=== PATIENT | female | born 1930 | race Caucasian/White ===

== ENCOUNTER 2016-09-29 15:49 | Inpatient (IN) | payer BC ==
[2016-09-29] VITALS (7 sets, daily range): BP systolic 91–140; BP diastolic 51–69
[~2016-09-29] VITALS: Ht 157.5 cm; Wt 60.8 kg
[2016-09-29] MEDS ORDERED: IV NORMAL SALINE 1000ML BAG 1,000 ML IV ONE (16:15)
[2016-09-29] MEDS ORDERED: ONDANSETRON PF 4 MG/2 ML VIAL. IV ONE (16:15)
[2016-09-29] MEDS: fentaNYL PF VIAL 100 MCG/2 ML VIAL IV PRN ×2 (16:31→21:48)
[2016-09-29 16:34] LABS: BASO # 0.1 x10^3/uL (0.0-0.2); BASO % 0 % (0-3); EOS % 0 % (0-3); HEMATOCRIT 31.1 % (36.0-47.0); HEMOGLOBIN 10.6 g/dL (12.0-15.5); LYMPH # 0.6 x10^3/uL (1.0-4.8); LYMPH % 2 % (24-48); MEAN CORPUSCULAR HEMOGLOBIN 31 pg (25-35); MEAN CORPUSCULAR HGB CONC 34 g/dL (31-37); MEAN CORPUSCULAR VOLUME 91 fL (79-100); MONO % 3 % (0-9); NEUT % 95 % (31-73); PLATELET COUNT 204 x10^3/uL (140-400); RED BLOOD COUNT 3.41 x10^6/uL (3.50-5.40); RED CELL DISTRIBUTION WIDTH 13.1 % (11.5-14.5); WHITE BLOOD COUNT 33.4 x10^3/uL (4.0-11.0)
[2016-09-29 16:43] LABS: CREATININE 2.4 mg/dL (0.6-1.0); GFR 19.2; POTASSIUM 4.9 mmol/L (3.5-5.1)
[2016-09-29 16:49] LABS: ALBUMIN 2.8 g/dL (3.4-5.0); ALBUMIN/GLOBULIN RATIO 0.7 (1.0-1.7); TOTAL BILIRUBIN 2.7 mg/dL (0.2-1.0); TOTAL PROTEIN 6.9 g/dL (6.4-8.2)
[2016-09-29 16:51] LABS: BILIRUBIN,URINE SMALL (NEG); GLUCOSE,URINE NEGATIVE (NEG); NITRITE,URINE NEGATIVE (NEG); PROTEIN,URINE NEGATIVE (NEG-TRACE)
--- NOTE | 2016-09-29 16:57 | ED.ADGEN ---
Past Medical History Past Medical History: Cancer, Hypertension, Renal Disease, TIA, Other Additional Past Medical Histor: COLON CA 2012 Past Surgical History: Appendectomy, Cancer Surgery, Hysterectomy Alcohol Use: None Drug Use: None Adult General Chief Complaint Chief Complaint: WEAKNESS/GENERALIZED HPI HPI Patient is a 86 year old woman, history of colon cancer, status post resection in 2013, hypertension, renal disease, TIA, who presents to the emergency department with her daughter via EMS with report of decreasing appetite, development of nausea and vomiting and abdominal pain over the past several days. Patient was unable to get out of bed today due to weakness, prompting patient's daughter calling EMS. Patient is denying complaints in the ED, however groans with palpation of the abdomen. Denies any diarrhea, cannot recall her last bowel movement. Patient's daughter states that the patient has had a gradual decline in her function and mental clarity over the past year or so, which has been exacerbated over the past month after the of the patient's brother. Patient does live alone, and is assisted by her daughter, who lives a few blocks away. Patient states that she is at the doctor's office, is able to give her name. Per daughter, this is baseline for the patient. Patient is moving all extremities, as stated is denying complaints at this time , noted have dry mucous membranes. No reported injuries, and patient has no signs of trauma. As far as the daughter is aware patient still has her gallbladder and appendix. Review of Systems Review of Systems Constitutional: Denies fever or chills. [] Eyes: Denies change in visual acuity. [] HENT: Denies nasal congestion or sore throat. [] Respiratory: Denies cough or shortness of breath. [] Cardiovascular: Denies chest pain or edema. [] GI: Nausea, vomiting, abdominal pain. No reported bloody stools or diarrhea. : Denies dysuria. [] Musculoskeletal: Denies back pain or joint pain. [] Integument: Denies rash. [] Neurologic: Denies headache, focal weakness or sensory changes. [] Endocrine: Denies polyuria or polydipsia. [] Lymphatic: Denies swollen glands. [] Psychiatric: Denies depression or anxiety. [] Current Medications Current Medications Current Medications Medications (Trade) Dose Ordered Sig/Bill Start Time Stop Time Status Last Admin Dose Admin Fentanyl Citrate (Fentanyl 2ml Vial) 25 mcg PRN Q15MIN PRN 09/29/16 16:15 09/30/16 16:14 09/29/16 16:31 25 MCG Ondansetron HCl (Zofran) 4 mg 1X ONCE 09/29/16 16:15 09/29/16 16:16 DC 09/29/16 16:31 4 MG Piperacillin Sod/ Tazobactam Sod (Zosyn Per Pharmacy) 1 each PRN DAILY PRN 09/29/16 18:30 UNV Sodium Chloride 1,000 ml @ 1,770 mls/hr Q34M 09/29/16 17:20 09/29/16 18:21 DC 09/29/16 17:20 1,770 MLS/HR Allergies Allergies Allergies Coded Allergies Type Severity Reaction Last Updated Verified meclizine Allergy Intermediate Swelling 09/29/16 Yes codeine Adverse Reaction Intermediate Nausea and Vomiting 09/29/16 Yes Physical Exam Physical Exam Constitutional: Well developed, well nourished, no acute distress, ill in appearance. [] HENT: Normocephalic, atraumatic, bilateral external ears normal, dry mucous membranes, no oral exudates, nose normal. [] Eyes: PERRLA, EOMI, conjunctiva normal, no discharge. [] Neck: Normal range of motion, no tenderness, supple, no stridor. [] Cardiovascular:Heart rate regular rhythm, no murmur, S1, S2, soft heart sounds, mildly tachycardic. [] Lungs & Thorax: Diminished breath sounds at bases bilaterally, no wheezing, rhonchi, rales. No chest wall crepitus or tenderness. [] Abdomen: Bowel sounds present in all 4 quadrants, soft, patient with diffuse tenderness throughout the abdomen, positive for voluntary guarding, no rebound or rigidity, noted have well-healed surgical incisions on the right abdomen,, no masses, no pulsatile masses. [] Skin: Warm, dry, no erythema, no rash. Poor skin turgor. Back: No tenderness, no CVA tenderness. [] Extremities: No tenderness, no cyanosis, no clubbing, ROM intact, no edema. [] Neurologic: Alert and oriented X 2, normal motor function, normal sensory function, no focal deficits noted. Is at baseline until status per family report. [] Psychologic: Affect normal, judgement normal, mood normal. [] Current Patient Data Vital Signs Vital Signs Date Time Temp Pulse Resp B/P (MAP) Pulse Ox O2 Delivery O2 Flow Rate FiO2 09/29/16 18:24 90 22 111/54 (73) 96 Room Air 09/29/16 16:01 99.1 99.1 Lab Values Laboratory Tests Test 09/29/16 16:20 09/29/16 16:40 White Blood Count 33.4 x10^3/uL (4.0-11.0) H Red Blood Count 3.41 x10^6/uL (3.50-5.40) L Hemoglobin 10.6 g/dL (12.0-15.5) L Hematocrit 31.1 % (36.0-47.0) L Mean Corpuscular Volume 91 fL (79-100) Mean Corpuscular Hemoglobin 31 pg (25-35) Mean Corpuscular Hemoglobin Concent 34 g/dL (31-37) Red Cell Distribution Width 13.1 % (11.5-14.5) Platelet Count 204 x10^3/uL (140-400) Neutrophils (%) (Auto) 95 % (31-73) H Lymphocytes (%) (Auto) 2 % (24-48) L Monocytes (%) (Auto) 3 % (0-9) Eosinophils (%) (Auto) 0 % (0-3) Basophils (%) (Auto) 0 % (0-3) Neutrophils # (Auto) 31.8 x10^3uL (1.8-7.7) H Lymphocytes # (Auto) 0.6 x10^3/uL (1.0-4.8) L Monocytes # (Auto) 0.9 x10^3/uL (0.0-1.1) Eosinophils # (Auto) 0.0 x10^3/uL (0.0-0.7) Basophils # (Auto) 0.1 x10^3/uL (0.0-0.2) Segmented Neutrophils % 62 % (35-66) Band Neutrophils % 28 % (0-9) H Lymphocytes % 3 % (24-48) L Metamyelocytes % 7 % (0-0) H Toxic Granulation Slight Toxic Vacuolation Slight Platelet Estimate Adequate (ADEQUATE) Sodium Level 139 mmol/L (136-145) Potassium Level 4.9 mmol/L (3.5-5.1) Chloride Level 103 mmol/L (98-107) Carbon Dioxide Level 23 mmol/L (21-32) Anion Gap 13 (6-14) Blood Urea Nitrogen 76 mg/dL (7-20) H Creatinine 2.4 mg/dL (0.6-1.0) H Estimated GFR (Cockcroft-Gault) 19.2 BUN/Creatinine Ratio 32 (6-20) H Glucose Level 121 mg/dL (70-99) H Lactic Acid Level 3.9 mmol/L (0.4-2.0) H Calcium Level 11.0 mg/dL (8.5-10.1) H Magnesium Level 1.0 mg/dL (1.8-2.4) L Total Bilirubin 2.7 mg/dL (0.2-1.0) H Aspartate Amino Transferase (AST) 77 U/L (15-37) H Alanine Aminotransferase (ALT) 65 U/L (14-59) H Alkaline Phosphatase 139 U/L (46-116) H Total Protein 6.9 g/dL (6.4-8.2) Albumin 2.8 g/dL (3.4-5.0) L Albumin/Globulin Ratio 0.7 (1.0-1.7) L Lipase 64 U/L (73-393) L Urine Collection Type Unknown Urine Color Natasha Urine Clarity Clear Urine pH 5.0 Urine Specific Carney 1.015 Urine Protein Negative mg/dL (NEG-TRACE) Urine Glucose (UA) Negative mg/dL (NEG) Urine Ketones (Stick) Negative mg/dL (NEG) Urine Blood Negative (NEG) Urine Nitrite Negative (NEG) Urine Bilirubin Small (NEG) Urine Urobilinogen Dipstick 1.0 mg/dL (0.2 mg/dL) Urine Leukocyte Esterase Trace (NEG) Urine RBC Occ /HPF (0-2) Urine WBC 1-4 /HPF (0-4) Urine Squamous Epithelial Cells Mod /LPF Urine Amorphous Sediment Present /HPF Urine Bacteria Few /HPF (0-FEW) Urine Hyaline Casts Few /HPF Urine Mucus Slight /LPF Laboratory Tests 09/29/16 16:20 Laboratory Tests 09/29/16 16:20 EKG EKG EC: Sinus tachycardia, heart rate 107 bpm, low limb lead voltage, upright axis, QTC of 416, MN of 166, QRS of 76, no ST elevations or depressions , contour normality is noted in the inferior leads, and lateral leads, abnormal ECG, does not meet STEMI criteria. As interpreted by me. [] Radiology/Procedures Radiology/Procedures [][facility] [address] [place] [address] IMAGING REPORT Signed PATIENT: BARBIE BELLA ACCOUNT: [id number] : 1930 LOCATION: ER AGE: 86 SEX: F EXAM STATUS: REG ER ORD. PHYSICIAN: ZAKI MCCONNELL DO REASON: abd pain/n/v PROCEDURE: CT ABDOMEN PELVIS WO CONTRAST Examination: CT of the abdomen and pelvis without contrast HISTORY: History of abdominal pain, nausea, vomiting COMPARISON: None available TECHNIQUE: Axial CT images of the abdomen is performed without contrast. Coronal and sagittal reformats were performed Exposure: One or more of the following individualized dose reduction techniques were utilized for this examination: 1. Automated exposure control 2. Adjustment of the mA and/or kV according to patient size 3. Use of iterative reconstruction technique. Findings: Minimal bibasilar lung atelectasis. No evidence of free air identified in the abdomen. The evaluation of solid organs is limited due to lack of IV contrast. The evaluation of bowel is limited lack of oral contrast. The visualized noncontrasted liver, spleen, adrenals grossly appears unremarkable Streak artifact limits examination of the upper abdomen The gallbladder is moderately distended. The common bile duct is dilated measuring up to 2 cm in transverse dimension. There is a small hypodensity identified in the distal common bile duct measuring 9 mm probably choledocholithiasis. The pancreas is mildly atrophic. The stomach is mildly distended. The small bowel is nondilated. Feces and gas noted throughout the colon. Multiple sigmoid colon diverticulosis. Sagittal changes identified in the right lower quadrant of the abdomen. Moderate aortic atherosclerosis. Punctate 2 mm calculus identified in the left kidney. No evidence of hydronephrosis. Urinary bladder is mildly distended. Small amount of air identified in the urinary bladder. Severe degenerative changes lumbar spine. IMPRESSION: 1. Moderately distended gallbladder with dilated appearing common bile duct , with the common bile duct measuring up to 2 cm in diameter. There is a 9 mm density identified in the distal common bile duct probably choledocholithiasis. Correlate with liver function tests. 2. Small amount of air identified in the urinary bladder could be due to recent dislocation or cystitis. 3. Multiple sigmoid colon diverticulosis. 4. Punctate 2 mm calculus in the left kidney. Electronically signed by: Vish Sam MD (09/29/2016 5:47 PM) DICTATED and SIGNED BY: VISH SAM MD DATE: 09/29/16 563 CC: ZAKI MCCONNELL DO; ERIBERTO SANCHEZ DO ~ Course & Med Decision Making Course & Med Decision Making Pertinent Labs and Imaging studies reviewed. (See chart for details) Patient mildly tachycardic, heart rate in the low 100s, blood pressure is 120s over 70s, oxygen saturation is in the upper 90s on room air, respiratory rate is unlabored. Temperature is 99.1 orally. Patient appears to be significantly dehydrated, with poor skin turgor and dry mucous membranes. She has received Zofran en route to the ED, with resolution of nausea at this time. Discussion with patient and daughter at bedside, they are agreeable for proceeding with CT of the abdomen and pelvis to further elucidate her abdominal symptoms, especially with her history of colon cancer, and resection, and laboratory studies. Chest x-ray also obtained. Chest x-ray was unremarkable, laboratory studies reveal a leukocytosis of 33, with 28% bands, creatinine of 2.4, with a blood urea nitrogen of 76, consistent with significant dehydration, and a lactic acidosis of 3.9. LFTs are elevated, patient has a total bilirubin of 2.7. No laboratory studies available for comparison. Patient was receiving normal saline at 75 miles an hour, she had received 600 mL en route to the ED, an additional 5 her cc bolus, additionally then received fluids at 182 and also an hour, to provide her with a 30 mL/kg fluid resuscitation per sepsis protocol. Blood pressures remained 1 teens over 50s and 60s, heart rate is now in the 80s and 90s. She remains afebrile. CT of the abdomen reveals distention of the gallbladder, with dilatation of the common bile duct, and a 9 mm presumed stone at the distal, bile duct. Findings are consistent with choledocholithiasis, and possible ascending cholangitis. Patient was initiated on Zosyn per pharmacy. I did discuss findings as above with patient and daughter at bedside, patient is agreeable for admission to the hospital for treatment with IV antibiotics, fluid resuscitation, symptom management, and evaluation by GI and surgery. She is DNR DNI. Patient's daughter is her healthcare proxy, she is in agreement with these decisions, and has the patient' s advanced directive. I did discuss findings as above with Dr. Sotelo of general surgery, and Dr. Boland of GI. At this time plan is to continue resuscitation of the patient, to monitor closely in the ICU, with plan to potentially perform ERCP in the morning, with general surgery consultation as stated. Findings as above discussed with Dr. Reece of internal medicine, patient accepted to her service as a full admission to the ICU with plan and consultations as above. Bridge orders entered per discussion. Dragon Disclaimer Dragon Disclaimer This electronic medical record was generated, in whole or in part, using a voice recognition dictation system. Departure Impression: Primary Impression: Choledocholithiasis with acute cholecystitis with obstruction Additional Impressions: Cholangitis due to bile duct calculus with obstruction Sepsis Leukocytosis Lactic acidosis Disposition: 09 ADMITTED INPATIENT Admitting Physician: Bharti Reece Condition: IMPROVED Problem Qualifiers ZAKI MCCONNELL DO Sep 29, 2016 16:57
[2016-09-29 17:04] LABS: BACTERIA,URINE FEW /HPF (0-FEW); RBC,URINE OCC /HPF (0-2); SQUAMOUS EPITHELIAL CELL,UR MOD /LPF
[2016-09-29] MEDS ORDERED: IV NORMAL SALINE 1000ML BAG 1,000 ML IV SCH (17:20)
[2016-09-29 17:38] LABS: PLT ESTIMATE ADEQUATE (ADEQUATE)
[2016-09-29 17:39] LABS: TOXIC GRANULATION SLIGHT; TOXIC VACUOLATION SLIGHT
--- NOTE | 2016-09-29 17:50 | RAD ---
Examination: CT of the abdomen and pelvis without contrast HISTORY: History of abdominal pain, nausea, vomiting COMPARISON: None available TECHNIQUE: Axial CT images of the abdomen is performed without contrast. Coronal and sagittal reformats were performed Exposure: One or more of the following individualized dose reduction techniques were utilized for this examination: 1. Automated exposure control 2. Adjustment of the mA and/or kV according to patient size 3. Use of iterative reconstruction technique. Findings: Minimal bibasilar lung atelectasis. No evidence of free air identified in the abdomen. The evaluation of solid organs is limited due to lack of IV contrast. The evaluation of bowel is limited lack of oral contrast. The visualized noncontrasted liver, spleen, adrenals grossly appears unremarkable Streak artifact limits examination of the upper abdomen The gallbladder is moderately distended. The common bile duct is dilated measuring up to 2 cm in transverse dimension. There is a small hypodensity identified in the distal common bile duct measuring 9 mm probably choledocholithiasis. The pancreas is mildly atrophic. The stomach is mildly distended. The small bowel is nondilated. Feces and gas noted throughout the colon. Multiple sigmoid colon diverticulosis. Sagittal changes identified in the right lower quadrant of the abdomen. Moderate aortic atherosclerosis. Punctate 2 mm calculus identified in the left kidney. No evidence of hydronephrosis. Urinary bladder is mildly distended. Small amount of air identified in the urinary bladder. Severe degenerative changes lumbar spine. IMPRESSION: 1. Moderately distended gallbladder with dilated appearing common bile duct , with the common bile duct measuring up to 2 cm in diameter. There is a 9 mm density identified in the distal common bile duct probably choledocholithiasis. Correlate with liver function tests. 2. Small amount of air identified in the urinary bladder could be due to recent dislocation or cystitis. 3. Multiple sigmoid colon diverticulosis. 4. Punctate 2 mm calculus in the left kidney. Electronically signed by: Vish Sam MD (09/29/2016 5:47 PM)
[2016-09-29] MEDS ORDERED: PIP/TAZO PER PHARMACY MC PRN (18:30)
[2016-09-29] MEDS ORDERED: PIPERACILLIN/TAZOBACTAM 2.25 GM in IV NORMAL SALINE 50ML 50 ML IV ONE (18:45)
[2016-09-29] MEDS ORDERED: ONDANSETRON PF 4 MG/2 ML VIAL. IV PRN ×2 (19:15→19:42)
[2016-09-29] MEDS ORDERED: fentaNYL PF VIAL 100 MCG/2 ML VIAL IV PRN (19:15)
[2016-09-29] MEDS ORDERED: ACETAMINOPHEN 325 MG TABLET. PO PRN (19:15)
[2016-09-29] MEDS ORDERED: NICOTINE 21MG PATCH. TD PRN (19:45)
--- NOTE | 2016-09-29 19:55 | PDOC1 ---
History and Physical Date of Admission Date of Admission DATE: 09/29/16 TIME: 19:43 Identification/Chief Complaint Chief Complaint cant get up, wont eat, more confused Problems: Source Source: Caregiver, Chart review, Patient History of Present Illness History of Present Illness 86 y.o female, who lives at home and dtr at bedside who is the dpoa and takes care of her, dtr claims for the past few weeks, dec PO, weak, getting more confused, Today, emesis and dtr could not get her out of bed hence called EMS, EMS recorded a temp, at ER, WBC 22, CREat 2.4, Tachycardic (better with IVF ), lactate 3.9, ca 11.0 - looks very dry. Mag 1.0. Really did ot complain much of abd pain but CT abd shows inflammed GB with dilated CBD to 2 cms and 9mm stone,. SOme diverticulosis but no itis, incidental left non obstructing renal calculi, cystitis, Also chronic hx ventral hernia,. PCP Dr. Chavez Dtr aware/updated of current ER findings, Both GI and gS consulted and aware of her case, planned for ERCP rubi. Pt is DNR/DNI REts of labs: LFts 70s, alk phosp 130s, platelets ok, hgb pk, not on blood thinners Awaiting rest of home meds HEAVY smoker, 2 packs a day No known cardiac dse, But does have COPD per dtr - pt non wheezy and in no respi distress. Pt reports near fall few weeks ago, but no obvious injuries, but since then has been declining, She hit both knees against a furniture, at a 90 degree angle. Past Medical History Pulmonary: Bronchitis, COPD Past Surgical History Past Surgical History: No pertinent history Family History Family History: Hypertension Social History Smoke: 2 packs per day ALCOHOL: none Drugs: None Current Problem List Problem List Problems Medical Problems: (1) Cholangitis due to bile duct calculus with obstruction Status: Acute (2) Choledocholithiasis with acute cholecystitis with obstruction Status: Acute (3) Lactic acidosis Status: Acute (4) Leukocytosis Status: Acute (5) Sepsis Status: Acute Problems: Current Medications Current Medications Current Medications Ondansetron HCl (Zofran) 4 mg 1X ONCE IV Last administered on 09/29/16t 16:31; Start 09/29/16 at 16:15; Stop 09/29/16 at 16:16; Status DC Fentanyl Citrate (Fentanyl 2ml Vial) 25 mcg PRN Q15MIN PRN IV PAIN GREATER THAN 3/10 Last administered on 09/29/16 16:31; Start 09/29/16 at 16:15; Stop 09/30 at 16:14 Sodium Chloride 1,000 ml @ 75 mls/hr 1X ONCE IV Last administered on 16:31; Start 09/29/16 at 16:15; Stop 09/29/16 at 17:37; Status DC Sodium Chloride 1,000 ml @ 1,770 mls/hr Q34M IV Last administered on 09/29/16 17:20; Start 09/29/16 at 17:20; Stop 09/29/16 at 18:21; Status DC Piperacillin Sod/ Tazobactam Sod (Zosyn Per Pharmacy) 1 each PRN DAILY PRN MC SEE COMMENTS; Start 09/29/16 at 18:30; Status UNV Piperacillin Sod/ Tazobactam Sod 2.25 gm/Sodium Chloride 50 ml @ 100 mls/hr 1X ONCE IV Last administered on 09/29/16 18:55; Start 09/29/16 at 18:45; Stop 09/29/16 at 19:14; Status DC Ondansetron HCl (Zofran) 4 mg PRN Q8HRS PRN IV NAUSEA/VOMITING; Start 09/29/16 at 19:15; Stop 09/30/16 at 19:14 Fentanyl Citrate (Fentanyl 2ml Vial) 25 mcg PRN Q1HR PRN IV PAIN; Start at 19:15; Stop 09/30/16 at 19:14 Sodium Chloride 1,000 ml @ 125 mls/hr Q8H IV ; Start 09/29/16 at 19:02; Stop 09/30/16 at 19:01 Acetaminophen (Tylenol) 650 mg PRN Q4HRS PRN PO FEVER; Start 09/29/16 at 19:15; Stop 09/30/16 at 19:14 Allergies Allergies: Coded Allergies: meclizine (Verified Allergy, Intermediate, Swelling, 09/29/16) codeine (Verified Adverse Reaction, Intermediate, Nausea and Vomiting, 09/29) ROS Review of System cant fully assess, in discomfort, slightly confused - needed to say 4x she is in the hospital Physical Exam General: Alert, Cooperative, No acute distress, mild distress, Other (in discomfort but no distress) HEENT: Atraumatic, PERRLA Lungs: Normal air movement Heart: S1S2, RRR, no thrills, no rubs, no gallops, no murmurs, other (sinus tachy low 100s) Breasts: Normal Abdomen: Soft, Other (mild to mod tenderness RUQ and RLQ area) Rectal Exam: not examined PELVIC: Nml ext genitalia Extremities: No clubbing, No cyanosis, No edema, Normal pulses, No tenderness/ swelling Skin: No rashes, No breakdown, No significant lesion Neuro: Normal gait, Normal speech, Strength at 5/5 X4 ext, Normal tone, Sensation intact, Cranial nerves 3-12 NL, Reflexes 2+ Psych/Mental Status: Mental status NL, Mood NL Vitals Vitals Vital Signs Date Time Temp Pulse Resp B/P (MAP) Pulse Ox O2 Delivery O2 Flow Rate FiO2 09/29/16 18:24 90 22 111/54 (73) 96 Room Air 09/29/16 16:01 99.1 99.1 Labs Labs Laboratory Tests Test 09/29/16 16:20 09/29/16 16:40 White Blood Count 33.4 x10^3/uL (4.0-11.0) Red Blood Count 3.41 x10^6/uL (3.50-5.40) Hemoglobin 10.6 g/dL (12.0-15.5) Hematocrit 31.1 % (36.0-47.0) Mean Corpuscular Volume 91 fL (79-100) Mean Corpuscular Hemoglobin 31 pg (25-35) Mean Corpuscular Hemoglobin Concent 34 g/dL (31-37) Red Cell Distribution Width 13.1 % (11.5-14.5) Platelet Count 204 x10^3/uL (140-400) Neutrophils (%) (Auto) 95 % (31-73) Lymphocytes (%) (Auto) 2 % (24-48) Monocytes (%) (Auto) 3 % (0-9) Eosinophils (%) (Auto) 0 % (0-3) Basophils (%) (Auto) 0 % (0-3) Neutrophils # (Auto) 31.8 x10^3uL (1.8-7.7) Lymphocytes # (Auto) 0.6 x10^3/uL (1.0-4.8) Monocytes # (Auto) 0.9 x10^3/uL (0.0-1.1) Eosinophils # (Auto) 0.0 x10^3/uL (0.0-0.7) Basophils # (Auto) 0.1 x10^3/uL (0.0-0.2) Segmented Neutrophils % 62 % (35-66) Band Neutrophils % 28 % (0-9) Lymphocytes % 3 % (24-48) Metamyelocytes % 7 % (0-0) Toxic Granulation Slight Toxic Vacuolation Slight Platelet Estimate Adequate (ADEQUATE) Sodium Level 139 mmol/L (136-145) Potassium Level 4.9 mmol/L (3.5-5.1) Chloride Level 103 mmol/L (98-107) Carbon Dioxide Level 23 mmol/L (21-32) Anion Gap 13 (6-14) Blood Urea Nitrogen 76 mg/dL (7-20) Creatinine 2.4 mg/dL (0.6-1.0) Estimated GFR (Cockcroft-Gault) 19.2 BUN/Creatinine Ratio 32 (6-20) Glucose Level 121 mg/dL (70-99) Lactic Acid Level 3.9 mmol/L (0.4-2.0) Calcium Level 11.0 mg/dL (8.5-10.1) Magnesium Level 1.0 mg/dL (1.8-2.4) Total Bilirubin 2.7 mg/dL (0.2-1.0) Aspartate Amino Transf (AST/SGOT) 77 U/L (15-37) Alanine Aminotransferase (ALT/SGPT) 65 U/L (14-59) Alkaline Phosphatase 139 U/L (46-116) Total Protein 6.9 g/dL (6.4-8.2) Albumin 2.8 g/dL (3.4-5.0) Albumin/Globulin Ratio 0.7 (1.0-1.7) Lipase 64 U/L (73-393) Urine Collection Type Unknown Urine Color Natasha Urine Clarity Clear Urine pH 5.0 Urine Specific [place] 1.015 Urine Protein Negative mg/dL (NEG-TRACE) Urine Glucose (UA) Negative mg/dL (NEG) Urine Ketones (Stick) Negative mg/dL (NEG) Urine Blood Negative (NEG) Urine Nitrite Negative (NEG) Urine Bilirubin Small (NEG) Urine Urobilinogen Dipstick 1.0 mg/dL (0.2 mg/dL) Urine Leukocyte Esterase Trace (NEG) Urine RBC Occ /HPF (0-2) Urine WBC 1-4 /HPF (0-4) Urine Squamous Epithelial Cells Mod /LPF Urine Amorphous Sediment Present /HPF Urine Bacteria Few /HPF (0-FEW) Urine Hyaline Casts Few /HPF Urine Mucus Slight /LPF Laboratory Tests Test 09/29/16 16:20 09/29/16 16:40 White Blood Count 33.4 x10^3/uL (4.0-11.0) Red Blood Count 3.41 x10^6/uL (3.50-5.40) Hemoglobin 10.6 g/dL (12.0-15.5) Hematocrit 31.1 % (36.0-47.0) Mean Corpuscular Volume 91 fL (79-100) Mean Corpuscular Hemoglobin 31 pg (25-35) Mean Corpuscular Hemoglobin Concent 34 g/dL (31-37) Red Cell Distribution Width 13.1 % (11.5-14.5) Platelet Count 204 x10^3/uL (140-400) Neutrophils (%) (Auto) 95 % (31-73) Lymphocytes (%) (Auto) 2 % (24-48) Monocytes (%) (Auto) 3 % (0-9) Eosinophils (%) (Auto) 0 % (0-3) Basophils (%) (Auto) 0 % (0-3) Neutrophils # (Auto) 31.8 x10^3uL (1.8-7.7) Lymphocytes # (Auto) 0.6 x10^3/uL (1.0-4.8) Monocytes # (Auto) 0.9 x10^3/uL (0.0-1.1) Eosinophils # (Auto) 0.0 x10^3/uL (0.0-0.7) Basophils # (Auto) 0.1 x10^3/uL (0.0-0.2) Segmented Neutrophils % 62 % (35-66) Band Neutrophils % 28 % (0-9) Lymphocytes % 3 % (24-48) Metamyelocytes % 7 % (0-0) Toxic Granulation Slight Toxic Vacuolation Slight Platelet Estimate Adequate (ADEQUATE) Sodium Level 139 mmol/L (136-145) Potassium Level 4.9 mmol/L (3.5-5.1) Chloride Level 103 mmol/L (98-107) Carbon Dioxide Level 23 mmol/L (21-32) Anion Gap 13 (6-14) Blood Urea Nitrogen 76 mg/dL (7-20) Creatinine 2.4 mg/dL (0.6-1.0) Estimated GFR (Cockcroft-Gault) 19.2 BUN/Creatinine Ratio 32 (6-20) Glucose Level 121 mg/dL (70-99) Lactic Acid Level 3.9 mmol/L (0.4-2.0) Calcium Level 11.0 mg/dL (8.5-10.1) Magnesium Level 1.0 mg/dL (1.8-2.4) Total Bilirubin 2.7 mg/dL (0.2-1.0) Aspartate Amino Transf (AST/SGOT) 77 U/L (15-37) Alanine Aminotransferase (ALT/SGPT) 65 U/L (14-59) Alkaline Phosphatase 139 U/L (46-116) Total Protein 6.9 g/dL (6.4-8.2) Albumin 2.8 g/dL (3.4-5.0) Albumin/Globulin Ratio 0.7 (1.0-1.7) Lipase 64 U/L (73-393) Urine Collection Type Unknown Urine Color Natasha Urine Clarity Clear Urine pH 5.0 Urine Specific [place] 1.015 Urine Protein Negative mg/dL (NEG-TRACE) Urine Glucose (UA) Negative mg/dL (NEG) Urine Ketones (Stick) Negative mg/dL (NEG) Urine Blood Negative (NEG) Urine Nitrite Negative (NEG) Urine Bilirubin Small (NEG) Urine Urobilinogen Dipstick 1.0 mg/dL (0.2 mg/dL) Urine Leukocyte Esterase Trace (NEG) Urine RBC Occ /HPF (0-2) Urine WBC 1-4 /HPF (0-4) Urine Squamous Epithelial Cells Mod /LPF Urine Amorphous Sediment Present /HPF Urine Bacteria Few /HPF (0-FEW) Urine Hyaline Casts Few /HPF Urine Mucus Slight /LPF VTE Prophylaxis Ordered VTE Prophylaxis Devices: Yes VTE Pharmacological Prophylaxi: Yes Assessment/Plan Assessment/Plan 1. Cholecystitis with choledocholithiasis need to WOF ascending cholangitis 2. ELevated LFTS and alkaline phosphatase 3. MARIO sec to poor PO 4. SEPSIS with elevated lactate, WBC and fevers and tachycardia 5. Sinus tachycardia 6. Chronic ventral hernia 7. Incidental left non obstructing renal calculi, diverticulosis, cystitis 8. Critical hypomagnesemia 9. Hypercalcemia in faisal backgroun of dehydration/poor pO 10. 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 Geriatric, recent fall, frailty 12. Mod to severe PCM 12. DNR/DNI PLAN: Admit ICU Hook tele IV zosyn GI and GS consults Planned for ERCP rubi Aggressive iVF, pain control, NPO Follow BC drawn at ET Insert tello - done I and O Recheck mag and lactate rubi MAg suklfate 4 gms now DVT prophy heparin SQ Recheck creat rubi MOnitor LFTs - should come down once obstrxn relieved TYlenol for fever CAlcium should go down with hydration DNR/DNI CC 34 mins, seen at ER 18 Dw ER MD and SOCKET PULLER and dtr ROBERTO REDMAN MD Sep 29, 2016 19:55
[2016-09-29] MEDS ORDERED: MAGNESIUM SULFATE 4GM 100 ML IV ONE (20:00)
[2016-09-29] MEDS: IV NORMAL SALINE 1000ML BAG 1,000 ML IV SCH (20:30)
[2016-09-29] MEDS: FAMOTIDINE 20 MG/2 ML VIAL IVP SCH (21:49)
[2016-09-29] MEDS: HEPARIN PF for SUB-Q USE 5,000 UNIT/0.5 ML VIAL. SQ SCH (21:50)
[2016-09-30] VITALS (21 sets, daily range): BP systolic 94–151; BP diastolic 39–79
--- NOTE | 2016-09-30 00:45 | ACF ---
Admission Forms Criteria GALLBLADDER OR BILE DUCT INFLAMMATION OR STONE Clinical Indications for Admission to Inpatient Care ( Place 'X' for any and all applicable criteria): Admission is indicated for patients with ANY ONE of the following(1)(2)(3)(4)(5) : [ ]I. Acute cholecystitis as indicated by ALL of the following: [ ]a) Right upper quadrant pain, mass, or tenderness [ ]b) Systemic signs of inflammation indicated by ANY ONE of the following: [ ]i) Fever [ ]ii) C-reactive protein level greater than 10 mg/L (95 nmol/L) [ ]iii) White blood cell count greater than 10,000/mm3 (10 x109/L) or less than 4000/mm3 (4 x109/L) [X]II. Inpatient admission required rather than observation care (Also use Gallbladder or Bile Duct Inflammation or Stone: Observation Care as appropriate) because of ANY ONE of the following: [ ]a) Common bile duct obstruction diagnosed [ ]b) Vomiting that is severe or persistent [ ]c) Severe pain requiring acute inpatient management [ ]d) Signs of intestinal obstruction or peritonitis [A] [ ]e) Severe electrolyte abnormalities requiring inpatient care [ ]f) Absent bowel sounds with complete ileus(8) [ ]g) Hemodynamic instability [ ]h) High fever or infection requiring inpatient admission as indicated by ANY ONE of the following (9): [ ]1) Appropriate outpatient or observation care antimicrobial Treatment. unavailable, not effective, or not feasible [ ]2) Temperature greater than 104.9 degrees F (40.5 degrees C) (oral) [ ]3) Temperature greater than 103.1 degrees F (39.5 degrees C) (oral) or less than 96.8 degrees F (36 degrees C) (rectal) that does not respond to all emergency treatment measures [ ]4) Documented bacteremia [ ]i) IV fluid to replace significant ongoing losses (greater than 3 L/m2 per day) [ ]j) Percutaneous or open drainage (eg, abscess, biliary tract) procedures [ ]k) Immediate inpatient surgery [X]l) Other condition, treatment or monitoring requiring inpatient admission [ ]III. Acute cholangitis as indicated by ALL of the following(9)(10): [ ]a) Systemic signs of inflammation indicated by ANY ONE of the following: [ ]i) Fever [ ]ii) C-reactive protein level greater than 10 mg/L (95 nmol /L) [ ]iii) White blood cell count greater than 10,000/mm3 (10 x109/L) or less than 4000/mm3 (4 x109/L) [ ]b) Evidence of common bile duct disease indicated by ANY ONE of the following: [ ]i) Total serum bilirubin level greater than or equal to 2 mg/dL (34 micromoles/L) [ ]ii) Liver function test (alkaline phosphatase (ALP), r- glutamyltransferase (GGT), aspartate aminotransferase (AST), or alanine aminotransferase (ALT)) greater than 1.5 times the upper limit of normal[B] [ ]iii) Hepatobiliary imaging showing biliary dilatation or evidence of etiology (eg, stricture, stone, previously placed stent) Extended stay beyond goal length of stay may be needed for (1)(2)): [ ]a) Bacteremia or Hemodynamic instability [ ]b) Cholecystectomy [ ]c) Other surgical procedure(24) [ ]d) Percutaneous or endoscopic ultrasound-guided cholecystostomy The original [facility] content created by [email or web address] has been revised. The portions of the content which have been revised are identified through the use of italic text or in bold, and [facility] has neither reviewed nor approved the modified material. All other unmodified content is copyright [facility]. Please see references footnoted in the original [email or web address] edition 2016 Admission Criteria Met?: Yes LALA ESPINOZA Sep 30, 2016 00:45
[2016-09-30] MEDS: IV NORMAL SALINE 1000ML BAG 1,000 ML IV SCH ×2 (03:46→13:27)
[2016-09-30] MEDS: PIPERACILLIN/TAZOBACTAM 2.25 GM in IV NORMAL SALINE 50ML 50 ML IV SCH ×3 (05:33→21:13)
[2016-09-30] MEDS: HEPARIN PF for SUB-Q USE 5,000 UNIT/0.5 ML VIAL. SQ SCH ×3 (05:38→21:19)
--- NOTE | 2016-09-30 06:07 | EKG ---
[facility] [address] [place] [address] Test Date: 2016-09-29 Test Time: 16:01:57 Pat Name: BARBIE BELLA Department: Room: Gender: F Retention Representative: : [id number] Requested By: ZAKI MCCONNELL Order Number: [id number] Reading MD: Measurements Intervals [place] Rate: 107 P: 0 GA: 166 QRS: 10 QRSD: 76 T: 70 QT: 308 QTc: 416 Interpretive Statements SINUS TACHYCARDIA LOW LIMB LEAD VOLTAGE T ABNORMALITY IN HIGH LATERAL LEADS RI6.01 Unconfirmed report No previous ECG available for comparison
[2016-09-30 06:51] LABS: BASO % 0 % (0-3); EOS % 0 % (0-3); HEMATOCRIT 28.1 % (36.0-47.0); HEMOGLOBIN 9.4 g/dL (12.0-15.5); LYMPH # 0.6 x10^3/uL (1.0-4.8); LYMPH % 2 % (24-48); MEAN CORPUSCULAR HEMOGLOBIN 30 pg (25-35); MEAN CORPUSCULAR HGB CONC 33 g/dL (31-37); MEAN CORPUSCULAR VOLUME 91 fL (79-100); MONO % 2 % (0-9); NEUT % 95 % (31-73); PLATELET COUNT 172 x10^3/uL (140-400); RED BLOOD COUNT 3.09 x10^6/uL (3.50-5.40); RED CELL DISTRIBUTION WIDTH 13.1 % (11.5-14.5); WHITE BLOOD COUNT 28.4 x10^3/uL (4.0-11.0)
[2016-09-30 07:01] LABS: ALBUMIN 2.4 g/dL (3.4-5.0); ALBUMIN/GLOBULIN RATIO 0.8 (1.0-1.7); CALCIUM 9.6 mg/dL (8.5-10.1); CREATININE 1.8 mg/dL (0.6-1.0); GFR 26.7; TOTAL BILIRUBIN 2.9 mg/dL (0.2-1.0); TOTAL PROTEIN 5.5 g/dL (6.4-8.2)
[2016-09-30] MEDS ORDERED: IOHEXOL 300 MG/ML 100ML VIAL. ONE (08:21)
--- NOTE | 2016-09-30 08:34 | RAD ---
Indication weakness nausea pain. A single view of the chest was obtained. Comparison is made to a two-view examination 01/27/2012. The heart and pulmonary vessels appear normal. The lungs are clear of acute infiltrates. Significant pleural fluid is not present. There is no pneumothorax. Degenerative changes about the shoulders are noted. IMPRESSION: No acute finding apparent in the chest
[2016-09-30] MEDS ORDERED: DEXAMETHASONE SOD PHOS 20 MG/5 ML VIAL. ONE (08:49)
[2016-09-30] MEDS ORDERED: LIDOCAINE 2% PF Vial for OR 5 ML VIAL. ONE (08:49)
[2016-09-30] MEDS ORDERED: ONDANSETRON PF 4 MG/2 ML VIAL. ONE (08:49)
[2016-09-30] MEDS ORDERED: PROPOFOL 20 ML IV ONE (08:49)
[2016-09-30] MEDS ORDERED: fentaNYL PF VIAL 100 MCG/2 ML VIAL ONE (08:49)
[2016-09-30] MEDS ORDERED: ROCURONIUM 100 MG/10 ML VIAL. ONE (08:49)
[2016-09-30] MEDS ORDERED: SUCCINYLCHOLINE 200 MG/10 ML VIAL. ONE (08:50)
[2016-09-30] MEDS ORDERED: IV RINGERS,LACTATED 1000ML 1,000 ML IV SCH ×2 (08:52)
[2016-09-30] MEDS ORDERED: MORPHINE SULFATE 2 MG/ML DISP.SYRIN. IV PRN (09:00)
[2016-09-30] MEDS ORDERED: PROCHLORPERAZINE 10 MG/2 ML VIAL. IV PRN (09:00)
[2016-09-30] MEDS ORDERED: fentaNYL PF VIAL 100 MCG/2 ML VIAL IV PRN ×4 (09:00)
[2016-09-30] MEDS ORDERED: HYDROmorphone 2 MG/ML VIAL IV PRN (09:00)
[2016-09-30] MEDS ORDERED: MIDAZOLAM HCL/PF 2 MG/2 ML VIAL. IV PRN (09:00)
[2016-09-30] MEDS ORDERED: LIDOCAINE 1% 1 ML SYRINGE. ID PRN ×2 (09:00)
[2016-09-30] MEDS ORDERED: ONDANSETRON PF 4 MG/2 ML VIAL. IV PRN (09:00)
--- NOTE | 2016-09-30 09:14 | PDOC2 ---
BETZY RAGLAND 09/30/16 0914: GI CONSULT Reason For Consult: Choledocholithiasis, cholangitis HPI: HPI: 86 y/o female, daughter brought her to the hospital w/ decreased PO intake, vomiting, and confusion, admitted w/ cholangitis. Significant labs today: WBC 28.4, Hgb 9.4, Cr 1.8, bili 2.9 (from 2.7), AST 97, ALT 73, Alk Phos 138, normal lipase. CT w/ distended gallbladder, dilated CBD (2cm) and 9mm density in distal CBD, likely stone. For anemia, weight loss, and occasional melena, she underwent EGD and colonoscopy w/ Dr. Ch in 12/2011 which revealed a mass in the ascending colon. Also noted were diverticulosis (sigmoid and descending colon), hiatal hernia, and erosive gastritis and duodenitis. She underwent laparascopic right colon resection; pathology showed adenocarcinoma and 15 lymph nodes were negative for metastatic involvement. PMH: PMH: from chart and office records - CVA/TIA, HLD, HTN, COPD, colon cancer s/p lap right colon resection and lymph node dissection (neg for mets), hysterectomy, appendectomy FH: Family History: Cancer (lung), CVA, Other (Alzheimer's, [place], CHF) Social History: Smoke: 2 packs per day ALCOHOL: none Drugs: None ROS: GEN: Denies fevers, chills, sweats HEENT: Denies blurred vision, sore throat CV: Denies chest pain RESP: h/o COPD, tob abuse GI: Per HPI : Denies hematuria, dysuria ENDO: Denies weight changes NEURO: +confusion MSK: +weakness SKIN: Denies pruritus Vitals: Vitals: Vital Signs Date Time Temp Pulse Resp B/P (MAP) Pulse Ox O2 Delivery O2 Flow Rate FiO2 09/30/16 08:49 98.2 88 18 96 98.2 09/30/16 06:00 126/61 (82) Room Air Labs: Labs: Laboratory Tests Test 09/29/16 16:20 09/29/16 16:40 09/29/16 19:35 09/30/16 06:30 White Blood Count 33.4 x10^3/uL (4.0-11.0) 28.4 x10^3/uL (4.0-11.0) Red Blood Count 3.41 x10^6/uL (3.50-5.40) 3.09 x10^6/uL (3.50-5.40) Hemoglobin 10.6 g/dL (12.0-15.5) 9.4 g/dL (12.0-15.5) Hematocrit 31.1 % (36.0-47.0) 28.1 % (36.0-47.0) Mean Corpuscular Volume 91 fL (79-100) 91 fL (79-100) Mean Corpuscular Hemoglobin 31 pg (25-35) 30 pg (25-35) Mean Corpuscular Hemoglobin Concent 34 g/dL (31-37) 33 g/dL (31-37) Red Cell Distribution Width 13.1 % (11.5-14.5) 13.1 % (11.5-14.5) Platelet Count 204 x10^3/uL (140-400) 172 x10^3/uL (140-400) Neutrophils (%) (Auto) 95 % (31-73) 95 % (31-73) Lymphocytes (%) (Auto) 2 % (24-48) 2 % (24-48) Monocytes (%) (Auto) 3 % (0-9) 2 % (0-9) Eosinophils (%) (Auto) 0 % (0-3) 0 % (0-3) Basophils (%) (Auto) 0 % (0-3) 0 % (0-3) Neutrophils # (Auto) 31.8 x10^3uL (1.8-7.7) 27.1 x10^3uL (1.8-7.7) Lymphocytes # (Auto) 0.6 x10^3/uL (1.0-4.8) 0.6 x10^3/uL (1.0-4.8) Monocytes # (Auto) 0.9 x10^3/uL (0.0-1.1) 0.7 x10^3/uL (0.0-1.1) Eosinophils # (Auto) 0.0 x10^3/uL (0.0-0.7) 0.0 x10^3/uL (0.0-0.7) Basophils # (Auto) 0.1 x10^3/uL (0.0-0.2) 0.0 x10^3/uL (0.0-0.2) Segmented Neutrophils % 62 % (35-66) Band Neutrophils % 28 % (0-9) Lymphocytes % 3 % (24-48) Metamyelocytes % 7 % (0-0) Toxic Granulation Slight Toxic Vacuolation Slight Platelet Estimate Adequate (ADEQUATE) Sodium Level 139 mmol/L (136-145) 142 mmol/L (136-145) Potassium Level 4.9 mmol/L (3.5-5.1) 4.0 mmol/L (3.5-5.1) Chloride Level 103 mmol/L (98-107) 108 mmol/L (98-107) Carbon Dioxide Level 23 mmol/L (21-32) 21 mmol/L (21-32) Anion Gap 13 (6-14) 13 (6-14) Blood Urea Nitrogen 76 mg/dL (7-20) 63 mg/dL (7-20) Creatinine 2.4 mg/dL (0.6-1.0) 1.8 mg/dL (0.6-1.0) Estimated GFR (Cockcroft-Gault) 19.2 26.7 BUN/Creatinine Ratio 32 (6-20) 35 (6-20) Glucose Level 121 mg/dL (70-99) 87 mg/dL (70-99) Lactic Acid Level 3.9 mmol/L (0.4-2.0) 1.3 mmol/L (0.4-2.0) 0.7 mmol/L (0.4-2.0) Calcium Level 11.0 mg/dL (8.5-10.1) 9.9 mg/dL (8.5-10.1) Magnesium Level 1.0 mg/dL (1.8-2.4) 2.7 mg/dL (1.8-2.4) Total Bilirubin 2.7 mg/dL (0.2-1.0) 2.9 mg/dL (0.2-1.0) Aspartate Amino Transf (AST/SGOT) 77 U/L (15-37) 97 U/L (15-37) Alanine Aminotransferase (ALT/SGPT) 65 U/L (14-59) 73 U/L (14-59) Alkaline Phosphatase 139 U/L (46-116) 138 U/L (46-116) Total Protein 6.9 g/dL (6.4-8.2) 5.5 g/dL (6.4-8.2) Albumin 2.8 g/dL (3.4-5.0) 2.4 g/dL (3.4-5.0) Albumin/Globulin Ratio 0.7 (1.0-1.7) 0.8 (1.0-1.7) Lipase 64 U/L (73-393) Urine Collection Type Unknown Urine Color Natasha Urine Clarity Clear Urine pH 5.0 Urine Specific [place] 1.015 Urine Protein Negative mg/dL (NEG-TRACE) Urine Glucose (UA) Negative mg/dL (NEG) Urine Ketones (Stick) Negative mg/dL (NEG) Urine Blood Negative (NEG) Urine Nitrite Negative (NEG) Urine Bilirubin Small (NEG) Urine Urobilinogen Dipstick 1.0 mg/dL (0.2 mg/dL) Urine Leukocyte Esterase Trace (NEG) Urine RBC Occ /HPF (0-2) Urine WBC 1-4 /HPF (0-4) Urine Squamous Epithelial Cells Mod /LPF Urine Amorphous Sediment Present /HPF Urine Bacteria Few /HPF (0-FEW) Urine Hyaline Casts Few /HPF Urine Mucus Slight /LPF Allergies: Coded Allergies: meclizine (Verified Allergy, Intermediate, Swelling, 09/30/16) codeine (Verified Adverse Reaction, Intermediate, Nausea and Vomiting, 09/30) Medications: Current Medications Medications (Trade) Dose Ordered Sig/Bill Route PRN Reason Start Time Stop Time Status Last Admin Dose Admin Ondansetron HCl (Zofran) 4 mg 1X ONCE IV 09/29/16 16:15 09/29/16 16:16 DC 09/29/16 16:31 Fentanyl Citrate (Fentanyl 2ml Vial) 25 mcg PRN Q15MIN PRN IV PAIN GREATER THAN 3/10 09/29/16 16:15 09/30/16 16:14 09/29/16 21:48 Sodium Chloride 1,000 ml @ 75 mls/hr 1X ONCE IV 09/29/16 16:15 09/29/16 17:37 DC 09/29/16 16:31 Sodium Chloride 1,000 ml @ 1,770 mls/hr Q34M IV 09/29/16 17:20 09/29/16 18:21 DC 09/29/16 17:20 Piperacillin Sod/ Tazobactam Sod 2.25 gm/Sodium Chloride 50 ml @ 100 mls/hr 1X ONCE IV 09/29/16 18:45 09/29/16 19:14 DC 09/29/16 18:55 Sodium Chloride 1,000 ml @ 125 mls/hr Q8H IV 09/29/16 19:02 09/30/16 19:01 09/30/16 03:46 Magnesium Sulfate/ Dextrose 100 ml @ 25 mls/hr 1X ONCE IV 09/29/16 20:00 09/29/16 23:59 DC 09/29/16 20:31 Piperacillin Sod/ Tazobactam Sod 2.25 gm/Sodium Chloride 50 ml @ 100 mls/hr Q8HRS IV 09/30/16 06:00 09/30/16 05:33 Heparin Sodium (Porcine) (Heparin Sq) 5,000 unit Q8HRS SQ 09/29/16 22:00 09/30/16 05:38 Famotidine (Pepcid) 20 mg QHS IVP 09/29/16 21:00 09/29/16 21:49 Imaging: Imaging: CXR IMPRESSION: No acute finding apparent in the chest. CT A/P w/o contrast IMPRESSION: 1. Moderately distended gallbladder with dilated appearing common bile duct , with the common bile duct measuring up to 2 cm in diameter. There is a 9 mm density identified in the distal common bile duct probably choledocholithiasis. Correlate with liver function tests. 2. Small amount of air identified in the urinary bladder could be due to recent dislocation or cystitis. 3. Multiple sigmoid colon diverticulosis. 4. Punctate 2 mm calculus in the left kidney. PE: GEN: NAD HEENT: Atraumatic, PERRL LUNGS: decreased HEART: RRR ABD: significant RUQ tenderness to light palpation EXTREMITY: No edema SKIN: No rashes NEURO/PSYCH: awake/alert A/P: A/P: Abd pain, decreased PO intake, vomiting, confusion Cholangitis -bili 2.9, WBC 28.4 -CT w/ distended GB, dilated CBD, density in distal CBD -on IV atbx Anemia H/o colon cancer s/p right colon resection -in 2011 -- Proceed w/ ERCP this morning, possible sphincterotomy/stone extraction. Follow labs. SHAWN SIN MD 09/30/16 0946: GI CONSULT Allergies: Coded Allergies: meclizine (Verified Allergy, Intermediate, Swelling, 09/30/16) codeine (Verified Adverse Reaction, Intermediate, Nausea and Vomiting, 09/30) BETZY RAGLAND Sep 30, 2016 09:14 SHAWN SIN MD Sep 30, 2016 09:46
--- NOTE | 2016-09-30 09:48 | PDOC4 ---
Operative Note Operative Note ERCp with sphincterotomy/stone extraction Meds Propofol per anesthesia Pre-op dx CBD stones/cholangitis post-op dx smae s/p stone extraction/sphincterotomy Plan lap marychuy prior to release serial labs SHAWN SIN MD Sep 30, 2016 09:48
--- NOTE | 2016-09-30 10:38 | PDOC ---
PROGRESS NOTES Chief Complaint Chief Complaint 1. Cholecystitis with choledocholithiasis, cholangitis, and duct obstruction s/ p ERCP 2. Elevated LFTS and alkaline phosphatase 3. MARIO 2/2 to poor PO 4. Sepsis with elevated lactate, WBC and fevers and tachycardia 5. Sinus tachycardia 6. Chronic ventral hernia 7. Incidental left non obstructing renal calculi, diverticulosis, cystitis 8. Critical hypomagnesemia 9. Hypercalcemia in faisal backgroun of dehydration/poor pO 10. 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 Geriatric, recent fall, frailty 12. 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 HLD 14. HTN 15. COPD 16. Gram neg emi bacteremia 17. DNR/DNI History of Present Illness History of Present Illness pt is seen in ICU today, she is resting comfortably in bed, she states she has no complaints, she states she wants to "dance and boogie tonight" Vitals Vitals Vital Signs Date Time Temp Pulse Resp B/P (MAP) Pulse Ox O2 Delivery O2 Flow Rate FiO2 09/30/16 10:23 97.6 95 18 131/63 94 Room Air 97.6 09/30/16 09:54 10 Physical Exam General: Alert, Oriented X3, Cooperative, No acute distress Heart: Regular rate, No murmurs Lungs: Clear, Other (no wheezes or crackles) Abdomen: Normal bowel sounds, Soft, Other (R abd incision scar) Extremities: No clubbing, No cyanosis, No edema, Normal pulses, No tenderness/ swelling Skin: No rashes, No breakdown, No significant lesion Labs LABS Laboratory Tests Test 09/29/16 16:20 09/29/16 16:40 09/29/16 19:35 09/30/16 06:30 White Blood Count 33.4 x10^3/uL (4.0-11.0) 28.4 x10^3/uL (4.0-11.0) Red Blood Count 3.41 x10^6/uL (3.50-5.40) 3.09 x10^6/uL (3.50-5.40) Hemoglobin 10.6 g/dL (12.0-15.5) 9.4 g/dL (12.0-15.5) Hematocrit 31.1 % (36.0-47.0) 28.1 % (36.0-47.0) Mean Corpuscular Volume 91 fL (79-100) 91 fL (79-100) Mean Corpuscular Hemoglobin 31 pg (25-35) 30 pg (25-35) Mean Corpuscular Hemoglobin Concent 34 g/dL (31-37) 33 g/dL (31-37) Red Cell Distribution Width 13.1 % (11.5-14.5) 13.1 % (11.5-14.5) Platelet Count 204 x10^3/uL (140-400) 172 x10^3/uL (140-400) Neutrophils (%) (Auto) 95 % (31-73) 95 % (31-73) Lymphocytes (%) (Auto) 2 % (24-48) 2 % (24-48) Monocytes (%) (Auto) 3 % (0-9) 2 % (0-9) Eosinophils (%) (Auto) 0 % (0-3) 0 % (0-3) Basophils (%) (Auto) 0 % (0-3) 0 % (0-3) Neutrophils # (Auto) 31.8 x10^3uL (1.8-7.7) 27.1 x10^3uL (1.8-7.7) Lymphocytes # (Auto) 0.6 x10^3/uL (1.0-4.8) 0.6 x10^3/uL (1.0-4.8) Monocytes # (Auto) 0.9 x10^3/uL (0.0-1.1) 0.7 x10^3/uL (0.0-1.1) Eosinophils # (Auto) 0.0 x10^3/uL (0.0-0.7) 0.0 x10^3/uL (0.0-0.7) Basophils # (Auto) 0.1 x10^3/uL (0.0-0.2) 0.0 x10^3/uL (0.0-0.2) Segmented Neutrophils % 62 % (35-66) Band Neutrophils % 28 % (0-9) Lymphocytes % 3 % (24-48) Metamyelocytes % 7 % (0-0) Toxic Granulation Slight Toxic Vacuolation Slight Platelet Estimate Adequate (ADEQUATE) Sodium Level 139 mmol/L (136-145) 142 mmol/L (136-145) Potassium Level 4.9 mmol/L (3.5-5.1) 4.0 mmol/L (3.5-5.1) Chloride Level 103 mmol/L (98-107) 108 mmol/L (98-107) Carbon Dioxide Level 23 mmol/L (21-32) 21 mmol/L (21-32) Anion Gap 13 (6-14) 13 (6-14) Blood Urea Nitrogen 76 mg/dL (7-20) 63 mg/dL (7-20) Creatinine 2.4 mg/dL (0.6-1.0) 1.8 mg/dL (0.6-1.0) Estimated GFR (Cockcroft-Gault) 19.2 26.7 BUN/Creatinine Ratio 32 (6-20) 35 (6-20) Glucose Level 121 mg/dL (70-99) 87 mg/dL (70-99) Lactic Acid Level 3.9 mmol/L (0.4-2.0) 1.3 mmol/L (0.4-2.0) 0.7 mmol/L (0.4-2.0) Calcium Level 11.0 mg/dL (8.5-10.1) 9.9 mg/dL (8.5-10.1) Magnesium Level 1.0 mg/dL (1.8-2.4) 2.7 mg/dL (1.8-2.4) Total Bilirubin 2.7 mg/dL (0.2-1.0) 2.9 mg/dL (0.2-1.0) Aspartate Amino Transf (AST/SGOT) 77 U/L (15-37) 97 U/L (15-37) Alanine Aminotransferase (ALT/SGPT) 65 U/L (14-59) 73 U/L (14-59) Alkaline Phosphatase 139 U/L (46-116) 138 U/L (46-116) Total Protein 6.9 g/dL (6.4-8.2) 5.5 g/dL (6.4-8.2) Albumin 2.8 g/dL (3.4-5.0) 2.4 g/dL (3.4-5.0) Albumin/Globulin Ratio 0.7 (1.0-1.7) 0.8 (1.0-1.7) Lipase 64 U/L (73-393) Urine Collection Type Unknown Urine Color Natasha Urine Clarity Clear Urine pH 5.0 Urine Specific [place] 1.015 Urine Protein Negative mg/dL (NEG-TRACE) Urine Glucose (UA) Negative mg/dL (NEG) Urine Ketones (Stick) Negative mg/dL (NEG) Urine Blood Negative (NEG) Urine Nitrite Negative (NEG) Urine Bilirubin Small (NEG) Urine Urobilinogen Dipstick 1.0 mg/dL (0.2 mg/dL) Urine Leukocyte Esterase Trace (NEG) Urine RBC Occ /HPF (0-2) Urine WBC 1-4 /HPF (0-4) Urine Squamous Epithelial Cells Mod /LPF Urine Amorphous Sediment Present /HPF Urine Bacteria Few /HPF (0-FEW) Urine Hyaline Casts Few /HPF Urine Mucus Slight /LPF Review of Systems Review of Systems denies nausea, vomiting, headache Assessment and Plan Assessmemt and Plan Assessment 1. Cholecystitis with choledocholithiasis, cholangitis, and duct obstruction s/ p ERCP 2. Elevated LFTS and alkaline phosphatase 3. MARIO 2/2 to poor PO 4. Sepsis with elevated lactate, WBC and fevers and tachycardia 5. Sinus tachycardia 6. Chronic ventral hernia 7. Incidental left non obstructing renal calculi, diverticulosis, cystitis 8. Critical hypomagnesemia 9. Hypercalcemia in faisal backgroun of dehydration/poor pO 10. Anemia likely of chronic dse/inflammation 11. Geriatric, recent fall, frailty 12. 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 HLD 14. HTN 15. COPD 16. Gram neg emi bacteremia 17. DNR/DNI Plan 1. Continue current diet, advance as tolerated 2. Cont home meds 3. Cont zosyn for cholangitis 4. Heparin for DVT ppx 5. Nicotine patch, advised smoking cessation 6. Continue ICU monitoring 7. Recheck CMP and CBC tomorrow, follow LFTs and WBC 8. Discussed plan of care with nursing 9. Advised ICS use, especially with hx of COPD 10. PT/OT 11. Pain management with fentanyl, dialuadid, and lidocaine patch prn 12. Reviewed imaging, abd/pelv CT normal preop showed gallstones, CXR showed no acute changes 13. Blood cultures showed gram negative rods, ID consulted Problems: Comment Review of Relevant I have reviewed the following items navneet (where applicable) has been applied. Labs Laboratory Tests Test 09/29/16 16:20 09/29/16 16:40 09/29/16 19:35 09/30/16 06:30 White Blood Count 33.4 x10^3/uL (4.0-11.0) 28.4 x10^3/uL (4.0-11.0) Red Blood Count 3.41 x10^6/uL (3.50-5.40) 3.09 x10^6/uL (3.50-5.40) Hemoglobin 10.6 g/dL (12.0-15.5) 9.4 g/dL (12.0-15.5) Hematocrit 31.1 % (36.0-47.0) 28.1 % (36.0-47.0) Mean Corpuscular Volume 91 fL (79-100) 91 fL (79-100) Mean Corpuscular Hemoglobin 31 pg (25-35) 30 pg (25-35) Mean Corpuscular Hemoglobin Concent 34 g/dL (31-37) 33 g/dL (31-37) Red Cell Distribution Width 13.1 % (11.5-14.5) 13.1 % (11.5-14.5) Platelet Count 204 x10^3/uL (140-400) 172 x10^3/uL (140-400) Neutrophils (%) (Auto) 95 % (31-73) 95 % (31-73) Lymphocytes (%) (Auto) 2 % (24-48) 2 % (24-48) Monocytes (%) (Auto) 3 % (0-9) 2 % (0-9) Eosinophils (%) (Auto) 0 % (0-3) 0 % (0-3) Basophils (%) (Auto) 0 % (0-3) 0 % (0-3) Neutrophils # (Auto) 31.8 x10^3uL (1.8-7.7) 27.1 x10^3uL (1.8-7.7) Lymphocytes # (Auto) 0.6 x10^3/uL (1.0-4.8) 0.6 x10^3/uL (1.0-4.8) Monocytes # (Auto) 0.9 x10^3/uL (0.0-1.1) 0.7 x10^3/uL (0.0-1.1) Eosinophils # (Auto) 0.0 x10^3/uL (0.0-0.7) 0.0 x10^3/uL (0.0-0.7) Basophils # (Auto) 0.1 x10^3/uL (0.0-0.2) 0.0 x10^3/uL (0.0-0.2) Segmented Neutrophils % 62 % (35-66) Band Neutrophils % 28 % (0-9) Lymphocytes % 3 % (24-48) Metamyelocytes % 7 % (0-0) Toxic Granulation Slight Toxic Vacuolation Slight Platelet Estimate Adequate (ADEQUATE) Sodium Level 139 mmol/L (136-145) 142 mmol/L (136-145) Potassium Level 4.9 mmol/L (3.5-5.1) 4.0 mmol/L (3.5-5.1) Chloride Level 103 mmol/L (98-107) 108 mmol/L (98-107) Carbon Dioxide Level 23 mmol/L (21-32) 21 mmol/L (21-32) Anion Gap 13 (6-14) 13 (6-14) Blood Urea Nitrogen 76 mg/dL (7-20) 63 mg/dL (7-20) Creatinine 2.4 mg/dL (0.6-1.0) 1.8 mg/dL (0.6-1.0) Estimated GFR (Cockcroft-Gault) 19.2 26.7 BUN/Creatinine Ratio 32 (6-20) 35 (6-20) Glucose Level 121 mg/dL (70-99) 87 mg/dL (70-99) Lactic Acid Level 3.9 mmol/L (0.4-2.0) 1.3 mmol/L (0.4-2.0) 0.7 mmol/L (0.4-2.0) Calcium Level 11.0 mg/dL (8.5-10.1) 9.9 mg/dL (8.5-10.1) Magnesium Level 1.0 mg/dL (1.8-2.4) 2.7 mg/dL (1.8-2.4) Total Bilirubin 2.7 mg/dL (0.2-1.0) 2.9 mg/dL (0.2-1.0) Aspartate Amino Transf (AST/SGOT) 77 U/L (15-37) 97 U/L (15-37) Alanine Aminotransferase (ALT/SGPT) 65 U/L (14-59) 73 U/L (14-59) Alkaline Phosphatase 139 U/L (46-116) 138 U/L (46-116) Total Protein 6.9 g/dL (6.4-8.2) 5.5 g/dL (6.4-8.2) Albumin 2.8 g/dL (3.4-5.0) 2.4 g/dL (3.4-5.0) Albumin/Globulin Ratio 0.7 (1.0-1.7) 0.8 (1.0-1.7) Lipase 64 U/L (73-393) Urine Collection Type Unknown Urine Color Natasha Urine Clarity Clear Urine pH 5.0 Urine Specific [place] 1.015 Urine Protein Negative mg/dL (NEG-TRACE) Urine Glucose (UA) Negative mg/dL (NEG) Urine Ketones (Stick) Negative mg/dL (NEG) Urine Blood Negative (NEG) Urine Nitrite Negative (NEG) Urine Bilirubin Small (NEG) Urine Urobilinogen Dipstick 1.0 mg/dL (0.2 mg/dL) Urine Leukocyte Esterase Trace (NEG) Urine RBC Occ /HPF (0-2) Urine WBC 1-4 /HPF (0-4) Urine Squamous Epithelial Cells Mod /LPF Urine Amorphous Sediment Present /HPF Urine Bacteria Few /HPF (0-FEW) Urine Hyaline Casts Few /HPF Urine Mucus Slight /LPF Laboratory Tests Test 09/29/16 16:20 09/29/16 16:40 09/29/16 19:35 09/30/16 06:30 White Blood Count 33.4 x10^3/uL (4.0-11.0) 28.4 x10^3/uL (4.0-11.0) Red Blood Count 3.41 x10^6/uL (3.50-5.40) 3.09 x10^6/uL (3.50-5.40) Hemoglobin 10.6 g/dL (12.0-15.5) 9.4 g/dL (12.0-15.5) Hematocrit 31.1 % (36.0-47.0) 28.1 % (36.0-47.0) Mean Corpuscular Volume 91 fL (79-100) 91 fL (79-100) Mean Corpuscular Hemoglobin 31 pg (25-35) 30 pg (25-35) Mean Corpuscular Hemoglobin Concent 34 g/dL (31-37) 33 g/dL (31-37) Red Cell Distribution Width 13.1 % (11.5-14.5) 13.1 % (11.5-14.5) Platelet Count 204 x10^3/uL (140-400) 172 x10^3/uL (140-400) Neutrophils (%) (Auto) 95 % (31-73) 95 % (31-73) Lymphocytes (%) (Auto) 2 % (24-48) 2 % (24-48) Monocytes (%) (Auto) 3 % (0-9) 2 % (0-9) Eosinophils (%) (Auto) 0 % (0-3) 0 % (0-3) Basophils (%) (Auto) 0 % (0-3) 0 % (0-3) Neutrophils # (Auto) 31.8 x10^3uL (1.8-7.7) 27.1 x10^3uL (1.8-7.7) Lymphocytes # (Auto) 0.6 x10^3/uL (1.0-4.8) 0.6 x10^3/uL (1.0-4.8) Monocytes # (Auto) 0.9 x10^3/uL (0.0-1.1) 0.7 x10^3/uL (0.0-1.1) Eosinophils # (Auto) 0.0 x10^3/uL (0.0-0.7) 0.0 x10^3/uL (0.0-0.7) Basophils # (Auto) 0.1 x10^3/uL (0.0-0.2) 0.0 x10^3/uL (0.0-0.2) Segmented Neutrophils % 62 % (35-66) Band Neutrophils % 28 % (0-9) Lymphocytes % 3 % (24-48) Metamyelocytes % 7 % (0-0) Toxic Granulation Slight Toxic Vacuolation Slight Platelet Estimate Adequate (ADEQUATE) Sodium Level 139 mmol/L (136-145) 142 mmol/L (136-145) Potassium Level 4.9 mmol/L (3.5-5.1) 4.0 mmol/L (3.5-5.1) Chloride Level 103 mmol/L (98-107) 108 mmol/L (98-107) Carbon Dioxide Level 23 mmol/L (21-32) 21 mmol/L (21-32) Anion Gap 13 (6-14) 13 (6-14) Blood Urea Nitrogen 76 mg/dL (7-20) 63 mg/dL (7-20) Creatinine 2.4 mg/dL (0.6-1.0) 1.8 mg/dL (0.6-1.0) Estimated GFR (Cockcroft-Gault) 19.2 26.7 BUN/Creatinine Ratio 32 (6-20) 35 (6-20) Glucose Level 121 mg/dL (70-99) 87 mg/dL (70-99) Lactic Acid Level 3.9 mmol/L (0.4-2.0) 1.3 mmol/L (0.4-2.0) 0.7 mmol/L (0.4-2.0) Calcium Level 11.0 mg/dL (8.5-10.1) 9.9 mg/dL (8.5-10.1) Magnesium Level 1.0 mg/dL (1.8-2.4) 2.7 mg/dL (1.8-2.4) Total Bilirubin 2.7 mg/dL (0.2-1.0) 2.9 mg/dL (0.2-1.0) Aspartate Amino Transf (AST/SGOT) 77 U/L (15-37) 97 U/L (15-37) Alanine Aminotransferase (ALT/SGPT) 65 U/L (14-59) 73 U/L (14-59) Alkaline Phosphatase 139 U/L (46-116) 138 U/L (46-116) Total Protein 6.9 g/dL (6.4-8.2) 5.5 g/dL (6.4-8.2) Albumin 2.8 g/dL (3.4-5.0) 2.4 g/dL (3.4-5.0) Albumin/Globulin Ratio 0.7 (1.0-1.7) 0.8 (1.0-1.7) Lipase 64 U/L (73-393) Urine Collection Type Unknown Urine Color Natasha Urine Clarity Clear Urine pH 5.0 Urine Specific [place] 1.015 Urine Protein Negative mg/dL (NEG-TRACE) Urine Glucose (UA) Negative mg/dL (NEG) Urine Ketones (Stick) Negative mg/dL (NEG) Urine Blood Negative (NEG) Urine Nitrite Negative (NEG) Urine Bilirubin Small (NEG) Urine Urobilinogen Dipstick 1.0 mg/dL (0.2 mg/dL) Urine Leukocyte Esterase Trace (NEG) Urine RBC Occ /HPF (0-2) Urine WBC 1-4 /HPF (0-4) Urine Squamous Epithelial Cells Mod /LPF Urine Amorphous Sediment Present /HPF Urine Bacteria Few /HPF (0-FEW) Urine Hyaline Casts Few /HPF Urine Mucus Slight /LPF Medications Current Medications Ondansetron HCl (Zofran) 4 mg 1X ONCE IV Last administered on 09/29/16 16:31; Start 09/29/16 at 16:15; Stop 09/29/16 at 16:16; Status DC Fentanyl Citrate (Fentanyl 2ml Vial) 25 mcg PRN Q15MIN PRN IV PAIN GREATER THAN 3/10 Last administered on 09/29/16 21:48; Start 09/29/16 at 16:15; Stop 09/30 at 16:14 Sodium Chloride 1,000 ml @ 75 mls/hr 1X ONCE IV Last administered on 16:31; Start 09/29/16 at 16:15; Stop 09/29/16 at 17:37; Status DC Sodium Chloride 1,000 ml @ 1,770 mls/hr Q34M IV Last administered on 09/29/16 17:20; Start 09/29/16 at 17:20; Stop 09/29/16 at 18:21; Status DC Piperacillin Sod/ Tazobactam Sod (Zosyn Per Pharmacy) 1 each PRN DAILY PRN MC SEE COMMENTS; Start 09/29/16 at 18:30 Piperacillin Sod/ Tazobactam Sod 2.25 gm/Sodium Chloride 50 ml @ 100 mls/hr 1X ONCE IV Last administered on 09/29/16 18:55; Start 09/29/16 at 18:45; Stop 09/29/16 at 19:14; Status DC Ondansetron HCl (Zofran) 4 mg PRN Q8HRS PRN IV NAUSEA/VOMITING; Start 09/29/16 at 19:15; Stop 09/29/16 at 19:44; Status DC Fentanyl Citrate (Fentanyl 2ml Vial) 25 mcg PRN Q1HR PRN IV PAIN; Start at 19:15; Stop 09/30/16 at 19:14 Sodium Chloride 1,000 ml @ 125 mls/hr Q8H IV Last administered on 09/30/16 03: 46; Start 09/29/16 at 19:02; Stop 09/30/16 at 19:01 Acetaminophen (Tylenol) 650 mg PRN Q4HRS PRN PO FEVER; Start 09/29/16 at 19:15; Stop 09/30/16 at 19:14 Ondansetron HCl (Zofran) 4 mg PRN Q6HRS PRN IV NAUSEA/VOMITING; Start 09/29/16 at 19:42; Stop 09/30/16 at 19:41 Nicotine (Nicoderm Cq 21mg) 1 patch PRN DAILY PRN TD SMOKING CESSATION; Start 09/29/16 at 19:45 Lorazepam (Ativan) 0.5 mg PRN Q4HRS PRN IV ANXIETY / AGITATION; Start 09/29/16 at 19:45 Magnesium Sulfate/ Dextrose 100 ml @ 25 mls/hr 1X ONCE IV Last administered on 09/29/16 20:31; Start 09/29/16 at 20:00; Stop 09/29/16 at 23:59; Status DC Piperacillin Sod/ Tazobactam Sod 2.25 gm/Sodium Chloride 50 ml @ 100 mls/hr Q8HRS IV Last administered on 09/30/16 05:33; Start 09/30/16 at 06:00 Heparin Sodium (Porcine) (Heparin Sq) 5,000 unit Q8HRS SQ Last administered on 09/30/16 05:38; Start 09/29/16 at 22:00 Famotidine (Pepcid) 20 mg QHS IVP Last administered on 09/29/16 21:49; Start at 21:00 Iohexol (Omnipaque 300 Mg/ml) 100 ml STK-MED ONCE .ROUTE ; Start 09/30/16 at 08: 21; Stop 09/30/16 at 08:22; Status DC Dexamethasone Sodium Phosphate (Decadron) 20 mg STK-MED ONCE .ROUTE ; Start 09/30 at 08:49; Stop 09/30/16 at 08:50; Status DC Ondansetron HCl (Zofran) 4 mg STK-MED ONCE .ROUTE ; Start 09/30/16 at 08:49; Stop 09/30/16 at 08:50; Status DC Propofol 20 ml @ As Directed STK-MED ONCE IV ; Start 09/30/16 at 08:49; Stop 09/30 at 08:50; Status DC Lidocaine HCl (Lidocaine Pf 2% Vial) 5 ml STK-MED ONCE .ROUTE ; Start 09/30/16 at 08:49; Stop 09/30/16 at 08:50; Status DC Fentanyl Citrate (Fentanyl 2ml Vial) 100 mcg STK-MED ONCE .ROUTE ; Start at 08:49; Stop 09/30/16 at 08:50; Status DC Rocuronium [place] (Zemuron) 100 mg STK-MED ONCE .ROUTE ; Start 09/30/16 at 08:49 ; Stop 09/30/16 at 08:50; Status DC Succinylcholine Chloride (Anectine) 200 mg STK-MED ONCE .ROUTE ; Start 09/30/16 at 08:50; Stop 09/30/16 at 08:51; Status DC Midazolam HCl (Versed) 2 mg PRN 1X PRN IV PRIOR TO PROCEDURE; Start 09/30/16 at 09:00; Stop 09/30/16 at 18:00 Fentanyl Citrate (Fentanyl 2ml Vial) 25 mcg PRN Q5MIN PRN IV X 2 DOSES FOR PAIN ; Start 09/30/16 at 09:00; Stop 09/30/16 at 09:00; Status DC Fentanyl Citrate (Fentanyl 2ml Vial) 50 mcg PRN Q5MIN PRN IV X 2 DOSES FOR PAIN ; Start 09/30/16 at 09:00; Stop 09/30/16 at 09:00; Status DC Ringer's Solution 1,000 ml @ 125 mls/hr Q8H IV ; Start 09/30/16 at 08:52; Stop 09/30/16 at 08:55; Status DC Lidocaine HCl 2 ml 1X PRN PRN ID IV START; Start 09/30/16 at 09:00; Stop at 09:00; Status DC Ondansetron HCl (Zofran) 4 mg PRN Q6HRS PRN IV NAUSEA/VOMITING; Start 09/30/16 at 09:00; Stop 09/30/16 at 18:00 Fentanyl Citrate (Fentanyl 2ml Vial) 25 mcg PRN Q5MIN PRN IV MILD PAIN; Start 09/30/16 at 09:00; Stop 09/30/16 at 18:00 Fentanyl Citrate (Fentanyl 2ml Vial) 50 mcg PRN Q5MIN PRN IV MODERATE PAIN; Start 09/30/16 at 09:00; Stop 09/30/16 at 18:00 Morphine Sulfate 1 mg PRN Q10MIN PRN IV SEVERE PAIN; Start 09/30/16 at 09:00; Stop 09/30/16 at 18:00 Ringer's Solution 1,000 ml @ 30 mls/hr Q24H IV ; Start 09/30/16 at 08:52; Stop 09/30/16 at 20:51 Lidocaine HCl 2 ml PRN 1X PRN ID PRIOR TO IV START; Start 09/30/16 at 09:00; Stop 09/30/16 at 18:00 Hydromorphone HCl (Dilaudid) 0.5 mg PRN Q10MIN PRN IV SEV PAIN, Second choice; Start 09/30/16 at 09:00; Stop 09/30/16 at 18:00 Prochlorperazine Edisylate (Compazine) 5 mg PACU PRN PRN IV NAUSEA, MRX1; Start 09/30/16 at 09:00; Stop 09/30/16 at 18:00 Vitals/I & O Vital Sign - Last 24 Hours 09/29/16 09/29/16 09/29/16 09/29/16 16:01 16:23 16:53 17:28 Temp 99.1 99.1 Pulse 108 98 90 88 Resp 20 18 18 22 B/P (MAP) 120/53 (75) 109/53 (71) 99/55 (70) 104/52 (69) Pulse Ox 96 95 95 97 O2 Delivery Room Air Room Air Room Air Room Air 09/29/16 09/29/16 09/29/16 09/29/16 17:58 18:24 20:00 20:15 Temp 98.3 98.3 Pulse 90 90 90 90 Resp 22 22 B/P (MAP) 106/51 (69) 111/54 (73) 110/61 (77) 91/56 (68) Pulse Ox 95 96 95 95 O2 Delivery Room Air Room Air Room Air Room Air 09/29/16 09/29/16 09/29/16 09/29/16 20:30 20:45 21:00 21:48 Pulse 90 94 94 Resp 12 B/P (MAP) 110/57 (74) 114/54 (74) 140/69 (92) Pulse Ox 95 95 95 96 O2 Delivery Room Air Room Air Room Air 09/29/16 09/29/16 09/29/16 09/30/16 22:00 22:18 23:00 00:00 Pulse 86 69 87 Resp 03 09 12 B/P (MAP) 116/51 (72) 116/59 (78) 116/58 (77) Pulse Ox 95 96 95 95 O2 Delivery Room Air Room Air Room Air Room Air 09/30/16 09/30/16 09/30/16 09/30/16 01:00 02:00 03:00 04:00 Temp 98.2 96.9 98.2 96.9 Pulse 87 80 82 87 Resp 03 09 12 12 B/P (MAP) 124/39 (67) 129/62 (84) 125/64 (84) 132/63 (86) Pulse Ox 95 95 95 96 O2 Delivery Room Air Room Air Room Air Room Air 09/30/16 09/30/16 09/30/16 09/30/16 05:00 06:00 08:49 09:54 Temp 98.2 97.6 98.2 97.6 Pulse 83 86 88 93 Resp 03 09 18 18 B/P (MAP) 126/68 (87) 126/61 (82) 115/70 Pulse Ox 96 96 96 100 O2 Delivery Room Air Room Air Simple Mask O2 Flow Rate 09/30/16 09/30/16 10:09 10:23 Temp 97.6 97.6 97.6 97.6 Pulse 96 95 Resp 18 18 B/P (MAP) 134/64 131/63 Pulse Ox 94 94 O2 Delivery Room Air Room Air Intake and Output 7/4/17 7/4/17 7/5/17 15:01 23:01 07:01 Intake Total 1945 ml 1362 ml Output Total 500 ml 560 ml Balance 1445 ml 802 ml MICHELET BABIN III DO Sep 30, 2016 10:38
--- NOTE | 2016-09-30 11:17 | PDOC ---
SURGICAL PROGRESS NOTE Subjective Consult received Pt out of room for procedure will f/u in AM Thanks Vital Signs Vital Signs Date Time Temp Pulse Resp B/P (MAP) Pulse Ox O2 Delivery O2 Flow Rate FiO2 09/30/16 10:23 97.6 95 18 131/63 94 Room Air 97.6 09/30/16 09:54 10 I&O Intake and Output 09/30/16 07:00 Intake Total 3307 ml Output Total 1060 ml Balance 2247 ml Intake Oral 0 ml IV Total 3307 ml Output Urine Total 1060 ml Labs Laboratory Tests Test 09/29/16 16:20 09/29/16 16:40 09/29/16 19:35 09/30/16 06:30 White Blood Count 33.4 x10^3/uL (4.0-11.0) 28.4 x10^3/uL (4.0-11.0) Red Blood Count 3.41 x10^6/uL (3.50-5.40) 3.09 x10^6/uL (3.50-5.40) Hemoglobin 10.6 g/dL (12.0-15.5) 9.4 g/dL (12.0-15.5) Hematocrit 31.1 % (36.0-47.0) 28.1 % (36.0-47.0) Mean Corpuscular Volume 91 fL (79-100) 91 fL (79-100) Mean Corpuscular Hemoglobin 31 pg (25-35) 30 pg (25-35) Mean Corpuscular Hemoglobin Concent 34 g/dL (31-37) 33 g/dL (31-37) Red Cell Distribution Width 13.1 % (11.5-14.5) 13.1 % (11.5-14.5) Platelet Count 204 x10^3/uL (140-400) 172 x10^3/uL (140-400) Neutrophils (%) (Auto) 95 % (31-73) 95 % (31-73) Lymphocytes (%) (Auto) 2 % (24-48) 2 % (24-48) Monocytes (%) (Auto) 3 % (0-9) 2 % (0-9) Eosinophils (%) (Auto) 0 % (0-3) 0 % (0-3) Basophils (%) (Auto) 0 % (0-3) 0 % (0-3) Neutrophils # (Auto) 31.8 x10^3uL (1.8-7.7) 27.1 x10^3uL (1.8-7.7) Lymphocytes # (Auto) 0.6 x10^3/uL (1.0-4.8) 0.6 x10^3/uL (1.0-4.8) Monocytes # (Auto) 0.9 x10^3/uL (0.0-1.1) 0.7 x10^3/uL (0.0-1.1) Eosinophils # (Auto) 0.0 x10^3/uL (0.0-0.7) 0.0 x10^3/uL (0.0-0.7) Basophils # (Auto) 0.1 x10^3/uL (0.0-0.2) 0.0 x10^3/uL (0.0-0.2) Segmented Neutrophils % 62 % (35-66) Band Neutrophils % 28 % (0-9) Lymphocytes % 3 % (24-48) Metamyelocytes % 7 % (0-0) Toxic Granulation Slight Toxic Vacuolation Slight Platelet Estimate Adequate (ADEQUATE) Sodium Level 139 mmol/L (136-145) 142 mmol/L (136-145) Potassium Level 4.9 mmol/L (3.5-5.1) 4.0 mmol/L (3.5-5.1) Chloride Level 103 mmol/L (98-107) 108 mmol/L (98-107) Carbon Dioxide Level 23 mmol/L (21-32) 21 mmol/L (21-32) Anion Gap 13 (6-14) 13 (6-14) Blood Urea Nitrogen 76 mg/dL (7-20) 63 mg/dL (7-20) Creatinine 2.4 mg/dL (0.6-1.0) 1.8 mg/dL (0.6-1.0) Estimated GFR (Cockcroft-Gault) 19.2 26.7 BUN/Creatinine Ratio 32 (6-20) 35 (6-20) Glucose Level 121 mg/dL (70-99) 87 mg/dL (70-99) Lactic Acid Level 3.9 mmol/L (0.4-2.0) 1.3 mmol/L (0.4-2.0) 0.7 mmol/L (0.4-2.0) Calcium Level 11.0 mg/dL (8.5-10.1) 9.9 mg/dL (8.5-10.1) Magnesium Level 1.0 mg/dL (1.8-2.4) 2.7 mg/dL (1.8-2.4) Total Bilirubin 2.7 mg/dL (0.2-1.0) 2.9 mg/dL (0.2-1.0) Aspartate Amino Transf (AST/SGOT) 77 U/L (15-37) 97 U/L (15-37) Alanine Aminotransferase (ALT/SGPT) 65 U/L (14-59) 73 U/L (14-59) Alkaline Phosphatase 139 U/L (46-116) 138 U/L (46-116) Total Protein 6.9 g/dL (6.4-8.2) 5.5 g/dL (6.4-8.2) Albumin 2.8 g/dL (3.4-5.0) 2.4 g/dL (3.4-5.0) Albumin/Globulin Ratio 0.7 (1.0-1.7) 0.8 (1.0-1.7) Lipase 64 U/L (73-393) Urine Collection Type Unknown Urine Color Natasha Urine Clarity Clear Urine pH 5.0 Urine Specific [place] 1.015 Urine Protein Negative mg/dL (NEG-TRACE) Urine Glucose (UA) Negative mg/dL (NEG) Urine Ketones (Stick) Negative mg/dL (NEG) Urine Blood Negative (NEG) Urine Nitrite Negative (NEG) Urine Bilirubin Small (NEG) Urine Urobilinogen Dipstick 1.0 mg/dL (0.2 mg/dL) Urine Leukocyte Esterase Trace (NEG) Urine RBC Occ /HPF (0-2) Urine WBC 1-4 /HPF (0-4) Urine Squamous Epithelial Cells Mod /LPF Urine Amorphous Sediment Present /HPF Urine Bacteria Few /HPF (0-FEW) Urine Hyaline Casts Few /HPF Urine Mucus Slight /LPF Laboratory Tests Test 09/29/16 16:20 09/29/16 16:40 09/29/16 19:35 09/30/16 06:30 White Blood Count 33.4 x10^3/uL (4.0-11.0) 28.4 x10^3/uL (4.0-11.0) Red Blood Count 3.41 x10^6/uL (3.50-5.40) 3.09 x10^6/uL (3.50-5.40) Hemoglobin 10.6 g/dL (12.0-15.5) 9.4 g/dL (12.0-15.5) Hematocrit 31.1 % (36.0-47.0) 28.1 % (36.0-47.0) Mean Corpuscular Volume 91 fL (79-100) 91 fL (79-100) Mean Corpuscular Hemoglobin 31 pg (25-35) 30 pg (25-35) Mean Corpuscular Hemoglobin Concent 34 g/dL (31-37) 33 g/dL (31-37) Red Cell Distribution Width 13.1 % (11.5-14.5) 13.1 % (11.5-14.5) Platelet Count 204 x10^3/uL (140-400) 172 x10^3/uL (140-400) Neutrophils (%) (Auto) 95 % (31-73) 95 % (31-73) Lymphocytes (%) (Auto) 2 % (24-48) 2 % (24-48) Monocytes (%) (Auto) 3 % (0-9) 2 % (0-9) Eosinophils (%) (Auto) 0 % (0-3) 0 % (0-3) Basophils (%) (Auto) 0 % (0-3) 0 % (0-3) Neutrophils # (Auto) 31.8 x10^3uL (1.8-7.7) 27.1 x10^3uL (1.8-7.7) Lymphocytes # (Auto) 0.6 x10^3/uL (1.0-4.8) 0.6 x10^3/uL (1.0-4.8) Monocytes # (Auto) 0.9 x10^3/uL (0.0-1.1) 0.7 x10^3/uL (0.0-1.1) Eosinophils # (Auto) 0.0 x10^3/uL (0.0-0.7) 0.0 x10^3/uL (0.0-0.7) Basophils # (Auto) 0.1 x10^3/uL (0.0-0.2) 0.0 x10^3/uL (0.0-0.2) Segmented Neutrophils % 62 % (35-66) Band Neutrophils % 28 % (0-9) Lymphocytes % 3 % (24-48) Metamyelocytes % 7 % (0-0) Toxic Granulation Slight Toxic Vacuolation Slight Platelet Estimate Adequate (ADEQUATE) Sodium Level 139 mmol/L (136-145) 142 mmol/L (136-145) Potassium Level 4.9 mmol/L (3.5-5.1) 4.0 mmol/L (3.5-5.1) Chloride Level 103 mmol/L (98-107) 108 mmol/L (98-107) Carbon Dioxide Level 23 mmol/L (21-32) 21 mmol/L (21-32) Anion Gap 13 (6-14) 13 (6-14) Blood Urea Nitrogen 76 mg/dL (7-20) 63 mg/dL (7-20) Creatinine 2.4 mg/dL (0.6-1.0) 1.8 mg/dL (0.6-1.0) Estimated GFR (Cockcroft-Gault) 19.2 26.7 BUN/Creatinine Ratio 32 (6-20) 35 (6-20) Glucose Level 121 mg/dL (70-99) 87 mg/dL (70-99) Lactic Acid Level 3.9 mmol/L (0.4-2.0) 1.3 mmol/L (0.4-2.0) 0.7 mmol/L (0.4-2.0) Calcium Level 11.0 mg/dL (8.5-10.1) 9.9 mg/dL (8.5-10.1) Magnesium Level 1.0 mg/dL (1.8-2.4) 2.7 mg/dL (1.8-2.4) Total Bilirubin 2.7 mg/dL (0.2-1.0) 2.9 mg/dL (0.2-1.0) Aspartate Amino Transf (AST/SGOT) 77 U/L (15-37) 97 U/L (15-37) Alanine Aminotransferase (ALT/SGPT) 65 U/L (14-59) 73 U/L (14-59) Alkaline Phosphatase 139 U/L (46-116) 138 U/L (46-116) Total Protein 6.9 g/dL (6.4-8.2) 5.5 g/dL (6.4-8.2) Albumin 2.8 g/dL (3.4-5.0) 2.4 g/dL (3.4-5.0) Albumin/Globulin Ratio 0.7 (1.0-1.7) 0.8 (1.0-1.7) Lipase 64 U/L (73-393) Urine Collection Type Unknown Urine Color Natasha Urine Clarity Clear Urine pH 5.0 Urine Specific [place] 1.015 Urine Protein Negative mg/dL (NEG-TRACE) Urine Glucose (UA) Negative mg/dL (NEG) Urine Ketones (Stick) Negative mg/dL (NEG) Urine Blood Negative (NEG) Urine Nitrite Negative (NEG) Urine Bilirubin Small (NEG) Urine Urobilinogen Dipstick 1.0 mg/dL (0.2 mg/dL) Urine Leukocyte Esterase Trace (NEG) Urine RBC Occ /HPF (0-2) Urine WBC 1-4 /HPF (0-4) Urine Squamous Epithelial Cells Mod /LPF Urine Amorphous Sediment Present /HPF Urine Bacteria Few /HPF (0-FEW) Urine Hyaline Casts Few /HPF Urine Mucus Slight /LPF Problem List Problems Medical Problems: (1) Cholangitis due to bile duct calculus with obstruction Status: Acute (2) Choledocholithiasis with acute cholecystitis with obstruction Status: Acute (3) Lactic acidosis Status: Acute (4) Leukocytosis Status: Acute (5) Sepsis Status: Acute Problems: DARIELA TAYLOR MD Sep 30, 2016 11:17
--- NOTE | 2016-09-30 14:12 | RAD ---
ERCP, 09/30/2016: History: Choledocholithiasis 2 spot films from an ERCP performed by Dr. Boland are presented for review. 130 seconds of fluoroscopy time was utilized. A filling defect is seen in the distal common bile duct on the first image. Reportedly a sphincterotomy was performed with balloon sweeping of the duct and stone removal.
[2016-09-30] MEDS: FAMOTIDINE 20 MG/2 ML VIAL IVP SCH (21:13)
[2016-10-01] MEDS: PIPERACILLIN/TAZOBACTAM 2.25 GM in IV NORMAL SALINE 50ML 50 ML IV SCH ×4 (05:32→23:26)
[2016-10-01] MEDS: HEPARIN PF for SUB-Q USE 5,000 UNIT/0.5 ML VIAL. SQ SCH ×3 (05:34→22:01)
[2016-10-01 06:14] LABS: BASO % 0 % (0-3); EOS % 0 % (0-3); HEMATOCRIT 27.9 % (36.0-47.0); HEMOGLOBIN 9.3 g/dL (12.0-15.5); LYMPH # 0.5 x10^3/uL (1.0-4.8); LYMPH % 2 % (24-48); MEAN CORPUSCULAR HEMOGLOBIN 30 pg (25-35); MEAN CORPUSCULAR HGB CONC 33 g/dL (31-37); MEAN CORPUSCULAR VOLUME 91 fL (79-100); MONO % 3 % (0-9); NEUT % 95 % (31-73); PLATELET COUNT 169 x10^3/uL (140-400); RED BLOOD COUNT 3.06 x10^6/uL (3.50-5.40); RED CELL DISTRIBUTION WIDTH 13.6 % (11.5-14.5); WHITE BLOOD COUNT 22.2 x10^3/uL (4.0-11.0)
[2016-10-01 06:33] LABS: ALBUMIN 2.2 g/dL (3.4-5.0); ALBUMIN/GLOBULIN RATIO 0.7 (1.0-1.7); CALCIUM 8.5 mg/dL (8.5-10.1); CREATININE 1.7 mg/dL (0.6-1.0); GFR 28.6; POTASSIUM 4.4 mmol/L (3.5-5.1); TOTAL BILIRUBIN 1.4 mg/dL (0.2-1.0); TOTAL PROTEIN 5.4 g/dL (6.4-8.2)
[2016-10-01 07:00] VITALS: BP 114/58
--- NOTE | 2016-10-01 08:50 | PDOC2 ---
IM Consult Referring physician Dr Reece for G neg sepsis Date of Admission DATE: 10/01/16 TIME: 08:45 Chief Complaint Chief Complaint This year old male has been admitted with a chief complaint of .weakness, n/v, may be some abd pain, found to have CBD stone, acute cholecystitis, encephalopathy, G neg emi in blood, on zosyn. Says she is not any better yet, did have ERCP and sphincterotomy and stone extraction. Problems: Past Medical History Pulmonary: Bronchitis, COPD Past Surgical History Past Surgical History: No pertinent history Past Family History Family History: Hypertension Past Social History PSH cont to smoke 1-3 packs a day, no etoh, no drugs Review of Symptoms Review of Symptoms General ROS: positive for - confusion Psychological ROS: negative Ophthalmic ROS: negative ENT ROS: negative Allergy and Immunology ROS: negative Hematology and Lymphatic: negative Endocrine ROS: negative Respiratory ROS: no cold, cough, dyspnea. Cardiovascular ROS: no chest pain or dyspnea on exertion Gastrointestinal ROS: no abdominal pain, change in bowel habits, or black or bloody stools Genito-Urinary ROS: no dysuria, trouble voiding, or hematuria Musculoskeletal ROS: no pain Neurological ROS: negative Dermatological ROS: no rash Medications Current Medications Dexamethasone Sodium Phosphate (Decadron) 20 mg STK-MED ONCE .ROUTE ; Start 09/30 at 08:49; Stop 09/30/16 at 08:50; Status DC Fentanyl Citrate (Fentanyl 2ml Vial) 25 mcg PRN Q5MIN PRN IV X 2 DOSES FOR PAIN ; Start 09/30/16 at 09:00; Stop 09/30/16 at 09:00; Status DC Fentanyl Citrate (Fentanyl 2ml Vial) 25 mcg PRN Q5MIN PRN IV MILD PAIN; Start 09/30/16 at 09:00; Stop 09/30/16 at 18:00; Status DC Fentanyl Citrate (Fentanyl 2ml Vial) 50 mcg PRN Q5MIN PRN IV X 2 DOSES FOR PAIN ; Start 09/30/16 at 09:00; Stop 09/30/16 at 09:00; Status DC Fentanyl Citrate (Fentanyl 2ml Vial) 50 mcg PRN Q5MIN PRN IV MODERATE PAIN; Start 09/30/16 at 09:00; Stop 09/30/16 at 18:00; Status DC Fentanyl Citrate (Fentanyl 2ml Vial) 100 mcg STK-MED ONCE .ROUTE ; Start at 08:49; Stop 09/30/16 at 08:50; Status DC Hydromorphone HCl (Dilaudid) 0.5 mg PRN Q10MIN PRN IV SEV PAIN, Second choice; Start 09/30/16 at 09:00; Stop 09/30/16 at 18:00; Status DC Lidocaine HCl 2 ml 1X PRN PRN ID IV START; Start 09/30/16 at 09:00; Stop at 09:00; Status DC Lidocaine HCl 2 ml PRN 1X PRN ID PRIOR TO IV START; Start 09/30/16 at 09:00; Stop 09/30/16 at 18:00; Status DC Lidocaine HCl (Lidocaine Pf 2% Vial) 5 ml STK-MED ONCE .ROUTE ; Start 09/30/16 at 08:49; Stop 09/30/16 at 08:50; Status DC Midazolam HCl (Versed) 2 mg PRN 1X PRN IV PRIOR TO PROCEDURE; Start 09/30/16 at 09:00; Stop 09/30/16 at 18:00; Status DC Morphine Sulfate 1 mg PRN Q10MIN PRN IV SEVERE PAIN; Start 09/30/16 at 09:00; Stop 09/30/16 at 18:00; Status DC Ondansetron HCl (Zofran) 4 mg PRN Q6HRS PRN IV NAUSEA/VOMITING; Start 09/30/16 at 09:00; Stop 09/30/16 at 18:00; Status DC Ondansetron HCl (Zofran) 4 mg STK-MED ONCE .ROUTE ; Start 09/30/16 at 08:49; Stop 09/30/16 at 08:50; Status DC Prochlorperazine Edisylate (Compazine) 5 mg PACU PRN PRN IV NAUSEA, MRX1; Start 09/30/16 at 09:00; Stop 09/30/16 at 18:00; Status DC Propofol 20 ml @ As Directed STK-MED ONCE IV ; Start 09/30/16 at 08:49; Stop 09/30 at 08:50; Status DC Ringer's Solution 1,000 ml @ 30 mls/hr Q24H IV ; Start 09/30/16 at 08:52; Stop 09/30/16 at 20:39; Status DC Ringer's Solution 1,000 ml @ 125 mls/hr Q8H IV ; Start 09/30/16 at 08:52; Stop 09/30/16 at 08:55; Status DC Rocuronium [place] (Zemuron) 100 mg STK-MED ONCE .ROUTE ; Start 09/30/16 at 08:49 ; Stop 09/30/16 at 08:50; Status DC Succinylcholine Chloride (Anectine) 200 mg STK-MED ONCE .ROUTE ; Start 09/30/16 at 08:50; Stop 09/30/16 at 08:51; Status DC Allergy Allergies Coded Allergies Type Severity Reaction Last Updated Verified meclizine Allergy Intermediate Swelling 09/30/16 Yes codeine Adverse Reaction Intermediate Nausea and Vomiting 09/30/16 Yes Physical Exam Physical Exam General appearance - alert,well appearing, not in distress Mental Status - alert, oriented to person, place, and time, affect appropriate to mood Head - normal Chest - clear to auscultation, no wheezes, rales or rhonchi, symmetric air entry Heart - S1 and S2 normal Abdomen - soft, tender, nondistended, no masses or organomegaly Neurological - alert and not oriented Musculoskeletal - no muscular tenderness noted Extremities - no pedal edema Skin - warm and dry Labs Laboratory Tests Test 09/29/16 16:20 09/29/16 16:40 09/29/16 19:35 09/29/16 20:00 White Blood Count 33.4 x10^3/uL (4.0-11.0) Red Blood Count 3.41 x10^6/uL (3.50-5.40) Hemoglobin 10.6 g/dL (12.0-15.5) Hematocrit 31.1 % (36.0-47.0) Mean Corpuscular Volume 91 fL (79-100) Mean Corpuscular Hemoglobin 31 pg (25-35) Mean Corpuscular Hemoglobin Concent 34 g/dL (31-37) Red Cell Distribution Width 13.1 % (11.5-14.5) Platelet Count 204 x10^3/uL (140-400) Neutrophils (%) (Auto) 95 % (31-73) Lymphocytes (%) (Auto) 2 % (24-48) Monocytes (%) (Auto) 3 % (0-9) Eosinophils (%) (Auto) 0 % (0-3) Basophils (%) (Auto) 0 % (0-3) Neutrophils # (Auto) 31.8 x10^3uL (1.8-7.7) Lymphocytes # (Auto) 0.6 x10^3/uL (1.0-4.8) Monocytes # (Auto) 0.9 x10^3/uL (0.0-1.1) Eosinophils # (Auto) 0.0 x10^3/uL (0.0-0.7) Basophils # (Auto) 0.1 x10^3/uL (0.0-0.2) Segmented Neutrophils % 62 % (35-66) Band Neutrophils % 28 % (0-9) Lymphocytes % 3 % (24-48) Metamyelocytes % 7 % (0-0) Toxic Granulation Slight Toxic Vacuolation Slight Platelet Estimate Adequate (ADEQUATE) Sodium Level 139 mmol/L (136-145) Potassium Level 4.9 mmol/L (3.5-5.1) Chloride Level 103 mmol/L (98-107) Carbon Dioxide Level 23 mmol/L (21-32) Anion Gap 13 (6-14) Blood Urea Nitrogen 76 mg/dL (7-20) Creatinine 2.4 mg/dL (0.6-1.0) Estimated GFR (Cockcroft-Gault) 19.2 BUN/Creatinine Ratio 32 (6-20) Glucose Level 121 mg/dL (70-99) Lactic Acid Level 3.9 mmol/L (0.4-2.0) 1.3 mmol/L (0.4-2.0) Calcium Level 11.0 mg/dL (8.5-10.1) Magnesium Level 1.0 mg/dL (1.8-2.4) Total Bilirubin 2.7 mg/dL (0.2-1.0) Aspartate Amino Transf (AST/SGOT) 77 U/L (15-37) Alanine Aminotransferase (ALT/SGPT) 65 U/L (14-59) Alkaline Phosphatase 139 U/L (46-116) Total Protein 6.9 g/dL (6.4-8.2) Albumin 2.8 g/dL (3.4-5.0) Albumin/Globulin Ratio 0.7 (1.0-1.7) Lipase 64 U/L (73-393) Urine Collection Type Unknown Urine Color Natasha Urine Clarity Clear Urine pH 5.0 Urine Specific [place] 1.015 Urine Protein Negative mg/dL (NEG-TRACE) Urine Glucose (UA) Negative mg/dL (NEG) Urine Ketones (Stick) Negative mg/dL (NEG) Urine Blood Negative (NEG) Urine Nitrite Negative (NEG) Urine Bilirubin Small (NEG) Urine Urobilinogen Dipstick 1.0 mg/dL (0.2 mg/dL) Urine Leukocyte Esterase Trace (NEG) Urine RBC Occ /HPF (0-2) Urine WBC 1-4 /HPF (0-4) Urine Squamous Epithelial Cells Mod /LPF Urine Amorphous Sediment Present /HPF Urine Bacteria Few /HPF (0-FEW) Urine Hyaline Casts Few /HPF Urine Mucus Slight /LPF Nasal Screen MRSA (PCR) Negative (Negative) Test 09/30/16 06:30 10/01/16 05:20 White Blood Count 28.4 x10^3/uL (4.0-11.0) 22.2 x10^3/uL (4.0-11.0) Red Blood Count 3.09 x10^6/uL (3.50-5.40) 3.06 x10^6/uL (3.50-5.40) Hemoglobin 9.4 g/dL (12.0-15.5) 9.3 g/dL (12.0-15.5) Hematocrit 28.1 % (36.0-47.0) 27.9 % (36.0-47.0) Mean Corpuscular Volume 91 fL (79-100) 91 fL (79-100) Mean Corpuscular Hemoglobin 30 pg (25-35) 30 pg (25-35) Mean Corpuscular Hemoglobin Concent 33 g/dL (31-37) 33 g/dL (31-37) Red Cell Distribution Width 13.1 % (11.5-14.5) 13.6 % (11.5-14.5) Platelet Count 172 x10^3/uL (140-400) 169 x10^3/uL (140-400) Neutrophils (%) (Auto) 95 % (31-73) 95 % (31-73) Lymphocytes (%) (Auto) 2 % (24-48) 2 % (24-48) Monocytes (%) (Auto) 2 % (0-9) 3 % (0-9) Eosinophils (%) (Auto) 0 % (0-3) 0 % (0-3) Basophils (%) (Auto) 0 % (0-3) 0 % (0-3) Neutrophils # (Auto) 27.1 x10^3uL (1.8-7.7) 21.1 x10^3uL (1.8-7.7) Lymphocytes # (Auto) 0.6 x10^3/uL (1.0-4.8) 0.5 x10^3/uL (1.0-4.8) Monocytes # (Auto) 0.7 x10^3/uL (0.0-1.1) 0.6 x10^3/uL (0.0-1.1) Eosinophils # (Auto) 0.0 x10^3/uL (0.0-0.7) 0.1 x10^3/uL (0.0-0.7) Basophils # (Auto) 0.0 x10^3/uL (0.0-0.2) 0.0 x10^3/uL (0.0-0.2) Sodium Level 142 mmol/L (136-145) 148 mmol/L (136-145) Potassium Level 4.0 mmol/L (3.5-5.1) 4.4 mmol/L (3.5-5.1) Chloride Level 108 mmol/L (98-107) 115 mmol/L (98-107) Carbon Dioxide Level 21 mmol/L (21-32) 23 mmol/L (21-32) Anion Gap 13 (6-14) 10 (6-14) Blood Urea Nitrogen 63 mg/dL (7-20) 61 mg/dL (7-20) Creatinine 1.8 mg/dL (0.6-1.0) 1.7 mg/dL (0.6-1.0) Estimated GFR (Cockcroft-Gault) 26.7 28.6 BUN/Creatinine Ratio 35 (6-20) 36 (6-20) Glucose Level 87 mg/dL (70-99) 91 mg/dL (70-99) Lactic Acid Level 0.7 mmol/L (0.4-2.0) Calcium Level 9.9 mg/dL (8.5-10.1) 8.5 mg/dL (8.5-10.1) Magnesium Level 2.7 mg/dL (1.8-2.4) Total Bilirubin 2.9 mg/dL (0.2-1.0) 1.4 mg/dL (0.2-1.0) Aspartate Amino Transf (AST/SGOT) 97 U/L (15-37) 80 U/L (15-37) Alanine Aminotransferase (ALT/SGPT) 73 U/L (14-59) 79 U/L (14-59) Alkaline Phosphatase 138 U/L (46-116) 173 U/L (46-116) Total Protein 5.5 g/dL (6.4-8.2) 5.4 g/dL (6.4-8.2) Albumin 2.4 g/dL (3.4-5.0) 2.2 g/dL (3.4-5.0) Albumin/Globulin Ratio 0.8 (1.0-1.7) 0.7 (1.0-1.7) Amylase Level 53 U/L (25-115) Lipase 176 U/L (73-393) Laboratory Tests Test 10/01/16 05:20 White Blood Count 22.2 x10^3/uL (4.0-11.0) Red Blood Count 3.06 x10^6/uL (3.50-5.40) Hemoglobin 9.3 g/dL (12.0-15.5) Hematocrit 27.9 % (36.0-47.0) Mean Corpuscular Volume 91 fL (79-100) Mean Corpuscular Hemoglobin 30 pg (25-35) Mean Corpuscular Hemoglobin Concent 33 g/dL (31-37) Red Cell Distribution Width 13.6 % (11.5-14.5) Platelet Count 169 x10^3/uL (140-400) Neutrophils (%) (Auto) 95 % (31-73) Lymphocytes (%) (Auto) 2 % (24-48) Monocytes (%) (Auto) 3 % (0-9) Eosinophils (%) (Auto) 0 % (0-3) Basophils (%) (Auto) 0 % (0-3) Neutrophils # (Auto) 21.1 x10^3uL (1.8-7.7) Lymphocytes # (Auto) 0.5 x10^3/uL (1.0-4.8) Monocytes # (Auto) 0.6 x10^3/uL (0.0-1.1) Eosinophils # (Auto) 0.1 x10^3/uL (0.0-0.7) Basophils # (Auto) 0.0 x10^3/uL (0.0-0.2) Sodium Level 148 mmol/L (136-145) Potassium Level 4.4 mmol/L (3.5-5.1) Chloride Level 115 mmol/L (98-107) Carbon Dioxide Level 23 mmol/L (21-32) Anion Gap 10 (6-14) Blood Urea Nitrogen 61 mg/dL (7-20) Creatinine 1.7 mg/dL (0.6-1.0) Estimated GFR (Cockcroft-Gault) 28.6 BUN/Creatinine Ratio 36 (6-20) Glucose Level 91 mg/dL (70-99) Calcium Level 8.5 mg/dL (8.5-10.1) Total Bilirubin 1.4 mg/dL (0.2-1.0) Aspartate Amino Transf (AST/SGOT) 80 U/L (15-37) Alanine Aminotransferase (ALT/SGPT) 79 U/L (14-59) Alkaline Phosphatase 173 U/L (46-116) Total Protein 5.4 g/dL (6.4-8.2) Albumin 2.2 g/dL (3.4-5.0) Albumin/Globulin Ratio 0.7 (1.0-1.7) Amylase Level 53 U/L (25-115) Lipase 176 U/L (73-393) Vitals Vital Signs Date Time Temp Pulse Resp B/P (MAP) Pulse Ox O2 Delivery O2 Flow Rate FiO2 10/01/16 07:00 97.7 86 18 114/58 (76) 94 Room Air 97.7 09/30/16 17:40 2.0 Assessment Assessment Acute cholecystitis G neg emi bacteremia Acute cholengitis CBD stone COPD Leukocytosis Plan Plan cont zosyn for now supportive care plan to have cholecystectomy check cultures and adjust NILTON ALVAREZ MD Oct 01, 2016 08:50
[2016-10-01] MEDS ORDERED: ePHEDrine PF IN SALINE 50 MG/5 ML DISP.SYRIN IV ONE (09:00)
[2016-10-01] MEDS ORDERED: PHENYLEPHRINE 10 MG/ML VIAL. ONE (09:00)
--- NOTE | 2016-10-01 09:38 | PDOC2 ---
FELIPA GHOTRA FIREBRICK LAYER 10/01/16 0938: CONSULT Date of Consult Date of Consult DATE: 10/01/16 TIME: 09:32 Reason for Consult Reason for Consult: cholangitis Referring Physician Referring Physician: ER Identification/Chief Complaint Chief Complaint abdominal pain Problems: Source Source: Chart review, Patient History of Present Illness Reason for Visit: Poor historian due to altered mental status, she thought she already underwent surgery--I did speak to her daughter who said she is more confused about some things Admitted with decreased PO intake, vomiting, abdominal pain, cholangitis Yesterday underwent ERCP This AM says only complaint is back pain, denies abdominal pain Past Medical History Cardiovascular: HTN, Hyperlipidemia Pulmonary: Bronchitis, COPD Heme/Onc: Cancer (colon) Past Surgical History Past Surgical History: Appendectomy, Hysterectomy Family History Family History: Hypertension Social History 2 packs per day ALCOHOL: none Drugs: None Lives: with Family Current Problem List Problem List Problems Medical Problems: (1) Cholangitis due to bile duct calculus with obstruction Status: Acute (2) Choledocholithiasis with acute cholecystitis with obstruction Status: Acute (3) Lactic acidosis Status: Acute (4) Leukocytosis Status: Acute (5) Sepsis Status: Acute Current Medications Current Medications Current Medications Ondansetron HCl (Zofran) 4 mg 1X ONCE IV Last administered on 09/29/16 16:31; Start 09/29/16 at 16:15; Stop 09/29/16 at 16:16; Status DC Fentanyl Citrate (Fentanyl 2ml Vial) 25 mcg PRN Q15MIN PRN IV PAIN GREATER THAN 3/10 Last administered on 09/29/16 21:48; Start 09/29/16 at 16:15; Stop 09/30 at 16:14; Status DC Sodium Chloride 1,000 ml @ 75 mls/hr 1X ONCE IV Last administered on 16:31; Start 09/29/16 at 16:15; Stop 09/29/16 at 17:37; Status DC Sodium Chloride 1,000 ml @ 1,770 mls/hr Q34M IV Last administered on 09/29/16 17:20; Start 09/29/16 at 17:20; Stop 09/29/16 at 18:21; Status DC Piperacillin Sod/ Tazobactam Sod (Zosyn Per Pharmacy) 1 each PRN DAILY PRN MC SEE COMMENTS; Start 09/29/16 at 18:30 Piperacillin Sod/ Tazobactam Sod 2.25 gm/Sodium Chloride 50 ml @ 100 mls/hr 1X ONCE IV Last administered on 09/29/16 18:55; Start 09/29/16 at 18:45; Stop 09/29/16 at 19:14; Status DC Ondansetron HCl (Zofran) 4 mg PRN Q8HRS PRN IV NAUSEA/VOMITING; Start 09/29/16 at 19:15; Stop 09/29/16 at 19:44; Status DC Fentanyl Citrate (Fentanyl 2ml Vial) 25 mcg PRN Q1HR PRN IV PAIN; Start at 19:15; Stop 09/30/16 at 19:14; Status DC Sodium Chloride 1,000 ml @ 125 mls/hr Q8H IV Last administered on 09/30/16 13: 27; Start 09/29/16 at 19:02; Stop 09/30/16 at 19:01; Status DC Acetaminophen (Tylenol) 650 mg PRN Q4HRS PRN PO FEVER; Start 09/29/16 at 19:15; Stop 09/30/16 at 19:14; Status DC Ondansetron HCl (Zofran) 4 mg PRN Q6HRS PRN IV NAUSEA/VOMITING; Start 09/29/16 at 19:42; Stop 09/30/16 at 19:41; Status DC Nicotine (Nicoderm Cq 21mg) 1 patch PRN DAILY PRN TD SMOKING CESSATION; Start 09/29/16 at 19:45 Lorazepam (Ativan) 0.5 mg PRN Q4HRS PRN IV ANXIETY / AGITATION Last administered on 10/01/16 01:22; Start 09/29/16 at 19:45 Magnesium Sulfate/ Dextrose 100 ml @ 25 mls/hr 1X ONCE IV Last administered on 09/29/16 20:31; Start 09/29/16 at 20:00; Stop 09/29/16 at 23:59; Status DC Piperacillin Sod/ Tazobactam Sod 2.25 gm/Sodium Chloride 50 ml @ 100 mls/hr Q8HRS IV Last administered on 10/01/16 05:32; Start 09/30/16 at 06:00 Heparin Sodium (Porcine) (Heparin Sq) 5,000 unit Q8HRS SQ Last administered on 10/01/16t 05:34; Start 09/29/16 at 22:00 Famotidine (Pepcid) 20 mg QHS IVP Last administered on 09/30/16t 21:13; Start at 21:00 Iohexol (Omnipaque 300 Mg/ml) 100 ml STK-MED ONCE .ROUTE ; Start 09/30/16 at 08: 21; Stop 09/30/16 at 08:22; Status DC Dexamethasone Sodium Phosphate (Decadron) 20 mg STK-MED ONCE .ROUTE ; Start 09/30 at 08:49; Stop 09/30/16 at 08:50; Status DC Ondansetron HCl (Zofran) 4 mg STK-MED ONCE .ROUTE ; Start 09/30/16 at 08:49; Stop 09/30/16 at 08:50; Status DC Propofol 20 ml @ As Directed STK-MED ONCE IV ; Start 09/30/16 at 08:49; Stop 09/30 at 08:50; Status DC Lidocaine HCl (Lidocaine Pf 2% Vial) 5 ml STK-MED ONCE .ROUTE ; Start 09/30/16 at 08:49; Stop 09/30/16 at 08:50; Status DC Fentanyl Citrate (Fentanyl 2ml Vial) 100 mcg STK-MED ONCE .ROUTE ; Start at 08:49; Stop 09/30/16 at 08:50; Status DC Rocuronium [place] (Zemuron) 100 mg STK-MED ONCE .ROUTE ; Start 09/30/16 at 08:49 ; Stop 09/30/16 at 08:50; Status DC Succinylcholine Chloride (Anectine) 200 mg STK-MED ONCE .ROUTE ; Start 09/30/16 at 08:50; Stop 09/30/16 at 08:51; Status DC Midazolam HCl (Versed) 2 mg PRN 1X PRN IV PRIOR TO PROCEDURE; Start 09/30/16 at 09:00; Stop 09/30/16 at 18:00; Status DC Fentanyl Citrate (Fentanyl 2ml Vial) 25 mcg PRN Q5MIN PRN IV X 2 DOSES FOR PAIN ; Start 09/30/16 at 09:00; Stop 09/30/16 at 09:00; Status DC Fentanyl Citrate (Fentanyl 2ml Vial) 50 mcg PRN Q5MIN PRN IV X 2 DOSES FOR PAIN ; Start 09/30/16 at 09:00; Stop 09/30/16 at 09:00; Status DC Ringer's Solution 1,000 ml @ 125 mls/hr Q8H IV ; Start 09/30/16 at 08:52; Stop 09/30/16 at 08:55; Status DC Lidocaine HCl 2 ml 1X PRN PRN ID IV START; Start 09/30/16 at 09:00; Stop at 09:00; Status DC Ondansetron HCl (Zofran) 4 mg PRN Q6HRS PRN IV NAUSEA/VOMITING; Start 09/30/16 at 09:00; Stop 09/30/16 at 18:00; Status DC Fentanyl Citrate (Fentanyl 2ml Vial) 25 mcg PRN Q5MIN PRN IV MILD PAIN; Start 09/30/16 at 09:00; Stop 09/30/16 at 18:00; Status DC Fentanyl Citrate (Fentanyl 2ml Vial) 50 mcg PRN Q5MIN PRN IV MODERATE PAIN; Start 09/30/16 at 09:00; Stop 09/30/16 at 18:00; Status DC Morphine Sulfate 1 mg PRN Q10MIN PRN IV SEVERE PAIN; Start 09/30/16 at 09:00; Stop 09/30/16 at 18:00; Status DC Ringer's Solution 1,000 ml @ 30 mls/hr Q24H IV ; Start 09/30/16 at 08:52; Stop 09/30/16 at 20:39; Status DC Lidocaine HCl 2 ml PRN 1X PRN ID PRIOR TO IV START; Start 09/30/16 at 09:00; Stop 09/30/16 at 18:00; Status DC Hydromorphone HCl (Dilaudid) 0.5 mg PRN Q10MIN PRN IV SEV PAIN, Second choice; Start 09/30/16 at 09:00; Stop 09/30/16 at 18:00; Status DC Prochlorperazine Edisylate (Compazine) 5 mg PACU PRN PRN IV NAUSEA, MRX1; Start 09/30/16 at 09:00; Stop 09/30/16 at 18:00; Status DC Allergies Allergies: Coded Allergies: meclizine (Verified Allergy, Intermediate, Swelling, 09/30/16) codeine (Verified Adverse Reaction, Intermediate, Nausea and Vomiting, 09/30) ROS General: YES: Appetite (+ loss), No: Chills, Other (fevers) PSYCHOLOGICAL ROS: No: Anxiety, Depression Eyes: No Blurry vision, No Double vision HEENT: No: Heacaches, Sore Throat Hematological and Lymphatic: No: Bleeding Problems, Blood Clots Respiratory: YES: SOB with excertion, No: Cough Cardiovascular: No Chest Pain, No Palpitations Gastrointestinal: Yes Other (see hpi) Genitourinary: No Dysuria, No Hematuria Musculoskeletal: Yes Joint Pain, Yes Muscle Pain Neurological: Yes Confusion, No Impaired Coord/balance Skin: No Pruritus, No Rash Physical Exam General: Alert, Oriented X3, Cooperative, No acute distress, Other (some confusion) HEENT: Atraumatic, PERRLA Lungs: Clear to auscultation, Normal air movement Heart: Regular rate, Normal S1, Normal S2, No murmurs Abdomen: Soft, No tenderness Extremities: No clubbing, No cyanosis Skin: No rashes, No breakdown Neuro: Normal speech, Sensation intact MUSCULOSKELETAL: No deformity, No swelling Vitals VITALS Vital Signs Date Time Temp Pulse Resp B/P (MAP) Pulse Ox O2 Delivery O2 Flow Rate FiO2 10/01/16 08:00 Room Air 10/01/16 07:00 97.7 86 18 114/58 (76) 94 97.7 09/30/16 17:40 2.0 Labs Labs Laboratory Tests Test 09/29/16 16:20 09/29/16 16:40 09/29/16 19:35 09/29/16 20:00 White Blood Count 33.4 x10^3/uL (4.0-11.0) Red Blood Count 3.41 x10^6/uL (3.50-5.40) Hemoglobin 10.6 g/dL (12.0-15.5) Hematocrit 31.1 % (36.0-47.0) Mean Corpuscular Volume 91 fL (79-100) Mean Corpuscular Hemoglobin 31 pg (25-35) Mean Corpuscular Hemoglobin Concent 34 g/dL (31-37) Red Cell Distribution Width 13.1 % (11.5-14.5) Platelet Count 204 x10^3/uL (140-400) Neutrophils (%) (Auto) 95 % (31-73) Lymphocytes (%) (Auto) 2 % (24-48) Monocytes (%) (Auto) 3 % (0-9) Eosinophils (%) (Auto) 0 % (0-3) Basophils (%) (Auto) 0 % (0-3) Neutrophils # (Auto) 31.8 x10^3uL (1.8-7.7) Lymphocytes # (Auto) 0.6 x10^3/uL (1.0-4.8) Monocytes # (Auto) 0.9 x10^3/uL (0.0-1.1) Eosinophils # (Auto) 0.0 x10^3/uL (0.0-0.7) Basophils # (Auto) 0.1 x10^3/uL (0.0-0.2) Segmented Neutrophils % 62 % (35-66) Band Neutrophils % 28 % (0-9) Lymphocytes % 3 % (24-48) Metamyelocytes % 7 % (0-0) Toxic Granulation Slight Toxic Vacuolation Slight Platelet Estimate Adequate (ADEQUATE) Sodium Level 139 mmol/L (136-145) Potassium Level 4.9 mmol/L (3.5-5.1) Chloride Level 103 mmol/L (98-107) Carbon Dioxide Level 23 mmol/L (21-32) Anion Gap 13 (6-14) Blood Urea Nitrogen 76 mg/dL (7-20) Creatinine 2.4 mg/dL (0.6-1.0) Estimated GFR (Cockcroft-Gault) 19.2 BUN/Creatinine Ratio 32 (6-20) Glucose Level 121 mg/dL (70-99) Lactic Acid Level 3.9 mmol/L (0.4-2.0) 1.3 mmol/L (0.4-2.0) Calcium Level 11.0 mg/dL (8.5-10.1) Magnesium Level 1.0 mg/dL (1.8-2.4) Total Bilirubin 2.7 mg/dL (0.2-1.0) Aspartate Amino Transf (AST/SGOT) 77 U/L (15-37) Alanine Aminotransferase (ALT/SGPT) 65 U/L (14-59) Alkaline Phosphatase 139 U/L (46-116) Total Protein 6.9 g/dL (6.4-8.2) Albumin 2.8 g/dL (3.4-5.0) Albumin/Globulin Ratio 0.7 (1.0-1.7) Lipase 64 U/L (73-393) Urine Collection Type Unknown Urine Color Natasha Urine Clarity Clear Urine pH 5.0 Urine Specific [place] 1.015 Urine Protein Negative mg/dL (NEG-TRACE) Urine Glucose (UA) Negative mg/dL (NEG) Urine Ketones (Stick) Negative mg/dL (NEG) Urine Blood Negative (NEG) Urine Nitrite Negative (NEG) Urine Bilirubin Small (NEG) Urine Urobilinogen Dipstick 1.0 mg/dL (0.2 mg/dL) Urine Leukocyte Esterase Trace (NEG) Urine RBC Occ /HPF (0-2) Urine WBC 1-4 /HPF (0-4) Urine Squamous Epithelial Cells Mod /LPF Urine Amorphous Sediment Present /HPF Urine Bacteria Few /HPF (0-FEW) Urine Hyaline Casts Few /HPF Urine Mucus Slight /LPF Nasal Screen MRSA (PCR) Negative (Negative) Test 09/30/16 06:30 10/01/16 05:20 White Blood Count 28.4 x10^3/uL (4.0-11.0) 22.2 x10^3/uL (4.0-11.0) Red Blood Count 3.09 x10^6/uL (3.50-5.40) 3.06 x10^6/uL (3.50-5.40) Hemoglobin 9.4 g/dL (12.0-15.5) 9.3 g/dL (12.0-15.5) Hematocrit 28.1 % (36.0-47.0) 27.9 % (36.0-47.0) Mean Corpuscular Volume 91 fL (79-100) 91 fL (79-100) Mean Corpuscular Hemoglobin 30 pg (25-35) 30 pg (25-35) Mean Corpuscular Hemoglobin Concent 33 g/dL (31-37) 33 g/dL (31-37) Red Cell Distribution Width 13.1 % (11.5-14.5) 13.6 % (11.5-14.5) Platelet Count 172 x10^3/uL (140-400) 169 x10^3/uL (140-400) Neutrophils (%) (Auto) 95 % (31-73) 95 % (31-73) Lymphocytes (%) (Auto) 2 % (24-48) 2 % (24-48) Monocytes (%) (Auto) 2 % (0-9) 3 % (0-9) Eosinophils (%) (Auto) 0 % (0-3) 0 % (0-3) Basophils (%) (Auto) 0 % (0-3) 0 % (0-3) Neutrophils # (Auto) 27.1 x10^3uL (1.8-7.7) 21.1 x10^3uL (1.8-7.7) Lymphocytes # (Auto) 0.6 x10^3/uL (1.0-4.8) 0.5 x10^3/uL (1.0-4.8) Monocytes # (Auto) 0.7 x10^3/uL (0.0-1.1) 0.6 x10^3/uL (0.0-1.1) Eosinophils # (Auto) 0.0 x10^3/uL (0.0-0.7) 0.1 x10^3/uL (0.0-0.7) Basophils # (Auto) 0.0 x10^3/uL (0.0-0.2) 0.0 x10^3/uL (0.0-0.2) Sodium Level 142 mmol/L (136-145) 148 mmol/L (136-145) Potassium Level 4.0 mmol/L (3.5-5.1) 4.4 mmol/L (3.5-5.1) Chloride Level 108 mmol/L (98-107) 115 mmol/L (98-107) Carbon Dioxide Level 21 mmol/L (21-32) 23 mmol/L (21-32) Anion Gap 13 (6-14) 10 (6-14) Blood Urea Nitrogen 63 mg/dL (7-20) 61 mg/dL (7-20) Creatinine 1.8 mg/dL (0.6-1.0) 1.7 mg/dL (0.6-1.0) Estimated GFR (Cockcroft-Gault) 26.7 28.6 BUN/Creatinine Ratio 35 (6-20) 36 (6-20) Glucose Level 87 mg/dL (70-99) 91 mg/dL (70-99) Lactic Acid Level 0.7 mmol/L (0.4-2.0) Calcium Level 9.9 mg/dL (8.5-10.1) 8.5 mg/dL (8.5-10.1) Magnesium Level 2.7 mg/dL (1.8-2.4) Total Bilirubin 2.9 mg/dL (0.2-1.0) 1.4 mg/dL (0.2-1.0) Aspartate Amino Transf (AST/SGOT) 97 U/L (15-37) 80 U/L (15-37) Alanine Aminotransferase (ALT/SGPT) 73 U/L (14-59) 79 U/L (14-59) Alkaline Phosphatase 138 U/L (46-116) 173 U/L (46-116) Total Protein 5.5 g/dL (6.4-8.2) 5.4 g/dL (6.4-8.2) Albumin 2.4 g/dL (3.4-5.0) 2.2 g/dL (3.4-5.0) Albumin/Globulin Ratio 0.8 (1.0-1.7) 0.7 (1.0-1.7) Amylase Level 53 U/L (25-115) Lipase 176 U/L (73-393) Laboratory Tests Test 10/01/16 05:20 White Blood Count 22.2 x10^3/uL (4.0-11.0) Red Blood Count 3.06 x10^6/uL (3.50-5.40) Hemoglobin 9.3 g/dL (12.0-15.5) Hematocrit 27.9 % (36.0-47.0) Mean Corpuscular Volume 91 fL (79-100) Mean Corpuscular Hemoglobin 30 pg (25-35) Mean Corpuscular Hemoglobin Concent 33 g/dL (31-37) Red Cell Distribution Width 13.6 % (11.5-14.5) Platelet Count 169 x10^3/uL (140-400) Neutrophils (%) (Auto) 95 % (31-73) Lymphocytes (%) (Auto) 2 % (24-48) Monocytes (%) (Auto) 3 % (0-9) Eosinophils (%) (Auto) 0 % (0-3) Basophils (%) (Auto) 0 % (0-3) Neutrophils # (Auto) 21.1 x10^3uL (1.8-7.7) Lymphocytes # (Auto) 0.5 x10^3/uL (1.0-4.8) Monocytes # (Auto) 0.6 x10^3/uL (0.0-1.1) Eosinophils # (Auto) 0.1 x10^3/uL (0.0-0.7) Basophils # (Auto) 0.0 x10^3/uL (0.0-0.2) Sodium Level 148 mmol/L (136-145) Potassium Level 4.4 mmol/L (3.5-5.1) Chloride Level 115 mmol/L (98-107) Carbon Dioxide Level 23 mmol/L (21-32) Anion Gap 10 (6-14) Blood Urea Nitrogen 61 mg/dL (7-20) Creatinine 1.7 mg/dL (0.6-1.0) Estimated GFR (Cockcroft-Gault) 28.6 BUN/Creatinine Ratio 36 (6-20) Glucose Level 91 mg/dL (70-99) Calcium Level 8.5 mg/dL (8.5-10.1) Total Bilirubin 1.4 mg/dL (0.2-1.0) Aspartate Amino Transf (AST/SGOT) 80 U/L (15-37) Alanine Aminotransferase (ALT/SGPT) 79 U/L (14-59) Alkaline Phosphatase 173 U/L (46-116) Total Protein 5.4 g/dL (6.4-8.2) Albumin 2.2 g/dL (3.4-5.0) Albumin/Globulin Ratio 0.7 (1.0-1.7) Amylase Level 53 U/L (25-115) Lipase 176 U/L (73-393) Assessment/Plan Assessment/Plan cholangitis COPD LFTS improved, continue abx will review with Dr Sotelo for timing of surgery, likely once acute symptoms resolved DARIELA SOTELO MD 10/01/16 1052: CONSULT Allergies Allergies: Coded Allergies: meclizine (Verified Allergy, Intermediate, Swelling, 09/30/16) codeine (Verified Adverse Reaction, Intermediate, Nausea and Vomiting, 09/30) Assessment/Plan Assessment/Plan Pt seen and examined. Agree with Ms. Ghotra's note Pt sitting up in chair, appears comfortable and denies abd pain abd soft, ND, NTTP cont supportive care pt is poor surgical candidate pt reports "she doesn't want to get cut open" will follow Thanks for consult! FELIPA GHOTRA APRN Oct 01, 2016 09:38 DARIELA SOTELO MD Oct 01, 2016 10:52
--- NOTE | 2016-10-01 10:47 | PDOC ---
Subjective: Subjective: Abd feels better. Says she's having surgery today. Objective: Vital Signs: Vital Signs Date Time Temp Pulse Resp B/P (MAP) Pulse Ox O2 Delivery O2 Flow Rate FiO2 10/01/16 08:00 Room Air 10/01/16 07:00 97.7 86 18 114/58 (76) 94 97.7 09/30/16 17:40 2.0 Labs: Laboratory Tests Test 10/01/16 05:20 White Blood Count 22.2 x10^3/uL Red Blood Count 3.06 x10^6/uL Hemoglobin 9.3 g/dL Hematocrit 27.9 % Mean Corpuscular Volume 91 fL Mean Corpuscular Hemoglobin 30 pg Mean Corpuscular Hemoglobin Concent 33 g/dL Red Cell Distribution Width 13.6 % Platelet Count 169 x10^3/uL Neutrophils (%) (Auto) 95 % Lymphocytes (%) (Auto) 2 % Monocytes (%) (Auto) 3 % Eosinophils (%) (Auto) 0 % Basophils (%) (Auto) 0 % Neutrophils # (Auto) 21.1 x10^3uL Lymphocytes # (Auto) 0.5 x10^3/uL Monocytes # (Auto) 0.6 x10^3/uL Eosinophils # (Auto) 0.1 x10^3/uL Basophils # (Auto) 0.0 x10^3/uL Sodium Level 148 mmol/L Potassium Level 4.4 mmol/L Chloride Level 115 mmol/L Carbon Dioxide Level 23 mmol/L Anion Gap 10 Blood Urea Nitrogen 61 mg/dL Creatinine 1.7 mg/dL Estimated GFR (Cockcroft-Gault) 28.6 BUN/Creatinine Ratio 36 Glucose Level 91 mg/dL Calcium Level 8.5 mg/dL Total Bilirubin 1.4 mg/dL Aspartate Amino Transf (AST/SGOT) 80 U/L Alanine Aminotransferase (ALT/SGPT) 79 U/L Alkaline Phosphatase 173 U/L Total Protein 5.4 g/dL Albumin 2.2 g/dL Albumin/Globulin Ratio 0.7 Amylase Level 53 U/L Lipase 176 U/L Imaging: ERCP w/ sphincterotomy and stone extraction 09/30/16 PE: GEN: NAD, up to chair LUNGS: diminished HEART: RRR ABD: some tenderness RUQ - better NEURO/PSYCH: confused A/P: Cholangitis -s/p ERCP w/ sphincterotomy and stone extraction 09/30/16 -abd pain improved, no further vomiting -bili improved, normal amylase/lipase today Gram neg emi bacteremia, leukocytosis -atbx per ID H/o colon cancer s/p right colon resection -in 2011 Confusion -- Okay for clears. Surgery following for cholecystectomy eventually. BETZY RAGLAND Oct 01, 2016 10:47
--- NOTE | 2016-10-01 11:42 | PDOC ---
PROGRESS NOTES Chief Complaint Chief Complaint 1. Ascending cholangitis, and choledocholithiasis s/p ERCP (09/30) 2. Elevated LFTS and alkaline phosphatase 3. MARIO 2/2 to poor PO 4. Sepsis with elevated lactate, WBC and fevers and tachycardia 5. Sinus tachycardia 6. Chronic ventral hernia 7. Incidental left non obstructing renal calculi, diverticulosis, cystitis 8. Critical hypomagnesemia 9. Hypercalcemia in faisal backgroun of dehydration/poor pO 10. 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 Geriatric, recent fall, frailty 12. 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 HLD 14. HTN 15. COPD 16. Gram neg emi bacteremia 17. DNR/DNI History of Present Illness History of Present Illness RLQ pain oNLY to deep palp, otherwise looks comfortable BUt LFTS still elevated, though better than on admission. NO fevers, on iV zosyn On clear liquid, so far tolerating Cara need rehab - does not want, has a dtr at home , agreeable to HH> Other notes, plan for lap marychuy? PLAn: No surgical plans - poor OR candidate MOnitor CMP LIkely ADAT - but will go slow, possible gI soft rubi Dw pt and RN SW for dc planning - SNU vs Vitals Vitals Vital Signs Date Time Temp Pulse Resp B/P (MAP) Pulse Ox O2 Delivery O2 Flow Rate FiO2 10/01/16 08:00 Room Air 10/01/16 07:00 97.7 86 18 114/58 (76) 94 97.7 09/30/16 17:40 2.0 Physical Exam General: Alert, Oriented X3, Cooperative, No acute distress, Other (some confusion) Heart: Regular rate, Normal S1, Normal S2, No murmurs Lungs: Clear, Other (no wheezes or crackles) Abdomen: Soft, No tenderness Extremities: No clubbing, No cyanosis Skin: No rashes, No breakdown Labs LABS Laboratory Tests Test 10/01/16 05:20 White Blood Count 22.2 x10^3/uL (4.0-11.0) Red Blood Count 3.06 x10^6/uL (3.50-5.40) Hemoglobin 9.3 g/dL (12.0-15.5) Hematocrit 27.9 % (36.0-47.0) Mean Corpuscular Volume 91 fL (79-100) Mean Corpuscular Hemoglobin 30 pg (25-35) Mean Corpuscular Hemoglobin Concent 33 g/dL (31-37) Red Cell Distribution Width 13.6 % (11.5-14.5) Platelet Count 169 x10^3/uL (140-400) Neutrophils (%) (Auto) 95 % (31-73) Lymphocytes (%) (Auto) 2 % (24-48) Monocytes (%) (Auto) 3 % (0-9) Eosinophils (%) (Auto) 0 % (0-3) Basophils (%) (Auto) 0 % (0-3) Neutrophils # (Auto) 21.1 x10^3uL (1.8-7.7) Lymphocytes # (Auto) 0.5 x10^3/uL (1.0-4.8) Monocytes # (Auto) 0.6 x10^3/uL (0.0-1.1) Eosinophils # (Auto) 0.1 x10^3/uL (0.0-0.7) Basophils # (Auto) 0.0 x10^3/uL (0.0-0.2) Sodium Level 148 mmol/L (136-145) Potassium Level 4.4 mmol/L (3.5-5.1) Chloride Level 115 mmol/L (98-107) Carbon Dioxide Level 23 mmol/L (21-32) Anion Gap 10 (6-14) Blood Urea Nitrogen 61 mg/dL (7-20) Creatinine 1.7 mg/dL (0.6-1.0) Estimated GFR (Cockcroft-Gault) 28.6 BUN/Creatinine Ratio 36 (6-20) Glucose Level 91 mg/dL (70-99) Calcium Level 8.5 mg/dL (8.5-10.1) Total Bilirubin 1.4 mg/dL (0.2-1.0) Aspartate Amino Transf (AST/SGOT) 80 U/L (15-37) Alanine Aminotransferase (ALT/SGPT) 79 U/L (14-59) Alkaline Phosphatase 173 U/L (46-116) Total Protein 5.4 g/dL (6.4-8.2) Albumin 2.2 g/dL (3.4-5.0) Albumin/Globulin Ratio 0.7 (1.0-1.7) Amylase Level 53 U/L (25-115) Lipase 176 U/L (73-393) Review of Systems Review of Systems abd pain, all else is neg Assessment and Plan Assessmemt and Plan Problems Medical Problems: (1) Cholangitis due to bile duct calculus with obstruction Status: Acute (2) Choledocholithiasis with acute cholecystitis with obstruction Status: Acute (3) Lactic acidosis Status: Acute (4) Leukocytosis Status: Acute (5) Sepsis Status: Acute Problems: Comment Review of Relevant I have reviewed the following items navneet (where applicable) has been applied. Labs Laboratory Tests Test 09/29/16 16:20 09/29/16 16:40 09/29/16 19:35 09/29/16 20:00 White Blood Count 33.4 x10^3/uL (4.0-11.0) Red Blood Count 3.41 x10^6/uL (3.50-5.40) Hemoglobin 10.6 g/dL (12.0-15.5) Hematocrit 31.1 % (36.0-47.0) Mean Corpuscular Volume 91 fL (79-100) Mean Corpuscular Hemoglobin 31 pg (25-35) Mean Corpuscular Hemoglobin Concent 34 g/dL (31-37) Red Cell Distribution Width 13.1 % (11.5-14.5) Platelet Count 204 x10^3/uL (140-400) Neutrophils (%) (Auto) 95 % (31-73) Lymphocytes (%) (Auto) 2 % (24-48) Monocytes (%) (Auto) 3 % (0-9) Eosinophils (%) (Auto) 0 % (0-3) Basophils (%) (Auto) 0 % (0-3) Neutrophils # (Auto) 31.8 x10^3uL (1.8-7.7) Lymphocytes # (Auto) 0.6 x10^3/uL (1.0-4.8) Monocytes # (Auto) 0.9 x10^3/uL (0.0-1.1) Eosinophils # (Auto) 0.0 x10^3/uL (0.0-0.7) Basophils # (Auto) 0.1 x10^3/uL (0.0-0.2) Segmented Neutrophils % 62 % (35-66) Band Neutrophils % 28 % (0-9) Lymphocytes % 3 % (24-48) Metamyelocytes % 7 % (0-0) Toxic Granulation Slight Toxic Vacuolation Slight Platelet Estimate Adequate (ADEQUATE) Sodium Level 139 mmol/L (136-145) Potassium Level 4.9 mmol/L (3.5-5.1) Chloride Level 103 mmol/L (98-107) Carbon Dioxide Level 23 mmol/L (21-32) Anion Gap 13 (6-14) Blood Urea Nitrogen 76 mg/dL (7-20) Creatinine 2.4 mg/dL (0.6-1.0) Estimated GFR (Cockcroft-Gault) 19.2 BUN/Creatinine Ratio 32 (6-20) Glucose Level 121 mg/dL (70-99) Lactic Acid Level 3.9 mmol/L (0.4-2.0) 1.3 mmol/L (0.4-2.0) Calcium Level 11.0 mg/dL (8.5-10.1) Magnesium Level 1.0 mg/dL (1.8-2.4) Total Bilirubin 2.7 mg/dL (0.2-1.0) Aspartate Amino Transf (AST/SGOT) 77 U/L (15-37) Alanine Aminotransferase (ALT/SGPT) 65 U/L (14-59) Alkaline Phosphatase 139 U/L (46-116) Total Protein 6.9 g/dL (6.4-8.2) Albumin 2.8 g/dL (3.4-5.0) Albumin/Globulin Ratio 0.7 (1.0-1.7) Lipase 64 U/L (73-393) Urine Collection Type Unknown Urine Color Natasha Urine Clarity Clear Urine pH 5.0 Urine Specific Berne 1.015 Urine Protein Negative mg/dL (NEG-TRACE) Urine Glucose (UA) Negative mg/dL (NEG) Urine Ketones (Stick) Negative mg/dL (NEG) Urine Blood Negative (NEG) Urine Nitrite Negative (NEG) Urine Bilirubin Small (NEG) Urine Urobilinogen Dipstick 1.0 mg/dL (0.2 mg/dL) Urine Leukocyte Esterase Trace (NEG) Urine RBC Occ /HPF (0-2) Urine WBC 1-4 /HPF (0-4) Urine Squamous Epithelial Cells Mod /LPF Urine Amorphous Sediment Present /HPF Urine Bacteria Few /HPF (0-FEW) Urine Hyaline Casts Few /HPF Urine Mucus Slight /LPF Nasal Screen MRSA (PCR) Negative (Negative) Test 09/30/16 06:30 10/01/16 05:20 White Blood Count 28.4 x10^3/uL (4.0-11.0) 22.2 x10^3/uL (4.0-11.0) Red Blood Count 3.09 x10^6/uL (3.50-5.40) 3.06 x10^6/uL (3.50-5.40) Hemoglobin 9.4 g/dL (12.0-15.5) 9.3 g/dL (12.0-15.5) Hematocrit 28.1 % (36.0-47.0) 27.9 % (36.0-47.0) Mean Corpuscular Volume 91 fL (79-100) 91 fL (79-100) Mean Corpuscular Hemoglobin 30 pg (25-35) 30 pg (25-35) Mean Corpuscular Hemoglobin Concent 33 g/dL (31-37) 33 g/dL (31-37) Red Cell Distribution Width 13.1 % (11.5-14.5) 13.6 % (11.5-14.5) Platelet Count 172 x10^3/uL (140-400) 169 x10^3/uL (140-400) Neutrophils (%) (Auto) 95 % (31-73) 95 % (31-73) Lymphocytes (%) (Auto) 2 % (24-48) 2 % (24-48) Monocytes (%) (Auto) 2 % (0-9) 3 % (0-9) Eosinophils (%) (Auto) 0 % (0-3) 0 % (0-3) Basophils (%) (Auto) 0 % (0-3) 0 % (0-3) Neutrophils # (Auto) 27.1 x10^3uL (1.8-7.7) 21.1 x10^3uL (1.8-7.7) Lymphocytes # (Auto) 0.6 x10^3/uL (1.0-4.8) 0.5 x10^3/uL (1.0-4.8) Monocytes # (Auto) 0.7 x10^3/uL (0.0-1.1) 0.6 x10^3/uL (0.0-1.1) Eosinophils # (Auto) 0.0 x10^3/uL (0.0-0.7) 0.1 x10^3/uL (0.0-0.7) Basophils # (Auto) 0.0 x10^3/uL (0.0-0.2) 0.0 x10^3/uL (0.0-0.2) Sodium Level 142 mmol/L (136-145) 148 mmol/L (136-145) Potassium Level 4.0 mmol/L (3.5-5.1) 4.4 mmol/L (3.5-5.1) Chloride Level 108 mmol/L (98-107) 115 mmol/L (98-107) Carbon Dioxide Level 21 mmol/L (21-32) 23 mmol/L (21-32) Anion Gap 13 (6-14) 10 (6-14) Blood Urea Nitrogen 63 mg/dL (7-20) 61 mg/dL (7-20) Creatinine 1.8 mg/dL (0.6-1.0) 1.7 mg/dL (0.6-1.0) Estimated GFR (Cockcroft-Gault) 26.7 28.6 BUN/Creatinine Ratio 35 (6-20) 36 (6-20) Glucose Level 87 mg/dL (70-99) 91 mg/dL (70-99) Lactic Acid Level 0.7 mmol/L (0.4-2.0) Calcium Level 9.9 mg/dL (8.5-10.1) 8.5 mg/dL (8.5-10.1) Magnesium Level 2.7 mg/dL (1.8-2.4) Total Bilirubin 2.9 mg/dL (0.2-1.0) 1.4 mg/dL (0.2-1.0) Aspartate Amino Transf (AST/SGOT) 97 U/L (15-37) 80 U/L (15-37) Alanine Aminotransferase (ALT/SGPT) 73 U/L (14-59) 79 U/L (14-59) Alkaline Phosphatase 138 U/L (46-116) 173 U/L (46-116) Total Protein 5.5 g/dL (6.4-8.2) 5.4 g/dL (6.4-8.2) Albumin 2.4 g/dL (3.4-5.0) 2.2 g/dL (3.4-5.0) Albumin/Globulin Ratio 0.8 (1.0-1.7) 0.7 (1.0-1.7) Amylase Level 53 U/L (25-115) Lipase 176 U/L (73-393) Laboratory Tests Test 10/01/16 05:20 White Blood Count 22.2 x10^3/uL (4.0-11.0) Red Blood Count 3.06 x10^6/uL (3.50-5.40) Hemoglobin 9.3 g/dL (12.0-15.5) Hematocrit 27.9 % (36.0-47.0) Mean Corpuscular Volume 91 fL (79-100) Mean Corpuscular Hemoglobin 30 pg (25-35) Mean Corpuscular Hemoglobin Concent 33 g/dL (31-37) Red Cell Distribution Width 13.6 % (11.5-14.5) Platelet Count 169 x10^3/uL (140-400) Neutrophils (%) (Auto) 95 % (31-73) Lymphocytes (%) (Auto) 2 % (24-48) Monocytes (%) (Auto) 3 % (0-9) Eosinophils (%) (Auto) 0 % (0-3) Basophils (%) (Auto) 0 % (0-3) Neutrophils # (Auto) 21.1 x10^3uL (1.8-7.7) Lymphocytes # (Auto) 0.5 x10^3/uL (1.0-4.8) Monocytes # (Auto) 0.6 x10^3/uL (0.0-1.1) Eosinophils # (Auto) 0.1 x10^3/uL (0.0-0.7) Basophils # (Auto) 0.0 x10^3/uL (0.0-0.2) Sodium Level 148 mmol/L (136-145) Potassium Level 4.4 mmol/L (3.5-5.1) Chloride Level 115 mmol/L (98-107) Carbon Dioxide Level 23 mmol/L (21-32) Anion Gap 10 (6-14) Blood Urea Nitrogen 61 mg/dL (7-20) Creatinine 1.7 mg/dL (0.6-1.0) Estimated GFR (Cockcroft-Gault) 28.6 BUN/Creatinine Ratio 36 (6-20) Glucose Level 91 mg/dL (70-99) Calcium Level 8.5 mg/dL (8.5-10.1) Total Bilirubin 1.4 mg/dL (0.2-1.0) Aspartate Amino Transf (AST/SGOT) 80 U/L (15-37) Alanine Aminotransferase (ALT/SGPT) 79 U/L (14-59) Alkaline Phosphatase 173 U/L (46-116) Total Protein 5.4 g/dL (6.4-8.2) Albumin 2.2 g/dL (3.4-5.0) Albumin/Globulin Ratio 0.7 (1.0-1.7) Amylase Level 53 U/L (25-115) Lipase 176 U/L (73-393) Microbiology 09/29/16 Blood Culture - Preliminary, Resulted 09/29/16 Blood Culture Result 1 (MYKEL) - Preliminary, Resulted 09/29/16 Urine Culture - Final, Complete 09/29/16 Urine Culture Result 1 (MYKEL) - Final, Complete Medications Current Medications Ondansetron HCl (Zofran) 4 mg 1X ONCE IV Last administered on 09/29/16 16:31; Start 09/29/16 at 16:15; Stop 09/29/16 at 16:16; Status DC Fentanyl Citrate (Fentanyl 2ml Vial) 25 mcg PRN Q15MIN PRN IV PAIN GREATER THAN 3/10 Last administered on 09/29/16 21:48; Start 09/29/16 at 16:15; Stop 09/30 at 16:14; Status DC Sodium Chloride 1,000 ml @ 75 mls/hr 1X ONCE IV Last administered on 16:31; Start 09/29/16 at 16:15; Stop 09/29/16 at 17:37; Status DC Sodium Chloride 1,000 ml @ 1,770 mls/hr Q34M IV Last administered on 09/29/16 17:20; Start 09/29/16 at 17:20; Stop 09/29/16 at 18:21; Status DC Piperacillin Sod/ Tazobactam Sod (Zosyn Per Pharmacy) 1 each PRN DAILY PRN MC SEE COMMENTS; Start 09/29/16 at 18:30 Piperacillin Sod/ Tazobactam Sod 2.25 gm/Sodium Chloride 50 ml @ 100 mls/hr 1X ONCE IV Last administered on 09/29/16 18:55; Start 09/29/16 at 18:45; Stop 09/29/16 at 19:14; Status DC Ondansetron HCl (Zofran) 4 mg PRN Q8HRS PRN IV NAUSEA/VOMITING; Start 09/29/16 at 19:15; Stop 09/29/16 at 19:44; Status DC Fentanyl Citrate (Fentanyl 2ml Vial) 25 mcg PRN Q1HR PRN IV PAIN; Start at 19:15; Stop 09/30/16 at 19:14; Status DC Sodium Chloride 1,000 ml @ 125 mls/hr Q8H IV Last administered on 09/30/16 13: 27; Start 09/29/16 at 19:02; Stop 09/30/16 at 19:01; Status DC Acetaminophen (Tylenol) 650 mg PRN Q4HRS PRN PO FEVER; Start 09/29/16 at 19:15; Stop 09/30/16 at 19:14; Status DC Ondansetron HCl (Zofran) 4 mg PRN Q6HRS PRN IV NAUSEA/VOMITING; Start 09/29/16 at 19:42; Stop 09/30/16 at 19:41; Status DC Nicotine (Nicoderm Cq 21mg) 1 patch PRN DAILY PRN TD SMOKING CESSATION; Start 09/29/16 at 19:45 Lorazepam (Ativan) 0.5 mg PRN Q4HRS PRN IV ANXIETY / AGITATION Last administered on 10/01/16 01:22; Start 09/29/16 at 19:45 Magnesium Sulfate/ Dextrose 100 ml @ 25 mls/hr 1X ONCE IV Last administered on 09/29/16 20:31; Start 09/29/16 at 20:00; Stop 09/29/16 at 23:59; Status DC Piperacillin Sod/ Tazobactam Sod 2.25 gm/Sodium Chloride 50 ml @ 100 mls/hr Q8HRS IV Last administered on 10/01/16 05:32; Start 09/30/16 at 06:00 Heparin Sodium (Porcine) (Heparin Sq) 5,000 unit Q8HRS SQ Last administered on 10/01/16t 05:34; Start 09/29/16 at 22:00 Famotidine (Pepcid) 20 mg QHS IVP Last administered on 09/30/16t 21:13; Start at 21:00 Iohexol (Omnipaque 300 Mg/ml) 100 ml STK-MED ONCE .ROUTE ; Start 09/30/16 at 08: 21; Stop 09/30/16 at 08:22; Status DC Dexamethasone Sodium Phosphate (Decadron) 20 mg STK-MED ONCE .ROUTE ; Start 09/30 at 08:49; Stop 09/30/16 at 08:50; Status DC Ondansetron HCl (Zofran) 4 mg STK-MED ONCE .ROUTE ; Start 09/30/16 at 08:49; Stop 09/30/16 at 08:50; Status DC Propofol 20 ml @ As Directed STK-MED ONCE IV ; Start 09/30/16 at 08:49; Stop 09/30 at 08:50; Status DC Lidocaine HCl (Lidocaine Pf 2% Vial) 5 ml STK-MED ONCE .ROUTE ; Start 09/30/16 at 08:49; Stop 09/30/16 at 08:50; Status DC Fentanyl Citrate (Fentanyl 2ml Vial) 100 mcg STK-MED ONCE .ROUTE ; Start at 08:49; Stop 09/30/16 at 08:50; Status DC Rocuronium Deloit (Zemuron) 100 mg STK-MED ONCE .ROUTE ; Start 09/30/16 at 08:49 ; Stop 09/30/16 at 08:50; Status DC Succinylcholine Chloride (Anectine) 200 mg STK-MED ONCE .ROUTE ; Start 09/30/16 at 08:50; Stop 09/30/16 at 08:51; Status DC Midazolam HCl (Versed) 2 mg PRN 1X PRN IV PRIOR TO PROCEDURE; Start 09/30/16 at 09:00; Stop 09/30/16 at 18:00; Status DC Fentanyl Citrate (Fentanyl 2ml Vial) 25 mcg PRN Q5MIN PRN IV X 2 DOSES FOR PAIN ; Start 09/30/16 at 09:00; Stop 09/30/16 at 09:00; Status DC Fentanyl Citrate (Fentanyl 2ml Vial) 50 mcg PRN Q5MIN PRN IV X 2 DOSES FOR PAIN ; Start 09/30/16 at 09:00; Stop 09/30/16 at 09:00; Status DC Ringer's Solution 1,000 ml @ 125 mls/hr Q8H IV ; Start 09/30/16 at 08:52; Stop 09/30/16 at 08:55; Status DC Lidocaine HCl 2 ml 1X PRN PRN ID IV START; Start 09/30/16 at 09:00; Stop at 09:00; Status DC Ondansetron HCl (Zofran) 4 mg PRN Q6HRS PRN IV NAUSEA/VOMITING; Start 09/30/16 at 09:00; Stop 09/30/16 at 18:00; Status DC Fentanyl Citrate (Fentanyl 2ml Vial) 25 mcg PRN Q5MIN PRN IV MILD PAIN; Start 09/30/16 at 09:00; Stop 09/30/16 at 18:00; Status DC Fentanyl Citrate (Fentanyl 2ml Vial) 50 mcg PRN Q5MIN PRN IV MODERATE PAIN; Start 09/30/16 at 09:00; Stop 09/30/16 at 18:00; Status DC Morphine Sulfate 1 mg PRN Q10MIN PRN IV SEVERE PAIN; Start 09/30/16 at 09:00; Stop 09/30/16 at 18:00; Status DC Ringer's Solution 1,000 ml @ 30 mls/hr Q24H IV ; Start 09/30/16 at 08:52; Stop 09/30/16 at 20:39; Status DC Lidocaine HCl 2 ml PRN 1X PRN ID PRIOR TO IV START; Start 09/30/16 at 09:00; Stop 09/30/16 at 18:00; Status DC Hydromorphone HCl (Dilaudid) 0.5 mg PRN Q10MIN PRN IV SEV PAIN, Second choice; Start 09/30/16 at 09:00; Stop 09/30/16 at 18:00; Status DC Prochlorperazine Edisylate (Compazine) 5 mg PACU PRN PRN IV NAUSEA, MRX1; Start 09/30/16 at 09:00; Stop 09/30/16 at 18:00; Status DC Vitals/I & O Vital Sign - Last 24 Hours 09/30/16 09/30/16 09/30/16 09/30/16 12:00 13:00 14:00 15:00 Pulse 82 84 90 Resp 15 20 24 22 B/P (MAP) 112/50 (70) 122/66 (84) 102/60 (74) 99/50 (66) Pulse Ox 95 96 96 95 O2 Delivery Nasal Cannula Nasal Cannula Room Air Room Air O2 Flow Rate 2.0 2.0 09/30/16 09/30/16 09/30/16 09/30/16 16:00 17:00 17:30 17:40 Temp 97.0 97.5 97.0 97.5 Pulse 84 83 95 Resp 16 27 18 B/P (MAP) 94/48 (63) 122/54 (76) 139/67 (91) Pulse Ox 90 96 95 O2 Delivery Room Air Room Air Room Air Room Air O2 Flow Rate 2.0 09/30/16 09/30/16 09/30/16 10/01/16 19:00 19:58 23:00 07:00 Temp 97.5 98.1 97.7 97.5 98.1 97.7 Pulse 89 94 86 Resp 20 20 18 B/P (MAP) 148/53 (84) 151/64 (93) 114/58 (76) Pulse Ox 94 93 94 O2 Delivery Room Air Room Air Room Air Room Air 10/01/16 08:00 O2 Delivery Room Air Intake and Output 09/30/16 09/30/16 10/01/16 15:00 23:00 07:00 Intake Total 800 ml 1000 ml 600 ml Output Total 775 ml 300 ml 550 ml Balance 25 ml 700 ml 50 ml Nutrition Consultation Dietary Evaluation: Recommendations by RD: Increase Calorie Intake, Protein supplementation Comments: adv diet as tolerated boost plus prn Expected Outcomes/Goals: to meet > 50% est nutr needs with in next 24-48 hr Malnutrition Findings: Body Fat Depletion (Non Severe: Mild Depletion Weight Status: Appropriate ROBERTO REDMAN MD Oct 01, 2016 11:42
[2016-10-01 12:28] VITALS: BP 134/54
[2016-10-01 15:00] VITALS: BP 118/62
[2016-10-01 19:00] VITALS: BP 154/70
[2016-10-01] MEDS: FAMOTIDINE 20 MG/2 ML VIAL IVP SCH (21:55)
[2016-10-01 23:00] VITALS: BP 141/69
[2016-10-02] MEDS: PIPERACILLIN/TAZOBACTAM 2.25 GM in IV NORMAL SALINE 50ML 50 ML IV SCH ×4 (06:16→23:52)
[2016-10-02] MEDS: HEPARIN PF for SUB-Q USE 5,000 UNIT/0.5 ML VIAL. SQ SCH ×3 (06:23→21:02)
[2016-10-02 07:27] VITALS: BP 137/68
[2016-10-02 08:52] LABS: BASO % 0 % (0-3); EOS % 0 % (0-3); HEMATOCRIT 30.2 % (36.0-47.0); HEMOGLOBIN 9.6 g/dL (12.0-15.5); LYMPH # 1.1 x10^3/uL (1.0-4.8); LYMPH % 6 % (24-48); MEAN CORPUSCULAR HEMOGLOBIN 30 pg (25-35); MEAN CORPUSCULAR HGB CONC 32 g/dL (31-37); MEAN CORPUSCULAR VOLUME 94 fL (79-100); MONO % 4 % (0-9); NEUT % 90 % (31-73); PLATELET COUNT 164 x10^3/uL (140-400); RED BLOOD COUNT 3.23 x10^6/uL (3.50-5.40); RED CELL DISTRIBUTION WIDTH 13.4 % (11.5-14.5); WHITE BLOOD COUNT 19.3 x10^3/uL (4.0-11.0)
[2016-10-02 09:00] LABS: ALBUMIN 2.3 g/dL (3.4-5.0); ALBUMIN/GLOBULIN RATIO 0.6 (1.0-1.7); CALCIUM 9.1 mg/dL (8.5-10.1); CREATININE 1.5 mg/dL (0.6-1.0); POTASSIUM 4.1 mmol/L (3.5-5.1); TOTAL BILIRUBIN 0.9 mg/dL (0.2-1.0); TOTAL PROTEIN 6.1 g/dL (6.4-8.2)
[2016-10-02] MEDS ORDERED: HYDR12.58 PO (09:42)
[2016-10-02] MEDS ORDERED: SUCR1TAB PO (09:42)
[2016-10-02] MEDS ORDERED: MULT-208 PO (09:42)
[2016-10-02] MEDS ORDERED: SIMV40TA3 PO (09:42)
[2016-10-02] MEDS ORDERED: OMEP40CA5 PO (09:42)
[2016-10-02] MEDS ORDERED: DONE10TA7 PO (09:42)
--- NOTE | 2016-10-02 09:58 | PDOC ---
Infectious Disease Note Subjective Subjective pt feeling ok, still a lot of abd pain +, not getting up ROS ROS GEN: Denies fevers, chills, sweats HEENT: Denies blurred vision, sore throat CV: Denies chest pain RESP: Denies shortness of air, cough GI: Denies n/v/d NEURO: Denies confusion, dizziness MSK: Denies weakness, joint pain/swelling Vital Sign Vital Signs Vital Signs Date Time Temp Pulse Resp B/P (MAP) Pulse Ox O2 Delivery O2 Flow Rate FiO2 10/02/16 08:07 Room Air 10/02/16 07:27 97.7 74 18 137/68 (91) 96 97.7 Physical Exam PHYSICAL EXAM GENERAL: NAD, Alert HEENT: PERRL, OC/OP NECK: Supple, no JVD, no LN LUNGS: Clear HEART: S1S2, no gallop, no murmur ABD: Soft, tender, no organomegaly, no rebound EXT: No edema, no cyanosis COLLECTION ADMINISTRATOR: Alert, oriented x 3, no focal neurologic deficit SKIN: No rash IV: ok Labs Lab Laboratory Tests Test 10/02/16 08:00 10/02/16 08:20 Sodium Level 146 mmol/L (136-145) Potassium Level 4.1 mmol/L (3.5-5.1) Chloride Level 112 mmol/L (98-107) Carbon Dioxide Level 25 mmol/L (21-32) Anion Gap 9 (6-14) Blood Urea Nitrogen 52 mg/dL (7-20) Creatinine 1.5 mg/dL (0.6-1.0) Estimated GFR (Cockcroft-Gault) 33.0 BUN/Creatinine Ratio 35 (6-20) Glucose Level 75 mg/dL (70-99) Calcium Level 9.1 mg/dL (8.5-10.1) Total Bilirubin 0.9 mg/dL (0.2-1.0) Aspartate Amino Transf (AST/SGOT) 52 U/L (15-37) Alanine Aminotransferase (ALT/SGPT) 76 U/L (14-59) Alkaline Phosphatase 212 U/L (46-116) Total Protein 6.1 g/dL (6.4-8.2) Albumin 2.3 g/dL (3.4-5.0) Albumin/Globulin Ratio 0.6 (1.0-1.7) White Blood Count 19.3 x10^3/uL (4.0-11.0) Red Blood Count 3.23 x10^6/uL (3.50-5.40) Hemoglobin 9.6 g/dL (12.0-15.5) Hematocrit 30.2 % (36.0-47.0) Mean Corpuscular Volume 94 fL (79-100) Mean Corpuscular Hemoglobin 30 pg (25-35) Mean Corpuscular Hemoglobin Concent 32 g/dL (31-37) Red Cell Distribution Width 13.4 % (11.5-14.5) Platelet Count 164 x10^3/uL (140-400) Neutrophils (%) (Auto) 90 % (31-73) Lymphocytes (%) (Auto) 6 % (24-48) Monocytes (%) (Auto) 4 % (0-9) Eosinophils (%) (Auto) 0 % (0-3) Basophils (%) (Auto) 0 % (0-3) Neutrophils # (Auto) 17.4 x10^3uL (1.8-7.7) Lymphocytes # (Auto) 1.1 x10^3/uL (1.0-4.8) Monocytes # (Auto) 0.7 x10^3/uL (0.0-1.1) Eosinophils # (Auto) 0.0 x10^3/uL (0.0-0.7) Basophils # (Auto) 0.0 x10^3/uL (0.0-0.2) Micro BC e coli Objective Assessment Acute cholecystitis G neg emi bacteremia Acute cholengitis CBD stone COPD Leukocytosis Plan Plan of Care cont antibiotics pt/ot supportive care NILTON ALVAREZ MD Oct 02, 2016 09:58
--- NOTE | 2016-10-02 10:28 | PDOC ---
Subjective: Subjective: Not sure about pain, says she's "tied down." Objective: Objective: Per RN - confused. Reviewed other notes. Vital Signs: Vital Signs Date Time Temp Pulse Resp B/P (MAP) Pulse Ox O2 Delivery O2 Flow Rate FiO2 10/02/16 08:07 Room Air 10/02/16 07:27 97.7 74 18 137/68 (91) 96 97.7 Labs: Laboratory Tests Test 10/02/16 08:00 10/02/16 08:20 Sodium Level 146 mmol/L Potassium Level 4.1 mmol/L Chloride Level 112 mmol/L Carbon Dioxide Level 25 mmol/L Anion Gap 9 Blood Urea Nitrogen 52 mg/dL Creatinine 1.5 mg/dL Estimated GFR (Cockcroft-Gault) 33.0 BUN/Creatinine Ratio 35 Glucose Level 75 mg/dL Calcium Level 9.1 mg/dL Total Bilirubin 0.9 mg/dL Aspartate Amino Transf (AST/SGOT) 52 U/L Alanine Aminotransferase (ALT/SGPT) 76 U/L Alkaline Phosphatase 212 U/L Total Protein 6.1 g/dL Albumin 2.3 g/dL Albumin/Globulin Ratio 0.6 White Blood Count 19.3 x10^3/uL Red Blood Count 3.23 x10^6/uL Hemoglobin 9.6 g/dL Hematocrit 30.2 % Mean Corpuscular Volume 94 fL Mean Corpuscular Hemoglobin 30 pg Mean Corpuscular Hemoglobin Concent 32 g/dL Red Cell Distribution Width 13.4 % Platelet Count 164 x10^3/uL Neutrophils (%) (Auto) 90 % Lymphocytes (%) (Auto) 6 % Monocytes (%) (Auto) 4 % Eosinophils (%) (Auto) 0 % Basophils (%) (Auto) 0 % Neutrophils # (Auto) 17.4 x10^3uL Lymphocytes # (Auto) 1.1 x10^3/uL Monocytes # (Auto) 0.7 x10^3/uL Eosinophils # (Auto) 0.0 x10^3/uL Basophils # (Auto) 0.0 x10^3/uL PE: GEN: NAD, laying in bed LUNGS: diminished HEART: RRR ABD: some RUQ tenderness NEURO/PSYCH: confused A/P: Cholangitis -s/p ERCP w/ sphincterotomy and stone extraction 09/30/16 -still some abd pain -bili now WNL -surgery following ---> poor surgical candidate -gram neg emi bacteremia (E coli), leukocytosis ---> atbx per ID H/o colon cancer s/p right colon resection -in 2011 Confusion -- ADAT. BETZY RAGLAND Oct 02, 2016 10:28
[2016-10-02 10:35] VITALS: BP 145/69
--- NOTE | 2016-10-02 12:37 | PDOC ---
PROGRESS NOTES Chief Complaint Chief Complaint 1. Ascending cholangitis, and choledocholithiasis s/p ERCP (09/30) 2. Elevated LFTS and alkaline phosphatase 3. MARIO 2/2 to poor PO 4. Sepsis with elevated lactate, WBC and fevers and tachycardia 5. Sinus tachycardia 6. Chronic ventral hernia 7. Incidental left non obstructing renal calculi, diverticulosis, cystitis 8. Critical hypomagnesemia 9. Hypercalcemia in faisal backgroun of dehydration/poor pO 10. 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 Geriatric, recent fall, frailty 12. 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 HLD 14. HTN 15. COPD 16. Gram neg emi bacteremia 17. DNR/DNI History of Present Illness History of Present Illness NO abd pain, looks comfortable BUt LFTS still elevated, though better than on admission. NO fevers, on iV zosyn On PO diet, so far tolerating NO SURGICAL PL:ANS - high risk sx DISCUSSED WITH DTR YELENA OVER PHONE TODAY, AGREES WITH NO SX. WANTS SNU - I RECOMMENDED SNU PT AGREEABLE TO SNU IF DTR IS PT BARELY WALKING THERAPY RECS SNU PLAn: No surgical plans - poor OR candidate [facility] CMP SW CONSULT FOR SNU - LIKELY HERE OVER WEEKEND UNTIL SNU ARRANGED FOR WEDNESDAY Dw pt and RN AND DTR YELENA Vitals Vitals Vital Signs Date Time Temp Pulse Resp B/P (MAP) Pulse Ox O2 Delivery O2 Flow Rate FiO2 10/02/16 10:35 97.9 82 18 145/69 (94) 94 Room Air 97.9 Physical Exam General: Alert, Oriented X3, Cooperative, No acute distress, Other (some confusion) Heart: Regular rate, Normal S1, Normal S2, No murmurs Lungs: Clear, Other (no wheezes or crackles) Abdomen: Soft, No tenderness Extremities: No clubbing, No cyanosis Skin: No rashes, No breakdown Labs LABS Laboratory Tests Test 10/02/16 08:00 10/02/16 08:20 Sodium Level 146 mmol/L (136-145) Potassium Level 4.1 mmol/L (3.5-5.1) Chloride Level 112 mmol/L (98-107) Carbon Dioxide Level 25 mmol/L (21-32) Anion Gap 9 (6-14) Blood Urea Nitrogen 52 mg/dL (7-20) Creatinine 1.5 mg/dL (0.6-1.0) Estimated GFR (Cockcroft-Gault) 33.0 BUN/Creatinine Ratio 35 (6-20) Glucose Level 75 mg/dL (70-99) Calcium Level 9.1 mg/dL (8.5-10.1) Total Bilirubin 0.9 mg/dL (0.2-1.0) Aspartate Amino Transf (AST/SGOT) 52 U/L (15-37) Alanine Aminotransferase (ALT/SGPT) 76 U/L (14-59) Alkaline Phosphatase 212 U/L (46-116) Total Protein 6.1 g/dL (6.4-8.2) Albumin 2.3 g/dL (3.4-5.0) Albumin/Globulin Ratio 0.6 (1.0-1.7) White Blood Count 19.3 x10^3/uL (4.0-11.0) Red Blood Count 3.23 x10^6/uL (3.50-5.40) Hemoglobin 9.6 g/dL (12.0-15.5) Hematocrit 30.2 % (36.0-47.0) Mean Corpuscular Volume 94 fL (79-100) Mean Corpuscular Hemoglobin 30 pg (25-35) Mean Corpuscular Hemoglobin Concent 32 g/dL (31-37) Red Cell Distribution Width 13.4 % (11.5-14.5) Platelet Count 164 x10^3/uL (140-400) Neutrophils (%) (Auto) 90 % (31-73) Lymphocytes (%) (Auto) 6 % (24-48) Monocytes (%) (Auto) 4 % (0-9) Eosinophils (%) (Auto) 0 % (0-3) Basophils (%) (Auto) 0 % (0-3) Neutrophils # (Auto) 17.4 x10^3uL (1.8-7.7) Lymphocytes # (Auto) 1.1 x10^3/uL (1.0-4.8) Monocytes # (Auto) 0.7 x10^3/uL (0.0-1.1) Eosinophils # (Auto) 0.0 x10^3/uL (0.0-0.7) Basophils # (Auto) 0.0 x10^3/uL (0.0-0.2) Review of Systems Review of Systems DENIES 14 PT REVIEWED Assessment and Plan Assessmemt and Plan Problems Medical Problems: (1) Cholangitis due to bile duct calculus with obstruction Status: Acute (2) Choledocholithiasis with acute cholecystitis with obstruction Status: Acute (3) Lactic acidosis Status: Acute (4) Leukocytosis Status: Acute (5) Sepsis Status: Acute Problems: Comment Review of Relevant I have reviewed the following items navneet (where applicable) has been applied. Labs Laboratory Tests Test 10/01/16 05:20 10/02/16 08:00 10/02/16 08:20 White Blood Count 22.2 x10^3/uL (4.0-11.0) 19.3 x10^3/uL (4.0-11.0) Red Blood Count 3.06 x10^6/uL (3.50-5.40) 3.23 x10^6/uL (3.50-5.40) Hemoglobin 9.3 g/dL (12.0-15.5) 9.6 g/dL (12.0-15.5) Hematocrit 27.9 % (36.0-47.0) 30.2 % (36.0-47.0) Mean Corpuscular Volume 91 fL (79-100) 94 fL (79-100) Mean Corpuscular Hemoglobin 30 pg (25-35) 30 pg (25-35) Mean Corpuscular Hemoglobin Concent 33 g/dL (31-37) 32 g/dL (31-37) Red Cell Distribution Width 13.6 % (11.5-14.5) 13.4 % (11.5-14.5) Platelet Count 169 x10^3/uL (140-400) 164 x10^3/uL (140-400) Neutrophils (%) (Auto) 95 % (31-73) 90 % (31-73) Lymphocytes (%) (Auto) 2 % (24-48) 6 % (24-48) Monocytes (%) (Auto) 3 % (0-9) 4 % (0-9) Eosinophils (%) (Auto) 0 % (0-3) 0 % (0-3) Basophils (%) (Auto) 0 % (0-3) 0 % (0-3) Neutrophils # (Auto) 21.1 x10^3uL (1.8-7.7) 17.4 x10^3uL (1.8-7.7) Lymphocytes # (Auto) 0.5 x10^3/uL (1.0-4.8) 1.1 x10^3/uL (1.0-4.8) Monocytes # (Auto) 0.6 x10^3/uL (0.0-1.1) 0.7 x10^3/uL (0.0-1.1) Eosinophils # (Auto) 0.1 x10^3/uL (0.0-0.7) 0.0 x10^3/uL (0.0-0.7) Basophils # (Auto) 0.0 x10^3/uL (0.0-0.2) 0.0 x10^3/uL (0.0-0.2) Sodium Level 148 mmol/L (136-145) 146 mmol/L (136-145) Potassium Level 4.4 mmol/L (3.5-5.1) 4.1 mmol/L (3.5-5.1) Chloride Level 115 mmol/L (98-107) 112 mmol/L (98-107) Carbon Dioxide Level 23 mmol/L (21-32) 25 mmol/L (21-32) Anion Gap 10 (6-14) 9 (6-14) Blood Urea Nitrogen 61 mg/dL (7-20) 52 mg/dL (7-20) Creatinine 1.7 mg/dL (0.6-1.0) 1.5 mg/dL (0.6-1.0) Estimated GFR (Cockcroft-Gault) 28.6 33.0 BUN/Creatinine Ratio 36 (6-20) 35 (6-20) Glucose Level 91 mg/dL (70-99) 75 mg/dL (70-99) Calcium Level 8.5 mg/dL (8.5-10.1) 9.1 mg/dL (8.5-10.1) Total Bilirubin 1.4 mg/dL (0.2-1.0) 0.9 mg/dL (0.2-1.0) Aspartate Amino Transf (AST/SGOT) 80 U/L (15-37) 52 U/L (15-37) Alanine Aminotransferase (ALT/SGPT) 79 U/L (14-59) 76 U/L (14-59) Alkaline Phosphatase 173 U/L (46-116) 212 U/L (46-116) Total Protein 5.4 g/dL (6.4-8.2) 6.1 g/dL (6.4-8.2) Albumin 2.2 g/dL (3.4-5.0) 2.3 g/dL (3.4-5.0) Albumin/Globulin Ratio 0.7 (1.0-1.7) 0.6 (1.0-1.7) Amylase Level 53 U/L (25-115) Lipase 176 U/L (73-393) Laboratory Tests Test 10/02/16 08:00 10/02/16 08:20 Sodium Level 146 mmol/L (136-145) Potassium Level 4.1 mmol/L (3.5-5.1) Chloride Level 112 mmol/L (98-107) Carbon Dioxide Level 25 mmol/L (21-32) Anion Gap 9 (6-14) Blood Urea Nitrogen 52 mg/dL (7-20) Creatinine 1.5 mg/dL (0.6-1.0) Estimated GFR (Cockcroft-Gault) 33.0 BUN/Creatinine Ratio 35 (6-20) Glucose Level 75 mg/dL (70-99) Calcium Level 9.1 mg/dL (8.5-10.1) Total Bilirubin 0.9 mg/dL (0.2-1.0) Aspartate Amino Transf (AST/SGOT) 52 U/L (15-37) Alanine Aminotransferase (ALT/SGPT) 76 U/L (14-59) Alkaline Phosphatase 212 U/L (46-116) Total Protein 6.1 g/dL (6.4-8.2) Albumin 2.3 g/dL (3.4-5.0) Albumin/Globulin Ratio 0.6 (1.0-1.7) White Blood Count 19.3 x10^3/uL (4.0-11.0) Red Blood Count 3.23 x10^6/uL (3.50-5.40) Hemoglobin 9.6 g/dL (12.0-15.5) Hematocrit 30.2 % (36.0-47.0) Mean Corpuscular Volume 94 fL (79-100) Mean Corpuscular Hemoglobin 30 pg (25-35) Mean Corpuscular Hemoglobin Concent 32 g/dL (31-37) Red Cell Distribution Width 13.4 % (11.5-14.5) Platelet Count 164 x10^3/uL (140-400) Neutrophils (%) (Auto) 90 % (31-73) Lymphocytes (%) (Auto) 6 % (24-48) Monocytes (%) (Auto) 4 % (0-9) Eosinophils (%) (Auto) 0 % (0-3) Basophils (%) (Auto) 0 % (0-3) Neutrophils # (Auto) 17.4 x10^3uL (1.8-7.7) Lymphocytes # (Auto) 1.1 x10^3/uL (1.0-4.8) Monocytes # (Auto) 0.7 x10^3/uL (0.0-1.1) Eosinophils # (Auto) 0.0 x10^3/uL (0.0-0.7) Basophils # (Auto) 0.0 x10^3/uL (0.0-0.2) Microbiology 09/29/16 Blood Culture - Preliminary, Resulted 09/29/16 Blood Culture Result 1 (MYKEL) - Preliminary, Resulted 09/29/16 Antimicrobic Susceptibility - Preliminary, Resulted 09/29/16 Urine Culture - Final, Complete 09/29/16 Urine Culture Result 1 (MYKEL) - Final, Complete Medications Current Medications Ondansetron HCl (Zofran) 4 mg 1X ONCE IV Last administered on 09/29/16 16:31; Start 09/29/16 at 16:15; Stop 09/29/16 at 16:16; Status DC Fentanyl Citrate (Fentanyl 2ml Vial) 25 mcg PRN Q15MIN PRN IV PAIN GREATER THAN 3/10 Last administered on 09/29/16 21:48; Start 09/29/16 at 16:15; Stop 09/30 at 16:14; Status DC Sodium Chloride 1,000 ml @ 75 mls/hr 1X ONCE IV Last administered on 16:31; Start 09/29/16 at 16:15; Stop 09/29/16 at 17:37; Status DC Sodium Chloride 1,000 ml @ 1,770 mls/hr Q34M IV Last administered on 09/29/16 17:20; Start 09/29/16 at 17:20; Stop 09/29/16 at 18:21; Status DC Piperacillin Sod/ Tazobactam Sod (Zosyn Per Pharmacy) 1 each PRN DAILY PRN MC SEE COMMENTS; Start 09/29/16 at 18:30; Stop 10/01/16 at 12:29; Status DC Piperacillin Sod/ Tazobactam Sod 2.25 gm/Sodium Chloride 50 ml @ 100 mls/hr 1X ONCE IV Last administered on 09/29/16 18:55; Start 09/29/16 at 18:45; Stop 09/29/16 at 19:14; Status DC Ondansetron HCl (Zofran) 4 mg PRN Q8HRS PRN IV NAUSEA/VOMITING; Start 09/29/16 at 19:15; Stop 09/29/16 at 19:44; Status DC Fentanyl Citrate (Fentanyl 2ml Vial) 25 mcg PRN Q1HR PRN IV PAIN; Start at 19:15; Stop 09/30/16 at 19:14; Status DC Sodium Chloride 1,000 ml @ 125 mls/hr Q8H IV Last administered on 09/30/16 13: 27; Start 09/29/16 at 19:02; Stop 09/30/16 at 19:01; Status DC Acetaminophen (Tylenol) 650 mg PRN Q4HRS PRN PO FEVER; Start 09/29/16 at 19:15; Stop 09/30/16 at 19:14; Status DC Ondansetron HCl (Zofran) 4 mg PRN Q6HRS PRN IV NAUSEA/VOMITING; Start 09/29/16 at 19:42; Stop 09/30/16 at 19:41; Status DC Nicotine (Nicoderm Cq 21mg) 1 patch PRN DAILY PRN TD SMOKING CESSATION; Start 09/29/16 at 19:45 Lorazepam (Ativan) 0.5 mg PRN Q4HRS PRN IV ANXIETY / AGITATION Last administered on 10/01/16 23:26; Start 09/29/16 at 19:45 Magnesium Sulfate/ Dextrose 100 ml @ 25 mls/hr 1X ONCE IV Last administered on 09/29/16 20:31; Start 09/29/16 at 20:00; Stop 09/29/16 at 23:59; Status DC Piperacillin Sod/ Tazobactam Sod 2.25 gm/Sodium Chloride 50 ml @ 100 mls/hr Q8HRS IV Last administered on 10/01/16 05:32; Start 09/30/16 at 06:00; Stop 10/01 at 12:32; Status DC Heparin Sodium (Porcine) (Heparin Sq) 5,000 unit Q8HRS SQ Last administered on 10/02/16 06:23; Start 09/29/16 at 22:00 Famotidine (Pepcid) 20 mg QHS IVP Last administered on 10/01/16 21:55; Start at 21:00 Iohexol (Omnipaque 300 Mg/ml) 100 ml STK-MED ONCE .ROUTE ; Start 09/30/16 at 08: 21; Stop 09/30/16 at 08:22; Status DC Dexamethasone Sodium Phosphate (Decadron) 20 mg STK-MED ONCE .ROUTE ; Start 09/30 at 08:49; Stop 09/30/16 at 08:50; Status DC Ondansetron HCl (Zofran) 4 mg STK-MED ONCE .ROUTE ; Start 09/30/16 at 08:49; Stop 09/30/16 at 08:50; Status DC Propofol 20 ml @ As Directed STK-MED ONCE IV ; Start 09/30/16 at 08:49; Stop 09/30 at 08:50; Status DC Lidocaine HCl (Lidocaine Pf 2% Vial) 5 ml STK-MED ONCE .ROUTE ; Start 09/30/16 at 08:49; Stop 09/30/16 at 08:50; Status DC Fentanyl Citrate (Fentanyl 2ml Vial) 100 mcg STK-MED ONCE .ROUTE ; Start at 08:49; Stop 09/30/16 at 08:50; Status DC Rocuronium [place] (Zemuron) 100 mg STK-MED ONCE .ROUTE ; Start 09/30/16 at 08:49 ; Stop 09/30/16 at 08:50; Status DC Succinylcholine Chloride (Anectine) 200 mg STK-MED ONCE .ROUTE ; Start 09/30/16 at 08:50; Stop 09/30/16 at 08:51; Status DC Midazolam HCl (Versed) 2 mg PRN 1X PRN IV PRIOR TO PROCEDURE; Start 09/30/16 at 09:00; Stop 09/30/16 at 18:00; Status DC Fentanyl Citrate (Fentanyl 2ml Vial) 25 mcg PRN Q5MIN PRN IV X 2 DOSES FOR PAIN ; Start 09/30/16 at 09:00; Stop 09/30/16 at 09:00; Status DC Fentanyl Citrate (Fentanyl 2ml Vial) 50 mcg PRN Q5MIN PRN IV X 2 DOSES FOR PAIN ; Start 09/30/16 at 09:00; Stop 09/30/16 at 09:00; Status DC Ringer's Solution 1,000 ml @ 125 mls/hr Q8H IV ; Start 09/30/16 at 08:52; Stop 09/30/16 at 08:55; Status DC Lidocaine HCl 2 ml 1X PRN PRN ID IV START; Start 09/30/16 at 09:00; Stop at 09:00; Status DC Ondansetron HCl (Zofran) 4 mg PRN Q6HRS PRN IV NAUSEA/VOMITING; Start 09/30/16 at 09:00; Stop 09/30/16 at 18:00; Status DC Fentanyl Citrate (Fentanyl 2ml Vial) 25 mcg PRN Q5MIN PRN IV MILD PAIN; Start 09/30/16 at 09:00; Stop 09/30/16 at 18:00; Status DC Fentanyl Citrate (Fentanyl 2ml Vial) 50 mcg PRN Q5MIN PRN IV MODERATE PAIN; Start 09/30/16 at 09:00; Stop 09/30/16 at 18:00; Status DC Morphine Sulfate 1 mg PRN Q10MIN PRN IV SEVERE PAIN; Start 09/30/16 at 09:00; Stop 09/30/16 at 18:00; Status DC Ringer's Solution 1,000 ml @ 30 mls/hr Q24H IV ; Start 09/30/16 at 08:52; Stop 09/30/16 at 20:39; Status DC Lidocaine HCl 2 ml PRN 1X PRN ID PRIOR TO IV START; Start 09/30/16 at 09:00; Stop 09/30/16 at 18:00; Status DC Hydromorphone HCl (Dilaudid) 0.5 mg PRN Q10MIN PRN IV SEV PAIN, Second choice; Start 09/30/16 at 09:00; Stop 09/30/16 at 18:00; Status DC Prochlorperazine Edisylate (Compazine) 5 mg PACU PRN PRN IV NAUSEA, MRX1; Start 09/30/16 at 09:00; Stop 09/30/16 at 18:00; Status DC Piperacillin Sod/ Tazobactam Sod 2.25 gm/Sodium Chloride 50 ml @ 100 mls/hr Q6HRS IV Last administered on 10/02/16t 12:06; Start 10/01/16 at 13:00 Ephedrine Sulfate 50 mg STK-MED ONCE IV ; Start 10/01/16 at 09:00; Stop 10/01/16 at 14:16; Status DC Phenylephrine HCl (Garcia-Synephrine Inj) 10 mg STK-MED ONCE .ROUTE ; Start at 09:00; Stop 10/01/16 at 14:16; Status DC Active Scripts Active Reported Multi-Day Vitamins (Multivitamin) 1 Each Tablet 1 Tab PO DAILY Donepezil Hcl 10 Mg Tablet 2 Tab PO DAILY Simvastatin 40 Mg Tablet 1 Tab PO QHS Omeprazole 40 Mg Capsule.dr 1 Cap PO DAILY Hydrochlorothiazide Tablet (Hydrochlorothiazide) 12.5 Mg Tablet 2 Tab PO DAILY Sucralfate 1 Gm Tablet 1 Tab PO TID Vitals/I & O Vital Sign - Last 24 Hours 10/01/16 10/01/16 10/01/16 10/01/16 15:00 19:00 20:29 23:00 Temp 97.9 99.3 99.3 97.9 99.3 99.3 Pulse 51 88 80 Resp 18 18 18 B/P (MAP) 118/62 (80) 154/70 (98) 141/69 (93) Pulse Ox 94 93 95 O2 Delivery Room Air Room Air Room Air Room Air 10/02/16 10/02/16 10/02/16 07:27 08:07 10:35 Temp 97.7 97.9 97.7 97.9 Pulse 74 82 Resp 18 18 B/P (MAP) 137/68 (91) 145/69 (94) Pulse Ox 96 94 O2 Delivery Room Air Room Air Room Air Intake and Output 10/01/16 10/01/16 10/02/16 14:59 22:59 06:59 Intake Total 400 ml 800 ml 0 ml Output Total 600 ml 300 ml Balance 400 ml 200 ml -300 ml Nutrition Consultation Dietary Evaluation: Recommendations by RD: Increase Calorie Intake, Protein supplementation Comments: adv diet as tolerated boost plus prn Expected Outcomes/Goals: to meet > 75% est nutr needs - new goal Malnutrition Findings: Body Fat Depletion (Non Severe: Mild Depletion Weight Status: Appropriate ROBERTO REDMAN MD Oct 02, 2016 12:37
[2016-10-02 14:35] VITALS: BP 127/68
[2016-10-02] MEDS: hydroCHLOROthiazide 25 MG TABLET PO SCH (15:40)
[2016-10-02] MEDS: PANTOPRAZOLE 40 MG TABLET.DR. PO SCH (15:40)
[2016-10-02] MEDS: SUCRALFATE 1 GM TABLET. PO SCH (16:50)
[2016-10-02 19:00] VITALS: BP 125/64
[2016-10-02] MEDS: FAMOTIDINE 20 MG/2 ML VIAL IVP SCH (20:56)
[2016-10-02] MEDS: SIMVASTATIN 40 MG TABLET. PO SCH (20:56)
--- NOTE | 2016-10-02 21:31 | PDOC ---
SURGICAL PROGRESS NOTE Subjective Pt without new c/o Vital Signs Vital Signs Date Time Temp Pulse Resp B/P (MAP) Pulse Ox O2 Delivery O2 Flow Rate FiO2 10/02/16 19:00 97.9 89 18 125/64 (84) 98 Room Air 97.9 I&O Intake and Output 10/02/16 07:00 Intake Total 1200 ml Output Total 900 ml Balance 300 ml Intake Oral 1100 ml IV Total 100 ml Output Urine Total 900 ml General: Alert, Oriented X3, Cooperative, No acute distress Abdomen: Soft, No tenderness Labs Laboratory Tests Test 10/01/16 05:20 10/02/16 08:00 10/02/16 08:20 White Blood Count 22.2 x10^3/uL (4.0-11.0) 19.3 x10^3/uL (4.0-11.0) Red Blood Count 3.06 x10^6/uL (3.50-5.40) 3.23 x10^6/uL (3.50-5.40) Hemoglobin 9.3 g/dL (12.0-15.5) 9.6 g/dL (12.0-15.5) Hematocrit 27.9 % (36.0-47.0) 30.2 % (36.0-47.0) Mean Corpuscular Volume 91 fL (79-100) 94 fL (79-100) Mean Corpuscular Hemoglobin 30 pg (25-35) 30 pg (25-35) Mean Corpuscular Hemoglobin Concent 33 g/dL (31-37) 32 g/dL (31-37) Red Cell Distribution Width 13.6 % (11.5-14.5) 13.4 % (11.5-14.5) Platelet Count 169 x10^3/uL (140-400) 164 x10^3/uL (140-400) Neutrophils (%) (Auto) 95 % (31-73) 90 % (31-73) Lymphocytes (%) (Auto) 2 % (24-48) 6 % (24-48) Monocytes (%) (Auto) 3 % (0-9) 4 % (0-9) Eosinophils (%) (Auto) 0 % (0-3) 0 % (0-3) Basophils (%) (Auto) 0 % (0-3) 0 % (0-3) Neutrophils # (Auto) 21.1 x10^3uL (1.8-7.7) 17.4 x10^3uL (1.8-7.7) Lymphocytes # (Auto) 0.5 x10^3/uL (1.0-4.8) 1.1 x10^3/uL (1.0-4.8) Monocytes # (Auto) 0.6 x10^3/uL (0.0-1.1) 0.7 x10^3/uL (0.0-1.1) Eosinophils # (Auto) 0.1 x10^3/uL (0.0-0.7) 0.0 x10^3/uL (0.0-0.7) Basophils # (Auto) 0.0 x10^3/uL (0.0-0.2) 0.0 x10^3/uL (0.0-0.2) Sodium Level 148 mmol/L (136-145) 146 mmol/L (136-145) Potassium Level 4.4 mmol/L (3.5-5.1) 4.1 mmol/L (3.5-5.1) Chloride Level 115 mmol/L (98-107) 112 mmol/L (98-107) Carbon Dioxide Level 23 mmol/L (21-32) 25 mmol/L (21-32) Anion Gap 10 (6-14) 9 (6-14) Blood Urea Nitrogen 61 mg/dL (7-20) 52 mg/dL (7-20) Creatinine 1.7 mg/dL (0.6-1.0) 1.5 mg/dL (0.6-1.0) Estimated GFR (Cockcroft-Gault) 28.6 33.0 BUN/Creatinine Ratio 36 (6-20) 35 (6-20) Glucose Level 91 mg/dL (70-99) 75 mg/dL (70-99) Calcium Level 8.5 mg/dL (8.5-10.1) 9.1 mg/dL (8.5-10.1) Total Bilirubin 1.4 mg/dL (0.2-1.0) 0.9 mg/dL (0.2-1.0) Aspartate Amino Transf (AST/SGOT) 80 U/L (15-37) 52 U/L (15-37) Alanine Aminotransferase (ALT/SGPT) 79 U/L (14-59) 76 U/L (14-59) Alkaline Phosphatase 173 U/L (46-116) 212 U/L (46-116) Total Protein 5.4 g/dL (6.4-8.2) 6.1 g/dL (6.4-8.2) Albumin 2.2 g/dL (3.4-5.0) 2.3 g/dL (3.4-5.0) Albumin/Globulin Ratio 0.7 (1.0-1.7) 0.6 (1.0-1.7) Amylase Level 53 U/L (25-115) Lipase 176 U/L (73-393) Laboratory Tests Test 10/02/16 08:00 10/02/16 08:20 Sodium Level 146 mmol/L (136-145) Potassium Level 4.1 mmol/L (3.5-5.1) Chloride Level 112 mmol/L (98-107) Carbon Dioxide Level 25 mmol/L (21-32) Anion Gap 9 (6-14) Blood Urea Nitrogen 52 mg/dL (7-20) Creatinine 1.5 mg/dL (0.6-1.0) Estimated GFR (Cockcroft-Gault) 33.0 BUN/Creatinine Ratio 35 (6-20) Glucose Level 75 mg/dL (70-99) Calcium Level 9.1 mg/dL (8.5-10.1) Total Bilirubin 0.9 mg/dL (0.2-1.0) Aspartate Amino Transf (AST/SGOT) 52 U/L (15-37) Alanine Aminotransferase (ALT/SGPT) 76 U/L (14-59) Alkaline Phosphatase 212 U/L (46-116) Total Protein 6.1 g/dL (6.4-8.2) Albumin 2.3 g/dL (3.4-5.0) Albumin/Globulin Ratio 0.6 (1.0-1.7) White Blood Count 19.3 x10^3/uL (4.0-11.0) Red Blood Count 3.23 x10^6/uL (3.50-5.40) Hemoglobin 9.6 g/dL (12.0-15.5) Hematocrit 30.2 % (36.0-47.0) Mean Corpuscular Volume 94 fL (79-100) Mean Corpuscular Hemoglobin 30 pg (25-35) Mean Corpuscular Hemoglobin Concent 32 g/dL (31-37) Red Cell Distribution Width 13.4 % (11.5-14.5) Platelet Count 164 x10^3/uL (140-400) Neutrophils (%) (Auto) 90 % (31-73) Lymphocytes (%) (Auto) 6 % (24-48) Monocytes (%) (Auto) 4 % (0-9) Eosinophils (%) (Auto) 0 % (0-3) Basophils (%) (Auto) 0 % (0-3) Neutrophils # (Auto) 17.4 x10^3uL (1.8-7.7) Lymphocytes # (Auto) 1.1 x10^3/uL (1.0-4.8) Monocytes # (Auto) 0.7 x10^3/uL (0.0-1.1) Eosinophils # (Auto) 0.0 x10^3/uL (0.0-0.7) Basophils # (Auto) 0.0 x10^3/uL (0.0-0.2) Problem List Problems Medical Problems: (1) Cholangitis due to bile duct calculus with obstruction Status: Acute (2) Choledocholithiasis with acute cholecystitis with obstruction Status: Acute (3) Lactic acidosis Status: Acute (4) Leukocytosis Status: Acute (5) Sepsis Status: Acute Assessment/Plan appears to be improving cont supportive care would consider lap marychuy with grams, however, pt poor surgical candidate currently Problems: DARIELA TAYLOR MD Oct 02, 2016 21:31
[2016-10-02 23:00] VITALS: BP 131/70
[2016-10-03 03:00] VITALS: BP 139/63
[2016-10-03] MEDS: PIPERACILLIN/TAZOBACTAM 2.25 GM in IV NORMAL SALINE 50ML 50 ML IV SCH ×4 (05:49→23:47)
[2016-10-03] MEDS: HEPARIN PF for SUB-Q USE 5,000 UNIT/0.5 ML VIAL. SQ SCH ×3 (05:53→21:38)
[2016-10-03 07:00] VITALS: BP 122/60
[2016-10-03 07:07] LABS: BASO % 0 % (0-3); EOS % 1 % (0-3); HEMATOCRIT 29.6 % (36.0-47.0); HEMOGLOBIN 9.8 g/dL (12.0-15.5); LYMPH # 1.3 x10^3/uL (1.0-4.8); LYMPH % 11 % (24-48); MEAN CORPUSCULAR HEMOGLOBIN 30 pg (25-35); MEAN CORPUSCULAR HGB CONC 33 g/dL (31-37); MEAN CORPUSCULAR VOLUME 92 fL (79-100); MONO % 8 % (0-9); NEUT % 80 % (31-73); PLATELET COUNT 170 x10^3/uL (140-400); RED BLOOD COUNT 3.22 x10^6/uL (3.50-5.40); RED CELL DISTRIBUTION WIDTH 13.3 % (11.5-14.5); WHITE BLOOD COUNT 12.3 x10^3/uL (4.0-11.0)
--- NOTE | 2016-10-03 08:27 | PDOC ---
Infectious Disease Note Subjective Subjective pt feeling better ROS ROS GEN: Denies fevers, chills, sweats HEENT: Denies blurred vision, sore throat CV: Denies chest pain RESP: Denies shortness of air, cough GI: Denies n/v/d NEURO: Denies confusion, dizziness MSK: Denies weakness, joint pain/swelling Vital Sign Vital Signs Vital Signs Date Time Temp Pulse Resp B/P (MAP) Pulse Ox O2 Delivery O2 Flow Rate FiO2 10/03/16 07:00 97.8 62 20 122/60 (80) 98 Room Air 97.8 Physical Exam PHYSICAL EXAM GENERAL: NAD, Alert HEENT: PERRL, OC/OP NECK: Supple, no JVD, no LN LUNGS: Clear HEART: S1S2, no gallop, no murmur ABD: Soft, NT, no organomegaly, no rebound EXT: No edema, no cyanosis [employer]: Alert, oriented x 3, no focal neurologic deficit SKIN: No rash IV: ok Labs Lab Laboratory Tests Test 10/03/16 06:25 White Blood Count 12.3 x10^3/uL (4.0-11.0) Red Blood Count 3.22 x10^6/uL (3.50-5.40) Hemoglobin 9.8 g/dL (12.0-15.5) Hematocrit 29.6 % (36.0-47.0) Mean Corpuscular Volume 92 fL (79-100) Mean Corpuscular Hemoglobin 30 pg (25-35) Mean Corpuscular Hemoglobin Concent 33 g/dL (31-37) Red Cell Distribution Width 13.3 % (11.5-14.5) Platelet Count 170 x10^3/uL (140-400) Neutrophils (%) (Auto) 80 % (31-73) Lymphocytes (%) (Auto) 11 % (24-48) Monocytes (%) (Auto) 8 % (0-9) Eosinophils (%) (Auto) 1 % (0-3) Basophils (%) (Auto) 0 % (0-3) Neutrophils # (Auto) 9.8 x10^3uL (1.8-7.7) Lymphocytes # (Auto) 1.3 x10^3/uL (1.0-4.8) Monocytes # (Auto) 1.0 x10^3/uL (0.0-1.1) Eosinophils # (Auto) 0.1 x10^3/uL (0.0-0.7) Basophils # (Auto) 0.0 x10^3/uL (0.0-0.2) Micro BC e coli Objective Assessment Acute cholecystitis G neg emi bacteremia,, E coli Acute cholengitis CBD stone COPD Leukocytosis Plan Plan of Care cont antibiotics pt/ot supportive care if surgery not planned, then d/c on po cipro for 7 more days NILTON ALVAREZ MD Oct 03, 2016 08:27
[2016-10-03] MEDS: PANTOPRAZOLE 40 MG TABLET.DR. PO SCH (08:49)
[2016-10-03] MEDS: hydroCHLOROthiazide 25 MG TABLET PO SCH (08:49)
[2016-10-03] MEDS: MULTIVITAMIN with MINERAL TABLET. PO SCH (08:49)
[2016-10-03] MEDS: DONEPEZIL HCL 10 MG TABLET. PO SCH (08:49)
[2016-10-03] MEDS: SUCRALFATE 1 GM TABLET. PO SCH ×3 (08:49→16:30)
--- NOTE | 2016-10-03 10:24 | PDOC ---
PROGRESS NOTES Chief Complaint Chief Complaint 1. Ascending cholangitis, and choledocholithiasis s/p ERCP (09/30) 2. Elevated LFTS and alkaline phosphatase 3. MARIO 2/2 to poor PO 4. Sepsis with elevated lactate, WBC and fevers and tachycardia 5. Sinus tachycardia 6. Chronic ventral hernia 7. Incidental left non obstructing renal calculi, diverticulosis, cystitis 8. Critical hypomagnesemia 9. Hypercalcemia in faisal backgroun of dehydration/poor pO 10. 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 Geriatric, recent fall, frailty 12. 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 HLD 14. HTN 15. COPD 16. Gram neg emi bacteremia 17. DNR/DNI Assessment and plan #1 case discussed with the family members, family and patient did not want any surgical plans at this time, continue current antibiotics, monitor WBC and LFTs closely, labs reviewed , prognosis guarded. #2 continue supportive care, CBC and CMP in a.m. 3 DNR/DNI, health care social worker to find [facility]. Vitals Vitals Vital Signs Date Time Temp Pulse Resp B/P (MAP) Pulse Ox O2 Delivery O2 Flow Rate FiO2 10/03/16 07:00 97.8 62 20 122/60 (80) 98 Room Air 97.8 Physical Exam General: Alert, Oriented X3, Cooperative, No acute distress Heart: Regular rate, Normal S1, Normal S2, No murmurs Lungs: Clear, Other (no wheezes or crackles) Abdomen: Soft, No tenderness Extremities: No clubbing, No cyanosis Skin: No rashes, No breakdown Labs LABS Laboratory Tests Test 10/03/16 06:25 White Blood Count 12.3 x10^3/uL (4.0-11.0) Red Blood Count 3.22 x10^6/uL (3.50-5.40) Hemoglobin 9.8 g/dL (12.0-15.5) Hematocrit 29.6 % (36.0-47.0) Mean Corpuscular Volume 92 fL (79-100) Mean Corpuscular Hemoglobin 30 pg (25-35) Mean Corpuscular Hemoglobin Concent 33 g/dL (31-37) Red Cell Distribution Width 13.3 % (11.5-14.5) Platelet Count 170 x10^3/uL (140-400) Neutrophils (%) (Auto) 80 % (31-73) Lymphocytes (%) (Auto) 11 % (24-48) Monocytes (%) (Auto) 8 % (0-9) Eosinophils (%) (Auto) 1 % (0-3) Basophils (%) (Auto) 0 % (0-3) Neutrophils # (Auto) 9.8 x10^3uL (1.8-7.7) Lymphocytes # (Auto) 1.3 x10^3/uL (1.0-4.8) Monocytes # (Auto) 1.0 x10^3/uL (0.0-1.1) Eosinophils # (Auto) 0.1 x10^3/uL (0.0-0.7) Basophils # (Auto) 0.0 x10^3/uL (0.0-0.2) Assessment and Plan Assessmemt and Plan Problems Medical Problems: (1) Cholangitis due to bile duct calculus with obstruction Status: Acute (2) Choledocholithiasis with acute cholecystitis with obstruction Status: Acute (3) Lactic acidosis Status: Acute (4) Leukocytosis Status: Acute (5) Sepsis Status: Acute Problems: Comment Review of Relevant I have reviewed the following items navneet (where applicable) has been applied. Labs Laboratory Tests Test 10/02/16 08:00 10/02/16 08:20 10/03/16 06:25 Sodium Level 146 mmol/L (136-145) Potassium Level 4.1 mmol/L (3.5-5.1) Chloride Level 112 mmol/L (98-107) Carbon Dioxide Level 25 mmol/L (21-32) Anion Gap 9 (6-14) Blood Urea Nitrogen 52 mg/dL (7-20) Creatinine 1.5 mg/dL (0.6-1.0) Estimated GFR (Cockcroft-Gault) 33.0 BUN/Creatinine Ratio 35 (6-20) Glucose Level 75 mg/dL (70-99) Calcium Level 9.1 mg/dL (8.5-10.1) Total Bilirubin 0.9 mg/dL (0.2-1.0) Aspartate Amino Transf (AST/SGOT) 52 U/L (15-37) Alanine Aminotransferase (ALT/SGPT) 76 U/L (14-59) Alkaline Phosphatase 212 U/L (46-116) Total Protein 6.1 g/dL (6.4-8.2) Albumin 2.3 g/dL (3.4-5.0) Albumin/Globulin Ratio 0.6 (1.0-1.7) White Blood Count 19.3 x10^3/uL (4.0-11.0) 12.3 x10^3/uL (4.0-11.0) Red Blood Count 3.23 x10^6/uL (3.50-5.40) 3.22 x10^6/uL (3.50-5.40) Hemoglobin 9.6 g/dL (12.0-15.5) 9.8 g/dL (12.0-15.5) Hematocrit 30.2 % (36.0-47.0) 29.6 % (36.0-47.0) Mean Corpuscular Volume 94 fL (79-100) 92 fL (79-100) Mean Corpuscular Hemoglobin 30 pg (25-35) 30 pg (25-35) Mean Corpuscular Hemoglobin Concent 32 g/dL (31-37) 33 g/dL (31-37) Red Cell Distribution Width 13.4 % (11.5-14.5) 13.3 % (11.5-14.5) Platelet Count 164 x10^3/uL (140-400) 170 x10^3/uL (140-400) Neutrophils (%) (Auto) 90 % (31-73) 80 % (31-73) Lymphocytes (%) (Auto) 6 % (24-48) 11 % (24-48) Monocytes (%) (Auto) 4 % (0-9) 8 % (0-9) Eosinophils (%) (Auto) 0 % (0-3) 1 % (0-3) Basophils (%) (Auto) 0 % (0-3) 0 % (0-3) Neutrophils # (Auto) 17.4 x10^3uL (1.8-7.7) 9.8 x10^3uL (1.8-7.7) Lymphocytes # (Auto) 1.1 x10^3/uL (1.0-4.8) 1.3 x10^3/uL (1.0-4.8) Monocytes # (Auto) 0.7 x10^3/uL (0.0-1.1) 1.0 x10^3/uL (0.0-1.1) Eosinophils # (Auto) 0.0 x10^3/uL (0.0-0.7) 0.1 x10^3/uL (0.0-0.7) Basophils # (Auto) 0.0 x10^3/uL (0.0-0.2) 0.0 x10^3/uL (0.0-0.2) Laboratory Tests Test 10/03/16 06:25 White Blood Count 12.3 x10^3/uL (4.0-11.0) Red Blood Count 3.22 x10^6/uL (3.50-5.40) Hemoglobin 9.8 g/dL (12.0-15.5) Hematocrit 29.6 % (36.0-47.0) Mean Corpuscular Volume 92 fL (79-100) Mean Corpuscular Hemoglobin 30 pg (25-35) Mean Corpuscular Hemoglobin Concent 33 g/dL (31-37) Red Cell Distribution Width 13.3 % (11.5-14.5) Platelet Count 170 x10^3/uL (140-400) Neutrophils (%) (Auto) 80 % (31-73) Lymphocytes (%) (Auto) 11 % (24-48) Monocytes (%) (Auto) 8 % (0-9) Eosinophils (%) (Auto) 1 % (0-3) Basophils (%) (Auto) 0 % (0-3) Neutrophils # (Auto) 9.8 x10^3uL (1.8-7.7) Lymphocytes # (Auto) 1.3 x10^3/uL (1.0-4.8) Monocytes # (Auto) 1.0 x10^3/uL (0.0-1.1) Eosinophils # (Auto) 0.1 x10^3/uL (0.0-0.7) Basophils # (Auto) 0.0 x10^3/uL (0.0-0.2) Microbiology 09/29/16 Blood Culture - Preliminary, Resulted 09/29/16 Blood Culture Result 1 (MYKEL) - Preliminary, Resulted 09/29/16 Antimicrobic Susceptibility - Preliminary, Resulted 09/29/16 Urine Culture - Final, Complete 09/29/16 Urine Culture Result 1 (MYKEL) - Final, Complete Medications Current Medications Ondansetron HCl (Zofran) 4 mg 1X ONCE IV Last administered on 09/29/16 16:31; Start 09/29/16 at 16:15; Stop 09/29/16 at 16:16; Status DC Fentanyl Citrate (Fentanyl 2ml Vial) 25 mcg PRN Q15MIN PRN IV PAIN GREATER THAN 3/10 Last administered on 09/29/16 21:48; Start 09/29/16 at 16:15; Stop 09/30 at 16:14; Status DC Sodium Chloride 1,000 ml @ 75 mls/hr 1X ONCE IV Last administered on 16:31; Start 09/29/16 at 16:15; Stop 09/29/16 at 17:37; Status DC Sodium Chloride 1,000 ml @ 1,770 mls/hr Q34M IV Last administered on 09/29/16 17:20; Start 09/29/16 at 17:20; Stop 09/29/16 at 18:21; Status DC Piperacillin Sod/ Tazobactam Sod (Zosyn Per Pharmacy) 1 each PRN DAILY PRN MC SEE COMMENTS; Start 09/29/16 at 18:30; Stop 10/01/16 at 12:29; Status DC Piperacillin Sod/ Tazobactam Sod 2.25 gm/Sodium Chloride 50 ml @ 100 mls/hr 1X ONCE IV Last administered on 09/29/16 18:55; Start 09/29/16 at 18:45; Stop 09/29/16 at 19:14; Status DC Ondansetron HCl (Zofran) 4 mg PRN Q8HRS PRN IV NAUSEA/VOMITING; Start 09/29/16 at 19:15; Stop 09/29/16 at 19:44; Status DC Fentanyl Citrate (Fentanyl 2ml Vial) 25 mcg PRN Q1HR PRN IV PAIN; Start at 19:15; Stop 09/30/16 at 19:14; Status DC Sodium Chloride 1,000 ml @ 125 mls/hr Q8H IV Last administered on 09/30/16 13: 27; Start 09/29/16 at 19:02; Stop 09/30/16 at 19:01; Status DC Acetaminophen (Tylenol) 650 mg PRN Q4HRS PRN PO FEVER; Start 09/29/16 at 19:15; Stop 09/30/16 at 19:14; Status DC Ondansetron HCl (Zofran) 4 mg PRN Q6HRS PRN IV NAUSEA/VOMITING; Start 09/29/16 at 19:42; Stop 09/30/16 at 19:41; Status DC Nicotine (Nicoderm Cq 21mg) 1 patch PRN DAILY PRN TD SMOKING CESSATION; Start 09/29/16 at 19:45 Lorazepam (Ativan) 0.5 mg PRN Q4HRS PRN IV ANXIETY / AGITATION Last administered on 10/01/16 23:26; Start 09/29/16 at 19:45 Magnesium Sulfate/ Dextrose 100 ml @ 25 mls/hr 1X ONCE IV Last administered on 09/29/16 20:31; Start 09/29/16 at 20:00; Stop 09/29/16 at 23:59; Status DC Piperacillin Sod/ Tazobactam Sod 2.25 gm/Sodium Chloride 50 ml @ 100 mls/hr Q8HRS IV Last administered on 10/01/16 05:32; Start 09/30/16 at 06:00; Stop 10/01 at 12:32; Status DC Heparin Sodium (Porcine) (Heparin Sq) 5,000 unit Q8HRS SQ Last administered on 10/03/16 05:53; Start 09/29/16 at 22:00 Famotidine (Pepcid) 20 mg QHS IVP Last administered on 10/02/16 20:56; Start at 21:00 Iohexol (Omnipaque 300 Mg/ml) 100 ml STK-MED ONCE .ROUTE ; Start 09/30/16 at 08: 21; Stop 09/30/16 at 08:22; Status DC Dexamethasone Sodium Phosphate (Decadron) 20 mg STK-MED ONCE .ROUTE ; Start 09/30 at 08:49; Stop 09/30/16 at 08:50; Status DC Ondansetron HCl (Zofran) 4 mg STK-MED ONCE .ROUTE ; Start 09/30/16 at 08:49; Stop 09/30/16 at 08:50; Status DC Propofol 20 ml @ As Directed STK-MED ONCE IV ; Start 09/30/16 at 08:49; Stop 09/30 at 08:50; Status DC Lidocaine HCl (Lidocaine Pf 2% Vial) 5 ml STK-MED ONCE .ROUTE ; Start 09/30/16 at 08:49; Stop 09/30/16 at 08:50; Status DC Fentanyl Citrate (Fentanyl 2ml Vial) 100 mcg STK-MED ONCE .ROUTE ; Start at 08:49; Stop 09/30/16 at 08:50; Status DC Rocuronium [place] (Zemuron) 100 mg STK-MED ONCE .ROUTE ; Start 09/30/16 at 08:49 ; Stop 09/30/16 at 08:50; Status DC Succinylcholine Chloride (Anectine) 200 mg STK-MED ONCE .ROUTE ; Start 09/30/16 at 08:50; Stop 09/30/16 at 08:51; Status DC Midazolam HCl (Versed) 2 mg PRN 1X PRN IV PRIOR TO PROCEDURE; Start 09/30/16 at 09:00; Stop 09/30/16 at 18:00; Status DC Fentanyl Citrate (Fentanyl 2ml Vial) 25 mcg PRN Q5MIN PRN IV X 2 DOSES FOR PAIN ; Start 09/30/16 at 09:00; Stop 09/30/16 at 09:00; Status DC Fentanyl Citrate (Fentanyl 2ml Vial) 50 mcg PRN Q5MIN PRN IV X 2 DOSES FOR PAIN ; Start 09/30/16 at 09:00; Stop 09/30/16 at 09:00; Status DC Ringer's Solution 1,000 ml @ 125 mls/hr Q8H IV ; Start 09/30/16 at 08:52; Stop 09/30/16 at 08:55; Status DC Lidocaine HCl 2 ml 1X PRN PRN ID IV START; Start 09/30/16 at 09:00; Stop at 09:00; Status DC Ondansetron HCl (Zofran) 4 mg PRN Q6HRS PRN IV NAUSEA/VOMITING; Start 09/30/16 at 09:00; Stop 09/30/16 at 18:00; Status DC Fentanyl Citrate (Fentanyl 2ml Vial) 25 mcg PRN Q5MIN PRN IV MILD PAIN; Start 09/30/16 at 09:00; Stop 09/30/16 at 18:00; Status DC Fentanyl Citrate (Fentanyl 2ml Vial) 50 mcg PRN Q5MIN PRN IV MODERATE PAIN; Start 09/30/16 at 09:00; Stop 09/30/16 at 18:00; Status DC Morphine Sulfate 1 mg PRN Q10MIN PRN IV SEVERE PAIN; Start 09/30/16 at 09:00; Stop 09/30/16 at 18:00; Status DC Ringer's Solution 1,000 ml @ 30 mls/hr Q24H IV ; Start 09/30/16 at 08:52; Stop 09/30/16 at 20:39; Status DC Lidocaine HCl 2 ml PRN 1X PRN ID PRIOR TO IV START; Start 09/30/16 at 09:00; Stop 09/30/16 at 18:00; Status DC Hydromorphone HCl (Dilaudid) 0.5 mg PRN Q10MIN PRN IV SEV PAIN, Second choice; Start 09/30/16 at 09:00; Stop 09/30/16 at 18:00; Status DC Prochlorperazine Edisylate (Compazine) 5 mg PACU PRN PRN IV NAUSEA, MRX1; Start 09/30/16 at 09:00; Stop 09/30/16 at 18:00; Status DC Piperacillin Sod/ Tazobactam Sod 2.25 gm/Sodium Chloride 50 ml @ 100 mls/hr Q6HRS IV Last administered on 10/03/16 05:49; Start 10/01/16 at 13:00 Ephedrine Sulfate 50 mg STK-MED ONCE IV ; Start 10/01/16 at 09:00; Stop 10/01/16 at 14:16; Status DC Phenylephrine HCl (Garcia-Synephrine Inj) 10 mg STK-MED ONCE .ROUTE ; Start at 09:00; Stop 10/01/16 at 14:16; Status DC Donepezil HCl (Aricept) 20 mg DAILY PO Last administered on 10/03/16 08:49; Start 10/03/16 at 09:00 Simvastatin (Zocor) 40 mg QHS PO Last administered on 10/02/16 20:56; Start 10/02/16 at 21:00 Sucralfate (Carafate) 1 gm TIDAC PO Last administered on 10/03/16 08:49; Start 10/02/16 at 16:30 Hydrochlorothiazide (Hydrodiuril) 25 mg DAILY PO Last administered on 10/03/16 08:49; Start 10/02/16 at 14:30 Multivitamins (Thera M Plus) 1 tab DAILY PO Last administered on 10/03/16 08:49 ; Start 10/03/16 at 09:00 Pantoprazole Sodium (Protonix) 40 mg DAILYAC PO Last administered on 10/03/16 08:49; Start 10/02/16 at 14:30 Active Scripts Active Reported Multi-Day Vitamins (Multivitamin) 1 Each Tablet 1 Tab PO DAILY Donepezil Hcl 10 Mg Tablet 2 Tab PO DAILY Simvastatin 40 Mg Tablet 1 Tab PO QHS Omeprazole 40 Mg Capsule.dr 1 Cap PO DAILY Hydrochlorothiazide Tablet (Hydrochlorothiazide) 12.5 Mg Tablet 2 Tab PO DAILY Sucralfate 1 Gm Tablet 1 Tab PO TID Vitals/I & O Vital Sign - Last 24 Hours 10/02/16 10/02/16 10/02/16 10/02/16 10:35 14:35 19:00 20:50 Temp 97.9 97.5 97.9 97.9 97.5 97.9 Pulse 82 76 89 Resp 18 18 18 B/P (MAP) 145/69 (94) 127/68 (87) 125/64 (84) Pulse Ox 94 97 98 O2 Delivery Room Air Room Air Room Air Room Air 10/02/16 10/03/16 10/03/16 23:00 03:00 07:00 Temp 97.9 97.7 97.8 97.9 97.7 97.8 Pulse 85 67 62 Resp 16 16 20 B/P (MAP) 131/70 (90) 139/63 (88) 122/60 (80) Pulse Ox 95 94 98 O2 Delivery Room Air Room Air Room Air Intake and Output 10/02/16 10/02/16 10/03/16 15:00 23:00 07:00 Intake Total 360 ml 360 ml 100 ml Output Total 950 ml Balance 360 ml -590 ml 100 ml Nutrition Consultation Dietary Evaluation: Recommendations by RD: Increase Calorie Intake, Protein supplementation Comments: adv diet as tolerated boost plus prn Expected Outcomes/Goals: to meet > 75% est nutr needs - new goal Malnutrition Findings: Body Fat Depletion (Non Severe: Mild Depletion Weight Status: Appropriate CJ RANDOLPH MD Oct 03, 2016 10:24
[2016-10-03 11:00] VITALS: BP 141/68
--- NOTE | 2016-10-03 11:39 | PDOC ---
G I PROGRESS NOTE Reason for Follow-up Fever/jaundice/cholangitis Subjective Nauseated this am Physical Exam Lungs decreased BS CV S1 S2 ABD +BS, soft, +RUQ tenderness Review of Relevant I have reviewed the following items navneet (where applicable) has been applied. Labs Laboratory Tests Test 10/02/16 08:00 10/02/16 08:20 10/03/16 06:25 Sodium Level 146 mmol/L (136-145) Potassium Level 4.1 mmol/L (3.5-5.1) Chloride Level 112 mmol/L (98-107) Carbon Dioxide Level 25 mmol/L (21-32) Anion Gap 9 (6-14) Blood Urea Nitrogen 52 mg/dL (7-20) Creatinine 1.5 mg/dL (0.6-1.0) Estimated GFR (Cockcroft-Gault) 33.0 BUN/Creatinine Ratio 35 (6-20) Glucose Level 75 mg/dL (70-99) Calcium Level 9.1 mg/dL (8.5-10.1) Total Bilirubin 0.9 mg/dL (0.2-1.0) Aspartate Amino Transf (AST/SGOT) 52 U/L (15-37) Alanine Aminotransferase (ALT/SGPT) 76 U/L (14-59) Alkaline Phosphatase 212 U/L (46-116) Total Protein 6.1 g/dL (6.4-8.2) Albumin 2.3 g/dL (3.4-5.0) Albumin/Globulin Ratio 0.6 (1.0-1.7) White Blood Count 19.3 x10^3/uL (4.0-11.0) 12.3 x10^3/uL (4.0-11.0) Red Blood Count 3.23 x10^6/uL (3.50-5.40) 3.22 x10^6/uL (3.50-5.40) Hemoglobin 9.6 g/dL (12.0-15.5) 9.8 g/dL (12.0-15.5) Hematocrit 30.2 % (36.0-47.0) 29.6 % (36.0-47.0) Mean Corpuscular Volume 94 fL (79-100) 92 fL (79-100) Mean Corpuscular Hemoglobin 30 pg (25-35) 30 pg (25-35) Mean Corpuscular Hemoglobin Concent 32 g/dL (31-37) 33 g/dL (31-37) Red Cell Distribution Width 13.4 % (11.5-14.5) 13.3 % (11.5-14.5) Platelet Count 164 x10^3/uL (140-400) 170 x10^3/uL (140-400) Neutrophils (%) (Auto) 90 % (31-73) 80 % (31-73) Lymphocytes (%) (Auto) 6 % (24-48) 11 % (24-48) Monocytes (%) (Auto) 4 % (0-9) 8 % (0-9) Eosinophils (%) (Auto) 0 % (0-3) 1 % (0-3) Basophils (%) (Auto) 0 % (0-3) 0 % (0-3) Neutrophils # (Auto) 17.4 x10^3uL (1.8-7.7) 9.8 x10^3uL (1.8-7.7) Lymphocytes # (Auto) 1.1 x10^3/uL (1.0-4.8) 1.3 x10^3/uL (1.0-4.8) Monocytes # (Auto) 0.7 x10^3/uL (0.0-1.1) 1.0 x10^3/uL (0.0-1.1) Eosinophils # (Auto) 0.0 x10^3/uL (0.0-0.7) 0.1 x10^3/uL (0.0-0.7) Basophils # (Auto) 0.0 x10^3/uL (0.0-0.2) 0.0 x10^3/uL (0.0-0.2) Laboratory Tests Test 10/03/16 06:25 White Blood Count 12.3 x10^3/uL (4.0-11.0) Red Blood Count 3.22 x10^6/uL (3.50-5.40) Hemoglobin 9.8 g/dL (12.0-15.5) Hematocrit 29.6 % (36.0-47.0) Mean Corpuscular Volume 92 fL (79-100) Mean Corpuscular Hemoglobin 30 pg (25-35) Mean Corpuscular Hemoglobin Concent 33 g/dL (31-37) Red Cell Distribution Width 13.3 % (11.5-14.5) Platelet Count 170 x10^3/uL (140-400) Neutrophils (%) (Auto) 80 % (31-73) Lymphocytes (%) (Auto) 11 % (24-48) Monocytes (%) (Auto) 8 % (0-9) Eosinophils (%) (Auto) 1 % (0-3) Basophils (%) (Auto) 0 % (0-3) Neutrophils # (Auto) 9.8 x10^3uL (1.8-7.7) Lymphocytes # (Auto) 1.3 x10^3/uL (1.0-4.8) Monocytes # (Auto) 1.0 x10^3/uL (0.0-1.1) Eosinophils # (Auto) 0.1 x10^3/uL (0.0-0.7) Basophils # (Auto) 0.0 x10^3/uL (0.0-0.2) Microbiology 09/29/16 Blood Culture - Preliminary, Resulted 09/29/16 Blood Culture Result 1 (MYKEL) - Preliminary, Resulted 09/29/16 Antimicrobic Susceptibility - Preliminary, Resulted 09/29/16 Urine Culture - Final, Complete 09/29/16 Urine Culture Result 1 (MYKEL) - Final, Complete Medications Current Medications Ondansetron HCl (Zofran) 4 mg 1X ONCE IV Last administered on 09/29/16 16:31; Start 09/29/16 at 16:15; Stop 09/29/16 at 16:16; Status DC Fentanyl Citrate (Fentanyl 2ml Vial) 25 mcg PRN Q15MIN PRN IV PAIN GREATER THAN 3/10 Last administered on 09/29/16 21:48; Start 09/29/16 at 16:15; Stop 09/30 at 16:14; Status DC Sodium Chloride 1,000 ml @ 75 mls/hr 1X ONCE IV Last administered on 16:31; Start 09/29/16 at 16:15; Stop 09/29/16 at 17:37; Status DC Sodium Chloride 1,000 ml @ 1,770 mls/hr Q34M IV Last administered on 09/29/16 17:20; Start 09/29/16 at 17:20; Stop 09/29/16 at 18:21; Status DC Piperacillin Sod/ Tazobactam Sod (Zosyn Per Pharmacy) 1 each PRN DAILY PRN MC SEE COMMENTS; Start 09/29/16 at 18:30; Stop 10/01/16 at 12:29; Status DC Piperacillin Sod/ Tazobactam Sod 2.25 gm/Sodium Chloride 50 ml @ 100 mls/hr 1X ONCE IV Last administered on 09/29/16 18:55; Start 09/29/16 at 18:45; Stop 09/29/16 at 19:14; Status DC Ondansetron HCl (Zofran) 4 mg PRN Q8HRS PRN IV NAUSEA/VOMITING; Start 09/29/16 at 19:15; Stop 09/29/16 at 19:44; Status DC Fentanyl Citrate (Fentanyl 2ml Vial) 25 mcg PRN Q1HR PRN IV PAIN; Start at 19:15; Stop 09/30/16 at 19:14; Status DC Sodium Chloride 1,000 ml @ 125 mls/hr Q8H IV Last administered on 09/30/16 13: 27; Start 09/29/16 at 19:02; Stop 09/30/16 at 19:01; Status DC Acetaminophen (Tylenol) 650 mg PRN Q4HRS PRN PO FEVER; Start 09/29/16 at 19:15; Stop 09/30/16 at 19:14; Status DC Ondansetron HCl (Zofran) 4 mg PRN Q6HRS PRN IV NAUSEA/VOMITING; Start 09/29/16 at 19:42; Stop 09/30/16 at 19:41; Status DC Nicotine (Nicoderm Cq 21mg) 1 patch PRN DAILY PRN TD SMOKING CESSATION; Start 09/29/16 at 19:45 Lorazepam (Ativan) 0.5 mg PRN Q4HRS PRN IV ANXIETY / AGITATION Last administered on 10/01/16 23:26; Start 09/29/16 at 19:45 Magnesium Sulfate/ Dextrose 100 ml @ 25 mls/hr 1X ONCE IV Last administered on 09/29/16 20:31; Start 09/29/16 at 20:00; Stop 09/29/16 at 23:59; Status DC Piperacillin Sod/ Tazobactam Sod 2.25 gm/Sodium Chloride 50 ml @ 100 mls/hr Q8HRS IV Last administered on 10/01/16 05:32; Start 09/30/16 at 06:00; Stop 10/01 at 12:32; Status DC Heparin Sodium (Porcine) (Heparin Sq) 5,000 unit Q8HRS SQ Last administered on 10/03/16 05:53; Start 09/29/16 at 22:00 Famotidine (Pepcid) 20 mg QHS IVP Last administered on 10/02/16 20:56; Start at 21:00; Stop 10/03/16 at 10:26; Status DC Iohexol (Omnipaque 300 Mg/ml) 100 ml STK-MED ONCE .ROUTE ; Start 09/30/16 at 08: 21; Stop 09/30/16 at 08:22; Status DC Dexamethasone Sodium Phosphate (Decadron) 20 mg STK-MED ONCE .ROUTE ; Start 09/30 at 08:49; Stop 09/30/16 at 08:50; Status DC Ondansetron HCl (Zofran) 4 mg STK-MED ONCE .ROUTE ; Start 09/30/16 at 08:49; Stop 09/30/16 at 08:50; Status DC Propofol 20 ml @ As Directed STK-MED ONCE IV ; Start 09/30/16 at 08:49; Stop 09/30 at 08:50; Status DC Lidocaine HCl (Lidocaine Pf 2% Vial) 5 ml STK-MED ONCE .ROUTE ; Start 09/30/16 at 08:49; Stop 09/30/16 at 08:50; Status DC Fentanyl Citrate (Fentanyl 2ml Vial) 100 mcg STK-MED ONCE .ROUTE ; Start at 08:49; Stop 09/30/16 at 08:50; Status DC Rocuronium [place] (Zemuron) 100 mg STK-MED ONCE .ROUTE ; Start 09/30/16 at 08:49 ; Stop 09/30/16 at 08:50; Status DC Succinylcholine Chloride (Anectine) 200 mg STK-MED ONCE .ROUTE ; Start 09/30/16 at 08:50; Stop 09/30/16 at 08:51; Status DC Midazolam HCl (Versed) 2 mg PRN 1X PRN IV PRIOR TO PROCEDURE; Start 09/30/16 at 09:00; Stop 09/30/16 at 18:00; Status DC Fentanyl Citrate (Fentanyl 2ml Vial) 25 mcg PRN Q5MIN PRN IV X 2 DOSES FOR PAIN ; Start 09/30/16 at 09:00; Stop 09/30/16 at 09:00; Status DC Fentanyl Citrate (Fentanyl 2ml Vial) 50 mcg PRN Q5MIN PRN IV X 2 DOSES FOR PAIN ; Start 09/30/16 at 09:00; Stop 09/30/16 at 09:00; Status DC Ringer's Solution 1,000 ml @ 125 mls/hr Q8H IV ; Start 09/30/16 at 08:52; Stop 09/30/16 at 08:55; Status DC Lidocaine HCl 2 ml 1X PRN PRN ID IV START; Start 09/30/16 at 09:00; Stop at 09:00; Status DC Ondansetron HCl (Zofran) 4 mg PRN Q6HRS PRN IV NAUSEA/VOMITING; Start 09/30/16 at 09:00; Stop 09/30/16 at 18:00; Status DC Fentanyl Citrate (Fentanyl 2ml Vial) 25 mcg PRN Q5MIN PRN IV MILD PAIN; Start 09/30/16 at 09:00; Stop 09/30/16 at 18:00; Status DC Fentanyl Citrate (Fentanyl 2ml Vial) 50 mcg PRN Q5MIN PRN IV MODERATE PAIN; Start 09/30/16 at 09:00; Stop 09/30/16 at 18:00; Status DC Morphine Sulfate 1 mg PRN Q10MIN PRN IV SEVERE PAIN; Start 09/30/16 at 09:00; Stop 09/30/16 at 18:00; Status DC Ringer's Solution 1,000 ml @ 30 mls/hr Q24H IV ; Start 09/30/16 at 08:52; Stop 09/30/16 at 20:39; Status DC Lidocaine HCl 2 ml PRN 1X PRN ID PRIOR TO IV START; Start 09/30/16 at 09:00; Stop 09/30/16 at 18:00; Status DC Hydromorphone HCl (Dilaudid) 0.5 mg PRN Q10MIN PRN IV SEV PAIN, Second choice; Start 09/30/16 at 09:00; Stop 09/30/16 at 18:00; Status DC Prochlorperazine Edisylate (Compazine) 5 mg PACU PRN PRN IV NAUSEA, MRX1; Start 09/30/16 at 09:00; Stop 09/30/16 at 18:00; Status DC Piperacillin Sod/ Tazobactam Sod 2.25 gm/Sodium Chloride 50 ml @ 100 mls/hr Q6HRS IV Last administered on 10/03/16 05:49; Start 10/01/16 at 13:00 Ephedrine Sulfate 50 mg STK-MED ONCE IV ; Start 10/01/16 at 09:00; Stop 10/01/16 at 14:16; Status DC Phenylephrine HCl (Garcia-Synephrine Inj) 10 mg STK-MED ONCE .ROUTE ; Start at 09:00; Stop 10/01/16 at 14:16; Status DC Donepezil HCl (Aricept) 20 mg DAILY PO Last administered on 10/03/16 08:49; Start 10/03/16 at 09:00 Simvastatin (Zocor) 40 mg QHS PO Last administered on 10/02/16 20:56; Start 10/02/16 at 21:00 Sucralfate (Carafate) 1 gm TIDAC PO Last administered on 10/03/16 08:49; Start 10/02/16 at 16:30 Hydrochlorothiazide (Hydrodiuril) 25 mg DAILY PO Last administered on 10/03/16 08:49; Start 10/02/16 at 14:30 Multivitamins (Thera M Plus) 1 tab DAILY PO Last administered on 10/03/16 08:49 ; Start 10/03/16 at 09:00 Pantoprazole Sodium (Protonix) 40 mg DAILYAC PO Last administered on 10/03/16 08:49; Start 10/02/16 at 14:30 Famotidine (Pepcid) 20 mg QHS PO ; Start 10/03/16 at 21:00 Active Scripts Active Reported Multi-Day Vitamins (Multivitamin) 1 Each Tablet 1 Tab PO DAILY Donepezil Hcl 10 Mg Tablet 2 Tab PO DAILY Simvastatin 40 Mg Tablet 1 Tab PO QHS Omeprazole 40 Mg Capsule.dr 1 Cap PO DAILY Hydrochlorothiazide Tablet (Hydrochlorothiazide) 12.5 Mg Tablet 2 Tab PO DAILY Sucralfate 1 Gm Tablet 1 Tab PO TID Vitals/I & O Vital Sign - Last 24 Hours 10/02/16 10/02/16 10/02/16 10/02/16 14:35 19:00 20:50 23:00 Temp 97.5 97.9 97.9 97.5 97.9 97.9 Pulse 76 89 85 Resp 18 18 16 B/P (MAP) 127/68 (87) 125/64 (84) 131/70 (90) Pulse Ox 97 98 95 O2 Delivery Room Air Room Air Room Air Room Air 10/03/16 10/03/16 10/03/16 03:00 07:00 08:10 Temp 97.7 97.8 97.7 97.8 Pulse 67 62 Resp 16 20 B/P (MAP) 139/63 (88) 122/60 (80) Pulse Ox 94 98 O2 Delivery Room Air Room Air Room Air Intake and Output 10/02/16 10/02/16 10/03/16 15:00 23:00 07:00 Intake Total 360 ml 360 ml 100 ml Output Total 950 ml Balance 360 ml -590 ml 100 ml Problem List Problems Medical Problems: (1) Cholangitis due to bile duct calculus with obstruction Status: Acute (2) Choledocholithiasis with acute cholecystitis with obstruction Status: Acute (3) Lactic acidosis Status: Acute (4) Leukocytosis Status: Acute (5) Sepsis Status: Acute Assessment Jaundice- secondary to ascending cholangitis, S/p ercp wtih stone extraction, leukocytosis slowly improving, 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
--- NOTE | 2016-10-03 12:10 | PDOC ---
SURGICAL PROGRESS NOTE Subjective Pt had been luana reg diet, but dry heaving today, subjective fever, denies abd pain Vital Signs Vital Signs Date Time Temp Pulse Resp B/P (MAP) Pulse Ox O2 Delivery O2 Flow Rate FiO2 10/03/16 08:10 Room Air 10/03/16 07:00 97.8 62 20 122/60 (80) 98 97.8 I&O Intake and Output 10/03/16 06:59 Intake Total 820 ml Output Total 950 ml Balance -130 ml Intake Oral 720 ml IV Total 100 ml Output Urine Total 950 ml # Voids 1 General: Alert, Oriented X3, Cooperative, moderate distress (secondary to dry heaves) Abdomen: Soft, No tenderness Labs Laboratory Tests Test 10/02/16 08:00 10/02/16 08:20 10/03/16 06:25 Sodium Level 146 mmol/L (136-145) Potassium Level 4.1 mmol/L (3.5-5.1) Chloride Level 112 mmol/L (98-107) Carbon Dioxide Level 25 mmol/L (21-32) Anion Gap 9 (6-14) Blood Urea Nitrogen 52 mg/dL (7-20) Creatinine 1.5 mg/dL (0.6-1.0) Estimated GFR (Cockcroft-Gault) 33.0 BUN/Creatinine Ratio 35 (6-20) Glucose Level 75 mg/dL (70-99) Calcium Level 9.1 mg/dL (8.5-10.1) Total Bilirubin 0.9 mg/dL (0.2-1.0) Aspartate Amino Transf (AST/SGOT) 52 U/L (15-37) Alanine Aminotransferase (ALT/SGPT) 76 U/L (14-59) Alkaline Phosphatase 212 U/L (46-116) Total Protein 6.1 g/dL (6.4-8.2) Albumin 2.3 g/dL (3.4-5.0) Albumin/Globulin Ratio 0.6 (1.0-1.7) White Blood Count 19.3 x10^3/uL (4.0-11.0) 12.3 x10^3/uL (4.0-11.0) Red Blood Count 3.23 x10^6/uL (3.50-5.40) 3.22 x10^6/uL (3.50-5.40) Hemoglobin 9.6 g/dL (12.0-15.5) 9.8 g/dL (12.0-15.5) Hematocrit 30.2 % (36.0-47.0) 29.6 % (36.0-47.0) Mean Corpuscular Volume 94 fL (79-100) 92 fL (79-100) Mean Corpuscular Hemoglobin 30 pg (25-35) 30 pg (25-35) Mean Corpuscular Hemoglobin Concent 32 g/dL (31-37) 33 g/dL (31-37) Red Cell Distribution Width 13.4 % (11.5-14.5) 13.3 % (11.5-14.5) Platelet Count 164 x10^3/uL (140-400) 170 x10^3/uL (140-400) Neutrophils (%) (Auto) 90 % (31-73) 80 % (31-73) Lymphocytes (%) (Auto) 6 % (24-48) 11 % (24-48) Monocytes (%) (Auto) 4 % (0-9) 8 % (0-9) Eosinophils (%) (Auto) 0 % (0-3) 1 % (0-3) Basophils (%) (Auto) 0 % (0-3) 0 % (0-3) Neutrophils # (Auto) 17.4 x10^3uL (1.8-7.7) 9.8 x10^3uL (1.8-7.7) Lymphocytes # (Auto) 1.1 x10^3/uL (1.0-4.8) 1.3 x10^3/uL (1.0-4.8) Monocytes # (Auto) 0.7 x10^3/uL (0.0-1.1) 1.0 x10^3/uL (0.0-1.1) Eosinophils # (Auto) 0.0 x10^3/uL (0.0-0.7) 0.1 x10^3/uL (0.0-0.7) Basophils # (Auto) 0.0 x10^3/uL (0.0-0.2) 0.0 x10^3/uL (0.0-0.2) Laboratory Tests Test 10/03/16 06:25 White Blood Count 12.3 x10^3/uL (4.0-11.0) Red Blood Count 3.22 x10^6/uL (3.50-5.40) Hemoglobin 9.8 g/dL (12.0-15.5) Hematocrit 29.6 % (36.0-47.0) Mean Corpuscular Volume 92 fL (79-100) Mean Corpuscular Hemoglobin 30 pg (25-35) Mean Corpuscular Hemoglobin Concent 33 g/dL (31-37) Red Cell Distribution Width 13.3 % (11.5-14.5) Platelet Count 170 x10^3/uL (140-400) Neutrophils (%) (Auto) 80 % (31-73) Lymphocytes (%) (Auto) 11 % (24-48) Monocytes (%) (Auto) 8 % (0-9) Eosinophils (%) (Auto) 1 % (0-3) Basophils (%) (Auto) 0 % (0-3) Neutrophils # (Auto) 9.8 x10^3uL (1.8-7.7) Lymphocytes # (Auto) 1.3 x10^3/uL (1.0-4.8) Monocytes # (Auto) 1.0 x10^3/uL (0.0-1.1) Eosinophils # (Auto) 0.1 x10^3/uL (0.0-0.7) Basophils # (Auto) 0.0 x10^3/uL (0.0-0.2) Problem List Problems Medical Problems: (1) Cholangitis due to bile duct calculus with obstruction Status: Acute (2) Choledocholithiasis with acute cholecystitis with obstruction Status: Acute (3) Lactic acidosis Status: Acute (4) Leukocytosis Status: Acute (5) Sepsis Status: Acute Assessment/Plan improving cholangitis with improved WBC encourage to slow down on diet advancement d/w pt and pt's daughter, consider lap marychuy, but poor candidate, they will consider Problems: DARIELA TAYLOR MD Oct 03, 2016 12:09
[2016-10-03] MEDS: ONDANSETRON PF 4 MG/2 ML VIAL. IV PRN (12:14)
[2016-10-03] MEDS: LIDOCAINE (700MG/PATCH) PATCH. TD SCH (12:15)
[2016-10-03 15:00] VITALS: BP 139/88
[2016-10-03 19:00] VITALS: BP 129/60
[2016-10-03] MEDS: FAMOTIDINE 20 MG TABLET. PO SCH (21:33)
[2016-10-03] MEDS: SIMVASTATIN 40 MG TABLET. PO SCH (21:33)
[2016-10-03 23:00] VITALS: BP 120/47
[2016-10-04 03:00] VITALS: BP 117/60
[2016-10-04 04:05] LABS: BASO % 0 % (0-3); EOS % 1 % (0-3); HEMATOCRIT 29.1 % (36.0-47.0); HEMOGLOBIN 9.5 g/dL (12.0-15.5); LYMPH # 1.3 x10^3/uL (1.0-4.8); LYMPH % 10 % (24-48); MEAN CORPUSCULAR HEMOGLOBIN 30 pg (25-35); MEAN CORPUSCULAR HGB CONC 33 g/dL (31-37); MEAN CORPUSCULAR VOLUME 92 fL (79-100); MONO % 9 % (0-9); NEUT % 80 % (31-73); PLATELET COUNT 182 x10^3/uL (140-400); RED BLOOD COUNT 3.16 x10^6/uL (3.50-5.40); RED CELL DISTRIBUTION WIDTH 13.2 % (11.5-14.5); WHITE BLOOD COUNT 13.5 x10^3/uL (4.0-11.0)
[2016-10-04] MEDS: PIPERACILLIN/TAZOBACTAM 2.25 GM in IV NORMAL SALINE 50ML 50 ML IV SCH ×3 (05:38→17:26)
[2016-10-04] MEDS: HEPARIN PF for SUB-Q USE 5,000 UNIT/0.5 ML VIAL. SQ SCH ×3 (05:43→21:42)
[2016-10-04 07:00] VITALS: BP 109/55
--- NOTE | 2016-10-04 07:44 | PDOC ---
Infectious Disease Note Subjective Subjective pt feeling better No N/dry heaves/pain/diarrhea ROS ROS GEN: Denies fevers, chills, sweats HEENT: Denies blurred vision, sore throat CV: Denies chest pain RESP: Denies shortness of air, cough GI: Denies n/v/d NEURO: Denies confusion, dizziness MSK: Denies weakness, joint pain/swelling Vital Sign Vital Signs Vital Signs Date Time Temp Pulse Resp B/P (MAP) Pulse Ox O2 Delivery O2 Flow Rate FiO2 10/04/16 07:00 98.3 82 18 109/55 (73) 94 Room Air 98.3 Physical Exam PHYSICAL EXAM GENERAL: NAD, Alert HEENT: PERRL, OC/OP- dentures NECK: Supple, no JVD, no LN LUNGS: Clear HEART: S1S2, no gallop, no murmur ABD: Soft, NT, no organomegaly, no rebound EXT: No edema, no cyanosis GREASE MONKEY: Alert, oriented x 3, no focal neurologic deficit SKIN: No rash IV: ok Labs Lab Laboratory Tests Test 10/04/16 03:40 White Blood Count 13.5 x10^3/uL (4.0-11.0) Red Blood Count 3.16 x10^6/uL (3.50-5.40) Hemoglobin 9.5 g/dL (12.0-15.5) Hematocrit 29.1 % (36.0-47.0) Mean Corpuscular Volume 92 fL (79-100) Mean Corpuscular Hemoglobin 30 pg (25-35) Mean Corpuscular Hemoglobin Concent 33 g/dL (31-37) Red Cell Distribution Width 13.2 % (11.5-14.5) Platelet Count 182 x10^3/uL (140-400) Neutrophils (%) (Auto) 80 % (31-73) Lymphocytes (%) (Auto) 10 % (24-48) Monocytes (%) (Auto) 9 % (0-9) Eosinophils (%) (Auto) 1 % (0-3) Basophils (%) (Auto) 0 % (0-3) Neutrophils # (Auto) 10.8 x10^3uL (1.8-7.7) Lymphocytes # (Auto) 1.3 x10^3/uL (1.0-4.8) Monocytes # (Auto) 1.2 x10^3/uL (0.0-1.1) Eosinophils # (Auto) 0.1 x10^3/uL (0.0-0.7) Basophils # (Auto) 0.0 x10^3/uL (0.0-0.2) Micro / Escherichia coli Recovered from aerobic bottle only. GROWTH IN 3 OF 3 SETS ANTIMICROBIAL SUSCEPTIBILITY Preliminary Comment S = Susceptible; I = Intermediate; R = Resistant P = Positive; N = Negative MICS are expressed in micrograms per mL Antibiotic RSLT#1 RSLT#2 RSLT#3 RSLT#4 Amoxicillin/Clavulanic Acid S Ampicillin R Cefepime S Ceftriaxone S Cefuroxime S Cephalothin I Ciprofloxacin S Ertapenem S Gentamicin S Imipenem S Levofloxacin S Nitrofurantoin S Piperacillin S Tetracycline S Tobramycin S Trimethoprim/Sulfa S Objective Assessment Acute cholecystitis G neg emi bacteremia,, E coli Acute cholengitis CBD stone COPD Leukocytosis Plan Plan of Care cont antibiotics Monitor WBC pt/ot supportive care if surgery not planned, then d/c on po cipro for 7 more days if WBC improves ROEL SALAZAR MD Oct 04, 2016 07:44
[2016-10-04] MEDS: hydroCHLOROthiazide 25 MG TABLET PO SCH (08:46)
[2016-10-04] MEDS: MULTIVITAMIN with MINERAL TABLET. PO SCH (08:46)
[2016-10-04] MEDS: DONEPEZIL HCL 10 MG TABLET. PO SCH (08:46)
[2016-10-04] MEDS: PANTOPRAZOLE 40 MG TABLET.DR. PO SCH (08:46)
[2016-10-04] MEDS: SUCRALFATE 1 GM TABLET. PO SCH ×3 (08:46→16:30)
[2016-10-04] MEDS: LIDOCAINE (700MG/PATCH) PATCH. TD SCH (08:47)
[2016-10-04 11:00] VITALS: BP 110/49
[2016-10-04] MEDS: ONDANSETRON PF 4 MG/2 ML VIAL. IV PRN ×2 (11:25→20:01)
--- NOTE | 2016-10-04 12:17 | PDOC ---
PROGRESS NOTES Chief Complaint Chief Complaint 1. Ascending cholangitis, and choledocholithiasis s/p ERCP (09/30) 2. Elevated LFTS and alkaline phosphatase 3. MARIO 2/2 to poor PO 4. Sepsis with elevated lactate, WBC and fevers and tachycardia 5. Sinus tachycardia 6. Chronic ventral hernia 7. Incidental left non obstructing renal calculi, diverticulosis, cystitis 8. Critical hypomagnesemia 9. Hypercalcemia in faisal backgroun of dehydration/poor pO 10. 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 Geriatric, recent fall, frailty 12. 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 HLD 14. HTN 15. COPD 16. Gram neg emi bacteremia 17. DNR/DNI History of Present Illness History of Present Illness Pt seen and examined VSS Co sleepiness Has had an ERCP but family and pt apparently do not wanta [facility] eval is in progress WBC trending up and down. 13 today. Vitals Vitals Vital Signs Date Time Temp Pulse Resp B/P (MAP) Pulse Ox O2 Delivery O2 Flow Rate FiO2 10/04/16 11:00 98.7 82 18 110/49 (69) 97 Room Air 98.7 10/04/16 08:00 2.0 Physical Exam General: Alert, Oriented X3, Cooperative, moderate distress (secondary to dry heaves) Heart: Regular rate, Normal S1, Normal S2, No murmurs Lungs: Clear, Other (no wheezes or crackles) Abdomen: Soft, No tenderness Extremities: No clubbing, No cyanosis Skin: No rashes, No breakdown Labs LABS Laboratory Tests Test 10/04/16 03:40 White Blood Count 13.5 x10^3/uL (4.0-11.0) Red Blood Count 3.16 x10^6/uL (3.50-5.40) Hemoglobin 9.5 g/dL (12.0-15.5) Hematocrit 29.1 % (36.0-47.0) Mean Corpuscular Volume 92 fL (79-100) Mean Corpuscular Hemoglobin 30 pg (25-35) Mean Corpuscular Hemoglobin Concent 33 g/dL (31-37) Red Cell Distribution Width 13.2 % (11.5-14.5) Platelet Count 182 x10^3/uL (140-400) Neutrophils (%) (Auto) 80 % (31-73) Lymphocytes (%) (Auto) 10 % (24-48) Monocytes (%) (Auto) 9 % (0-9) Eosinophils (%) (Auto) 1 % (0-3) Basophils (%) (Auto) 0 % (0-3) Neutrophils # (Auto) 10.8 x10^3uL (1.8-7.7) Lymphocytes # (Auto) 1.3 x10^3/uL (1.0-4.8) Monocytes # (Auto) 1.2 x10^3/uL (0.0-1.1) Eosinophils # (Auto) 0.1 x10^3/uL (0.0-0.7) Basophils # (Auto) 0.0 x10^3/uL (0.0-0.2) Review of Systems Review of Systems co pain co weakness Assessment and Plan Assessmemt and Plan Problems Medical Problems: (1) Cholangitis due to bile duct calculus with obstruction Status: Acute (2) Choledocholithiasis with acute cholecystitis with obstruction Status: Acute (3) Lactic acidosis Status: Acute (4) Leukocytosis Status: Acute (5) Sepsis Status: Acute 1. Ascending cholangitis, and choledocholithiasis s/p ERCP (09/30) 2. Elevated LFTS and alkaline phosphatase 3. MARIO 2/2 to poor PO 4. Sepsis with elevated lactate, WBC and fevers and tachycardia 5. Sinus tachycardia 6. Chronic ventral hernia 7. Incidental left non obstructing renal calculi, diverticulosis, cystitis 8. Critical hypomagnesemia 9. Hypercalcemia in faisal backgroun of dehydration/poor pO 10. 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 Geriatric, recent fall, frailty 12. 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 HLD 14. HTN 15. COPD 16. Gram neg emi bacteremia 17. DNR/DNI Assessment and plan 1 Family and patient do not want any surgical plans at this time, continue current antibiotics, monitor WBC and LFTs closely, labs reviewed , prognosis guarded. 2 continue supportive care, CBC and CMP in a.m. 3 DNR/DNI, sr. social media & mobile manager to find her [facility] facility. Dc in am to SNU? Problems: Comment Review of Relevant I have reviewed the following items navneet (where applicable) has been applied. Labs Laboratory Tests Test 10/03/16 06:25 10/04/16 03:40 White Blood Count 12.3 x10^3/uL (4.0-11.0) 13.5 x10^3/uL (4.0-11.0) Red Blood Count 3.22 x10^6/uL (3.50-5.40) 3.16 x10^6/uL (3.50-5.40) Hemoglobin 9.8 g/dL (12.0-15.5) 9.5 g/dL (12.0-15.5) Hematocrit 29.6 % (36.0-47.0) 29.1 % (36.0-47.0) Mean Corpuscular Volume 92 fL (79-100) 92 fL (79-100) Mean Corpuscular Hemoglobin 30 pg (25-35) 30 pg (25-35) Mean Corpuscular Hemoglobin Concent 33 g/dL (31-37) 33 g/dL (31-37) Red Cell Distribution Width 13.3 % (11.5-14.5) 13.2 % (11.5-14.5) Platelet Count 170 x10^3/uL (140-400) 182 x10^3/uL (140-400) Neutrophils (%) (Auto) 80 % (31-73) 80 % (31-73) Lymphocytes (%) (Auto) 11 % (24-48) 10 % (24-48) Monocytes (%) (Auto) 8 % (0-9) 9 % (0-9) Eosinophils (%) (Auto) 1 % (0-3) 1 % (0-3) Basophils (%) (Auto) 0 % (0-3) 0 % (0-3) Neutrophils # (Auto) 9.8 x10^3uL (1.8-7.7) 10.8 x10^3uL (1.8-7.7) Lymphocytes # (Auto) 1.3 x10^3/uL (1.0-4.8) 1.3 x10^3/uL (1.0-4.8) Monocytes # (Auto) 1.0 x10^3/uL (0.0-1.1) 1.2 x10^3/uL (0.0-1.1) Eosinophils # (Auto) 0.1 x10^3/uL (0.0-0.7) 0.1 x10^3/uL (0.0-0.7) Basophils # (Auto) 0.0 x10^3/uL (0.0-0.2) 0.0 x10^3/uL (0.0-0.2) Laboratory Tests Test 10/04/16 03:40 White Blood Count 13.5 x10^3/uL (4.0-11.0) Red Blood Count 3.16 x10^6/uL (3.50-5.40) Hemoglobin 9.5 g/dL (12.0-15.5) Hematocrit 29.1 % (36.0-47.0) Mean Corpuscular Volume 92 fL (79-100) Mean Corpuscular Hemoglobin 30 pg (25-35) Mean Corpuscular Hemoglobin Concent 33 g/dL (31-37) Red Cell Distribution Width 13.2 % (11.5-14.5) Platelet Count 182 x10^3/uL (140-400) Neutrophils (%) (Auto) 80 % (31-73) Lymphocytes (%) (Auto) 10 % (24-48) Monocytes (%) (Auto) 9 % (0-9) Eosinophils (%) (Auto) 1 % (0-3) Basophils (%) (Auto) 0 % (0-3) Neutrophils # (Auto) 10.8 x10^3uL (1.8-7.7) Lymphocytes # (Auto) 1.3 x10^3/uL (1.0-4.8) Monocytes # (Auto) 1.2 x10^3/uL (0.0-1.1) Eosinophils # (Auto) 0.1 x10^3/uL (0.0-0.7) Basophils # (Auto) 0.0 x10^3/uL (0.0-0.2) Microbiology 09/29/16 Blood Culture - Final, Complete 09/29/16 Blood Culture Result 1 (MYKEL) - Final, Complete 09/29/16 Antimicrobic Susceptibility - Final, Complete 09/29/16 Urine Culture - Final, Complete 09/29/16 Urine Culture Result 1 (MYKEL) - Final, Complete Medications Current Medications Ondansetron HCl (Zofran) 4 mg 1X ONCE IV Last administered on 09/29/16 16:31; Start 09/29/16 at 16:15; Stop 09/29/16 at 16:16; Status DC Fentanyl Citrate (Fentanyl 2ml Vial) 25 mcg PRN Q15MIN PRN IV PAIN GREATER THAN 3/10 Last administered on 09/29/16 21:48; Start 09/29/16 at 16:15; Stop 09/30 at 16:14; Status DC Sodium Chloride 1,000 ml @ 75 mls/hr 1X ONCE IV Last administered on 16:31; Start 09/29/16 at 16:15; Stop 09/29/16 at 17:37; Status DC Sodium Chloride 1,000 ml @ 1,770 mls/hr Q34M IV Last administered on 09/29/16 17:20; Start 09/29/16 at 17:20; Stop 09/29/16 at 18:21; Status DC Piperacillin Sod/ Tazobactam Sod (Zosyn Per Pharmacy) 1 each PRN DAILY PRN MC SEE COMMENTS; Start 09/29/16 at 18:30; Stop 10/01/16 at 12:29; Status DC Piperacillin Sod/ Tazobactam Sod 2.25 gm/Sodium Chloride 50 ml @ 100 mls/hr 1X ONCE IV Last administered on 09/29/16 18:55; Start 09/29/16 at 18:45; Stop 09/29/16 at 19:14; Status DC Ondansetron HCl (Zofran) 4 mg PRN Q8HRS PRN IV NAUSEA/VOMITING; Start 09/29/16 at 19:15; Stop 09/29/16 at 19:44; Status DC Fentanyl Citrate (Fentanyl 2ml Vial) 25 mcg PRN Q1HR PRN IV PAIN; Start at 19:15; Stop 09/30/16 at 19:14; Status DC Sodium Chloride 1,000 ml @ 125 mls/hr Q8H IV Last administered on 09/30/16 13: 27; Start 09/29/16 at 19:02; Stop 09/30/16 at 19:01; Status DC Acetaminophen (Tylenol) 650 mg PRN Q4HRS PRN PO FEVER; Start 09/29/16 at 19:15; Stop 09/30/16 at 19:14; Status DC Ondansetron HCl (Zofran) 4 mg PRN Q6HRS PRN IV NAUSEA/VOMITING; Start 09/29/16 at 19:42; Stop 09/30/16 at 19:41; Status DC Nicotine (Nicoderm Cq 21mg) 1 patch PRN DAILY PRN TD SMOKING CESSATION Last administered on 10/04/16 11:25; Start 09/29/16 at 19:45 Lorazepam (Ativan) 0.5 mg PRN Q4HRS PRN IV ANXIETY / AGITATION Last administered on 10/01/16 23:26; Start 09/29/16 at 19:45 Magnesium Sulfate/ Dextrose 100 ml @ 25 mls/hr 1X ONCE IV Last administered on 09/29/16 20:31; Start 09/29/16 at 20:00; Stop 09/29/16 at 23:59; Status DC Piperacillin Sod/ Tazobactam Sod 2.25 gm/Sodium Chloride 50 ml @ 100 mls/hr Q8HRS IV Last administered on 10/01/16 05:32; Start 09/30/16 at 06:00; Stop 10/01 at 12:32; Status DC Heparin Sodium (Porcine) (Heparin Sq) 5,000 unit Q8HRS SQ Last administered on 10/04/16 05:43; Start 09/29/16 at 22:00 Famotidine (Pepcid) 20 mg QHS IVP Last administered on 10/02/16 20:56; Start at 21:00; Stop 10/03/16 at 10:26; Status DC Iohexol (Omnipaque 300 Mg/ml) 100 ml STK-MED ONCE .ROUTE ; Start 09/30/16 at 08: 21; Stop 09/30/16 at 08:22; Status DC Dexamethasone Sodium Phosphate (Decadron) 20 mg STK-MED ONCE .ROUTE ; Start 09/30 at 08:49; Stop 09/30/16 at 08:50; Status DC Ondansetron HCl (Zofran) 4 mg STK-MED ONCE .ROUTE ; Start 09/30/16 at 08:49; Stop 09/30/16 at 08:50; Status DC Propofol 20 ml @ As Directed STK-MED ONCE IV ; Start 09/30/16 at 08:49; Stop 09/30 at 08:50; Status DC Lidocaine HCl (Lidocaine Pf 2% Vial) 5 ml STK-MED ONCE .ROUTE ; Start 09/30/16 at 08:49; Stop 09/30/16 at 08:50; Status DC Fentanyl Citrate (Fentanyl 2ml Vial) 100 mcg STK-MED ONCE .ROUTE ; Start at 08:49; Stop 09/30/16 at 08:50; Status DC Rocuronium [place] (Zemuron) 100 mg STK-MED ONCE .ROUTE ; Start 09/30/16 at 08:49 ; Stop 09/30/16 at 08:50; Status DC Succinylcholine Chloride (Anectine) 200 mg STK-MED ONCE .ROUTE ; Start 09/30/16 at 08:50; Stop 09/30/16 at 08:51; Status DC Midazolam HCl (Versed) 2 mg PRN 1X PRN IV PRIOR TO PROCEDURE; Start 09/30/16 at 09:00; Stop 09/30/16 at 18:00; Status DC Fentanyl Citrate (Fentanyl 2ml Vial) 25 mcg PRN Q5MIN PRN IV X 2 DOSES FOR PAIN ; Start 09/30/16 at 09:00; Stop 09/30/16 at 09:00; Status DC Fentanyl Citrate (Fentanyl 2ml Vial) 50 mcg PRN Q5MIN PRN IV X 2 DOSES FOR PAIN ; Start 09/30/16 at 09:00; Stop 09/30/16 at 09:00; Status DC Ringer's Solution 1,000 ml @ 125 mls/hr Q8H IV ; Start 09/30/16 at 08:52; Stop 09/30/16 at 08:55; Status DC Lidocaine HCl 2 ml 1X PRN PRN ID IV START; Start 09/30/16 at 09:00; Stop at 09:00; Status DC Ondansetron HCl (Zofran) 4 mg PRN Q6HRS PRN IV NAUSEA/VOMITING; Start 09/30/16 at 09:00; Stop 09/30/16 at 18:00; Status DC Fentanyl Citrate (Fentanyl 2ml Vial) 25 mcg PRN Q5MIN PRN IV MILD PAIN; Start 09/30/16 at 09:00; Stop 09/30/16 at 18:00; Status DC Fentanyl Citrate (Fentanyl 2ml Vial) 50 mcg PRN Q5MIN PRN IV MODERATE PAIN; Start 09/30/16 at 09:00; Stop 09/30/16 at 18:00; Status DC Morphine Sulfate 1 mg PRN Q10MIN PRN IV SEVERE PAIN; Start 09/30/16 at 09:00; Stop 09/30/16 at 18:00; Status DC Ringer's Solution 1,000 ml @ 30 mls/hr Q24H IV ; Start 09/30/16 at 08:52; Stop 09/30/16 at 20:39; Status DC Lidocaine HCl 2 ml PRN 1X PRN ID PRIOR TO IV START; Start 09/30/16 at 09:00; Stop 09/30/16 at 18:00; Status DC Hydromorphone HCl (Dilaudid) 0.5 mg PRN Q10MIN PRN IV SEV PAIN, Second choice; Start 09/30/16 at 09:00; Stop 09/30/16 at 18:00; Status DC Prochlorperazine Edisylate (Compazine) 5 mg PACU PRN PRN IV NAUSEA, MRX1; Start 09/30/16 at 09:00; Stop 09/30/16 at 18:00; Status DC Piperacillin Sod/ Tazobactam Sod 2.25 gm/Sodium Chloride 50 ml @ 100 mls/hr Q6HRS IV Last administered on 10/04/16 11:37; Start 10/01/16 at 13:00 Ephedrine Sulfate 50 mg STK-MED ONCE IV ; Start 10/01/16 at 09:00; Stop 10/01/16 at 14:16; Status DC Phenylephrine HCl (Garcia-Synephrine Inj) 10 mg STK-MED ONCE .ROUTE ; Start at 09:00; Stop 10/01/16 at 14:16; Status DC Donepezil HCl (Aricept) 20 mg DAILY PO Last administered on 10/04/16 08:46; Start 10/03/16 at 09:00 Simvastatin (Zocor) 40 mg QHS PO Last administered on 10/03/16 21:33; Start 10/02/16 at 21:00 Sucralfate (Carafate) 1 gm TIDAC PO Last administered on 10/04/16 08:46; Start 10/02/16 at 16:30 Hydrochlorothiazide (Hydrodiuril) 25 mg DAILY PO Last administered on 10/04/16 08:46; Start 10/02/16 at 14:30 Multivitamins (Thera M Plus) 1 tab DAILY PO Last administered on 10/04/16 08:46 ; Start 10/03/16 at 09:00 Pantoprazole Sodium (Protonix) 40 mg DAILYAC PO Last administered on 10/04/16 08:46; Start 10/02/16 at 14:30 Famotidine (Pepcid) 20 mg QHS PO Last administered on 10/03/16 21:33; Start 10/03/16 at 21:00 Lidocaine (Lidoderm) 1 patch DAILY TD Last administered on 10/04/16 08:47; Start 10/03/16 at 12:00 Ondansetron HCl (Zofran) 4 mg PRN Q6HRS PRN IV NAUSEA/VOMITING Last administered on 10/04/16 11:25; Start 10/03/16 at 12:00 Active Scripts Active Reported Multi-Day Vitamins (Multivitamin) 1 Each Tablet 1 Tab PO DAILY Donepezil Hcl 10 Mg Tablet 2 Tab PO DAILY Simvastatin 40 Mg Tablet 1 Tab PO QHS Omeprazole 40 Mg Capsule.dr 1 Cap PO DAILY Hydrochlorothiazide Tablet (Hydrochlorothiazide) 12.5 Mg Tablet 2 Tab PO DAILY Sucralfate 1 Gm Tablet 1 Tab PO TID Vitals/I & O Vital Sign - Last 24 Hours 10/03/16 10/03/16 10/03/16 10/04/16 15:00 19:00 23:00 03:00 Temp 97.0 97.9 98.6 98.2 97.0 97.9 98.6 98.2 Pulse 69 79 78 76 Resp 20 18 18 18 B/P (MAP) 139/88 (105) 129/60 (83) 120/47 (71) 117/60 (79) Pulse Ox 98 96 95 94 O2 Delivery Room Air Room Air Room Air Room Air 10/04/16 10/04/16 10/04/16 07:00 08:00 11:00 Temp 98.3 98.7 98.3 98.7 Pulse 82 82 Resp 18 18 B/P (MAP) 109/55 (73) 110/49 (69) Pulse Ox 94 97 O2 Delivery Room Air Room Air Room Air O2 Flow Rate 2.0 Intake and Output 10/03/16 10/03/16 10/04/16 15:00 23:00 07:00 Intake Total 480 ml 870 ml Output Total 800 ml Balance 480 ml 70 ml Nutrition Consultation Dietary Evaluation: Recommendations by RD: Increase Calorie Intake, Protein supplementation Comments: adv diet as tolerated boost plus prn Expected Outcomes/Goals: to meet > 75% est nutr needs - new goal Malnutrition Findings: Body Fat Depletion (Non Severe: Mild Depletion Weight Status: Appropriate MICHELET BABIN III DO Oct 04, 2016 12:17
--- NOTE | 2016-10-04 13:32 | PDOC ---
G I PROGRESS NOTE Reason for Follow-up Jaundice/cholangitis Subjective Feels poorly still Physical Exam Lungs decreased BS CV S1 S2 ABD +BS, soft, mild RUQ tenderness Review of Relevant I have reviewed the following items navneet (where applicable) has been applied. Labs Laboratory Tests Test 10/03/16 06:25 10/04/16 03:40 White Blood Count 12.3 x10^3/uL (4.0-11.0) 13.5 x10^3/uL (4.0-11.0) Red Blood Count 3.22 x10^6/uL (3.50-5.40) 3.16 x10^6/uL (3.50-5.40) Hemoglobin 9.8 g/dL (12.0-15.5) 9.5 g/dL (12.0-15.5) Hematocrit 29.6 % (36.0-47.0) 29.1 % (36.0-47.0) Mean Corpuscular Volume 92 fL (79-100) 92 fL (79-100) Mean Corpuscular Hemoglobin 30 pg (25-35) 30 pg (25-35) Mean Corpuscular Hemoglobin Concent 33 g/dL (31-37) 33 g/dL (31-37) Red Cell Distribution Width 13.3 % (11.5-14.5) 13.2 % (11.5-14.5) Platelet Count 170 x10^3/uL (140-400) 182 x10^3/uL (140-400) Neutrophils (%) (Auto) 80 % (31-73) 80 % (31-73) Lymphocytes (%) (Auto) 11 % (24-48) 10 % (24-48) Monocytes (%) (Auto) 8 % (0-9) 9 % (0-9) Eosinophils (%) (Auto) 1 % (0-3) 1 % (0-3) Basophils (%) (Auto) 0 % (0-3) 0 % (0-3) Neutrophils # (Auto) 9.8 x10^3uL (1.8-7.7) 10.8 x10^3uL (1.8-7.7) Lymphocytes # (Auto) 1.3 x10^3/uL (1.0-4.8) 1.3 x10^3/uL (1.0-4.8) Monocytes # (Auto) 1.0 x10^3/uL (0.0-1.1) 1.2 x10^3/uL (0.0-1.1) Eosinophils # (Auto) 0.1 x10^3/uL (0.0-0.7) 0.1 x10^3/uL (0.0-0.7) Basophils # (Auto) 0.0 x10^3/uL (0.0-0.2) 0.0 x10^3/uL (0.0-0.2) Laboratory Tests Test 10/04/16 03:40 White Blood Count 13.5 x10^3/uL (4.0-11.0) Red Blood Count 3.16 x10^6/uL (3.50-5.40) Hemoglobin 9.5 g/dL (12.0-15.5) Hematocrit 29.1 % (36.0-47.0) Mean Corpuscular Volume 92 fL (79-100) Mean Corpuscular Hemoglobin 30 pg (25-35) Mean Corpuscular Hemoglobin Concent 33 g/dL (31-37) Red Cell Distribution Width 13.2 % (11.5-14.5) Platelet Count 182 x10^3/uL (140-400) Neutrophils (%) (Auto) 80 % (31-73) Lymphocytes (%) (Auto) 10 % (24-48) Monocytes (%) (Auto) 9 % (0-9) Eosinophils (%) (Auto) 1 % (0-3) Basophils (%) (Auto) 0 % (0-3) Neutrophils # (Auto) 10.8 x10^3uL (1.8-7.7) Lymphocytes # (Auto) 1.3 x10^3/uL (1.0-4.8) Monocytes # (Auto) 1.2 x10^3/uL (0.0-1.1) Eosinophils # (Auto) 0.1 x10^3/uL (0.0-0.7) Basophils # (Auto) 0.0 x10^3/uL (0.0-0.2) Microbiology 09/29/16 Blood Culture - Final, Complete 09/29/16 Blood Culture Result 1 (MYKEL) - Final, Complete 09/29/16 Antimicrobic Susceptibility - Final, Complete 09/29/16 Urine Culture - Final, Complete 09/29/16 Urine Culture Result 1 (MYKEL) - Final, Complete Medications Current Medications Ondansetron HCl (Zofran) 4 mg 1X ONCE IV Last administered on 09/29/16 16:31; Start 09/29/16 at 16:15; Stop 09/29/16 at 16:16; Status DC Fentanyl Citrate (Fentanyl 2ml Vial) 25 mcg PRN Q15MIN PRN IV PAIN GREATER THAN 3/10 Last administered on 09/29/16 21:48; Start 09/29/16 at 16:15; Stop 09/30 at 16:14; Status DC Sodium Chloride 1,000 ml @ 75 mls/hr 1X ONCE IV Last administered on 16:31; Start 09/29/16 at 16:15; Stop 09/29/16 at 17:37; Status DC Sodium Chloride 1,000 ml @ 1,770 mls/hr Q34M IV Last administered on 09/29/16 17:20; Start 09/29/16 at 17:20; Stop 09/29/16 at 18:21; Status DC Piperacillin Sod/ Tazobactam Sod (Zosyn Per Pharmacy) 1 each PRN DAILY PRN MC SEE COMMENTS; Start 09/29/16 at 18:30; Stop 10/01/16 at 12:29; Status DC Piperacillin Sod/ Tazobactam Sod 2.25 gm/Sodium Chloride 50 ml @ 100 mls/hr 1X ONCE IV Last administered on 09/29/16 18:55; Start 09/29/16 at 18:45; Stop 09/29/16 at 19:14; Status DC Ondansetron HCl (Zofran) 4 mg PRN Q8HRS PRN IV NAUSEA/VOMITING; Start 09/29/16 at 19:15; Stop 09/29/16 at 19:44; Status DC Fentanyl Citrate (Fentanyl 2ml Vial) 25 mcg PRN Q1HR PRN IV PAIN; Start at 19:15; Stop 09/30/16 at 19:14; Status DC Sodium Chloride 1,000 ml @ 125 mls/hr Q8H IV Last administered on 09/30/16 13: 27; Start 09/29/16 at 19:02; Stop 09/30/16 at 19:01; Status DC Acetaminophen (Tylenol) 650 mg PRN Q4HRS PRN PO FEVER; Start 09/29/16 at 19:15; Stop 09/30/16 at 19:14; Status DC Ondansetron HCl (Zofran) 4 mg PRN Q6HRS PRN IV NAUSEA/VOMITING; Start 09/29/16 at 19:42; Stop 09/30/16 at 19:41; Status DC Nicotine (Nicoderm Cq 21mg) 1 patch PRN DAILY PRN TD SMOKING CESSATION Last administered on 10/04/16 11:25; Start 09/29/16 at 19:45 Lorazepam (Ativan) 0.5 mg PRN Q4HRS PRN IV ANXIETY / AGITATION Last administered on 10/01/16 23:26; Start 09/29/16 at 19:45 Magnesium Sulfate/ Dextrose 100 ml @ 25 mls/hr 1X ONCE IV Last administered on 09/29/16 20:31; Start 09/29/16 at 20:00; Stop 09/29/16 at 23:59; Status DC Piperacillin Sod/ Tazobactam Sod 2.25 gm/Sodium Chloride 50 ml @ 100 mls/hr Q8HRS IV Last administered on 10/01/16 05:32; Start 09/30/16 at 06:00; Stop 10/01 at 12:32; Status DC Heparin Sodium (Porcine) (Heparin Sq) 5,000 unit Q8HRS SQ Last administered on 10/04/16 05:43; Start 09/29/16 at 22:00 Famotidine (Pepcid) 20 mg QHS IVP Last administered on 10/02/16 20:56; Start at 21:00; Stop 10/03/16 at 10:26; Status DC Iohexol (Omnipaque 300 Mg/ml) 100 ml STK-MED ONCE .ROUTE ; Start 09/30/16 at 08: 21; Stop 09/30/16 at 08:22; Status DC Dexamethasone Sodium Phosphate (Decadron) 20 mg STK-MED ONCE .ROUTE ; Start 09/30 at 08:49; Stop 09/30/16 at 08:50; Status DC Ondansetron HCl (Zofran) 4 mg STK-MED ONCE .ROUTE ; Start 09/30/16 at 08:49; Stop 09/30/16 at 08:50; Status DC Propofol 20 ml @ As Directed STK-MED ONCE IV ; Start 09/30/16 at 08:49; Stop 09/30 at 08:50; Status DC Lidocaine HCl (Lidocaine Pf 2% Vial) 5 ml STK-MED ONCE .ROUTE ; Start 09/30/16 at 08:49; Stop 09/30/16 at 08:50; Status DC Fentanyl Citrate (Fentanyl 2ml Vial) 100 mcg STK-MED ONCE .ROUTE ; Start at 08:49; Stop 09/30/16 at 08:50; Status DC Rocuronium [place] (Zemuron) 100 mg STK-MED ONCE .ROUTE ; Start 09/30/16 at 08:49 ; Stop 09/30/16 at 08:50; Status DC Succinylcholine Chloride (Anectine) 200 mg STK-MED ONCE .ROUTE ; Start 09/30/16 at 08:50; Stop 09/30/16 at 08:51; Status DC Midazolam HCl (Versed) 2 mg PRN 1X PRN IV PRIOR TO PROCEDURE; Start 09/30/16 at 09:00; Stop 09/30/16 at 18:00; Status DC Fentanyl Citrate (Fentanyl 2ml Vial) 25 mcg PRN Q5MIN PRN IV X 2 DOSES FOR PAIN ; Start 09/30/16 at 09:00; Stop 09/30/16 at 09:00; Status DC Fentanyl Citrate (Fentanyl 2ml Vial) 50 mcg PRN Q5MIN PRN IV X 2 DOSES FOR PAIN ; Start 09/30/16 at 09:00; Stop 09/30/16 at 09:00; Status DC Ringer's Solution 1,000 ml @ 125 mls/hr Q8H IV ; Start 09/30/16 at 08:52; Stop 09/30/16 at 08:55; Status DC Lidocaine HCl 2 ml 1X PRN PRN ID IV START; Start 09/30/16 at 09:00; Stop at 09:00; Status DC Ondansetron HCl (Zofran) 4 mg PRN Q6HRS PRN IV NAUSEA/VOMITING; Start 09/30/16 at 09:00; Stop 09/30/16 at 18:00; Status DC Fentanyl Citrate (Fentanyl 2ml Vial) 25 mcg PRN Q5MIN PRN IV MILD PAIN; Start 09/30/16 at 09:00; Stop 09/30/16 at 18:00; Status DC Fentanyl Citrate (Fentanyl 2ml Vial) 50 mcg PRN Q5MIN PRN IV MODERATE PAIN; Start 09/30/16 at 09:00; Stop 09/30/16 at 18:00; Status DC Morphine Sulfate 1 mg PRN Q10MIN PRN IV SEVERE PAIN; Start 09/30/16 at 09:00; Stop 09/30/16 at 18:00; Status DC Ringer's Solution 1,000 ml @ 30 mls/hr Q24H IV ; Start 09/30/16 at 08:52; Stop 09/30/16 at 20:39; Status DC Lidocaine HCl 2 ml PRN 1X PRN ID PRIOR TO IV START; Start 09/30/16 at 09:00; Stop 09/30/16 at 18:00; Status DC Hydromorphone HCl (Dilaudid) 0.5 mg PRN Q10MIN PRN IV SEV PAIN, Second choice; Start 09/30/16 at 09:00; Stop 09/30/16 at 18:00; Status DC Prochlorperazine Edisylate (Compazine) 5 mg PACU PRN PRN IV NAUSEA, MRX1; Start 09/30/16 at 09:00; Stop 09/30/16 at 18:00; Status DC Piperacillin Sod/ Tazobactam Sod 2.25 gm/Sodium Chloride 50 ml @ 100 mls/hr Q6HRS IV Last administered on 10/04/16 11:37; Start 10/01/16 at 13:00 Ephedrine Sulfate 50 mg STK-MED ONCE IV ; Start 10/01/16 at 09:00; Stop 10/01/16 at 14:16; Status DC Phenylephrine HCl (Garcia-Synephrine Inj) 10 mg STK-MED ONCE .ROUTE ; Start at 09:00; Stop 10/01/16 at 14:16; Status DC Donepezil HCl (Aricept) 20 mg DAILY PO Last administered on 10/04/16 08:46; Start 10/03/16 at 09:00 Simvastatin (Zocor) 40 mg QHS PO Last administered on 10/03/16 21:33; Start 10/02/16 at 21:00 Sucralfate (Carafate) 1 gm TIDAC PO Last administered on 10/04/16 08:46; Start 10/02/16 at 16:30 Hydrochlorothiazide (Hydrodiuril) 25 mg DAILY PO Last administered on 10/04/16 08:46; Start 10/02/16 at 14:30 Multivitamins (Thera M Plus) 1 tab DAILY PO Last administered on 10/04/16 08:46 ; Start 10/03/16 at 09:00 Pantoprazole Sodium (Protonix) 40 mg DAILYAC PO Last administered on 10/04/16 08:46; Start 10/02/16 at 14:30 Famotidine (Pepcid) 20 mg QHS PO Last administered on 10/03/16 21:33; Start 10/03/16 at 21:00 Lidocaine (Lidoderm) 1 patch DAILY TD Last administered on 10/04/16 08:47; Start 10/03/16 at 12:00 Ondansetron HCl (Zofran) 4 mg PRN Q6HRS PRN IV NAUSEA/VOMITING Last administered on 10/04/16 11:25; Start 10/03/16 at 12:00 Active Scripts Active Reported Multi-Day Vitamins (Multivitamin) 1 Each Tablet 1 Tab PO DAILY Donepezil Hcl 10 Mg Tablet 2 Tab PO DAILY Simvastatin 40 Mg Tablet 1 Tab PO QHS Omeprazole 40 Mg Capsule.dr 1 Cap PO DAILY Hydrochlorothiazide Tablet (Hydrochlorothiazide) 12.5 Mg Tablet 2 Tab PO DAILY Sucralfate 1 Gm Tablet 1 Tab PO TID Vitals/I & O Vital Sign - Last 24 Hours 10/03/16 10/03/16 10/03/16 10/04/16 15:00 19:00 23:00 03:00 Temp 97.0 97.9 98.6 98.2 97.0 97.9 98.6 98.2 Pulse 69 79 78 76 Resp 20 18 18 18 B/P (MAP) 139/88 (105) 129/60 (83) 120/47 (71) 117/60 (79) Pulse Ox 98 96 95 94 O2 Delivery Room Air Room Air Room Air Room Air 10/04/16 10/04/16 10/04/16 07:00 08:00 11:00 Temp 98.3 98.7 98.3 98.7 Pulse 82 82 Resp 18 18 B/P (MAP) 109/55 (73) 110/49 (69) Pulse Ox 94 97 O2 Delivery Room Air Room Air Room Air O2 Flow Rate 2.0 Intake and Output 10/03/16 10/03/16 10/04/16 15:00 23:00 07:00 Intake Total 480 ml 870 ml Output Total 800 ml Balance 480 ml 70 ml Problem List Problems Medical Problems: (1) Cholangitis due to bile duct calculus with obstruction Status: Acute (2) Choledocholithiasis with acute cholecystitis with obstruction Status: Acute (3) Lactic acidosis Status: Acute (4) Leukocytosis Status: Acute (5) Sepsis Status: Acute Assessment Jaundice- with chlangitis, s/p ercp with stone extraction/sphincterotomy, persistent leukocytosis, patient considering lap marychuy SHAWN SIN MD Oct 04, 2016 13:31
--- NOTE | 2016-10-04 13:58 | PDOC ---
SURGICAL PROGRESS NOTE Subjective Pt with c/o severe fatigue, episodes of N/V Vital Signs Vital Signs Date Time Temp Pulse Resp B/P (MAP) Pulse Ox O2 Delivery O2 Flow Rate FiO2 10/04/16 11:00 98.7 82 18 110/49 (69) 97 Room Air 98.7 10/04/16 08:00 2.0 I&O Intake and Output 10/04/16 07:00 Intake Total 1350 ml Output Total 800 ml Balance 550 ml Intake Oral 1350 ml Output Urine Total 800 ml # Voids 6 General: Alert, Cooperative, mild distress, Other (appears fatigued) Abdomen: Soft, No tenderness Labs Laboratory Tests Test 10/03/16 06:25 10/04/16 03:40 White Blood Count 12.3 x10^3/uL (4.0-11.0) 13.5 x10^3/uL (4.0-11.0) Red Blood Count 3.22 x10^6/uL (3.50-5.40) 3.16 x10^6/uL (3.50-5.40) Hemoglobin 9.8 g/dL (12.0-15.5) 9.5 g/dL (12.0-15.5) Hematocrit 29.6 % (36.0-47.0) 29.1 % (36.0-47.0) Mean Corpuscular Volume 92 fL (79-100) 92 fL (79-100) Mean Corpuscular Hemoglobin 30 pg (25-35) 30 pg (25-35) Mean Corpuscular Hemoglobin Concent 33 g/dL (31-37) 33 g/dL (31-37) Red Cell Distribution Width 13.3 % (11.5-14.5) 13.2 % (11.5-14.5) Platelet Count 170 x10^3/uL (140-400) 182 x10^3/uL (140-400) Neutrophils (%) (Auto) 80 % (31-73) 80 % (31-73) Lymphocytes (%) (Auto) 11 % (24-48) 10 % (24-48) Monocytes (%) (Auto) 8 % (0-9) 9 % (0-9) Eosinophils (%) (Auto) 1 % (0-3) 1 % (0-3) Basophils (%) (Auto) 0 % (0-3) 0 % (0-3) Neutrophils # (Auto) 9.8 x10^3uL (1.8-7.7) 10.8 x10^3uL (1.8-7.7) Lymphocytes # (Auto) 1.3 x10^3/uL (1.0-4.8) 1.3 x10^3/uL (1.0-4.8) Monocytes # (Auto) 1.0 x10^3/uL (0.0-1.1) 1.2 x10^3/uL (0.0-1.1) Eosinophils # (Auto) 0.1 x10^3/uL (0.0-0.7) 0.1 x10^3/uL (0.0-0.7) Basophils # (Auto) 0.0 x10^3/uL (0.0-0.2) 0.0 x10^3/uL (0.0-0.2) Laboratory Tests Test 10/04/16 03:40 White Blood Count 13.5 x10^3/uL (4.0-11.0) Red Blood Count 3.16 x10^6/uL (3.50-5.40) Hemoglobin 9.5 g/dL (12.0-15.5) Hematocrit 29.1 % (36.0-47.0) Mean Corpuscular Volume 92 fL (79-100) Mean Corpuscular Hemoglobin 30 pg (25-35) Mean Corpuscular Hemoglobin Concent 33 g/dL (31-37) Red Cell Distribution Width 13.2 % (11.5-14.5) Platelet Count 182 x10^3/uL (140-400) Neutrophils (%) (Auto) 80 % (31-73) Lymphocytes (%) (Auto) 10 % (24-48) Monocytes (%) (Auto) 9 % (0-9) Eosinophils (%) (Auto) 1 % (0-3) Basophils (%) (Auto) 0 % (0-3) Neutrophils # (Auto) 10.8 x10^3uL (1.8-7.7) Lymphocytes # (Auto) 1.3 x10^3/uL (1.0-4.8) Monocytes # (Auto) 1.2 x10^3/uL (0.0-1.1) Eosinophils # (Auto) 0.1 x10^3/uL (0.0-0.7) Basophils # (Auto) 0.0 x10^3/uL (0.0-0.2) Problem List Problems Medical Problems: (1) Cholangitis due to bile duct calculus with obstruction Status: Acute (2) Choledocholithiasis with acute cholecystitis with obstruction Status: Acute (3) Lactic acidosis Status: Acute (4) Leukocytosis Status: Acute (5) Sepsis Status: Acute Assessment/Plan cholangitis d/w pt and pt's daughters pt continues to have n/V, will try low fat soft diet d/w them option of cholecystectomy, although significant risk will ask palliative care to discuss goals of care they will consider cholecystectomy Problems: DARIELA TAYLOR MD Oct 04, 2016 13:58
--- NOTE | 2016-10-04 14:01 | PDOC ---
SURGICAL PROGRESS NOTE Vital Signs Vital Signs Date Time Temp Pulse Resp B/P (MAP) Pulse Ox O2 Delivery O2 Flow Rate FiO2 10/04/16 11:00 98.7 82 18 110/49 (69) 97 Room Air 98.7 10/04/16 08:00 2.0 I&O Intake and Output 10/04/16 07:00 Intake Total 1350 ml Output Total 800 ml Balance 550 ml Intake Oral 1350 ml Output Urine Total 800 ml # Voids 6 Labs Laboratory Tests Test 10/03/16 06:25 10/04/16 03:40 White Blood Count 12.3 x10^3/uL (4.0-11.0) 13.5 x10^3/uL (4.0-11.0) Red Blood Count 3.22 x10^6/uL (3.50-5.40) 3.16 x10^6/uL (3.50-5.40) Hemoglobin 9.8 g/dL (12.0-15.5) 9.5 g/dL (12.0-15.5) Hematocrit 29.6 % (36.0-47.0) 29.1 % (36.0-47.0) Mean Corpuscular Volume 92 fL (79-100) 92 fL (79-100) Mean Corpuscular Hemoglobin 30 pg (25-35) 30 pg (25-35) Mean Corpuscular Hemoglobin Concent 33 g/dL (31-37) 33 g/dL (31-37) Red Cell Distribution Width 13.3 % (11.5-14.5) 13.2 % (11.5-14.5) Platelet Count 170 x10^3/uL (140-400) 182 x10^3/uL (140-400) Neutrophils (%) (Auto) 80 % (31-73) 80 % (31-73) Lymphocytes (%) (Auto) 11 % (24-48) 10 % (24-48) Monocytes (%) (Auto) 8 % (0-9) 9 % (0-9) Eosinophils (%) (Auto) 1 % (0-3) 1 % (0-3) Basophils (%) (Auto) 0 % (0-3) 0 % (0-3) Neutrophils # (Auto) 9.8 x10^3uL (1.8-7.7) 10.8 x10^3uL (1.8-7.7) Lymphocytes # (Auto) 1.3 x10^3/uL (1.0-4.8) 1.3 x10^3/uL (1.0-4.8) Monocytes # (Auto) 1.0 x10^3/uL (0.0-1.1) 1.2 x10^3/uL (0.0-1.1) Eosinophils # (Auto) 0.1 x10^3/uL (0.0-0.7) 0.1 x10^3/uL (0.0-0.7) Basophils # (Auto) 0.0 x10^3/uL (0.0-0.2) 0.0 x10^3/uL (0.0-0.2) Laboratory Tests Test 10/04/16 03:40 White Blood Count 13.5 x10^3/uL (4.0-11.0) Red Blood Count 3.16 x10^6/uL (3.50-5.40) Hemoglobin 9.5 g/dL (12.0-15.5) Hematocrit 29.1 % (36.0-47.0) Mean Corpuscular Volume 92 fL (79-100) Mean Corpuscular Hemoglobin 30 pg (25-35) Mean Corpuscular Hemoglobin Concent 33 g/dL (31-37) Red Cell Distribution Width 13.2 % (11.5-14.5) Platelet Count 182 x10^3/uL (140-400) Neutrophils (%) (Auto) 80 % (31-73) Lymphocytes (%) (Auto) 10 % (24-48) Monocytes (%) (Auto) 9 % (0-9) Eosinophils (%) (Auto) 1 % (0-3) Basophils (%) (Auto) 0 % (0-3) Neutrophils # (Auto) 10.8 x10^3uL (1.8-7.7) Lymphocytes # (Auto) 1.3 x10^3/uL (1.0-4.8) Monocytes # (Auto) 1.2 x10^3/uL (0.0-1.1) Eosinophils # (Auto) 0.1 x10^3/uL (0.0-0.7) Basophils # (Auto) 0.0 x10^3/uL (0.0-0.2) Problem List Problems Medical Problems: (1) Cholangitis due to bile duct calculus with obstruction Status: Acute (2) Choledocholithiasis with acute cholecystitis with obstruction Status: Acute (3) Lactic acidosis Status: Acute (4) Leukocytosis Status: Acute (5) Sepsis Status: Acute Assessment/Plan error wrong pt Problems: DARIELA TAYLOR MD Oct 04, 2016 14:01
[2016-10-04 15:00] VITALS: BP 146/68
[2016-10-04] MEDS: AMINO AC 3%/ELECTROLYTE/GLYCER 1,000 ML IV SCH (15:34)
[2016-10-04 19:00] VITALS: BP 136/67
[2016-10-04] MEDS: FAMOTIDINE 20 MG TABLET. PO SCH (21:00)
[2016-10-04] MEDS: SIMVASTATIN 40 MG TABLET. PO SCH (21:00)
[2016-10-04 23:00] VITALS: BP 111/73
[2016-10-05] MEDS: PIPERACILLIN/TAZOBACTAM 2.25 GM in IV NORMAL SALINE 50ML 50 ML IV SCH ×4 (00:09→18:01)
[2016-10-05 03:00] VITALS: BP 152/60
[2016-10-05] MEDS: AMINO AC 3%/ELECTROLYTE/GLYCER 1,000 ML IV SCH ×2 (04:20→09:32)
[2016-10-05 05:22] LABS: BASO % 0 % (0-3); EOS % 1 % (0-3); HEMATOCRIT 27.5 % (36.0-47.0); HEMOGLOBIN 9.1 g/dL (12.0-15.5); LYMPH # 1.4 x10^3/uL (1.0-4.8); LYMPH % 13 % (24-48); MEAN CORPUSCULAR HEMOGLOBIN 30 pg (25-35); MEAN CORPUSCULAR HGB CONC 33 g/dL (31-37); MEAN CORPUSCULAR VOLUME 91 fL (79-100); MONO % 9 % (0-9); NEUT % 78 % (31-73); PLATELET COUNT 188 x10^3/uL (140-400); RED BLOOD COUNT 3.01 x10^6/uL (3.50-5.40); RED CELL DISTRIBUTION WIDTH 13.5 % (11.5-14.5); WHITE BLOOD COUNT 11.4 x10^3/uL (4.0-11.0)
[2016-10-05] MEDS: HEPARIN PF for SUB-Q USE 5,000 UNIT/0.5 ML VIAL. SQ SCH ×3 (06:29→21:06)
[2016-10-05 07:00] VITALS: BP 130/61
--- NOTE | 2016-10-05 07:30 | RAD ---
Right upper quadrant abdominal ultrasound, 10/05/2016: History: Cholangitis The gallbladder is not distended. Its escamilla are mildly thickened. No gallstones are seen. The common hepatic duct measures 5-6 mm. No intrahepatic bile ductal dilatation is seen. There is no evidence of a hepatic mass. The pancreas was not clearly defined. The right kidney is unremarkable. IMPRESSION: Mild gallbladder wall thickening without evidence of cholelithiasis.
[2016-10-05] MEDS: SUCRALFATE 1 GM TABLET. PO SCH ×3 (09:20→16:36)
[2016-10-05] MEDS: DONEPEZIL HCL 10 MG TABLET. PO SCH (09:20)
[2016-10-05] MEDS: MULTIVITAMIN with MINERAL TABLET. PO SCH (09:21)
[2016-10-05] MEDS: hydroCHLOROthiazide 25 MG TABLET PO SCH (09:21)
[2016-10-05] MEDS: LIDOCAINE (700MG/PATCH) PATCH. TD SCH (09:22)
[2016-10-05] MEDS: PANTOPRAZOLE 40 MG TABLET.DR. PO SCH (09:22)
--- NOTE | 2016-10-05 09:57 | PDOC ---
FELIPA GHOTRA NEGATIVE DEVELOPER 10/05/16 0957: SURGICAL PROGRESS NOTE Subjective significant emesis last night this AM breakfast has stayed down Palliative care to see today Vital Signs Vital Signs Date Time Temp Pulse Resp B/P (MAP) Pulse Ox O2 Delivery O2 Flow Rate FiO2 10/05/16 08:00 Room Air 10/05/16 07:00 98.2 80 20 130/61 (84) 94 98.2 10/04/16 08:00 2.0 I&O Intake and Output 10/05/16 06:59 Intake Total 200 ml Balance 200 ml Intake Oral 200 ml # Voids 2 General: Cooperative, No acute distress Abdomen: Soft, No tenderness Labs Laboratory Tests Test 10/04/16 03:40 10/05/16 03:55 White Blood Count 13.5 x10^3/uL (4.0-11.0) 11.4 x10^3/uL (4.0-11.0) Red Blood Count 3.16 x10^6/uL (3.50-5.40) 3.01 x10^6/uL (3.50-5.40) Hemoglobin 9.5 g/dL (12.0-15.5) 9.1 g/dL (12.0-15.5) Hematocrit 29.1 % (36.0-47.0) 27.5 % (36.0-47.0) Mean Corpuscular Volume 92 fL (79-100) 91 fL (79-100) Mean Corpuscular Hemoglobin 30 pg (25-35) 30 pg (25-35) Mean Corpuscular Hemoglobin Concent 33 g/dL (31-37) 33 g/dL (31-37) Red Cell Distribution Width 13.2 % (11.5-14.5) 13.5 % (11.5-14.5) Platelet Count 182 x10^3/uL (140-400) 188 x10^3/uL (140-400) Neutrophils (%) (Auto) 80 % (31-73) 78 % (31-73) Lymphocytes (%) (Auto) 10 % (24-48) 13 % (24-48) Monocytes (%) (Auto) 9 % (0-9) 9 % (0-9) Eosinophils (%) (Auto) 1 % (0-3) 1 % (0-3) Basophils (%) (Auto) 0 % (0-3) 0 % (0-3) Neutrophils # (Auto) 10.8 x10^3uL (1.8-7.7) 8.8 x10^3uL (1.8-7.7) Lymphocytes # (Auto) 1.3 x10^3/uL (1.0-4.8) 1.4 x10^3/uL (1.0-4.8) Monocytes # (Auto) 1.2 x10^3/uL (0.0-1.1) 1.0 x10^3/uL (0.0-1.1) Eosinophils # (Auto) 0.1 x10^3/uL (0.0-0.7) 0.1 x10^3/uL (0.0-0.7) Basophils # (Auto) 0.0 x10^3/uL (0.0-0.2) 0.0 x10^3/uL (0.0-0.2) Laboratory Tests Test 10/05/16 03:55 White Blood Count 11.4 x10^3/uL (4.0-11.0) Red Blood Count 3.01 x10^6/uL (3.50-5.40) Hemoglobin 9.1 g/dL (12.0-15.5) Hematocrit 27.5 % (36.0-47.0) Mean Corpuscular Volume 91 fL (79-100) Mean Corpuscular Hemoglobin 30 pg (25-35) Mean Corpuscular Hemoglobin Concent 33 g/dL (31-37) Red Cell Distribution Width 13.5 % (11.5-14.5) Platelet Count 188 x10^3/uL (140-400) Neutrophils (%) (Auto) 78 % (31-73) Lymphocytes (%) (Auto) 13 % (24-48) Monocytes (%) (Auto) 9 % (0-9) Eosinophils (%) (Auto) 1 % (0-3) Basophils (%) (Auto) 0 % (0-3) Neutrophils # (Auto) 8.8 x10^3uL (1.8-7.7) Lymphocytes # (Auto) 1.4 x10^3/uL (1.0-4.8) Monocytes # (Auto) 1.0 x10^3/uL (0.0-1.1) Eosinophils # (Auto) 0.1 x10^3/uL (0.0-0.7) Basophils # (Auto) 0.0 x10^3/uL (0.0-0.2) Problem List Problems Medical Problems: (1) Cholangitis due to bile duct calculus with obstruction Status: Acute (2) Choledocholithiasis with acute cholecystitis with obstruction Status: Acute (3) Lactic acidosis Status: Acute (4) Leukocytosis Status: Acute (5) Sepsis Status: Acute Assessment/Plan supportive care palliative care meeting to address goals today consider cholecystectomy Problems: DARIELA TAYLOR MD 10/05/16 1731: SURGICAL PROGRESS NOTE Assessment/Plan Pt seen and examined. Agree with Ms. Ghotra's note Pt feels somewhat better abd soft no surgery requested by pt and pt's family d/w pt's family previously regarding cholecystostomy, and they feel pt would not tolerate cont supportive care Problems: FELIPA GHOTRA APRN Oct 05, 2016 09:57 DARIELA TAYLOR MD Oct 05, 2016 17:31
[2016-10-05 10:17] VITALS: BP 123/47
--- NOTE | 2016-10-05 11:40 | PDOC ---
Infectious Disease Note Subjective Subjective pt feeling better Had N/dry heaves last pm ROS ROS GEN: Denies fevers, chills, sweats HEENT: Denies blurred vision, sore throat CV: Denies chest pain RESP: Denies shortness of air, cough GI: Denies n/v/d NEURO: Denies confusion, dizziness MSK: Denies weakness, joint pain/swelling Vital Sign Vital Signs Vital Signs Date Time Temp Pulse Resp B/P (MAP) Pulse Ox O2 Delivery O2 Flow Rate FiO2 10/05/16 10:17 97.7 85 18 123/47 (72) 96 Room Air 97.7 10/04/16 08:00 2.0 Physical Exam PHYSICAL EXAM GENERAL: NAD, Alert HEENT: PERRL, OC/OP- dentures NECK: Supple, no JVD, no LN LUNGS: Clear HEART: S1S2, no gallop, no murmur ABD: Soft, NT, no organomegaly, no rebound EXT: No edema, no cyanosis COMMISSARY AGENT: Alert, oriented x 3, no focal neurologic deficit SKIN: No rash IV: ok Labs Lab Laboratory Tests Test 10/05/16 03:55 White Blood Count 11.4 x10^3/uL (4.0-11.0) Red Blood Count 3.01 x10^6/uL (3.50-5.40) Hemoglobin 9.1 g/dL (12.0-15.5) Hematocrit 27.5 % (36.0-47.0) Mean Corpuscular Volume 91 fL (79-100) Mean Corpuscular Hemoglobin 30 pg (25-35) Mean Corpuscular Hemoglobin Concent 33 g/dL (31-37) Red Cell Distribution Width 13.5 % (11.5-14.5) Platelet Count 188 x10^3/uL (140-400) Neutrophils (%) (Auto) 78 % (31-73) Lymphocytes (%) (Auto) 13 % (24-48) Monocytes (%) (Auto) 9 % (0-9) Eosinophils (%) (Auto) 1 % (0-3) Basophils (%) (Auto) 0 % (0-3) Neutrophils # (Auto) 8.8 x10^3uL (1.8-7.7) Lymphocytes # (Auto) 1.4 x10^3/uL (1.0-4.8) Monocytes # (Auto) 1.0 x10^3/uL (0.0-1.1) Eosinophils # (Auto) 0.1 x10^3/uL (0.0-0.7) Basophils # (Auto) 0.0 x10^3/uL (0.0-0.2) Micro 09/29 Escherichia coli Recovered from aerobic bottle only. GROWTH IN 3 OF 3 SETS ANTIMICROBIAL SUSCEPTIBILITY Preliminary Comment S = Susceptible; I = Intermediate; R = Resistant P = Positive; N = Negative MICS are expressed in micrograms per mL Antibiotic RSLT#1 RSLT#2 RSLT#3 RSLT#4 Amoxicillin/Clavulanic Acid S Ampicillin R Cefepime S Ceftriaxone S Cefuroxime S Cephalothin I Ciprofloxacin S Ertapenem S Gentamicin S Imipenem S Levofloxacin S Nitrofurantoin S Piperacillin S Tetracycline S Tobramycin S Trimethoprim/Sulfa S Objective Assessment Acute cholecystitis G neg emi bacteremia,, E coli 09/29 Acute cholangitis CBD stone s/p post-op dx smae s/p stone extraction/sphincterotomy 09/30 COPD Leukocytosis - better Plan Plan of Care cont antibiotics Await surgical decision. Await Palliative eval. ? If cholecystomy tube would be helpful Monitor WBC pt/ot supportive care if surgery not planned, then d/c on po cipro for 7 more days D/w daughter ROEL SALAZAR MD Oct 05, 2016 11:40
[2016-10-05] MEDS ORDERED: PROMETHAZINE 12.5 MG in IV NORMAL SALINE 50ML 50 ML IV PRN (12:00)
--- NOTE | 2016-10-05 12:01 | PDOC ---
Subjective: Subjective: No vomiting today. Feels "not bad." Objective: Objective: Reviewed other notes. RN asked for nausea med other than Zofran. Palliative care meeting this afternoon. Vital Signs: Vital Signs Date Time Temp Pulse Resp B/P (MAP) Pulse Ox O2 Delivery O2 Flow Rate FiO2 10/05/16 10:17 97.7 85 18 123/47 (72) 96 Room Air 97.7 10/04/16 08:00 2.0 Labs: Laboratory Tests Test 10/05/16 03:55 White Blood Count 11.4 x10^3/uL Red Blood Count 3.01 x10^6/uL Hemoglobin 9.1 g/dL Hematocrit 27.5 % Mean Corpuscular Volume 91 fL Mean Corpuscular Hemoglobin 30 pg Mean Corpuscular Hemoglobin Concent 33 g/dL Red Cell Distribution Width 13.5 % Platelet Count 188 x10^3/uL Neutrophils (%) (Auto) 78 % Lymphocytes (%) (Auto) 13 % Monocytes (%) (Auto) 9 % Eosinophils (%) (Auto) 1 % Basophils (%) (Auto) 0 % Neutrophils # (Auto) 8.8 x10^3uL Lymphocytes # (Auto) 1.4 x10^3/uL Monocytes # (Auto) 1.0 x10^3/uL Eosinophils # (Auto) 0.1 x10^3/uL Basophils # (Auto) 0.0 x10^3/uL PE: GEN: NAD ABD: soft, non-tender NEURO/PSYCH: A & O 3 A/P: Cholangitis -s/p ERCP w/ sphincterotomy/stone extraction 09/30/16 -considering cholecystectomy -bacteremia/leukocytosis ---> atbx per ID Vomiting - improved today H/o colon cancer s/p right colon resection -in 2011 -- Await palliative care meeting. BETZY RAGLAND Oct 05, 2016 12:01
[2016-10-05] MEDS: ONDANSETRON PF 4 MG/2 ML VIAL. IV PRN (13:48)
--- NOTE | 2016-10-05 14:57 | PDOC2 ---
PALLIATIVE CARE Palliative Care Note Palliative Care Consult requested by Dr. Sotelo to address goals of care Diagnosis: Cholangitis, choledocholithiasis s/p ERCP 09/30; MARIO secondary to poor po intake; sepsis; non-obstructing renal calculi; COPD; HTN Code Status: DNR/DNI Patient alert this am. Reviewed her medical condition. Received permission to speak with her family. Met with Daughter Missy and her Ivan; son Hitesh and daughter Joanne; daughter Karmen unable to attend. Patient lives alone in apt. Close to family members and friends. Reviewed medical condition. Stated they have spoke with Dr. Sotelo about her medical condition as well. Patient told her daughter "I won't make it through if they do surgery on me" has been telling her son "I'm tired" Had told her daughter she never wanted surgery again after colon resection. Family has noticed decline in last month. Recent fall. poor po intake. Had asked the daughter "what are you going to do with me when I can't take care of myself?" Family requests no surgery--continue to treat medically. PT/OT has not seen patient. Continues with intermittent N/V. Medications available PLan: Continue to treat medically. No surgery Nursing Facility when discharged. Consider SNU. Patient lives close to [place] and would like to remain close to home Hospice support briefly discussed. If patient does not respond and comfort is the goal it would be appropriate to have hospice evaluation. Family acknowledged understanding. Spoke with Do SINGH who will assist with discharge plans. Outside the Hospital DNR/DNI Form completed. UMANG SANCHEZ Oct 05, 2016 14:57
[2016-10-05 15:00] VITALS: BP 142/66
--- NOTE | 2016-10-05 16:07 | PDOC ---
PROGRESS NOTES Chief Complaint Chief Complaint 1. Ascending cholangitis, and choledocholithiasis s/p ERCP (09/30) 2. Elevated LFTS and alkaline phosphatase 3. MARIO 2/2 to poor PO 4. Sepsis with elevated lactate, WBC and fevers and tachycardia 5. Sinus tachycardia 6. Chronic ventral hernia 7. Incidental left non obstructing renal calculi, diverticulosis, cystitis 8. Critical hypomagnesemia 9. Hypercalcemia in faisal backgroun of dehydration/poor pO 10. 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 Geriatric, recent fall, frailty 12. 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 HLD 14. HTN 15. COPD 16. Gram neg emi bacteremia 17. DNR/DNI History of Present Illness History of Present Illness Co sleepiness family meeting today to consider [facility] SN[facility] eval is in progress Vitals Vitals Vital Signs Date Time Temp Pulse Resp B/P (MAP) Pulse Ox O2 Delivery O2 Flow Rate FiO2 10/05/16 15:00 98.6 89 18 142/66 (91) 97 Room Air 98.6 10/04/16 08:00 2.0 Physical Exam General: Cooperative, No acute distress Heart: Regular rate, Normal S1, Normal S2, No murmurs Lungs: Clear, Other (no wheezes or crackles) Abdomen: Soft, No tenderness Extremities: No clubbing, No cyanosis Skin: No rashes, No breakdown Labs LABS Laboratory Tests Test 10/05/16 03:55 White Blood Count 11.4 x10^3/uL (4.0-11.0) Red Blood Count 3.01 x10^6/uL (3.50-5.40) Hemoglobin 9.1 g/dL (12.0-15.5) Hematocrit 27.5 % (36.0-47.0) Mean Corpuscular Volume 91 fL (79-100) Mean Corpuscular Hemoglobin 30 pg (25-35) Mean Corpuscular Hemoglobin Concent 33 g/dL (31-37) Red Cell Distribution Width 13.5 % (11.5-14.5) Platelet Count 188 x10^3/uL (140-400) Neutrophils (%) (Auto) 78 % (31-73) Lymphocytes (%) (Auto) 13 % (24-48) Monocytes (%) (Auto) 9 % (0-9) Eosinophils (%) (Auto) 1 % (0-3) Basophils (%) (Auto) 0 % (0-3) Neutrophils # (Auto) 8.8 x10^3uL (1.8-7.7) Lymphocytes # (Auto) 1.4 x10^3/uL (1.0-4.8) Monocytes # (Auto) 1.0 x10^3/uL (0.0-1.1) Eosinophils # (Auto) 0.1 x10^3/uL (0.0-0.7) Basophils # (Auto) 0.0 x10^3/uL (0.0-0.2) Review of Systems Review of Systems poor pain control Assessment and Plan Assessmemt and Plan consider surg Problems Medical Problems: (1) Cholangitis due to bile duct calculus with obstruction Status: Acute (2) Choledocholithiasis with acute cholecystitis with obstruction Status: Acute (3) Lactic acidosis Status: Acute (4) Leukocytosis Status: Acute (5) Sepsis Status: Acute Problems: Comment Review of Relevant I have reviewed the following items navneet (where applicable) has been applied. Labs Laboratory Tests Test 10/04/16 03:40 10/05/16 03:55 White Blood Count 13.5 x10^3/uL (4.0-11.0) 11.4 x10^3/uL (4.0-11.0) Red Blood Count 3.16 x10^6/uL (3.50-5.40) 3.01 x10^6/uL (3.50-5.40) Hemoglobin 9.5 g/dL (12.0-15.5) 9.1 g/dL (12.0-15.5) Hematocrit 29.1 % (36.0-47.0) 27.5 % (36.0-47.0) Mean Corpuscular Volume 92 fL (79-100) 91 fL (79-100) Mean Corpuscular Hemoglobin 30 pg (25-35) 30 pg (25-35) Mean Corpuscular Hemoglobin Concent 33 g/dL (31-37) 33 g/dL (31-37) Red Cell Distribution Width 13.2 % (11.5-14.5) 13.5 % (11.5-14.5) Platelet Count 182 x10^3/uL (140-400) 188 x10^3/uL (140-400) Neutrophils (%) (Auto) 80 % (31-73) 78 % (31-73) Lymphocytes (%) (Auto) 10 % (24-48) 13 % (24-48) Monocytes (%) (Auto) 9 % (0-9) 9 % (0-9) Eosinophils (%) (Auto) 1 % (0-3) 1 % (0-3) Basophils (%) (Auto) 0 % (0-3) 0 % (0-3) Neutrophils # (Auto) 10.8 x10^3uL (1.8-7.7) 8.8 x10^3uL (1.8-7.7) Lymphocytes # (Auto) 1.3 x10^3/uL (1.0-4.8) 1.4 x10^3/uL (1.0-4.8) Monocytes # (Auto) 1.2 x10^3/uL (0.0-1.1) 1.0 x10^3/uL (0.0-1.1) Eosinophils # (Auto) 0.1 x10^3/uL (0.0-0.7) 0.1 x10^3/uL (0.0-0.7) Basophils # (Auto) 0.0 x10^3/uL (0.0-0.2) 0.0 x10^3/uL (0.0-0.2) Laboratory Tests Test 10/05/16 03:55 White Blood Count 11.4 x10^3/uL (4.0-11.0) Red Blood Count 3.01 x10^6/uL (3.50-5.40) Hemoglobin 9.1 g/dL (12.0-15.5) Hematocrit 27.5 % (36.0-47.0) Mean Corpuscular Volume 91 fL (79-100) Mean Corpuscular Hemoglobin 30 pg (25-35) Mean Corpuscular Hemoglobin Concent 33 g/dL (31-37) Red Cell Distribution Width 13.5 % (11.5-14.5) Platelet Count 188 x10^3/uL (140-400) Neutrophils (%) (Auto) 78 % (31-73) Lymphocytes (%) (Auto) 13 % (24-48) Monocytes (%) (Auto) 9 % (0-9) Eosinophils (%) (Auto) 1 % (0-3) Basophils (%) (Auto) 0 % (0-3) Neutrophils # (Auto) 8.8 x10^3uL (1.8-7.7) Lymphocytes # (Auto) 1.4 x10^3/uL (1.0-4.8) Monocytes # (Auto) 1.0 x10^3/uL (0.0-1.1) Eosinophils # (Auto) 0.1 x10^3/uL (0.0-0.7) Basophils # (Auto) 0.0 x10^3/uL (0.0-0.2) Microbiology 09/29/16 Blood Culture - Final, Complete 09/29/16 Blood Culture Result 1 (MYKEL) - Final, Complete 09/29/16 Antimicrobic Susceptibility - Final, Complete 09/29/16 Urine Culture - Final, Complete 09/29/16 Urine Culture Result 1 (MYKEL) - Final, Complete Medications Current Medications Ondansetron HCl (Zofran) 4 mg 1X ONCE IV Last administered on 09/29/16 16:31; Start 09/29/16 at 16:15; Stop 09/29/16 at 16:16; Status DC Fentanyl Citrate (Fentanyl 2ml Vial) 25 mcg PRN Q15MIN PRN IV PAIN GREATER THAN 3/10 Last administered on 09/29/16 21:48; Start 09/29/16 at 16:15; Stop 09/30 at 16:14; Status DC Sodium Chloride 1,000 ml @ 75 mls/hr 1X ONCE IV Last administered on 16:31; Start 09/29/16 at 16:15; Stop 09/29/16 at 17:37; Status DC Sodium Chloride 1,000 ml @ 1,770 mls/hr Q34M IV Last administered on 09/29/16 17:20; Start 09/29/16 at 17:20; Stop 09/29/16 at 18:21; Status DC Piperacillin Sod/ Tazobactam Sod (Zosyn Per Pharmacy) 1 each PRN DAILY PRN MC SEE COMMENTS; Start 09/29/16 at 18:30; Stop 10/01/16 at 12:29; Status DC Piperacillin Sod/ Tazobactam Sod 2.25 gm/Sodium Chloride 50 ml @ 100 mls/hr 1X ONCE IV Last administered on 09/29/16 18:55; Start 09/29/16 at 18:45; Stop 09/29/16 at 19:14; Status DC Ondansetron HCl (Zofran) 4 mg PRN Q8HRS PRN IV NAUSEA/VOMITING; Start 09/29/16 at 19:15; Stop 09/29/16 at 19:44; Status DC Fentanyl Citrate (Fentanyl 2ml Vial) 25 mcg PRN Q1HR PRN IV PAIN; Start at 19:15; Stop 09/30/16 at 19:14; Status DC Sodium Chloride 1,000 ml @ 125 mls/hr Q8H IV Last administered on 09/30/16 13: 27; Start 09/29/16 at 19:02; Stop 09/30/16 at 19:01; Status DC Acetaminophen (Tylenol) 650 mg PRN Q4HRS PRN PO FEVER; Start 09/29/16 at 19:15; Stop 09/30/16 at 19:14; Status DC Ondansetron HCl (Zofran) 4 mg PRN Q6HRS PRN IV NAUSEA/VOMITING; Start 09/29/16 at 19:42; Stop 09/30/16 at 19:41; Status DC Nicotine (Nicoderm Cq 21mg) 1 patch PRN DAILY PRN TD SMOKING CESSATION Last administered on 10/04/16 11:25; Start 09/29/16 at 19:45 Lorazepam (Ativan) 0.5 mg PRN Q4HRS PRN IV ANXIETY / AGITATION Last administered on 10/04/16 21:37; Start 09/29/16 at 19:45 Magnesium Sulfate/ Dextrose 100 ml @ 25 mls/hr 1X ONCE IV Last administered on 09/29/16 20:31; Start 09/29/16 at 20:00; Stop 09/29/16 at 23:59; Status DC Piperacillin Sod/ Tazobactam Sod 2.25 gm/Sodium Chloride 50 ml @ 100 mls/hr Q8HRS IV Last administered on 10/01/16 05:32; Start 09/30/16 at 06:00; Stop 10/01 at 12:32; Status DC Heparin Sodium (Porcine) (Heparin Sq) 5,000 unit Q8HRS SQ Last administered on 10/05/16 13:55; Start 09/29/16 at 22:00 Famotidine (Pepcid) 20 mg QHS IVP Last administered on 10/02/16 20:56; Start at 21:00; Stop 10/03/16 at 10:26; Status DC Iohexol (Omnipaque 300 Mg/ml) 100 ml STK-MED ONCE .ROUTE ; Start 09/30/16 at 08: 21; Stop 09/30/16 at 08:22; Status DC Dexamethasone Sodium Phosphate (Decadron) 20 mg STK-MED ONCE .ROUTE ; Start 09/30 at 08:49; Stop 09/30/16 at 08:50; Status DC Ondansetron HCl (Zofran) 4 mg STK-MED ONCE .ROUTE ; Start 09/30/16 at 08:49; Stop 09/30/16 at 08:50; Status DC Propofol 20 ml @ As Directed STK-MED ONCE IV ; Start 09/30/16 at 08:49; Stop 09/30 at 08:50; Status DC Lidocaine HCl (Lidocaine Pf 2% Vial) 5 ml STK-MED ONCE .ROUTE ; Start 09/30/16 at 08:49; Stop 09/30/16 at 08:50; Status DC Fentanyl Citrate (Fentanyl 2ml Vial) 100 mcg STK-MED ONCE .ROUTE ; Start at 08:49; Stop 09/30/16 at 08:50; Status DC Rocuronium [place] (Zemuron) 100 mg STK-MED ONCE .ROUTE ; Start 09/30/16 at 08:49 ; Stop 09/30/16 at 08:50; Status DC Succinylcholine Chloride (Anectine) 200 mg STK-MED ONCE .ROUTE ; Start 09/30/16 at 08:50; Stop 09/30/16 at 08:51; Status DC Midazolam HCl (Versed) 2 mg PRN 1X PRN IV PRIOR TO PROCEDURE; Start 09/30/16 at 09:00; Stop 09/30/16 at 18:00; Status DC Fentanyl Citrate (Fentanyl 2ml Vial) 25 mcg PRN Q5MIN PRN IV X 2 DOSES FOR PAIN ; Start 09/30/16 at 09:00; Stop 09/30/16 at 09:00; Status DC Fentanyl Citrate (Fentanyl 2ml Vial) 50 mcg PRN Q5MIN PRN IV X 2 DOSES FOR PAIN ; Start 09/30/16 at 09:00; Stop 09/30/16 at 09:00; Status DC Ringer's Solution 1,000 ml @ 125 mls/hr Q8H IV ; Start 09/30/16 at 08:52; Stop 09/30/16 at 08:55; Status DC Lidocaine HCl 2 ml 1X PRN PRN ID IV START; Start 09/30/16 at 09:00; Stop at 09:00; Status DC Ondansetron HCl (Zofran) 4 mg PRN Q6HRS PRN IV NAUSEA/VOMITING; Start 09/30/16 at 09:00; Stop 09/30/16 at 18:00; Status DC Fentanyl Citrate (Fentanyl 2ml Vial) 25 mcg PRN Q5MIN PRN IV MILD PAIN; Start 09/30/16 at 09:00; Stop 09/30/16 at 18:00; Status DC Fentanyl Citrate (Fentanyl 2ml Vial) 50 mcg PRN Q5MIN PRN IV MODERATE PAIN; Start 09/30/16 at 09:00; Stop 09/30/16 at 18:00; Status DC Morphine Sulfate 1 mg PRN Q10MIN PRN IV SEVERE PAIN; Start 09/30/16 at 09:00; Stop 09/30/16 at 18:00; Status DC Ringer's Solution 1,000 ml @ 30 mls/hr Q24H IV ; Start 09/30/16 at 08:52; Stop 09/30/16 at 20:39; Status DC Lidocaine HCl 2 ml PRN 1X PRN ID PRIOR TO IV START; Start 09/30/16 at 09:00; Stop 09/30/16 at 18:00; Status DC Hydromorphone HCl (Dilaudid) 0.5 mg PRN Q10MIN PRN IV SEV PAIN, Second choice; Start 09/30/16 at 09:00; Stop 09/30/16 at 18:00; Status DC Prochlorperazine Edisylate (Compazine) 5 mg PACU PRN PRN IV NAUSEA, MRX1; Start 09/30/16 at 09:00; Stop 09/30/16 at 18:00; Status DC Piperacillin Sod/ Tazobactam Sod 2.25 gm/Sodium Chloride 50 ml @ 100 mls/hr Q6HRS IV Last administered on 10/05/16 11:34; Start 10/01/16 at 13:00 Ephedrine Sulfate 50 mg STK-MED ONCE IV ; Start 10/01/16 at 09:00; Stop 10/01/16 at 14:16; Status DC Phenylephrine HCl (Garcia-Synephrine Inj) 10 mg STK-MED ONCE .ROUTE ; Start at 09:00; Stop 10/01/16 at 14:16; Status DC Donepezil HCl (Aricept) 20 mg DAILY PO Last administered on 10/05/16 09:20; Start 10/03/16 at 09:00 Simvastatin (Zocor) 40 mg QHS PO Last administered on 10/03/16 21:33; Start 10/02/16 at 21:00 Sucralfate (Carafate) 1 gm TIDAC PO Last administered on 10/05/16 11:34; Start 10/02/16 at 16:30 Hydrochlorothiazide (Hydrodiuril) 25 mg DAILY PO Last administered on 09:21; Start 10/02/16 at 14:30 Multivitamins (Thera M Plus) 1 tab DAILY PO Last administered on 10/05/16 09: 21; Start 10/03/16 at 09:00 Pantoprazole Sodium (Protonix) 40 mg DAILYAC PO Last administered on 10/05/16 09:22; Start 10/02/16 at 14:30 Famotidine (Pepcid) 20 mg QHS PO Last administered on 10/03/16 21:33; Start 10/03/16 at 21:00 Lidocaine (Lidoderm) 1 patch DAILY TD Last administered on 10/05/16 09:22; Start 10/03/16 at 12:00 Ondansetron HCl (Zofran) 4 mg PRN Q6HRS PRN IV NAUSEA/VOMITING Last administered on 10/05/16 13:48; Start 10/03/16 at 12:00 Amino Acids/ Glycerin/ Electrolytes 1,000 ml @ 75 mls/hr [id number] IV Last administered on 10/05/16t 09:32; Start 10/04/16 at 15:00 Promethazine HCl 12.5 mg/Sodium Chloride 50.5 ml @ 151.5 mls/ hr PRN Q6HRS PRN IV NAUSEA/VOMITING; Start 10/05/16 at 12:00 Active Scripts Active Reported Multi-Day Vitamins (Multivitamin) 1 Each Tablet 1 Tab PO DAILY Donepezil Hcl 10 Mg Tablet 2 Tab PO DAILY Simvastatin 40 Mg Tablet 1 Tab PO QHS Omeprazole 40 Mg Capsule.dr 1 Cap PO DAILY Hydrochlorothiazide Tablet (Hydrochlorothiazide) 12.5 Mg Tablet 2 Tab PO DAILY Sucralfate 1 Gm Tablet 1 Tab PO TID Vitals/I & O Vital Sign - Last 24 Hours 10/04/16 10/04/16 10/05/16 10/05/16 19:00 23:00 03:00 07:00 Temp 97.7 97.4 98.7 98.2 97.7 97.4 98.7 98.2 Pulse 80 73 77 80 Resp 17 17 16 20 B/P (MAP) 136/67 (90) 111/73 (86) 152/60 (90) 130/61 (84) Pulse Ox 97 96 94 94 O2 Delivery Room Air Room Air Room Air Room Air 10/05/16 10/05/16 10/05/16 08:00 10:17 15:00 Temp 97.7 98.6 97.7 98.6 Pulse 85 89 Resp 18 18 B/P (MAP) 123/47 (72) 142/66 (91) Pulse Ox 96 97 O2 Delivery Room Air Room Air Room Air Intake and Output 10/04/16 10/04/16 10/05/16 15:00 23:00 07:00 Intake Total 200 ml Balance 200 ml Nutrition Consultation Dietary Evaluation: Recommendations by RD: Dietary education by RD Comments: continue ppn for short term nutrition continue po diet/ encourgae intake, control Nausea to improve po intake offer snacks/ supplements from unit prn Expected Outcomes/Goals: to meet > 75% est nutr needs - met at times, goal ongoing Malnutrition Findings: Body Fat Depletion (Non Severe: Mild Depletion Weight Status: Appropriate TAMELA BANKS MD Oct 05, 2016 16:07
--- NOTE | 2016-10-05 18:50 | PDOC2 ---
CONSULT Date of Consult Date of Consult DATE: 10/05/16 TIME: 18:35 Reason for Consult Reason for Consult: rehab evaluation about knee joint pain. Referring Physician Referring Physician: . Identification/Chief Complaint Chief Complaint pain in her left knee since she bumped to her bed 3 weeks ago this time and also continued pain right knee for which she had TKA done several years ago. Problems: Source Source: Chart review, Patient History of Present Illness Reason for Visit: She was admitted with abdominal pain and acute kidney injury and was found with cholecystitis and she is hesitant about cholecystectomy. Past Medical History Cardiovascular: HTN, Hyperlipidemia Pulmonary: Bronchitis, COPD Heme/Onc: Cancer (colon) Musculoskeletal: Osteoarthritis, Other Past Surgical History Past Surgical History: Appendectomy, Total knee replacement (right in the past) , Hysterectomy Family History Family History: Hypertension Social History 2 packs per day ALCOHOL: none Drugs: None Lives: with Family Current Problem List Problem List Problems Medical Problems: (1) Cholangitis due to bile duct calculus with obstruction Status: Acute (2) Choledocholithiasis with acute cholecystitis with obstruction Status: Acute (3) Lactic acidosis Status: Acute (4) Leukocytosis Status: Acute (5) Sepsis Status: Acute Current Medications Current Medications Current Medications Ondansetron HCl (Zofran) 4 mg 1X ONCE IV Last administered on 09/29/16 16:31; Start 09/29/16 at 16:15; Stop 09/29/16 at 16:16; Status DC Fentanyl Citrate (Fentanyl 2ml Vial) 25 mcg PRN Q15MIN PRN IV PAIN GREATER THAN 3/10 Last administered on 09/29/16 21:48; Start 09/29/16 at 16:15; Stop 09/30 at 16:14; Status DC Sodium Chloride 1,000 ml @ 75 mls/hr 1X ONCE IV Last administered on 16:31; Start 09/29/16 at 16:15; Stop 09/29/16 at 17:37; Status DC Sodium Chloride 1,000 ml @ 1,770 mls/hr Q34M IV Last administered on 09/29/16 17:20; Start 09/29/16 at 17:20; Stop 09/29/16 at 18:21; Status DC Piperacillin Sod/ Tazobactam Sod (Zosyn Per Pharmacy) 1 each PRN DAILY PRN MC SEE COMMENTS; Start 09/29/16 at 18:30; Stop 10/01/16 at 12:29; Status DC Piperacillin Sod/ Tazobactam Sod 2.25 gm/Sodium Chloride 50 ml @ 100 mls/hr 1X ONCE IV Last administered on 09/29/16 18:55; Start 09/29/16 at 18:45; Stop 09/29/16 at 19:14; Status DC Ondansetron HCl (Zofran) 4 mg PRN Q8HRS PRN IV NAUSEA/VOMITING; Start 09/29/16 at 19:15; Stop 09/29/16 at 19:44; Status DC Fentanyl Citrate (Fentanyl 2ml Vial) 25 mcg PRN Q1HR PRN IV PAIN; Start at 19:15; Stop 09/30/16 at 19:14; Status DC Sodium Chloride 1,000 ml @ 125 mls/hr Q8H IV Last administered on 09/30/16 13: 27; Start 09/29/16 at 19:02; Stop 09/30/16 at 19:01; Status DC Acetaminophen (Tylenol) 650 mg PRN Q4HRS PRN PO FEVER; Start 09/29/16 at 19:15; Stop 09/30/16 at 19:14; Status DC Ondansetron HCl (Zofran) 4 mg PRN Q6HRS PRN IV NAUSEA/VOMITING; Start 09/29/16 at 19:42; Stop 09/30/16 at 19:41; Status DC Nicotine (Nicoderm Cq 21mg) 1 patch PRN DAILY PRN TD SMOKING CESSATION Last administered on 10/04/16 11:25; Start 09/29/16 at 19:45 Lorazepam (Ativan) 0.5 mg PRN Q4HRS PRN IV ANXIETY / AGITATION Last administered on 10/04/16 21:37; Start 09/29/16 at 19:45 Magnesium Sulfate/ Dextrose 100 ml @ 25 mls/hr 1X ONCE IV Last administered on 09/29/16 20:31; Start 09/29/16 at 20:00; Stop 09/29/16 at 23:59; Status DC Piperacillin Sod/ Tazobactam Sod 2.25 gm/Sodium Chloride 50 ml @ 100 mls/hr Q8HRS IV Last administered on 10/01/16 05:32; Start 09/30/16 at 06:00; Stop 10/01 at 12:32; Status DC Heparin Sodium (Porcine) (Heparin Sq) 5,000 unit Q8HRS SQ Last administered on 10/05/16 13:55; Start 09/29/16 at 22:00 Famotidine (Pepcid) 20 mg QHS IVP Last administered on 10/02/16 20:56; Start at 21:00; Stop 10/03/16 at 10:26; Status DC Iohexol (Omnipaque 300 Mg/ml) 100 ml STK-MED ONCE .ROUTE ; Start 09/30/16 at 08: 21; Stop 09/30/16 at 08:22; Status DC Dexamethasone Sodium Phosphate (Decadron) 20 mg STK-MED ONCE .ROUTE ; Start 09/30 at 08:49; Stop 09/30/16 at 08:50; Status DC Ondansetron HCl (Zofran) 4 mg STK-MED ONCE .ROUTE ; Start 09/30/16 at 08:49; Stop 09/30/16 at 08:50; Status DC Propofol 20 ml @ As Directed STK-MED ONCE IV ; Start 09/30/16 at 08:49; Stop 09/30 at 08:50; Status DC Lidocaine HCl (Lidocaine Pf 2% Vial) 5 ml STK-MED ONCE .ROUTE ; Start 09/30/16 at 08:49; Stop 09/30/16 at 08:50; Status DC Fentanyl Citrate (Fentanyl 2ml Vial) 100 mcg STK-MED ONCE .ROUTE ; Start at 08:49; Stop 09/30/16 at 08:50; Status DC Rocuronium [place] (Zemuron) 100 mg STK-MED ONCE .ROUTE ; Start 09/30/16 at 08:49 ; Stop 09/30/16 at 08:50; Status DC Succinylcholine Chloride (Anectine) 200 mg STK-MED ONCE .ROUTE ; Start 09/30/16 at 08:50; Stop 09/30/16 at 08:51; Status DC Midazolam HCl (Versed) 2 mg PRN 1X PRN IV PRIOR TO PROCEDURE; Start 09/30/16 at 09:00; Stop 09/30/16 at 18:00; Status DC Fentanyl Citrate (Fentanyl 2ml Vial) 25 mcg PRN Q5MIN PRN IV X 2 DOSES FOR PAIN ; Start 09/30/16 at 09:00; Stop 09/30/16 at 09:00; Status DC Fentanyl Citrate (Fentanyl 2ml Vial) 50 mcg PRN Q5MIN PRN IV X 2 DOSES FOR PAIN ; Start 09/30/16 at 09:00; Stop 09/30/16 at 09:00; Status DC Ringer's Solution 1,000 ml @ 125 mls/hr Q8H IV ; Start 09/30/16 at 08:52; Stop 09/30/16 at 08:55; Status DC Lidocaine HCl 2 ml 1X PRN PRN ID IV START; Start 09/30/16 at 09:00; Stop at 09:00; Status DC Ondansetron HCl (Zofran) 4 mg PRN Q6HRS PRN IV NAUSEA/VOMITING; Start 09/30/16 at 09:00; Stop 09/30/16 at 18:00; Status DC Fentanyl Citrate (Fentanyl 2ml Vial) 25 mcg PRN Q5MIN PRN IV MILD PAIN; Start 09/30/16 at 09:00; Stop 09/30/16 at 18:00; Status DC Fentanyl Citrate (Fentanyl 2ml Vial) 50 mcg PRN Q5MIN PRN IV MODERATE PAIN; Start 09/30/16 at 09:00; Stop 09/30/16 at 18:00; Status DC Morphine Sulfate 1 mg PRN Q10MIN PRN IV SEVERE PAIN; Start 09/30/16 at 09:00; Stop 09/30/16 at 18:00; Status DC Ringer's Solution 1,000 ml @ 30 mls/hr Q24H IV ; Start 09/30/16 at 08:52; Stop 09/30/16 at 20:39; Status DC Lidocaine HCl 2 ml PRN 1X PRN ID PRIOR TO IV START; Start 09/30/16 at 09:00; Stop 09/30/16 at 18:00; Status DC Hydromorphone HCl (Dilaudid) 0.5 mg PRN Q10MIN PRN IV SEV PAIN, Second choice; Start 09/30/16 at 09:00; Stop 09/30/16 at 18:00; Status DC Prochlorperazine Edisylate (Compazine) 5 mg PACU PRN PRN IV NAUSEA, MRX1; Start 09/30/16 at 09:00; Stop 09/30/16 at 18:00; Status DC Piperacillin Sod/ Tazobactam Sod 2.25 gm/Sodium Chloride 50 ml @ 100 mls/hr Q6HRS IV Last administered on 10/05/16 18:01; Start 10/01/16 at 13:00 Ephedrine Sulfate 50 mg STK-MED ONCE IV ; Start 10/01/16 at 09:00; Stop 10/01/16 at 14:16; Status DC Phenylephrine HCl (Garcia-Synephrine Inj) 10 mg STK-MED ONCE .ROUTE ; Start at 09:00; Stop 10/01/16 at 14:16; Status DC Donepezil HCl (Aricept) 20 mg DAILY PO Last administered on 10/05/16 09:20; Start 10/03/16 at 09:00 Simvastatin (Zocor) 40 mg QHS PO Last administered on 10/03/16 21:33; Start 10/02/16 at 21:00 Sucralfate (Carafate) 1 gm TIDAC PO Last administered on 10/05/16 16:36; Start 10/02/16 at 16:30 Hydrochlorothiazide (Hydrodiuril) 25 mg DAILY PO Last administered on 09:21; Start 10/02/16 at 14:30 Multivitamins (Thera M Plus) 1 tab DAILY PO Last administered on 10/05/16 09: 21; Start 10/03/16 at 09:00 Pantoprazole Sodium (Protonix) 40 mg DAILYAC PO Last administered on 10/05/16 09:22; Start 10/02/16 at 14:30 Famotidine (Pepcid) 20 mg QHS PO Last administered on 10/03/16 21:33; Start 10/03/16 at 21:00 Lidocaine (Lidoderm) 1 patch DAILY TD Last administered on 10/05/16 09:22; Start 10/03/16 at 12:00 Ondansetron HCl (Zofran) 4 mg PRN Q6HRS PRN IV NAUSEA/VOMITING Last administered on 10/05/16 13:48; Start 10/03/16 at 12:00 Amino Acids/ Glycerin/ Electrolytes 1,000 ml @ 75 mls/hr [id number] IV Last administered on 10/05/16 09:32; Start 10/04/16 at 15:00 Promethazine HCl 12.5 mg/Sodium Chloride 50.5 ml @ 151.5 mls/ hr PRN Q6HRS PRN IV NAUSEA/VOMITING; Start 10/05/16 at 12:00 Active Scripts Active Reported Multi-Day Vitamins (Multivitamin) 1 Each Tablet 1 Tab PO DAILY Donepezil Hcl 10 Mg Tablet 2 Tab PO DAILY Simvastatin 40 Mg Tablet 1 Tab PO QHS Omeprazole 40 Mg Capsule.dr 1 Cap PO DAILY Hydrochlorothiazide Tablet (Hydrochlorothiazide) 12.5 Mg Tablet 2 Tab PO DAILY Sucralfate 1 Gm Tablet 1 Tab PO TID Allergies Allergies: Coded Allergies: meclizine (Verified Allergy, Intermediate, Swelling, 09/30/16) codeine (Verified Adverse Reaction, Intermediate, Nausea and Vomiting, 09/30) Physical Exam General: Alert, Oriented X3, Cooperative, No acute distress HEENT: PERRLA, Mucous membr. moist/pink Lungs: Clear to auscultation, Normal air movement Heart: Regular rate, Normal S1, Normal S2, No murmurs Extremities: Other (She had pain on attempts at movement of her left knee with crepitus and laxity of collateral ligament and knee joint effusion.She had overgrown left 2 nd toe nail and callus over plantar aspect of lef tfoot.) Neuro: Other (she is hesitant ot get up but walked last week for 100' with roller walker with physical therapy with bet forward posture.She had absent knee and ankle jerks.) Vitals VITALS Vital Signs Date Time Temp Pulse Resp B/P (MAP) Pulse Ox O2 Delivery O2 Flow Rate FiO2 10/05/16 15:00 98.6 89 18 142/66 (91) 97 Room Air 98.6 10/04/16 08:00 2.0 Labs Labs Laboratory Tests Test 10/04/16 03:40 10/05/16 03:55 White Blood Count 13.5 x10^3/uL (4.0-11.0) 11.4 x10^3/uL (4.0-11.0) Red Blood Count 3.16 x10^6/uL (3.50-5.40) 3.01 x10^6/uL (3.50-5.40) Hemoglobin 9.5 g/dL (12.0-15.5) 9.1 g/dL (12.0-15.5) Hematocrit 29.1 % (36.0-47.0) 27.5 % (36.0-47.0) Mean Corpuscular Volume 92 fL (79-100) 91 fL (79-100) Mean Corpuscular Hemoglobin 30 pg (25-35) 30 pg (25-35) Mean Corpuscular Hemoglobin Concent 33 g/dL (31-37) 33 g/dL (31-37) Red Cell Distribution Width 13.2 % (11.5-14.5) 13.5 % (11.5-14.5) Platelet Count 182 x10^3/uL (140-400) 188 x10^3/uL (140-400) Neutrophils (%) (Auto) 80 % (31-73) 78 % (31-73) Lymphocytes (%) (Auto) 10 % (24-48) 13 % (24-48) Monocytes (%) (Auto) 9 % (0-9) 9 % (0-9) Eosinophils (%) (Auto) 1 % (0-3) 1 % (0-3) Basophils (%) (Auto) 0 % (0-3) 0 % (0-3) Neutrophils # (Auto) 10.8 x10^3uL (1.8-7.7) 8.8 x10^3uL (1.8-7.7) Lymphocytes # (Auto) 1.3 x10^3/uL (1.0-4.8) 1.4 x10^3/uL (1.0-4.8) Monocytes # (Auto) 1.2 x10^3/uL (0.0-1.1) 1.0 x10^3/uL (0.0-1.1) Eosinophils # (Auto) 0.1 x10^3/uL (0.0-0.7) 0.1 x10^3/uL (0.0-0.7) Basophils # (Auto) 0.0 x10^3/uL (0.0-0.2) 0.0 x10^3/uL (0.0-0.2) Laboratory Tests Test 10/05/16 03:55 White Blood Count 11.4 x10^3/uL (4.0-11.0) Red Blood Count 3.01 x10^6/uL (3.50-5.40) Hemoglobin 9.1 g/dL (12.0-15.5) Hematocrit 27.5 % (36.0-47.0) Mean Corpuscular Volume 91 fL (79-100) Mean Corpuscular Hemoglobin 30 pg (25-35) Mean Corpuscular Hemoglobin Concent 33 g/dL (31-37) Red Cell Distribution Width 13.5 % (11.5-14.5) Platelet Count 188 x10^3/uL (140-400) Neutrophils (%) (Auto) 78 % (31-73) Lymphocytes (%) (Auto) 13 % (24-48) Monocytes (%) (Auto) 9 % (0-9) Eosinophils (%) (Auto) 1 % (0-3) Basophils (%) (Auto) 0 % (0-3) Neutrophils # (Auto) 8.8 x10^3uL (1.8-7.7) Lymphocytes # (Auto) 1.4 x10^3/uL (1.0-4.8) Monocytes # (Auto) 1.0 x10^3/uL (0.0-1.1) Eosinophils # (Auto) 0.1 x10^3/uL (0.0-0.7) Basophils # (Auto) 0.0 x10^3/uL (0.0-0.2) Assessment/Plan Assessment/Plan Painful DJD of left knee with recent sprain from a fall or bumping into bed about 4 weeks ago and painful right knee post op TKA in the past. Peripheral neuropathy. Rec: I have recommended her to consider cortisone injection to he left knee to help ease he rpain but she had some reservations about it. To obtain knee x- rays and to try knee braces for the tome. SHAW ALVAREZ MD Oct 05, 2016 18:50
[2016-10-05 19:00] VITALS: BP 125/52
[2016-10-05] MEDS: SIMVASTATIN 40 MG TABLET. PO SCH (21:03)
[2016-10-05] MEDS: FAMOTIDINE 20 MG TABLET. PO SCH (21:03)
[2016-10-05 23:03] VITALS: BP 128/57
[2016-10-06] MEDS: PIPERACILLIN/TAZOBACTAM 2.25 GM in IV NORMAL SALINE 50ML 50 ML IV SCH ×2 (00:10→05:05)
[2016-10-06] MEDS: AMINO AC 3%/ELECTROLYTE/GLYCER 1,000 ML IV SCH ×2 (00:12→14:42)
[2016-10-06 03:00] VITALS: BP 121/59
[2016-10-06 04:51] LABS: BASO % 0 % (0-3); EOS % 1 % (0-3); HEMATOCRIT 27.5 % (36.0-47.0); HEMOGLOBIN 9.2 g/dL (12.0-15.5); LYMPH # 1.6 x10^3/uL (1.0-4.8); LYMPH % 15 % (24-48); MEAN CORPUSCULAR HEMOGLOBIN 31 pg (25-35); MEAN CORPUSCULAR HGB CONC 33 g/dL (31-37); MEAN CORPUSCULAR VOLUME 92 fL (79-100); MONO % 9 % (0-9); NEUT % 75 % (31-73); PLATELET COUNT 213 x10^3/uL (140-400); RED BLOOD COUNT 3.01 x10^6/uL (3.50-5.40); RED CELL DISTRIBUTION WIDTH 13.3 % (11.5-14.5); WHITE BLOOD COUNT 10.9 x10^3/uL (4.0-11.0)
[2016-10-06] MEDS: HEPARIN PF for SUB-Q USE 5,000 UNIT/0.5 ML VIAL. SQ SCH ×3 (05:06→21:49)
[2016-10-06] MEDS: SUCRALFATE 1 GM TABLET. PO SCH ×3 (06:00→17:39)
[2016-10-06] MEDS: PANTOPRAZOLE 40 MG TABLET.DR. PO SCH (06:00)
[2016-10-06 07:00] VITALS: BP 130/64
--- NOTE | 2016-10-06 07:11 | RAD ---
Left knee, 2 views, 10/05/2016: History: Knee pain, injury There is mild patchy bony demineralization. There is severe narrowing of the knee joint space with moderate marginal spurring and chondrocalcinosis. There is moderate degenerative change at the patellofemoral articulation. No acute fracture or dislocation is identified. IMPRESSION: 1. Moderately severe degenerative change with chondrocalcinosis. 2. No acute bony abnormality is detected.
[2016-10-06] MEDS: MULTIVITAMIN with MINERAL TABLET. PO SCH (08:45)
[2016-10-06] MEDS: hydroCHLOROthiazide 25 MG TABLET PO SCH (08:45)
[2016-10-06] MEDS: DONEPEZIL HCL 10 MG TABLET. PO SCH (08:46)
[2016-10-06] MEDS: LIDOCAINE (700MG/PATCH) PATCH. TD SCH (08:49)
--- NOTE | 2016-10-06 08:56 | PDOC ---
PROGRESS NOTES Chief Complaint Chief Complaint 1. Ascending cholangitis, and choledocholithiasis s/p ERCP (09/30) 2. Elevated LFTS and alkaline phosphatase 3. MARIO 2/2 to poor PO 4. Sepsis with elevated lactate, WBC and fevers and tachycardia 5. Sinus tachycardia 6. Chronic ventral hernia 7. Incidental left non obstructing renal calculi, diverticulosis, cystitis 8. Critical hypomagnesemia 9. Hypercalcemia in faisal backgroun of dehydration/poor pO 10. 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 Geriatric, recent fall, frailty 12. 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 HLD 14. HTN 15. COPD 16. Gram neg emi bacteremia 17. DNR/DNI History of Present Illness History of Present Illness knee pain better does not complain of nausea or abd pain today she ate very little of her breakfast "my stomach cannot hold much" SNU eval is in progress, plan DC to prov place soon Dr. Dias w/u left knee, I am unsure if she can bear weight Vitals Vitals Vital Signs Date Time Temp Pulse Resp B/P (MAP) Pulse Ox O2 Delivery O2 Flow Rate FiO2 10/06/16 07:00 98.8 84 18 130/64 (86) 95 Room Air 98.8 Physical Exam General: Alert, Oriented X3, Cooperative, No acute distress Heart: Regular rate, Normal S1, Normal S2, No murmurs Lungs: Clear, Other (no wheezes or crackles) Abdomen: Soft, No tenderness Extremities: Other (She had pain on attempts at movement of her left knee with crepitus and laxity of collateral ligament and knee joint effusion.She had overgrown left 2 nd toe nail and callus over plantar aspect of lef tfoot.) Skin: No rashes, No breakdown Labs LABS Laboratory Tests Test 10/06/16 02:55 White Blood Count 10.9 x10^3/uL (4.0-11.0) Red Blood Count 3.01 x10^6/uL (3.50-5.40) Hemoglobin 9.2 g/dL (12.0-15.5) Hematocrit 27.5 % (36.0-47.0) Mean Corpuscular Volume 92 fL (79-100) Mean Corpuscular Hemoglobin 31 pg (25-35) Mean Corpuscular Hemoglobin Concent 33 g/dL (31-37) Red Cell Distribution Width 13.3 % (11.5-14.5) Platelet Count 213 x10^3/uL (140-400) Neutrophils (%) (Auto) 75 % (31-73) Lymphocytes (%) (Auto) 15 % (24-48) Monocytes (%) (Auto) 9 % (0-9) Eosinophils (%) (Auto) 1 % (0-3) Basophils (%) (Auto) 0 % (0-3) Neutrophils # (Auto) 8.2 x10^3uL (1.8-7.7) Lymphocytes # (Auto) 1.6 x10^3/uL (1.0-4.8) Monocytes # (Auto) 0.9 x10^3/uL (0.0-1.1) Eosinophils # (Auto) 0.1 x10^3/uL (0.0-0.7) Basophils # (Auto) 0.0 x10^3/uL (0.0-0.2) Review of Systems Review of Systems poor po intake weakness Assessment and Plan Assessmemt and Plan Problems Medical Problems: (1) Cholangitis due to bile duct calculus with obstruction Status: Acute (2) Choledocholithiasis with acute cholecystitis with obstruction Status: Acute (3) Lactic acidosis Status: Acute (4) Leukocytosis Status: Acute (5) Sepsis Status: Acute Problems: Comment Review of Relevant I have reviewed the following items navneet (where applicable) has been applied. Labs Laboratory Tests Test 10/05/16 03:55 10/06/16 02:55 White Blood Count 11.4 x10^3/uL (4.0-11.0) 10.9 x10^3/uL (4.0-11.0) Red Blood Count 3.01 x10^6/uL (3.50-5.40) 3.01 x10^6/uL (3.50-5.40) Hemoglobin 9.1 g/dL (12.0-15.5) 9.2 g/dL (12.0-15.5) Hematocrit 27.5 % (36.0-47.0) 27.5 % (36.0-47.0) Mean Corpuscular Volume 91 fL (79-100) 92 fL (79-100) Mean Corpuscular Hemoglobin 30 pg (25-35) 31 pg (25-35) Mean Corpuscular Hemoglobin Concent 33 g/dL (31-37) 33 g/dL (31-37) Red Cell Distribution Width 13.5 % (11.5-14.5) 13.3 % (11.5-14.5) Platelet Count 188 x10^3/uL (140-400) 213 x10^3/uL (140-400) Neutrophils (%) (Auto) 78 % (31-73) 75 % (31-73) Lymphocytes (%) (Auto) 13 % (24-48) 15 % (24-48) Monocytes (%) (Auto) 9 % (0-9) 9 % (0-9) Eosinophils (%) (Auto) 1 % (0-3) 1 % (0-3) Basophils (%) (Auto) 0 % (0-3) 0 % (0-3) Neutrophils # (Auto) 8.8 x10^3uL (1.8-7.7) 8.2 x10^3uL (1.8-7.7) Lymphocytes # (Auto) 1.4 x10^3/uL (1.0-4.8) 1.6 x10^3/uL (1.0-4.8) Monocytes # (Auto) 1.0 x10^3/uL (0.0-1.1) 0.9 x10^3/uL (0.0-1.1) Eosinophils # (Auto) 0.1 x10^3/uL (0.0-0.7) 0.1 x10^3/uL (0.0-0.7) Basophils # (Auto) 0.0 x10^3/uL (0.0-0.2) 0.0 x10^3/uL (0.0-0.2) Laboratory Tests Test 10/06/16 02:55 White Blood Count 10.9 x10^3/uL (4.0-11.0) Red Blood Count 3.01 x10^6/uL (3.50-5.40) Hemoglobin 9.2 g/dL (12.0-15.5) Hematocrit 27.5 % (36.0-47.0) Mean Corpuscular Volume 92 fL (79-100) Mean Corpuscular Hemoglobin 31 pg (25-35) Mean Corpuscular Hemoglobin Concent 33 g/dL (31-37) Red Cell Distribution Width 13.3 % (11.5-14.5) Platelet Count 213 x10^3/uL (140-400) Neutrophils (%) (Auto) 75 % (31-73) Lymphocytes (%) (Auto) 15 % (24-48) Monocytes (%) (Auto) 9 % (0-9) Eosinophils (%) (Auto) 1 % (0-3) Basophils (%) (Auto) 0 % (0-3) Neutrophils # (Auto) 8.2 x10^3uL (1.8-7.7) Lymphocytes # (Auto) 1.6 x10^3/uL (1.0-4.8) Monocytes # (Auto) 0.9 x10^3/uL (0.0-1.1) Eosinophils # (Auto) 0.1 x10^3/uL (0.0-0.7) Basophils # (Auto) 0.0 x10^3/uL (0.0-0.2) Microbiology 09/29/16 Blood Culture - Final, Complete 09/29/16 Blood Culture Result 1 (MYKEL) - Final, Complete 09/29/16 Antimicrobic Susceptibility - Final, Complete 09/29/16 Urine Culture - Final, Complete 09/29/16 Urine Culture Result 1 (MYKEL) - Final, Complete Medications Current Medications Ondansetron HCl (Zofran) 4 mg 1X ONCE IV Last administered on 09/29/16 16:31; Start 09/29/16 at 16:15; Stop 09/29/16 at 16:16; Status DC Fentanyl Citrate (Fentanyl 2ml Vial) 25 mcg PRN Q15MIN PRN IV PAIN GREATER THAN 3/10 Last administered on 09/29/16 21:48; Start 09/29/16 at 16:15; Stop 09/30 at 16:14; Status DC Sodium Chloride 1,000 ml @ 75 mls/hr 1X ONCE IV Last administered on 16:31; Start 09/29/16 at 16:15; Stop 09/29/16 at 17:37; Status DC Sodium Chloride 1,000 ml @ 1,770 mls/hr Q34M IV Last administered on 09/29/16 17:20; Start 09/29/16 at 17:20; Stop 09/29/16 at 18:21; Status DC Piperacillin Sod/ Tazobactam Sod (Zosyn Per Pharmacy) 1 each PRN DAILY PRN MC SEE COMMENTS; Start 09/29/16 at 18:30; Stop 10/01/16 at 12:29; Status DC Piperacillin Sod/ Tazobactam Sod 2.25 gm/Sodium Chloride 50 ml @ 100 mls/hr 1X ONCE IV Last administered on 09/29/16 18:55; Start 09/29/16 at 18:45; Stop 09/29/16 at 19:14; Status DC Ondansetron HCl (Zofran) 4 mg PRN Q8HRS PRN IV NAUSEA/VOMITING; Start 09/29/16 at 19:15; Stop 09/29/16 at 19:44; Status DC Fentanyl Citrate (Fentanyl 2ml Vial) 25 mcg PRN Q1HR PRN IV PAIN; Start at 19:15; Stop 09/30/16 at 19:14; Status DC Sodium Chloride 1,000 ml @ 125 mls/hr Q8H IV Last administered on 09/30/16 13: 27; Start 09/29/16 at 19:02; Stop 09/30/16 at 19:01; Status DC Acetaminophen (Tylenol) 650 mg PRN Q4HRS PRN PO FEVER; Start 09/29/16 at 19:15; Stop 09/30/16 at 19:14; Status DC Ondansetron HCl (Zofran) 4 mg PRN Q6HRS PRN IV NAUSEA/VOMITING; Start 09/29/16 at 19:42; Stop 09/30/16 at 19:41; Status DC Nicotine (Nicoderm Cq 21mg) 1 patch PRN DAILY PRN TD SMOKING CESSATION Last administered on 10/04/16 11:25; Start 09/29/16 at 19:45 Lorazepam (Ativan) 0.5 mg PRN Q4HRS PRN IV ANXIETY / AGITATION Last administered on 10/04/16 21:37; Start 09/29/16 at 19:45 Magnesium Sulfate/ Dextrose 100 ml @ 25 mls/hr 1X ONCE IV Last administered on 09/29/16 20:31; Start 09/29/16 at 20:00; Stop 09/29/16 at 23:59; Status DC Piperacillin Sod/ Tazobactam Sod 2.25 gm/Sodium Chloride 50 ml @ 100 mls/hr Q8HRS IV Last administered on 10/01/16 05:32; Start 09/30/16 at 06:00; Stop 10/01 at 12:32; Status DC Heparin Sodium (Porcine) (Heparin Sq) 5,000 unit Q8HRS SQ Last administered on 10/06/16 05:06; Start 09/29/16 at 22:00 Famotidine (Pepcid) 20 mg QHS IVP Last administered on 10/02/16 20:56; Start at 21:00; Stop 10/03/16 at 10:26; Status DC Iohexol (Omnipaque 300 Mg/ml) 100 ml STK-MED ONCE .ROUTE ; Start 09/30/16 at 08: 21; Stop 09/30/16 at 08:22; Status DC Dexamethasone Sodium Phosphate (Decadron) 20 mg STK-MED ONCE .ROUTE ; Start 09/30 at 08:49; Stop 09/30/16 at 08:50; Status DC Ondansetron HCl (Zofran) 4 mg STK-MED ONCE .ROUTE ; Start 09/30/16 at 08:49; Stop 09/30/16 at 08:50; Status DC Propofol 20 ml @ As Directed STK-MED ONCE IV ; Start 09/30/16 at 08:49; Stop 09/30 at 08:50; Status DC Lidocaine HCl (Lidocaine Pf 2% Vial) 5 ml STK-MED ONCE .ROUTE ; Start 09/30/16 at 08:49; Stop 09/30/16 at 08:50; Status DC Fentanyl Citrate (Fentanyl 2ml Vial) 100 mcg STK-MED ONCE .ROUTE ; Start at 08:49; Stop 09/30/16 at 08:50; Status DC Rocuronium Sherman (Zemuron) 100 mg STK-MED ONCE .ROUTE ; Start 09/30/16 at 08:49 ; Stop 09/30/16 at 08:50; Status DC Succinylcholine Chloride (Anectine) 200 mg STK-MED ONCE .ROUTE ; Start 09/30/16 at 08:50; Stop 09/30/16 at 08:51; Status DC Midazolam HCl (Versed) 2 mg PRN 1X PRN IV PRIOR TO PROCEDURE; Start 09/30/16 at 09:00; Stop 09/30/16 at 18:00; Status DC Fentanyl Citrate (Fentanyl 2ml Vial) 25 mcg PRN Q5MIN PRN IV X 2 DOSES FOR PAIN ; Start 09/30/16 at 09:00; Stop 09/30/16 at 09:00; Status DC Fentanyl Citrate (Fentanyl 2ml Vial) 50 mcg PRN Q5MIN PRN IV X 2 DOSES FOR PAIN ; Start 09/30/16 at 09:00; Stop 09/30/16 at 09:00; Status DC Ringer's Solution 1,000 ml @ 125 mls/hr Q8H IV ; Start 09/30/16 at 08:52; Stop 09/30/16 at 08:55; Status DC Lidocaine HCl 2 ml 1X PRN PRN ID IV START; Start 09/30/16 at 09:00; Stop at 09:00; Status DC Ondansetron HCl (Zofran) 4 mg PRN Q6HRS PRN IV NAUSEA/VOMITING; Start 09/30/16 at 09:00; Stop 09/30/16 at 18:00; Status DC Fentanyl Citrate (Fentanyl 2ml Vial) 25 mcg PRN Q5MIN PRN IV MILD PAIN; Start 09/30/16 at 09:00; Stop 09/30/16 at 18:00; Status DC Fentanyl Citrate (Fentanyl 2ml Vial) 50 mcg PRN Q5MIN PRN IV MODERATE PAIN; Start 09/30/16 at 09:00; Stop 09/30/16 at 18:00; Status DC Morphine Sulfate 1 mg PRN Q10MIN PRN IV SEVERE PAIN; Start 09/30/16 at 09:00; Stop 09/30/16 at 18:00; Status DC Ringer's Solution 1,000 ml @ 30 mls/hr Q24H IV ; Start 09/30/16 at 08:52; Stop 09/30/16 at 20:39; Status DC Lidocaine HCl 2 ml PRN 1X PRN ID PRIOR TO IV START; Start 09/30/16 at 09:00; Stop 09/30/16 at 18:00; Status DC Hydromorphone HCl (Dilaudid) 0.5 mg PRN Q10MIN PRN IV SEV PAIN, Second choice; Start 09/30/16 at 09:00; Stop 09/30/16 at 18:00; Status DC Prochlorperazine Edisylate (Compazine) 5 mg PACU PRN PRN IV NAUSEA, MRX1; Start 09/30/16 at 09:00; Stop 09/30/16 at 18:00; Status DC Piperacillin Sod/ Tazobactam Sod 2.25 gm/Sodium Chloride 50 ml @ 100 mls/hr Q6HRS IV Last administered on 10/06/16 05:05; Start 10/01/16 at 13:00 Ephedrine Sulfate 50 mg STK-MED ONCE IV ; Start 10/01/16 at 09:00; Stop 10/01/16 at 14:16; Status DC Phenylephrine HCl (Garcia-Synephrine Inj) 10 mg STK-MED ONCE .ROUTE ; Start at 09:00; Stop 10/01/16 at 14:16; Status DC Donepezil HCl (Aricept) 20 mg DAILY PO Last administered on 10/06/16 08:46; Start 10/03/16 at 09:00 Simvastatin (Zocor) 40 mg QHS PO Last administered on 10/05/16 21:03; Start at 21:00 Sucralfate (Carafate) 1 gm TIDAC PO Last administered on 10/06/16 06:00; Start 10/02/16 at 16:30 Hydrochlorothiazide (Hydrodiuril) 25 mg DAILY PO Last administered on 08:45; Start 10/02/16 at 14:30 Multivitamins (Thera M Plus) 1 tab DAILY PO Last administered on 10/06/16 08: 45; Start 10/03/16 at 09:00 Pantoprazole Sodium (Protonix) 40 mg DAILYAC PO Last administered on 10/06/16 06:00; Start 10/02/16 at 14:30 Famotidine (Pepcid) 20 mg QHS PO Last administered on 10/05/16 21:03; Start at 21:00 Lidocaine (Lidoderm) 1 patch DAILY TD Last administered on 10/06/16 08:49; Start 10/03/16 at 12:00 Ondansetron HCl (Zofran) 4 mg PRN Q6HRS PRN IV NAUSEA/VOMITING Last administered on 10/05/16 13:48; Start 10/03/16 at 12:00 Amino Acids/ Glycerin/ Electrolytes 1,000 ml @ 75 mls/hr [id number] IV Last administered on 10/06/16 00:12; Start 10/04/16 at 15:00 Promethazine HCl 12.5 mg/Sodium Chloride 50.5 ml @ 151.5 mls/ hr PRN Q6HRS PRN IV NAUSEA/VOMITING; Start 10/05/16 at 12:00 Active Scripts Active Reported Multi-Day Vitamins (Multivitamin) 1 Each Tablet 1 Tab PO DAILY Donepezil Hcl 10 Mg Tablet 2 Tab PO DAILY Simvastatin 40 Mg Tablet 1 Tab PO QHS Omeprazole 40 Mg Capsule.dr 1 Cap PO DAILY Hydrochlorothiazide Tablet (Hydrochlorothiazide) 12.5 Mg Tablet 2 Tab PO DAILY Sucralfate 1 Gm Tablet 1 Tab PO TID Vitals/I & O Vital Sign - Last 24 Hours 10/05/16 10/05/16 10/05/16 10/05/1617 15:00 19:00 20:00 Temp 97.7 98.6 98.7 97.7 98.6 98.7 Pulse 85 89 85 Resp 18 18 18 B/P (MAP) 123/47 (72) 142/66 (91) 125/52 (76) Pulse Ox 96 97 93 O2 Delivery Room Air Room Air Room Air Room Air 10/05/16 10/06/16 10/06/16 23:03 03:00 07:00 Temp 98.0 97.7 98.8 98.0 97.7 98.8 Pulse 85 78 84 Resp 16 18 18 B/P (MAP) 128/57 (80) 121/59 (79) 130/64 (86) Pulse Ox 93 93 95 O2 Delivery Room Air Room Air Room Air Intake and Output 10/05/16 10/05/16 10/06/16 15:00 23:00 07:00 Intake Total 240 ml 120 ml 1550 ml Balance 240 ml 120 ml 1550 ml Nutrition Consultation Dietary Evaluation: Recommendations by RD: Dietary education by RD Comments: continue ppn for short term nutrition continue po diet/ encourgae intake, control Nausea to improve po intake offer snacks/ supplements from unit prn Expected Outcomes/Goals: to meet > 75% est nutr needs - met at times, goal ongoing Malnutrition Findings: Body Fat Depletion (Non Severe: Mild Depletion Weight Status: Appropriate TAMELA BANKS MD Oct 06, 2016 08:55
[2016-10-06] MEDS ORDERED: CIPROFLOXACIN HCL 250 MG TABLET. PO SCH (09:45)
--- NOTE | 2016-10-06 09:46 | PDOC ---
Infectious Disease Note Subjective Subjective pt feeling better wants to go home ROS ROS GEN: Denies fevers, chills, sweats HEENT: Denies blurred vision, sore throat CV: Denies chest pain RESP: Denies shortness of air, cough GI: Denies n/v/d NEURO: Denies confusion, dizziness MSK: Denies weakness, joint pain/swelling Vital Sign Vital Signs Vital Signs Date Time Temp Pulse Resp B/P (MAP) Pulse Ox O2 Delivery O2 Flow Rate FiO2 10/06/16 07:00 98.8 84 18 130/64 (86) 95 Room Air 98.8 Physical Exam PHYSICAL EXAM GENERAL: NAD, Alert HEENT: PERRL, OC/OP NECK: Supple, no JVD, no LN LUNGS: Clear HEART: S1S2, no gallop, no murmur ABD: Soft, NT, no organomegaly, no rebound EXT: No edema, no cyanosis WELT BEATER: Alert, oriented x 3, no focal neurologic deficit SKIN: No rash IV: ok Labs Lab Laboratory Tests Test 10/06/16 02:55 White Blood Count 10.9 x10^3/uL (4.0-11.0) Red Blood Count 3.01 x10^6/uL (3.50-5.40) Hemoglobin 9.2 g/dL (12.0-15.5) Hematocrit 27.5 % (36.0-47.0) Mean Corpuscular Volume 92 fL (79-100) Mean Corpuscular Hemoglobin 31 pg (25-35) Mean Corpuscular Hemoglobin Concent 33 g/dL (31-37) Red Cell Distribution Width 13.3 % (11.5-14.5) Platelet Count 213 x10^3/uL (140-400) Neutrophils (%) (Auto) 75 % (31-73) Lymphocytes (%) (Auto) 15 % (24-48) Monocytes (%) (Auto) 9 % (0-9) Eosinophils (%) (Auto) 1 % (0-3) Basophils (%) (Auto) 0 % (0-3) Neutrophils # (Auto) 8.2 x10^3uL (1.8-7.7) Lymphocytes # (Auto) 1.6 x10^3/uL (1.0-4.8) Monocytes # (Auto) 0.9 x10^3/uL (0.0-1.1) Eosinophils # (Auto) 0.1 x10^3/uL (0.0-0.7) Basophils # (Auto) 0.0 x10^3/uL (0.0-0.2) Micro 09/29 Escherichia coli Recovered from aerobic bottle only. GROWTH IN 3 OF 3 SETS ANTIMICROBIAL SUSCEPTIBILITY Preliminary Comment S = Susceptible; I = Intermediate; R = Resistant P = Positive; N = Negative MICS are expressed in micrograms per mL Antibiotic RSLT#1 RSLT#2 RSLT#3 RSLT#4 Amoxicillin/Clavulanic Acid S Ampicillin R Cefepime S Ceftriaxone S Cefuroxime S Cephalothin I Ciprofloxacin S Ertapenem S Gentamicin S Imipenem S Levofloxacin S Nitrofurantoin S Piperacillin S Tetracycline S Tobramycin S Trimethoprim/Sulfa S Objective Assessment Acute cholecystitis G neg emi bacteremia,, E coli 09/29 Acute cholangitis CKD CBD stone s/p post-op dx smae s/p stone extraction/sphincterotomy 09/30 COPD Leukocytosis - better Plan Plan of Care notes and palliative care reviewed Ok to d/c home on po cipro for 4 more days ROEL SALAZAR MD Oct 06, 2016 09:46
--- NOTE | 2016-10-06 10:32 | PDOC2 ---
PALLIATIVE CARE Palliative Care Note Palliative Care Patient alert and visiting with daughter. Reviewed results of Knee x-ray with patient and her daughter Patient encouraged---has no nausea and vomiting today. Plan Assisted skilled when discharged. Do SINGH working on discharge plan. UMANG SANCHEZ Oct 06, 2016 10:32
--- NOTE | 2016-10-06 10:42 | PDOC ---
PROGRESS NOTES Subjective Subjective She admits continued pain in her knees. 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 Assessment Assessment Problems Medical Problems: (1) Cholangitis due to bile duct calculus with obstruction Status: Acute (2) Choledocholithiasis with acute cholecystitis with obstruction Status: Acute (3) Lactic acidosis Status: Acute (4) Leukocytosis Status: Acute (5) Sepsis Status: Acute Plan Plan of Care I spoke to and her family at bedside and to proceed with depomedrol and marcaine injection which I performed under aseptic skin technique and she tolerated the procedure satisfactorily without any side effects. Comment Review of Relevant I have reviewed the following items navneet (where applicable) has been applied. Labs Laboratory Tests Test 10/05/16 03:55 10/06/16 02:55 White Blood Count 11.4 x10^3/uL (4.0-11.0) 10.9 x10^3/uL (4.0-11.0) Red Blood Count 3.01 x10^6/uL (3.50-5.40) 3.01 x10^6/uL (3.50-5.40) Hemoglobin 9.1 g/dL (12.0-15.5) 9.2 g/dL (12.0-15.5) Hematocrit 27.5 % (36.0-47.0) 27.5 % (36.0-47.0) Mean Corpuscular Volume 91 fL (79-100) 92 fL (79-100) Mean Corpuscular Hemoglobin 30 pg (25-35) 31 pg (25-35) Mean Corpuscular Hemoglobin Concent 33 g/dL (31-37) 33 g/dL (31-37) Red Cell Distribution Width 13.5 % (11.5-14.5) 13.3 % (11.5-14.5) Platelet Count 188 x10^3/uL (140-400) 213 x10^3/uL (140-400) Neutrophils (%) (Auto) 78 % (31-73) 75 % (31-73) Lymphocytes (%) (Auto) 13 % (24-48) 15 % (24-48) Monocytes (%) (Auto) 9 % (0-9) 9 % (0-9) Eosinophils (%) (Auto) 1 % (0-3) 1 % (0-3) Basophils (%) (Auto) 0 % (0-3) 0 % (0-3) Neutrophils # (Auto) 8.8 x10^3uL (1.8-7.7) 8.2 x10^3uL (1.8-7.7) Lymphocytes # (Auto) 1.4 x10^3/uL (1.0-4.8) 1.6 x10^3/uL (1.0-4.8) Monocytes # (Auto) 1.0 x10^3/uL (0.0-1.1) 0.9 x10^3/uL (0.0-1.1) Eosinophils # (Auto) 0.1 x10^3/uL (0.0-0.7) 0.1 x10^3/uL (0.0-0.7) Basophils # (Auto) 0.0 x10^3/uL (0.0-0.2) 0.0 x10^3/uL (0.0-0.2) Laboratory Tests Test 10/06/16 02:55 White Blood Count 10.9 x10^3/uL (4.0-11.0) Red Blood Count 3.01 x10^6/uL (3.50-5.40) Hemoglobin 9.2 g/dL (12.0-15.5) Hematocrit 27.5 % (36.0-47.0) Mean Corpuscular Volume 92 fL (79-100) Mean Corpuscular Hemoglobin 31 pg (25-35) Mean Corpuscular Hemoglobin Concent 33 g/dL (31-37) Red Cell Distribution Width 13.3 % (11.5-14.5) Platelet Count 213 x10^3/uL (140-400) Neutrophils (%) (Auto) 75 % (31-73) Lymphocytes (%) (Auto) 15 % (24-48) Monocytes (%) (Auto) 9 % (0-9) Eosinophils (%) (Auto) 1 % (0-3) Basophils (%) (Auto) 0 % (0-3) Neutrophils # (Auto) 8.2 x10^3uL (1.8-7.7) Lymphocytes # (Auto) 1.6 x10^3/uL (1.0-4.8) Monocytes # (Auto) 0.9 x10^3/uL (0.0-1.1) Eosinophils # (Auto) 0.1 x10^3/uL (0.0-0.7) Basophils # (Auto) 0.0 x10^3/uL (0.0-0.2) Microbiology 09/29/16 Blood Culture - Final, Complete 09/29/16 Blood Culture Result 1 (MYKEL) - Final, Complete 09/29/16 Antimicrobic Susceptibility - Final, Complete 09/29/16 Urine Culture - Final, Complete 09/29/16 Urine Culture Result 1 (MYKEL) - Final, Complete Medications Current Medications Ondansetron HCl (Zofran) 4 mg 1X ONCE IV Last administered on 09/29/16 16:31; Start 09/29/16 at 16:15; Stop 09/29/16 at 16:16; Status DC Fentanyl Citrate (Fentanyl 2ml Vial) 25 mcg PRN Q15MIN PRN IV PAIN GREATER THAN 3/10 Last administered on 09/29/16 21:48; Start 09/29/16 at 16:15; Stop 09/30 at 16:14; Status DC Sodium Chloride 1,000 ml @ 75 mls/hr 1X ONCE IV Last administered on 16:31; Start 09/29/16 at 16:15; Stop 09/29/16 at 17:37; Status DC Sodium Chloride 1,000 ml @ 1,770 mls/hr Q34M IV Last administered on 09/29/16 17:20; Start 09/29/16 at 17:20; Stop 09/29/16 at 18:21; Status DC Piperacillin Sod/ Tazobactam Sod (Zosyn Per Pharmacy) 1 each PRN DAILY PRN MC SEE COMMENTS; Start 09/29/16 at 18:30; Stop 10/01/16 at 12:29; Status DC Piperacillin Sod/ Tazobactam Sod 2.25 gm/Sodium Chloride 50 ml @ 100 mls/hr 1X ONCE IV Last administered on 09/29/16 18:55; Start 09/29/16 at 18:45; Stop 09/29/16 at 19:14; Status DC Ondansetron HCl (Zofran) 4 mg PRN Q8HRS PRN IV NAUSEA/VOMITING; Start 09/29/16 at 19:15; Stop 09/29/16 at 19:44; Status DC Fentanyl Citrate (Fentanyl 2ml Vial) 25 mcg PRN Q1HR PRN IV PAIN; Start at 19:15; Stop 09/30/16 at 19:14; Status DC Sodium Chloride 1,000 ml @ 125 mls/hr Q8H IV Last administered on 09/30/16 13: 27; Start 09/29/16 at 19:02; Stop 09/30/16 at 19:01; Status DC Acetaminophen (Tylenol) 650 mg PRN Q4HRS PRN PO FEVER; Start 09/29/16 at 19:15; Stop 09/30/16 at 19:14; Status DC Ondansetron HCl (Zofran) 4 mg PRN Q6HRS PRN IV NAUSEA/VOMITING; Start 09/29/16 at 19:42; Stop 09/30/16 at 19:41; Status DC Nicotine (Nicoderm Cq 21mg) 1 patch PRN DAILY PRN TD SMOKING CESSATION Last administered on 10/04/16 11:25; Start 09/29/16 at 19:45 Lorazepam (Ativan) 0.5 mg PRN Q4HRS PRN IV ANXIETY / AGITATION Last administered on 10/04/16 21:37; Start 09/29/16 at 19:45 Magnesium Sulfate/ Dextrose 100 ml @ 25 mls/hr 1X ONCE IV Last administered on 09/29/16 20:31; Start 09/29/16 at 20:00; Stop 09/29/16 at 23:59; Status DC Piperacillin Sod/ Tazobactam Sod 2.25 gm/Sodium Chloride 50 ml @ 100 mls/hr Q8HRS IV Last administered on 10/01/16 05:32; Start 09/30/16 at 06:00; Stop 10/01 at 12:32; Status DC Heparin Sodium (Porcine) (Heparin Sq) 5,000 unit Q8HRS SQ Last administered on 10/06/16 05:06; Start 09/29/16 at 22:00 Famotidine (Pepcid) 20 mg QHS IVP Last administered on 10/02/16 20:56; Start at 21:00; Stop 10/03/16 at 10:26; Status DC Iohexol (Omnipaque 300 Mg/ml) 100 ml STK-MED ONCE .ROUTE ; Start 09/30/16 at 08: 21; Stop 09/30/16 at 08:22; Status DC Dexamethasone Sodium Phosphate (Decadron) 20 mg STK-MED ONCE .ROUTE ; Start 09/30 at 08:49; Stop 09/30/16 at 08:50; Status DC Ondansetron HCl (Zofran) 4 mg STK-MED ONCE .ROUTE ; Start 09/30/16 at 08:49; Stop 09/30/16 at 08:50; Status DC Propofol 20 ml @ As Directed STK-MED ONCE IV ; Start 09/30/16 at 08:49; Stop 09/30 at 08:50; Status DC Lidocaine HCl (Lidocaine Pf 2% Vial) 5 ml STK-MED ONCE .ROUTE ; Start 09/30/16 at 08:49; Stop 09/30/16 at 08:50; Status DC Fentanyl Citrate (Fentanyl 2ml Vial) 100 mcg STK-MED ONCE .ROUTE ; Start at 08:49; Stop 09/30/16 at 08:50; Status DC Rocuronium [place] (Zemuron) 100 mg STK-MED ONCE .ROUTE ; Start 09/30/16 at 08:49 ; Stop 09/30/16 at 08:50; Status DC Succinylcholine Chloride (Anectine) 200 mg STK-MED ONCE .ROUTE ; Start 09/30/16 at 08:50; Stop 09/30/16 at 08:51; Status DC Midazolam HCl (Versed) 2 mg PRN 1X PRN IV PRIOR TO PROCEDURE; Start 09/30/16 at 09:00; Stop 09/30/16 at 18:00; Status DC Fentanyl Citrate (Fentanyl 2ml Vial) 25 mcg PRN Q5MIN PRN IV X 2 DOSES FOR PAIN ; Start 09/30/16 at 09:00; Stop 09/30/16 at 09:00; Status DC Fentanyl Citrate (Fentanyl 2ml Vial) 50 mcg PRN Q5MIN PRN IV X 2 DOSES FOR PAIN ; Start 09/30/16 at 09:00; Stop 09/30/16 at 09:00; Status DC Ringer's Solution 1,000 ml @ 125 mls/hr Q8H IV ; Start 09/30/16 at 08:52; Stop 09/30/16 at 08:55; Status DC Lidocaine HCl 2 ml 1X PRN PRN ID IV START; Start 09/30/16 at 09:00; Stop at 09:00; Status DC Ondansetron HCl (Zofran) 4 mg PRN Q6HRS PRN IV NAUSEA/VOMITING; Start 09/30/16 at 09:00; Stop 09/30/16 at 18:00; Status DC Fentanyl Citrate (Fentanyl 2ml Vial) 25 mcg PRN Q5MIN PRN IV MILD PAIN; Start 09/30/16 at 09:00; Stop 09/30/16 at 18:00; Status DC Fentanyl Citrate (Fentanyl 2ml Vial) 50 mcg PRN Q5MIN PRN IV MODERATE PAIN; Start 09/30/16 at 09:00; Stop 09/30/16 at 18:00; Status DC Morphine Sulfate 1 mg PRN Q10MIN PRN IV SEVERE PAIN; Start 09/30/16 at 09:00; Stop 09/30/16 at 18:00; Status DC Ringer's Solution 1,000 ml @ 30 mls/hr Q24H IV ; Start 09/30/16 at 08:52; Stop 09/30/16 at 20:39; Status DC Lidocaine HCl 2 ml PRN 1X PRN ID PRIOR TO IV START; Start 09/30/16 at 09:00; Stop 09/30/16 at 18:00; Status DC Hydromorphone HCl (Dilaudid) 0.5 mg PRN Q10MIN PRN IV SEV PAIN, Second choice; Start 09/30/16 at 09:00; Stop 09/30/16 at 18:00; Status DC Prochlorperazine Edisylate (Compazine) 5 mg PACU PRN PRN IV NAUSEA, MRX1; Start 09/30/16 at 09:00; Stop 09/30/16 at 18:00; Status DC Piperacillin Sod/ Tazobactam Sod 2.25 gm/Sodium Chloride 50 ml @ 100 mls/hr Q6HRS IV Last administered on 10/06/16 05:05; Start 10/01/16 at 13:00; Stop 02/12 at 09:42; Status DC Ephedrine Sulfate 50 mg STK-MED ONCE IV ; Start 10/01/16 at 09:00; Stop 10/01/16 at 14:16; Status DC Phenylephrine HCl (Garcia-Synephrine Inj) 10 mg STK-MED ONCE .ROUTE ; Start at 09:00; Stop 10/01/16 at 14:16; Status DC Donepezil HCl (Aricept) 20 mg DAILY PO Last administered on 10/06/16 08:46; Start 10/03/16 at 09:00 Simvastatin (Zocor) 40 mg QHS PO Last administered on 10/05/16 21:03; Start at 21:00 Sucralfate (Carafate) 1 gm TIDAC PO Last administered on 10/06/16 06:00; Start 10/02/16 at 16:30 Hydrochlorothiazide (Hydrodiuril) 25 mg DAILY PO Last administered on 08:45; Start 10/02/16 at 14:30 Multivitamins (Thera M Plus) 1 tab DAILY PO Last administered on 10/06/16 08: 45; Start 10/03/16 at 09:00 Pantoprazole Sodium (Protonix) 40 mg DAILYAC PO Last administered on 10/06/16 06:00; Start 10/02/16 at 14:30 Famotidine (Pepcid) 20 mg QHS PO Last administered on 10/05/16 21:03; Start at 21:00 Lidocaine (Lidoderm) 1 patch DAILY TD Last administered on 10/06/16 08:49; Start 10/03/16 at 12:00 Ondansetron HCl (Zofran) 4 mg PRN Q6HRS PRN IV NAUSEA/VOMITING Last administered on 10/05/16 13:48; Start 10/03/16 at 12:00 Amino Acids/ Glycerin/ Electrolytes 1,000 ml @ 75 mls/hr [id number] IV Last administered on 10/06/16 00:12; Start 10/04/16 at 15:00 Promethazine HCl 12.5 mg/Sodium Chloride 50.5 ml @ 151.5 mls/ hr PRN Q6HRS PRN IV NAUSEA/VOMITING; Start 10/05/16 at 12:00 Ciprofloxacin (Cipro) 500 mg BID PO ; Start 10/06/16 at 09:45; Stop 10/06/16 at 10:00; Status DC Ciprofloxacin (Cipro) 500 mg DAILY PO ; Start 10/06/16 at 10:00 Active Scripts Active Reported Multi-Day Vitamins (Multivitamin) 1 Each Tablet 1 Tab PO DAILY Donepezil Hcl 10 Mg Tablet 2 Tab PO DAILY Simvastatin 40 Mg Tablet 1 Tab PO QHS Omeprazole 40 Mg Capsule.dr 1 Cap PO DAILY Hydrochlorothiazide Tablet (Hydrochlorothiazide) 12.5 Mg Tablet 2 Tab PO DAILY Sucralfate 1 Gm Tablet 1 Tab PO TID Vitals/I & O Vital Sign - Last 24 Hours 10/05/16 10/05/16 10/05/16 10/05/16 15:00 19:00 20:00 23:03 Temp 98.6 98.7 98.0 98.6 98.7 98.0 Pulse 89 85 85 Resp 18 18 16 B/P (MAP) 142/66 (91) 125/52 (76) 128/57 (80) Pulse Ox 97 93 93 O2 Delivery Room Air Room Air Room Air Room Air 10/06/16 10/06/16 10/06/16 03:00 07:00 08:00 Temp 97.7 98.8 97.7 98.8 Pulse 78 84 Resp 18 18 B/P (MAP) 121/59 (79) 130/64 (86) Pulse Ox 93 95 O2 Delivery Room Air Room Air Room Air O2 Flow Rate 2.0 Intake and Output 10/05/16 10/05/16 10/06/16 15:00 23:00 07:00 Intake Total 240 ml 120 ml 1550 ml Balance 240 ml 120 ml 1550 ml Nutrition Consultation Dietary Evaluation: Recommendations by RD: Dietary education by RD Comments: continue ppn for short term nutrition continue po diet/ encourgae intake, control Nausea to improve po intake offer snacks/ supplements from unit prn Expected Outcomes/Goals: to meet > 75% est nutr needs - met at times, goal ongoing Malnutrition Findings: Body Fat Depletion (Non Severe: Mild Depletion Weight Status: Appropriate SHAW ALVAREZ MD Oct 06, 2016 10:42
[2016-10-06] MEDS ORDERED: methylPREDNISolone ACETATE 80 MG/ML VIAL. IM ONE (10:45)
[2016-10-06] MEDS ORDERED: BUPIVACAINE MPF 0.25% 10 ML VIAL. IJ ONE (10:45)
[2016-10-06] MEDS: CIPROFLOXACIN HCL 250 MG TABLET. PO SCH (10:59)
[2016-10-06 11:00] VITALS: BP 128/64
--- NOTE | 2016-10-06 12:50 | PDOC ---
Subjective: Subjective: Legs hurt, no appetite. No n/v or abd pain. Objective: Vital Signs: Vital Signs Date Time Temp Pulse Resp B/P (MAP) Pulse Ox O2 Delivery O2 Flow Rate FiO2 10/06/16 11:00 98.6 86 18 128/64 (85) 95 Room Air 98.6 10/06/16 08:00 2.0 Labs: Laboratory Tests Test 10/06/16 02:55 White Blood Count 10.9 x10^3/uL Red Blood Count 3.01 x10^6/uL Hemoglobin 9.2 g/dL Hematocrit 27.5 % Mean Corpuscular Volume 92 fL Mean Corpuscular Hemoglobin 31 pg Mean Corpuscular Hemoglobin Concent 33 g/dL Red Cell Distribution Width 13.3 % Platelet Count 213 x10^3/uL Neutrophils (%) (Auto) 75 % Lymphocytes (%) (Auto) 15 % Monocytes (%) (Auto) 9 % Eosinophils (%) (Auto) 1 % Basophils (%) (Auto) 0 % Neutrophils # (Auto) 8.2 x10^3uL Lymphocytes # (Auto) 1.6 x10^3/uL Monocytes # (Auto) 0.9 x10^3/uL Eosinophils # (Auto) 0.1 x10^3/uL Basophils # (Auto) 0.0 x10^3/uL PE: GEN: NAD LUNGS: clear HEART: S1S2 ABD: S/ND/NT NEURO/PSYCH: A & O 3 A/P: Cholangitis -s/p ERCP w/ sphincterotomy/stone extraction 09/30/16 -decided against cholecystectomy Decreased appetite -on PPI, also note Carafate and H2 danie -also PPN H/o colon cancer s/p right colon resection -in 2011 -- Plans for SNU on DC in process. BETZY RAGLAND Oct 06, 2016 12:50
--- NOTE | 2016-10-06 13:36 | PDOC ---
SURGICAL PROGRESS NOTE Subjective resting family present Vital Signs Vital Signs Date Time Temp Pulse Resp B/P (MAP) Pulse Ox O2 Delivery O2 Flow Rate FiO2 10/06/16 11:00 98.6 86 18 128/64 (85) 95 Room Air 98.6 10/06/16 08:00 2.0 I&O Intake and Output 10/06/16 07:00 Intake Total 1910 ml Balance 1910 ml Intake Oral 810 ml IV Total 1100 ml # Voids 6 General: Cooperative, No acute distress Abdomen: Soft, No tenderness Labs Laboratory Tests Test 10/05/16 03:55 10/06/16 02:55 White Blood Count 11.4 x10^3/uL (4.0-11.0) 10.9 x10^3/uL (4.0-11.0) Red Blood Count 3.01 x10^6/uL (3.50-5.40) 3.01 x10^6/uL (3.50-5.40) Hemoglobin 9.1 g/dL (12.0-15.5) 9.2 g/dL (12.0-15.5) Hematocrit 27.5 % (36.0-47.0) 27.5 % (36.0-47.0) Mean Corpuscular Volume 91 fL (79-100) 92 fL (79-100) Mean Corpuscular Hemoglobin 30 pg (25-35) 31 pg (25-35) Mean Corpuscular Hemoglobin Concent 33 g/dL (31-37) 33 g/dL (31-37) Red Cell Distribution Width 13.5 % (11.5-14.5) 13.3 % (11.5-14.5) Platelet Count 188 x10^3/uL (140-400) 213 x10^3/uL (140-400) Neutrophils (%) (Auto) 78 % (31-73) 75 % (31-73) Lymphocytes (%) (Auto) 13 % (24-48) 15 % (24-48) Monocytes (%) (Auto) 9 % (0-9) 9 % (0-9) Eosinophils (%) (Auto) 1 % (0-3) 1 % (0-3) Basophils (%) (Auto) 0 % (0-3) 0 % (0-3) Neutrophils # (Auto) 8.8 x10^3uL (1.8-7.7) 8.2 x10^3uL (1.8-7.7) Lymphocytes # (Auto) 1.4 x10^3/uL (1.0-4.8) 1.6 x10^3/uL (1.0-4.8) Monocytes # (Auto) 1.0 x10^3/uL (0.0-1.1) 0.9 x10^3/uL (0.0-1.1) Eosinophils # (Auto) 0.1 x10^3/uL (0.0-0.7) 0.1 x10^3/uL (0.0-0.7) Basophils # (Auto) 0.0 x10^3/uL (0.0-0.2) 0.0 x10^3/uL (0.0-0.2) Laboratory Tests Test 10/06/16 02:55 White Blood Count 10.9 x10^3/uL (4.0-11.0) Red Blood Count 3.01 x10^6/uL (3.50-5.40) Hemoglobin 9.2 g/dL (12.0-15.5) Hematocrit 27.5 % (36.0-47.0) Mean Corpuscular Volume 92 fL (79-100) Mean Corpuscular Hemoglobin 31 pg (25-35) Mean Corpuscular Hemoglobin Concent 33 g/dL (31-37) Red Cell Distribution Width 13.3 % (11.5-14.5) Platelet Count 213 x10^3/uL (140-400) Neutrophils (%) (Auto) 75 % (31-73) Lymphocytes (%) (Auto) 15 % (24-48) Monocytes (%) (Auto) 9 % (0-9) Eosinophils (%) (Auto) 1 % (0-3) Basophils (%) (Auto) 0 % (0-3) Neutrophils # (Auto) 8.2 x10^3uL (1.8-7.7) Lymphocytes # (Auto) 1.6 x10^3/uL (1.0-4.8) Monocytes # (Auto) 0.9 x10^3/uL (0.0-1.1) Eosinophils # (Auto) 0.1 x10^3/uL (0.0-0.7) Basophils # (Auto) 0.0 x10^3/uL (0.0-0.2) Problem List Problems Medical Problems: (1) Cholangitis due to bile duct calculus with obstruction Status: Acute (2) Choledocholithiasis with acute cholecystitis with obstruction Status: Acute (3) Lactic acidosis Status: Acute (4) Leukocytosis Status: Acute (5) Sepsis Status: Acute Assessment/Plan no surgical plans will be available as needed Problems: FELIPA GHOTRA DECORATOR CONSULTANT Oct 06, 2016 13:36
[2016-10-06 14:56] VITALS: BP 136/67
[2016-10-06 19:00] VITALS: BP 119/51
[2016-10-06] MEDS ORDERED: ACETAMINOPHEN 325 MG TABLET. PO ONE (19:00)
[2016-10-06] MEDS: CALCIUM CARBONATE 500 MG TAB.CHEW PO PRN (19:38)
[2016-10-06] MEDS: ONDANSETRON PF 4 MG/2 ML VIAL. IV PRN (19:39)
[2016-10-06] MEDS: SIMVASTATIN 40 MG TABLET. PO SCH (21:41)
[2016-10-06] MEDS: FAMOTIDINE 20 MG TABLET. PO SCH (21:41)
[2016-10-06 22:43] VITALS: BP 129/58
[2016-10-06] MEDS ORDERED: fentaNYL PF VIAL 100 MCG/2 ML VIAL IV PRN (22:45)
[2016-10-06] MEDS ORDERED: PROCHLORPERAZINE 10 MG/2 ML VIAL. IV PRN (22:45)
[2016-10-07 03:00] VITALS: BP 141/62
[2016-10-07] MEDS: AMINO AC 3%/ELECTROLYTE/GLYCER 1,000 ML IV SCH ×2 (03:20→20:54)
[2016-10-07] MEDS: HEPARIN PF for SUB-Q USE 5,000 UNIT/0.5 ML VIAL. SQ SCH ×3 (05:35→20:59)
[2016-10-07 06:03] LABS: BASO % 0 % (0-3); EOS % 1 % (0-3); HEMATOCRIT 28.3 % (36.0-47.0); HEMOGLOBIN 9.7 g/dL (12.0-15.5); LYMPH # 1.2 x10^3/uL (1.0-4.8); LYMPH % 12 % (24-48); MEAN CORPUSCULAR HEMOGLOBIN 31 pg (25-35); MEAN CORPUSCULAR HGB CONC 34 g/dL (31-37); MEAN CORPUSCULAR VOLUME 89 fL (79-100); MONO % 7 % (0-9); NEUT % 80 % (31-73); PLATELET COUNT 252 x10^3/uL (140-400); RED BLOOD COUNT 3.16 x10^6/uL (3.50-5.40); RED CELL DISTRIBUTION WIDTH 13.8 % (11.5-14.5); WHITE BLOOD COUNT 9.9 x10^3/uL (4.0-11.0)
[2016-10-07 07:00] VITALS: BP 145/74
[2016-10-07 08:23] LABS: % EOS 2 % (0-5)
[2016-10-07 08:24] LABS: PLT ESTIMATE ADEQUATE (ADEQUATE)
--- NOTE | 2016-10-07 08:45 | PDOC ---
Infectious Disease Note Subjective Subjective pt feeling better Hoping to go home ROS ROS GEN: Denies fevers, chills, sweats HEENT: Denies blurred vision, sore throat CV: Denies chest pain RESP: Denies shortness of air, cough GI: Denies n/v/d NEURO: Denies confusion, dizziness MSK: Denies weakness, joint pain/swelling Vital Sign Vital Signs Vital Signs Date Time Temp Pulse Resp B/P (MAP) Pulse Ox O2 Delivery O2 Flow Rate FiO2 10/07/16 03:00 98.1 77 18 141/62 (88) 96 Room Air 98.1 10/06/16 08:00 2.0 Physical Exam PHYSICAL EXAM GENERAL: NAD, Alert, eating HEENT: PERRL, NECK: Supple, no JVD, no LN LUNGS: Clear HEART: S1S2, no gallop, no murmur ABD: Soft, NT, no organomegaly, no rebound EXT: No edema, no cyanosis DIRECTOR OF MEDICAL EDUCATION: Alert, oriented x 3, no focal neurologic deficit SKIN: No rash IV: ok Labs Lab Laboratory Tests Test 10/07/16 05:00 White Blood Count 9.9 x10^3/uL (4.0-11.0) Red Blood Count 3.16 x10^6/uL (3.50-5.40) Hemoglobin 9.7 g/dL (12.0-15.5) Hematocrit 28.3 % (36.0-47.0) Mean Corpuscular Volume 89 fL (79-100) Mean Corpuscular Hemoglobin 31 pg (25-35) Mean Corpuscular Hemoglobin Concent 34 g/dL (31-37) Red Cell Distribution Width 13.8 % (11.5-14.5) Platelet Count 252 x10^3/uL (140-400) Neutrophils (%) (Auto) 80 % (31-73) Lymphocytes (%) (Auto) 12 % (24-48) Monocytes (%) (Auto) 7 % (0-9) Eosinophils (%) (Auto) 1 % (0-3) Basophils (%) (Auto) 0 % (0-3) Neutrophils # (Auto) 7.9 x10^3uL (1.8-7.7) Lymphocytes # (Auto) 1.2 x10^3/uL (1.0-4.8) Monocytes # (Auto) 0.7 x10^3/uL (0.0-1.1) Eosinophils # (Auto) 0.1 x10^3/uL (0.0-0.7) Basophils # (Auto) 0.0 x10^3/uL (0.0-0.2) Segmented Neutrophils % 82 % (35-66) Band Neutrophils % 3 % (0-9) Lymphocytes % 10 % (24-48) Monocytes % 3 % (0-10) Eosinophils % 2 % (0-5) Platelet Estimate Adequate (ADEQUATE) Micro 09/29 Escherichia coli Recovered from aerobic bottle only. GROWTH IN 3 OF 3 SETS ANTIMICROBIAL SUSCEPTIBILITY Preliminary Comment S = Susceptible; I = Intermediate; R = Resistant P = Positive; N = Negative MICS are expressed in micrograms per mL Antibiotic RSLT#1 RSLT#2 RSLT#3 RSLT#4 Amoxicillin/Clavulanic Acid S Ampicillin R Cefepime S Ceftriaxone S Cefuroxime S Cephalothin I Ciprofloxacin S Ertapenem S Gentamicin S Imipenem S Levofloxacin S Nitrofurantoin S Piperacillin S Tetracycline S Tobramycin S Trimethoprim/Sulfa S Objective Assessment Acute cholecystitis G neg emi bacteremia,, E coli 09/29 Acute cholangitis CKD CBD stone s/p post-op dx smae s/p stone extraction/sphincterotomy 09/30 COPD Leukocytosis - better Plan Plan of Care notes and palliative care reviewed Ok to d/c home on po cipro for 4 more days ID to sign off ROEL SALAZAR MD Oct 07, 2016 08:45
[2016-10-07] MEDS: MULTIVITAMIN with MINERAL TABLET. PO SCH (09:09)
[2016-10-07] MEDS: CIPROFLOXACIN HCL 250 MG TABLET. PO SCH (09:09)
[2016-10-07] MEDS: SUCRALFATE 1 GM TABLET. PO SCH ×3 (09:09→16:41)
[2016-10-07] MEDS: PANTOPRAZOLE 40 MG TABLET.DR. PO SCH (09:09)
[2016-10-07] MEDS: hydroCHLOROthiazide 25 MG TABLET PO SCH (09:10)
[2016-10-07] MEDS: DONEPEZIL HCL 10 MG TABLET. PO SCH (09:10)
[2016-10-07] MEDS: LIDOCAINE (700MG/PATCH) PATCH. TD SCH (09:11)
--- NOTE | 2016-10-07 10:32 | PDOC ---
PROGRESS NOTES Subjective Subjective She is having nausea and vomiting. Objective Objective Vital Signs Date Time Temp Pulse Resp B/P (MAP) Pulse Ox O2 Delivery O2 Flow Rate FiO2 10/07/16 07:00 97.0 82 18 145/74 (97) 95 Room Air 97.0 10/06/16 08:00 2.0 Intake and Output 10/07/16 07:00 Intake Total 200 ml Balance 200 ml Intake Oral 200 ml # Voids 8 Physical Exam Physical Exam She is sitting up in bedside chair with bilateral knee braces on. Assessment Assessment Problems Medical Problems: (1) Cholangitis due to bile duct calculus with obstruction Status: Acute (2) Choledocholithiasis with acute cholecystitis with obstruction Status: Acute (3) Lactic acidosis Status: Acute (4) Leukocytosis Status: Acute (5) Sepsis Status: Acute Plan Plan of Care To continue present physical and occupational therapy follow up as tolerated. Comment Review of Relevant I have reviewed the following items navneet (where applicable) has been applied. Labs Laboratory Tests Test 10/06/16 02:55 10/07/16 05:00 White Blood Count 10.9 x10^3/uL (4.0-11.0) 9.9 x10^3/uL (4.0-11.0) Red Blood Count 3.01 x10^6/uL (3.50-5.40) 3.16 x10^6/uL (3.50-5.40) Hemoglobin 9.2 g/dL (12.0-15.5) 9.7 g/dL (12.0-15.5) Hematocrit 27.5 % (36.0-47.0) 28.3 % (36.0-47.0) Mean Corpuscular Volume 92 fL (79-100) 89 fL (79-100) Mean Corpuscular Hemoglobin 31 pg (25-35) 31 pg (25-35) Mean Corpuscular Hemoglobin Concent 33 g/dL (31-37) 34 g/dL (31-37) Red Cell Distribution Width 13.3 % (11.5-14.5) 13.8 % (11.5-14.5) Platelet Count 213 x10^3/uL (140-400) 252 x10^3/uL (140-400) Neutrophils (%) (Auto) 75 % (31-73) 80 % (31-73) Lymphocytes (%) (Auto) 15 % (24-48) 12 % (24-48) Monocytes (%) (Auto) 9 % (0-9) 7 % (0-9) Eosinophils (%) (Auto) 1 % (0-3) 1 % (0-3) Basophils (%) (Auto) 0 % (0-3) 0 % (0-3) Neutrophils # (Auto) 8.2 x10^3uL (1.8-7.7) 7.9 x10^3uL (1.8-7.7) Lymphocytes # (Auto) 1.6 x10^3/uL (1.0-4.8) 1.2 x10^3/uL (1.0-4.8) Monocytes # (Auto) 0.9 x10^3/uL (0.0-1.1) 0.7 x10^3/uL (0.0-1.1) Eosinophils # (Auto) 0.1 x10^3/uL (0.0-0.7) 0.1 x10^3/uL (0.0-0.7) Basophils # (Auto) 0.0 x10^3/uL (0.0-0.2) 0.0 x10^3/uL (0.0-0.2) Segmented Neutrophils % 82 % (35-66) Band Neutrophils % 3 % (0-9) Lymphocytes % 10 % (24-48) Monocytes % 3 % (0-10) Eosinophils % 2 % (0-5) Platelet Estimate Adequate (ADEQUATE) Laboratory Tests Test 10/07/16 05:00 White Blood Count 9.9 x10^3/uL (4.0-11.0) Red Blood Count 3.16 x10^6/uL (3.50-5.40) Hemoglobin 9.7 g/dL (12.0-15.5) Hematocrit 28.3 % (36.0-47.0) Mean Corpuscular Volume 89 fL (79-100) Mean Corpuscular Hemoglobin 31 pg (25-35) Mean Corpuscular Hemoglobin Concent 34 g/dL (31-37) Red Cell Distribution Width 13.8 % (11.5-14.5) Platelet Count 252 x10^3/uL (140-400) Neutrophils (%) (Auto) 80 % (31-73) Lymphocytes (%) (Auto) 12 % (24-48) Monocytes (%) (Auto) 7 % (0-9) Eosinophils (%) (Auto) 1 % (0-3) Basophils (%) (Auto) 0 % (0-3) Neutrophils # (Auto) 7.9 x10^3uL (1.8-7.7) Lymphocytes # (Auto) 1.2 x10^3/uL (1.0-4.8) Monocytes # (Auto) 0.7 x10^3/uL (0.0-1.1) Eosinophils # (Auto) 0.1 x10^3/uL (0.0-0.7) Basophils # (Auto) 0.0 x10^3/uL (0.0-0.2) Segmented Neutrophils % 82 % (35-66) Band Neutrophils % 3 % (0-9) Lymphocytes % 10 % (24-48) Monocytes % 3 % (0-10) Eosinophils % 2 % (0-5) Platelet Estimate Adequate (ADEQUATE) Microbiology 09/29/16 Blood Culture - Final, Complete 09/29/16 Blood Culture Result 1 (MYKEL) - Final, Complete 09/29/16 Antimicrobic Susceptibility - Final, Complete 09/29/16 Urine Culture - Final, Complete 09/29/16 Urine Culture Result 1 (MYKEL) - Final, Complete Medications Current Medications Ondansetron HCl (Zofran) 4 mg 1X ONCE IV Last administered on 09/29/16 16:31; Start 09/29/16 at 16:15; Stop 09/29/16 at 16:16; Status DC Fentanyl Citrate (Fentanyl 2ml Vial) 25 mcg PRN Q15MIN PRN IV PAIN GREATER THAN 3/10 Last administered on 09/29/16 21:48; Start 09/29/16 at 16:15; Stop 09/30 at 16:14; Status DC Sodium Chloride 1,000 ml @ 75 mls/hr 1X ONCE IV Last administered on 16:31; Start 09/29/16 at 16:15; Stop 09/29/16 at 17:37; Status DC Sodium Chloride 1,000 ml @ 1,770 mls/hr Q34M IV Last administered on 09/29/16 17:20; Start 09/29/16 at 17:20; Stop 09/29/16 at 18:21; Status DC Piperacillin Sod/ Tazobactam Sod (Zosyn Per Pharmacy) 1 each PRN DAILY PRN MC SEE COMMENTS; Start 09/29/16 at 18:30; Stop 10/01/16 at 12:29; Status DC Piperacillin Sod/ Tazobactam Sod 2.25 gm/Sodium Chloride 50 ml @ 100 mls/hr 1X ONCE IV Last administered on 09/29/16 18:55; Start 09/29/16 at 18:45; Stop 09/29/16 at 19:14; Status DC Ondansetron HCl (Zofran) 4 mg PRN Q8HRS PRN IV NAUSEA/VOMITING; Start 09/29/16 at 19:15; Stop 09/29/16 at 19:44; Status DC Fentanyl Citrate (Fentanyl 2ml Vial) 25 mcg PRN Q1HR PRN IV PAIN; Start at 19:15; Stop 09/30/16 at 19:14; Status DC Sodium Chloride 1,000 ml @ 125 mls/hr Q8H IV Last administered on 09/30/16 13: 27; Start 09/29/16 at 19:02; Stop 09/30/16 at 19:01; Status DC Acetaminophen (Tylenol) 650 mg PRN Q4HRS PRN PO FEVER; Start 09/29/16 at 19:15; Stop 09/30/16 at 19:14; Status DC Ondansetron HCl (Zofran) 4 mg PRN Q6HRS PRN IV NAUSEA/VOMITING; Start 09/29/16 at 19:42; Stop 09/30/16 at 19:41; Status DC Nicotine (Nicoderm Cq 21mg) 1 patch PRN DAILY PRN TD SMOKING CESSATION Last administered on 10/04/16 11:25; Start 09/29/16 at 19:45 Lorazepam (Ativan) 0.5 mg PRN Q4HRS PRN IV ANXIETY / AGITATION Last administered on 10/04/16 21:37; Start 09/29/16 at 19:45 Magnesium Sulfate/ Dextrose 100 ml @ 25 mls/hr 1X ONCE IV Last administered on 09/29/16 20:31; Start 09/29/16 at 20:00; Stop 09/29/16 at 23:59; Status DC Piperacillin Sod/ Tazobactam Sod 2.25 gm/Sodium Chloride 50 ml @ 100 mls/hr Q8HRS IV Last administered on 10/01/16 05:32; Start 09/30/16 at 06:00; Stop 10/01 at 12:32; Status DC Heparin Sodium (Porcine) (Heparin Sq) 5,000 unit Q8HRS SQ Last administered on 10/07/16 05:35; Start 09/29/16 at 22:00 Famotidine (Pepcid) 20 mg QHS IVP Last administered on 10/02/16 20:56; Start at 21:00; Stop 10/03/16 at 10:26; Status DC Iohexol (Omnipaque 300 Mg/ml) 100 ml STK-MED ONCE .ROUTE ; Start 09/30/16 at 08: 21; Stop 09/30/16 at 08:22; Status DC Dexamethasone Sodium Phosphate (Decadron) 20 mg STK-MED ONCE .ROUTE ; Start 09/30 at 08:49; Stop 09/30/16 at 08:50; Status DC Ondansetron HCl (Zofran) 4 mg STK-MED ONCE .ROUTE ; Start 09/30/16 at 08:49; Stop 09/30/16 at 08:50; Status DC Propofol 20 ml @ As Directed STK-MED ONCE IV ; Start 09/30/16 at 08:49; Stop 09/30 at 08:50; Status DC Lidocaine HCl (Lidocaine Pf 2% Vial) 5 ml STK-MED ONCE .ROUTE ; Start 09/30/16 at 08:49; Stop 09/30/16 at 08:50; Status DC Fentanyl Citrate (Fentanyl 2ml Vial) 100 mcg STK-MED ONCE .ROUTE ; Start at 08:49; Stop 09/30/16 at 08:50; Status DC Rocuronium [place] (Zemuron) 100 mg STK-MED ONCE .ROUTE ; Start 09/30/16 at 08:49 ; Stop 09/30/16 at 08:50; Status DC Succinylcholine Chloride (Anectine) 200 mg STK-MED ONCE .ROUTE ; Start 09/30/16 at 08:50; Stop 09/30/16 at 08:51; Status DC Midazolam HCl (Versed) 2 mg PRN 1X PRN IV PRIOR TO PROCEDURE; Start 09/30/16 at 09:00; Stop 09/30/16 at 18:00; Status DC Fentanyl Citrate (Fentanyl 2ml Vial) 25 mcg PRN Q5MIN PRN IV X 2 DOSES FOR PAIN ; Start 09/30/16 at 09:00; Stop 09/30/16 at 09:00; Status DC Fentanyl Citrate (Fentanyl 2ml Vial) 50 mcg PRN Q5MIN PRN IV X 2 DOSES FOR PAIN ; Start 09/30/16 at 09:00; Stop 09/30/16 at 09:00; Status DC Ringer's Solution 1,000 ml @ 125 mls/hr Q8H IV ; Start 09/30/16 at 08:52; Stop 09/30/16 at 08:55; Status DC Lidocaine HCl 2 ml 1X PRN PRN ID IV START; Start 09/30/16 at 09:00; Stop at 09:00; Status DC Ondansetron HCl (Zofran) 4 mg PRN Q6HRS PRN IV NAUSEA/VOMITING; Start 09/30/16 at 09:00; Stop 09/30/16 at 18:00; Status DC Fentanyl Citrate (Fentanyl 2ml Vial) 25 mcg PRN Q5MIN PRN IV MILD PAIN; Start 09/30/16 at 09:00; Stop 09/30/16 at 18:00; Status DC Fentanyl Citrate (Fentanyl 2ml Vial) 50 mcg PRN Q5MIN PRN IV MODERATE PAIN; Start 09/30/16 at 09:00; Stop 09/30/16 at 18:00; Status DC Morphine Sulfate 1 mg PRN Q10MIN PRN IV SEVERE PAIN; Start 09/30/16 at 09:00; Stop 09/30/16 at 18:00; Status DC Ringer's Solution 1,000 ml @ 30 mls/hr Q24H IV ; Start 09/30/16 at 08:52; Stop 09/30/16 at 20:39; Status DC Lidocaine HCl 2 ml PRN 1X PRN ID PRIOR TO IV START; Start 09/30/16 at 09:00; Stop 09/30/16 at 18:00; Status DC Hydromorphone HCl (Dilaudid) 0.5 mg PRN Q10MIN PRN IV SEV PAIN, Second choice; Start 09/30/16 at 09:00; Stop 09/30/16 at 18:00; Status DC Prochlorperazine Edisylate (Compazine) 5 mg PACU PRN PRN IV NAUSEA, MRX1; Start 09/30/16 at 09:00; Stop 09/30/16 at 18:00; Status DC Piperacillin Sod/ Tazobactam Sod 2.25 gm/Sodium Chloride 50 ml @ 100 mls/hr Q6HRS IV Last administered on 10/06/16 05:05; Start 10/01/16 at 13:00; Stop 02/12 at 09:42; Status DC Ephedrine Sulfate 50 mg STK-MED ONCE IV ; Start 10/01/16 at 09:00; Stop 10/01/16 at 14:16; Status DC Phenylephrine HCl (Garcia-Synephrine Inj) 10 mg STK-MED ONCE .ROUTE ; Start at 09:00; Stop 10/01/16 at 14:16; Status DC Donepezil HCl (Aricept) 20 mg DAILY PO Last administered on 10/07/16 09:10; Start 10/03/16 at 09:00 Simvastatin (Zocor) 40 mg QHS PO Last administered on 10/06/16 21:41; Start at 21:00 Sucralfate (Carafate) 1 gm TIDAC PO Last administered on 10/07/16 09:09; Start 10/02/16 at 16:30 Hydrochlorothiazide (Hydrodiuril) 25 mg DAILY PO Last administered on 09:10; Start 10/02/16 at 14:30 Multivitamins (Thera M Plus) 1 tab DAILY PO Last administered on 10/07/16 09: 09; Start 10/03/16 at 09:00 Pantoprazole Sodium (Protonix) 40 mg DAILYAC PO Last administered on 10/07/16 09:09; Start 10/02/16 at 14:30 Famotidine (Pepcid) 20 mg QHS PO Last administered on 10/06/16 21:41; Start at 21:00 Lidocaine (Lidoderm) 1 patch DAILY TD Last administered on 10/07/16 09:11; Start 10/03/16 at 12:00 Ondansetron HCl (Zofran) 4 mg PRN Q6HRS PRN IV NAUSEA/VOMITING 1ST CHOICE Last administered on 10/06/16 19:39; Start 10/03/16 at 12:00 Amino Acids/ Glycerin/ Electrolytes 1,000 ml @ 75 mls/hr [id number] IV Last administered on 10/07/16 03:20; Start 10/04/16 at 15:00 Promethazine HCl 12.5 mg/Sodium Chloride 50.5 ml @ 151.5 mls/ hr PRN Q6HRS PRN IV NAUSEA/VOMITING; Start 10/05/16 at 12:00 Ciprofloxacin (Cipro) 500 mg BID PO ; Start 10/06/16 at 09:45; Stop 10/06/16 at 10:00; Status DC Ciprofloxacin (Cipro) 500 mg DAILY PO Last administered on 10/07/16 09:09; Start 10/06/16 at 10:00 Methylprednisolone Acetate (DEPO-Medrol 80MG VIAL) 80 mg 1X ONCE IM ; Start 02/12 at 10:45; Stop 10/06/16 at 10:46; Status DC Bupivacaine HCl (Sensorcaine-Mpf 0.25%) 10 ml 1X ONCE IJ ; Start 10/06/16 at 10 :45; Stop 10/06/16 at 10:46; Status DC Acetaminophen (Tylenol) 650 mg 1X ONCE PO Last administered on 10/06/16 19:38 ; Start 10/06/16 at 19:00; Stop 10/06/16 at 19:01; Status DC Calcium Carbonate/ Glycine (Tums) 500 mg PRN AFTMEALHC PRN PO INDIGESTION Last administered on 10/06/16 19:38; Start 10/06/16 at 19:00 Fentanyl Citrate (Fentanyl 2ml Vial) 25 mcg PRN Q4HRS PRN IV SEVERE PAIN; Start 10/06/16 at 22:45 Prochlorperazine Edisylate (Compazine) 10 mg PRN Q8HRS PRN IV NAUSEA/VOMITING; Start 10/06/16 at 22:45 Active Scripts Active Reported Multi-Day Vitamins (Multivitamin) 1 Each Tablet 1 Tab PO DAILY Donepezil Hcl 10 Mg Tablet 2 Tab PO DAILY Simvastatin 40 Mg Tablet 1 Tab PO QHS Omeprazole 40 Mg Capsule. 1 Cap PO DAILY Hydrochlorothiazide Tablet (Hydrochlorothiazide) 12.5 Mg Tablet 2 Tab PO DAILY Sucralfate 1 Gm Tablet 1 Tab PO TID Vitals/I & O Vital Sign - Last 24 Hours 10/06/16 10/06/16 10/06/16 10/06/16 11:00 14:56 19:00 20:00 Temp 98.6 98.6 98.6 98.6 98.6 98.6 Pulse 86 82 84 Resp 18 18 18 B/P (MAP) 128/64 (85) 136/67 (90) 119/51 (73) Pulse Ox 95 98 93 O2 Delivery Room Air Room Air Room Air Room Air 10/06/16 10/07/16 10/07/16 22:43 03:00 07:00 Temp 98.1 98.1 97.0 98.1 98.1 97.0 Pulse 76 77 82 Resp 18 18 18 B/P (MAP) 129/58 (81) 141/62 (88) 145/74 (97) Pulse Ox 92 96 95 O2 Delivery Room Air Room Air Room Air Intake and Output 10/06/16 10/06/16 10/07/16 15:00 23:00 07:00 Intake Total 200 ml Balance 200 ml Nutrition Consultation Dietary Evaluation: Recommendations by RD: Dietary education by RD Comments: continue ppn for short term nutrition continue po diet/ encourgae intake, control Nausea to improve po intake offer snacks/ supplements from unit prn Expected Outcomes/Goals: to meet > 75% est nutr needs - met at times, goal ongoing Malnutrition Findings: Body Fat Depletion (Non Severe: Mild Depletion Weight Status: Appropriate SHAW ALVAREZ MD Oct 07, 2016 10:31
[2016-10-07 11:00] VITALS: BP 130/70
--- NOTE | 2016-10-07 11:41 | PDOC ---
PROGRESS NOTES Chief Complaint Chief Complaint 1. Ascending cholangitis, and choledocholithiasis s/p ERCP (09/30) 2. Elevated LFTS and alkaline phosphatase 3. MARIO 2/2 to poor PO 4. Sepsis with elevated lactate, WBC and fevers and tachycardia 5. Sinus tachycardia 6. Chronic ventral hernia 7. Incidental left non obstructing renal calculi, diverticulosis, cystitis 8. Critical hypomagnesemia 9. Hypercalcemia in faisal backgroun of dehydration/poor pO 10. 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 Geriatric, recent fall, frailty 12. 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 HLD 14. HTN 15. COPD 16. Gram neg emi bacteremia 17. DNR/DNI History of Present Illness History of Present Illness knee pain is again a complaints cannot stand very poor PO intake SNU placement pending, concern of screen is that she may continue to have poor po intake, and pain and poor mobility, she is high risk of decline at Skilled Dr. Dias following Vitals Vitals Vital Signs Date Time Temp Pulse Resp B/P (MAP) Pulse Ox O2 Delivery O2 Flow Rate FiO2 10/07/16 07:00 97.0 82 18 145/74 (97) 95 Room Air 97.0 10/06/16 08:00 2.0 Physical Exam General: Alert, Cooperative, No acute distress Heart: Regular rate, Normal S1, Normal S2, No murmurs Lungs: Clear, Other (no wheezes or crackles) Abdomen: Soft, No tenderness Extremities: Other (She had pain on attempts at movement of her left knee with crepitus and laxity of collateral ligament and knee joint effusion.She had overgrown left 2 nd toe nail and callus over plantar aspect of lef tfoot.) Skin: No rashes, No breakdown Labs LABS Laboratory Tests Test 10/07/16 05:00 White Blood Count 9.9 x10^3/uL (4.0-11.0) Red Blood Count 3.16 x10^6/uL (3.50-5.40) Hemoglobin 9.7 g/dL (12.0-15.5) Hematocrit 28.3 % (36.0-47.0) Mean Corpuscular Volume 89 fL (79-100) Mean Corpuscular Hemoglobin 31 pg (25-35) Mean Corpuscular Hemoglobin Concent 34 g/dL (31-37) Red Cell Distribution Width 13.8 % (11.5-14.5) Platelet Count 252 x10^3/uL (140-400) Neutrophils (%) (Auto) 80 % (31-73) Lymphocytes (%) (Auto) 12 % (24-48) Monocytes (%) (Auto) 7 % (0-9) Eosinophils (%) (Auto) 1 % (0-3) Basophils (%) (Auto) 0 % (0-3) Neutrophils # (Auto) 7.9 x10^3uL (1.8-7.7) Lymphocytes # (Auto) 1.2 x10^3/uL (1.0-4.8) Monocytes # (Auto) 0.7 x10^3/uL (0.0-1.1) Eosinophils # (Auto) 0.1 x10^3/uL (0.0-0.7) Basophils # (Auto) 0.0 x10^3/uL (0.0-0.2) Segmented Neutrophils % 82 % (35-66) Band Neutrophils % 3 % (0-9) Lymphocytes % 10 % (24-48) Monocytes % 3 % (0-10) Eosinophils % 2 % (0-5) Platelet Estimate Adequate (ADEQUATE) Assessment and Plan Assessmemt and Plan Problems Medical Problems: (1) Cholangitis due to bile duct calculus with obstruction Status: Acute (2) Choledocholithiasis with acute cholecystitis with obstruction Status: Acute (3) Lactic acidosis Status: Acute (4) Leukocytosis Status: Acute (5) Sepsis Status: Acute Problems: Comment Review of Relevant I have reviewed the following items navneet (where applicable) has been applied. Labs Laboratory Tests Test 10/06/16 02:55 10/07/16 05:00 White Blood Count 10.9 x10^3/uL (4.0-11.0) 9.9 x10^3/uL (4.0-11.0) Red Blood Count 3.01 x10^6/uL (3.50-5.40) 3.16 x10^6/uL (3.50-5.40) Hemoglobin 9.2 g/dL (12.0-15.5) 9.7 g/dL (12.0-15.5) Hematocrit 27.5 % (36.0-47.0) 28.3 % (36.0-47.0) Mean Corpuscular Volume 92 fL (79-100) 89 fL (79-100) Mean Corpuscular Hemoglobin 31 pg (25-35) 31 pg (25-35) Mean Corpuscular Hemoglobin Concent 33 g/dL (31-37) 34 g/dL (31-37) Red Cell Distribution Width 13.3 % (11.5-14.5) 13.8 % (11.5-14.5) Platelet Count 213 x10^3/uL (140-400) 252 x10^3/uL (140-400) Neutrophils (%) (Auto) 75 % (31-73) 80 % (31-73) Lymphocytes (%) (Auto) 15 % (24-48) 12 % (24-48) Monocytes (%) (Auto) 9 % (0-9) 7 % (0-9) Eosinophils (%) (Auto) 1 % (0-3) 1 % (0-3) Basophils (%) (Auto) 0 % (0-3) 0 % (0-3) Neutrophils # (Auto) 8.2 x10^3uL (1.8-7.7) 7.9 x10^3uL (1.8-7.7) Lymphocytes # (Auto) 1.6 x10^3/uL (1.0-4.8) 1.2 x10^3/uL (1.0-4.8) Monocytes # (Auto) 0.9 x10^3/uL (0.0-1.1) 0.7 x10^3/uL (0.0-1.1) Eosinophils # (Auto) 0.1 x10^3/uL (0.0-0.7) 0.1 x10^3/uL (0.0-0.7) Basophils # (Auto) 0.0 x10^3/uL (0.0-0.2) 0.0 x10^3/uL (0.0-0.2) Segmented Neutrophils % 82 % (35-66) Band Neutrophils % 3 % (0-9) Lymphocytes % 10 % (24-48) Monocytes % 3 % (0-10) Eosinophils % 2 % (0-5) Platelet Estimate Adequate (ADEQUATE) Laboratory Tests Test 10/07/16 05:00 White Blood Count 9.9 x10^3/uL (4.0-11.0) Red Blood Count 3.16 x10^6/uL (3.50-5.40) Hemoglobin 9.7 g/dL (12.0-15.5) Hematocrit 28.3 % (36.0-47.0) Mean Corpuscular Volume 89 fL (79-100) Mean Corpuscular Hemoglobin 31 pg (25-35) Mean Corpuscular Hemoglobin Concent 34 g/dL (31-37) Red Cell Distribution Width 13.8 % (11.5-14.5) Platelet Count 252 x10^3/uL (140-400) Neutrophils (%) (Auto) 80 % (31-73) Lymphocytes (%) (Auto) 12 % (24-48) Monocytes (%) (Auto) 7 % (0-9) Eosinophils (%) (Auto) 1 % (0-3) Basophils (%) (Auto) 0 % (0-3) Neutrophils # (Auto) 7.9 x10^3uL (1.8-7.7) Lymphocytes # (Auto) 1.2 x10^3/uL (1.0-4.8) Monocytes # (Auto) 0.7 x10^3/uL (0.0-1.1) Eosinophils # (Auto) 0.1 x10^3/uL (0.0-0.7) Basophils # (Auto) 0.0 x10^3/uL (0.0-0.2) Segmented Neutrophils % 82 % (35-66) Band Neutrophils % 3 % (0-9) Lymphocytes % 10 % (24-48) Monocytes % 3 % (0-10) Eosinophils % 2 % (0-5) Platelet Estimate Adequate (ADEQUATE) Microbiology 09/29/16 Blood Culture - Final, Complete 09/29/16 Blood Culture Result 1 (MYKEL) - Final, Complete 09/29/16 Antimicrobic Susceptibility - Final, Complete 09/29/16 Urine Culture - Final, Complete 09/29/16 Urine Culture Result 1 (MYKEL) - Final, Complete Medications Current Medications Ondansetron HCl (Zofran) 4 mg 1X ONCE IV Last administered on 09/29/16t 16:31; Start 09/29/16 at 16:15; Stop 09/29/16 at 16:16; Status DC Fentanyl Citrate (Fentanyl 2ml Vial) 25 mcg PRN Q15MIN PRN IV PAIN GREATER THAN 3/10 Last administered on 09/29/16 21:48; Start 09/29/16 at 16:15; Stop 09/30 at 16:14; Status DC Sodium Chloride 1,000 ml @ 75 mls/hr 1X ONCE IV Last administered on 16:31; Start 09/29/16 at 16:15; Stop 09/29/16 at 17:37; Status DC Sodium Chloride 1,000 ml @ 1,770 mls/hr Q34M IV Last administered on 09/29/16 17:20; Start 09/29/16 at 17:20; Stop 09/29/16 at 18:21; Status DC Piperacillin Sod/ Tazobactam Sod (Zosyn Per Pharmacy) 1 each PRN DAILY PRN MC SEE COMMENTS; Start 09/29/16 at 18:30; Stop 10/01/16 at 12:29; Status DC Piperacillin Sod/ Tazobactam Sod 2.25 gm/Sodium Chloride 50 ml @ 100 mls/hr 1X ONCE IV Last administered on 09/29/16 18:55; Start 09/29/16 at 18:45; Stop 09/29/16 at 19:14; Status DC Ondansetron HCl (Zofran) 4 mg PRN Q8HRS PRN IV NAUSEA/VOMITING; Start 09/29/16 at 19:15; Stop 09/29/16 at 19:44; Status DC Fentanyl Citrate (Fentanyl 2ml Vial) 25 mcg PRN Q1HR PRN IV PAIN; Start at 19:15; Stop 09/30/16 at 19:14; Status DC Sodium Chloride 1,000 ml @ 125 mls/hr Q8H IV Last administered on 09/30/16 13: 27; Start 09/29/16 at 19:02; Stop 09/30/16 at 19:01; Status DC Acetaminophen (Tylenol) 650 mg PRN Q4HRS PRN PO FEVER; Start 09/29/16 at 19:15; Stop 09/30/16 at 19:14; Status DC Ondansetron HCl (Zofran) 4 mg PRN Q6HRS PRN IV NAUSEA/VOMITING; Start 09/29/16 at 19:42; Stop 09/30/16 at 19:41; Status DC Nicotine (Nicoderm Cq 21mg) 1 patch PRN DAILY PRN TD SMOKING CESSATION Last administered on 10/04/16 11:25; Start 09/29/16 at 19:45 Lorazepam (Ativan) 0.5 mg PRN Q4HRS PRN IV ANXIETY / AGITATION Last administered on 10/04/16 21:37; Start 09/29/16 at 19:45 Magnesium Sulfate/ Dextrose 100 ml @ 25 mls/hr 1X ONCE IV Last administered on 09/29/16 20:31; Start 09/29/16 at 20:00; Stop 09/29/16 at 23:59; Status DC Piperacillin Sod/ Tazobactam Sod 2.25 gm/Sodium Chloride 50 ml @ 100 mls/hr Q8HRS IV Last administered on 10/01/16 05:32; Start 09/30/16 at 06:00; Stop 10/01 at 12:32; Status DC Heparin Sodium (Porcine) (Heparin Sq) 5,000 unit Q8HRS SQ Last administered on 10/07/16 05:35; Start 09/29/16 at 22:00 Famotidine (Pepcid) 20 mg QHS IVP Last administered on 10/02/16 20:56; Start at 21:00; Stop 10/03/16 at 10:26; Status DC Iohexol (Omnipaque 300 Mg/ml) 100 ml STK-MED ONCE .ROUTE ; Start 09/30/16 at 08: 21; Stop 09/30/16 at 08:22; Status DC Dexamethasone Sodium Phosphate (Decadron) 20 mg STK-MED ONCE .ROUTE ; Start 09/30 at 08:49; Stop 09/30/16 at 08:50; Status DC Ondansetron HCl (Zofran) 4 mg STK-MED ONCE .ROUTE ; Start 09/30/16 at 08:49; Stop 09/30/16 at 08:50; Status DC Propofol 20 ml @ As Directed STK-MED ONCE IV ; Start 09/30/16 at 08:49; Stop 09/30 at 08:50; Status DC Lidocaine HCl (Lidocaine Pf 2% Vial) 5 ml STK-MED ONCE .ROUTE ; Start 09/30/16 at 08:49; Stop 09/30/16 at 08:50; Status DC Fentanyl Citrate (Fentanyl 2ml Vial) 100 mcg STK-MED ONCE .ROUTE ; Start at 08:49; Stop 09/30/16 at 08:50; Status DC Rocuronium [place] (Zemuron) 100 mg STK-MED ONCE .ROUTE ; Start 09/30/16 at 08:49 ; Stop 09/30/16 at 08:50; Status DC Succinylcholine Chloride (Anectine) 200 mg STK-MED ONCE .ROUTE ; Start 09/30/16 at 08:50; Stop 09/30/16 at 08:51; Status DC Midazolam HCl (Versed) 2 mg PRN 1X PRN IV PRIOR TO PROCEDURE; Start 09/30/16 at 09:00; Stop 09/30/16 at 18:00; Status DC Fentanyl Citrate (Fentanyl 2ml Vial) 25 mcg PRN Q5MIN PRN IV X 2 DOSES FOR PAIN ; Start 09/30/16 at 09:00; Stop 09/30/16 at 09:00; Status DC Fentanyl Citrate (Fentanyl 2ml Vial) 50 mcg PRN Q5MIN PRN IV X 2 DOSES FOR PAIN ; Start 09/30/16 at 09:00; Stop 09/30/16 at 09:00; Status DC Ringer's Solution 1,000 ml @ 125 mls/hr Q8H IV ; Start 09/30/16 at 08:52; Stop 09/30/16 at 08:55; Status DC Lidocaine HCl 2 ml 1X PRN PRN ID IV START; Start 09/30/16 at 09:00; Stop at 09:00; Status DC Ondansetron HCl (Zofran) 4 mg PRN Q6HRS PRN IV NAUSEA/VOMITING; Start 09/30/16 at 09:00; Stop 09/30/16 at 18:00; Status DC Fentanyl Citrate (Fentanyl 2ml Vial) 25 mcg PRN Q5MIN PRN IV MILD PAIN; Start 09/30/16 at 09:00; Stop 09/30/16 at 18:00; Status DC Fentanyl Citrate (Fentanyl 2ml Vial) 50 mcg PRN Q5MIN PRN IV MODERATE PAIN; Start 09/30/16 at 09:00; Stop 09/30/16 at 18:00; Status DC Morphine Sulfate 1 mg PRN Q10MIN PRN IV SEVERE PAIN; Start 09/30/16 at 09:00; Stop 09/30/16 at 18:00; Status DC Ringer's Solution 1,000 ml @ 30 mls/hr Q24H IV ; Start 09/30/16 at 08:52; Stop 09/30/16 at 20:39; Status DC Lidocaine HCl 2 ml PRN 1X PRN ID PRIOR TO IV START; Start 09/30/16 at 09:00; Stop 09/30/16 at 18:00; Status DC Hydromorphone HCl (Dilaudid) 0.5 mg PRN Q10MIN PRN IV SEV PAIN, Second choice; Start 09/30/16 at 09:00; Stop 09/30/16 at 18:00; Status DC Prochlorperazine Edisylate (Compazine) 5 mg PACU PRN PRN IV NAUSEA, MRX1; Start 09/30/16 at 09:00; Stop 09/30/16 at 18:00; Status DC Piperacillin Sod/ Tazobactam Sod 2.25 gm/Sodium Chloride 50 ml @ 100 mls/hr Q6HRS IV Last administered on 10/06/16 05:05; Start 10/01/16 at 13:00; Stop 02/12 at 09:42; Status DC Ephedrine Sulfate 50 mg STK-MED ONCE IV ; Start 10/01/16 at 09:00; Stop 10/01/16 at 14:16; Status DC Phenylephrine HCl (Garcia-Synephrine Inj) 10 mg STK-MED ONCE .ROUTE ; Start at 09:00; Stop 10/01/16 at 14:16; Status DC Donepezil HCl (Aricept) 20 mg DAILY PO Last administered on 10/07/16 09:10; Start 10/03/16 at 09:00 Simvastatin (Zocor) 40 mg QHS PO Last administered on 10/06/16 21:41; Start at 21:00 Sucralfate (Carafate) 1 gm TIDAC PO Last administered on 10/07/16 09:09; Start 10/02/16 at 16:30 Hydrochlorothiazide (Hydrodiuril) 25 mg DAILY PO Last administered on 09:10; Start 10/02/16 at 14:30 Multivitamins (Thera M Plus) 1 tab DAILY PO Last administered on 10/07/16 09: 09; Start 10/03/16 at 09:00 Pantoprazole Sodium (Protonix) 40 mg DAILYAC PO Last administered on 10/07/16 09:09; Start 10/02/16 at 14:30 Famotidine (Pepcid) 20 mg QHS PO Last administered on 10/06/16 21:41; Start at 21:00 Lidocaine (Lidoderm) 1 patch DAILY TD Last administered on 10/07/16 09:11; Start 10/03/16 at 12:00 Ondansetron HCl (Zofran) 4 mg PRN Q6HRS PRN IV NAUSEA/VOMITING 1ST CHOICE Last administered on 10/06/16 19:39; Start 10/03/16 at 12:00 Amino Acids/ Glycerin/ Electrolytes 1,000 ml @ 75 mls/hr [id number] IV Last administered on 10/07/16 03:20; Start 10/04/16 at 15:00 Promethazine HCl 12.5 mg/Sodium Chloride 50.5 ml @ 151.5 mls/ hr PRN Q6HRS PRN IV NAUSEA/VOMITING; Start 10/05/16 at 12:00 Ciprofloxacin (Cipro) 500 mg BID PO ; Start 10/06/16 at 09:45; Stop 10/06/16 at 10:00; Status DC Ciprofloxacin (Cipro) 500 mg DAILY PO Last administered on 10/07/16 09:09; Start 10/06/16 at 10:00 Methylprednisolone Acetate (DEPO-Medrol 80MG VIAL) 80 mg 1X ONCE IM ; Start 02/12 at 10:45; Stop 10/06/16 at 10:46; Status DC Bupivacaine HCl (Sensorcaine-Mpf 0.25%) 10 ml 1X ONCE IJ ; Start 10/06/16 at 10 :45; Stop 10/06/16 at 10:46; Status DC Acetaminophen (Tylenol) 650 mg 1X ONCE PO Last administered on 10/06/16 19:38 ; Start 10/06/16 at 19:00; Stop 10/06/16 at 19:01; Status DC Calcium Carbonate/ Glycine (Tums) 500 mg PRN AFTMEALHC PRN PO INDIGESTION Last administered on 10/06/16 19:38; Start 10/06/16 at 19:00 Fentanyl Citrate (Fentanyl 2ml Vial) 25 mcg PRN Q4HRS PRN IV SEVERE PAIN; Start 10/06/16 at 22:45 Prochlorperazine Edisylate (Compazine) 10 mg PRN Q8HRS PRN IV NAUSEA/VOMITING; Start 10/06/16 at 22:45 Active Scripts Active Reported Multi-Day Vitamins (Multivitamin) 1 Each Tablet 1 Tab PO DAILY Donepezil Hcl 10 Mg Tablet 2 Tab PO DAILY Simvastatin 40 Mg Tablet 1 Tab PO QHS Omeprazole 40 Mg Capsule.dr 1 Cap PO DAILY Hydrochlorothiazide Tablet (Hydrochlorothiazide) 12.5 Mg Tablet 2 Tab PO DAILY Sucralfate 1 Gm Tablet 1 Tab PO TID Vitals/I & O Vital Sign - Last 24 Hours 10/06/16 10/06/16 10/06/16 10/06/16 14:56 19:00 20:00 22:43 Temp 98.6 98.6 98.1 98.6 98.6 98.1 Pulse 82 84 76 Resp 18 18 18 B/P (MAP) 136/67 (90) 119/51 (73) 129/58 (81) Pulse Ox 98 93 92 O2 Delivery Room Air Room Air Room Air Room Air 10/07/16 10/07/16 03:00 07:00 Temp 98.1 97.0 98.1 97.0 Pulse 77 82 Resp 18 18 B/P (MAP) 141/62 (88) 145/74 (97) Pulse Ox 96 95 O2 Delivery Room Air Room Air Intake and Output 10/06/16 10/06/16 10/07/16 15:00 23:00 07:00 Intake Total 200 ml Balance 200 ml Nutrition Consultation Dietary Evaluation: Recommendations by RD: Dietary education by RD Comments: continue ppn for short term nutrition continue po diet/ encourgae intake, control Nausea to improve po intake offer snacks/ supplements from unit prn Expected Outcomes/Goals: to meet > 75% est nutr needs - met at times, goal ongoing Malnutrition Findings: Body Fat Depletion (Non Severe: Mild Depletion Weight Status: Appropriate TAMELA BANKS MD Oct 07, 2016 11:41
--- NOTE | 2016-10-07 12:37 | PDOC ---
Subjective: Subjective: Nausea, spitting up minimal amount of clear liquid. No appetite. Bad taste in mouth. Objective: Vital Signs: Vital Signs Date Time Temp Pulse Resp B/P (MAP) Pulse Ox O2 Delivery O2 Flow Rate FiO2 10/07/16 11:00 97.4 89 18 130/70 (90) 95 Room Air 97.4 10/06/16 08:00 2.0 Labs: Laboratory Tests Test 10/07/16 05:00 White Blood Count 9.9 x10^3/uL Red Blood Count 3.16 x10^6/uL Hemoglobin 9.7 g/dL Hematocrit 28.3 % Mean Corpuscular Volume 89 fL Mean Corpuscular Hemoglobin 31 pg Mean Corpuscular Hemoglobin Concent 34 g/dL Red Cell Distribution Width 13.8 % Platelet Count 252 x10^3/uL Neutrophils (%) (Auto) 80 % Lymphocytes (%) (Auto) 12 % Monocytes (%) (Auto) 7 % Eosinophils (%) (Auto) 1 % Basophils (%) (Auto) 0 % Neutrophils # (Auto) 7.9 x10^3uL Lymphocytes # (Auto) 1.2 x10^3/uL Monocytes # (Auto) 0.7 x10^3/uL Eosinophils # (Auto) 0.1 x10^3/uL Basophils # (Auto) 0.0 x10^3/uL Segmented Neutrophils % 82 % Band Neutrophils % 3 % Lymphocytes % 10 % Monocytes % 3 % Eosinophils % 2 % Platelet Estimate Adequate PE: GEN: looks ills LUNGS: diminished HEART: S1S2 ABD: epigastric tenderness NEURO/PSYCH: A & O 3 A/P: Cholangitis -s/p ERCP w/ sphincterotomy/stone extraction 09/30/16 -decided against cholecystectomy Decreased appetite, nausea, epigastric pain -on PPI, also note Carafate and H2 danie along w/ PPN, Compazine, Phenergan, Zofran -- Plans to add Tums for nausea. Concerns for SNU w/ weakness, decreased PO. Will review any additional recs for nausea w/ Dr. Boland. BETZY RAGLAND Oct 07, 2016 12:37
--- NOTE | 2016-10-07 13:53 | RAD ---
Right knee, 2 views, 10/07/2016: History: Knee pain A total knee prosthesis is in place in satisfactory position. There is no radiographic evidence of loosening or infection. No fracture or dislocation is evident. Small periarticular calcifications and arterial calcifications are noted. IMPRESSION: 1. 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 2. No acute bony abnormality is detected.
--- NOTE | 2016-10-07 14:31 | PDOC2 ---
PALLIATIVE CARE Palliative Care Note Palliative Care Patient continue to have intermittent nausea. Spitting up clear fluid occ. Daughter at bedside. PP has evaluated. Will be able to transfer patient when n/v better controlled. Compazine available for nausea. UMANG SANCHEZ Oct 07, 2016 14:31
[2016-10-07 15:00] VITALS: BP 115/67
[2016-10-07] MEDS: CALCIUM CARBONATE 500 MG TAB.CHEW PO PRN (16:41)
[2016-10-07 19:00] VITALS: BP 124/55
[2016-10-07] MEDS: SIMVASTATIN 40 MG TABLET. PO SCH (20:52)
[2016-10-07] MEDS: FAMOTIDINE 20 MG TABLET. PO SCH (20:52)
[2016-10-07 23:00] VITALS: BP 118/60
[2016-10-08] MEDS: HEPARIN PF for SUB-Q USE 5,000 UNIT/0.5 ML VIAL. SQ SCH (05:26)
[2016-10-08 07:00] VITALS: BP 114/54
[2016-10-08] MEDS: PANTOPRAZOLE 40 MG TABLET.DR. PO SCH (07:52)
[2016-10-08] MEDS: SUCRALFATE 1 GM TABLET. PO SCH ×2 (07:52→11:44)
--- NOTE | 2016-10-08 08:28 | PDOC ---
PROGRESS NOTES Chief Complaint Chief Complaint 1. Ascending cholangitis, and choledocholithiasis s/p ERCP (09/30) 2. Elevated LFTS and alkaline phosphatase 3. MARIO 2/2 to poor PO 4. Sepsis with elevated lactate, WBC and fevers and tachycardia 5. Sinus tachycardia 6. Chronic ventral hernia 7. Incidental left non obstructing renal calculi, diverticulosis, cystitis 8. Critical hypomagnesemia 9. Hypercalcemia in faisal backgroun of dehydration/poor pO 10. 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 Geriatric, recent fall, frailty 12. 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 HLD 14. HTN 15. COPD 16. Gram neg emi bacteremia 17. DNR/DNI History of Present Illness History of Present Illness Pt is resting in bed this morning, she and her family decided not to undergo cholecystectomy and will medically manage symptoms, probable DC to [facility] if N/V well controlled, no N/V this morning Vitals Vitals Vital Signs Date Time Temp Pulse Resp B/P (MAP) Pulse Ox O2 Delivery O2 Flow Rate FiO2 10/08/16 07:00 97.5 69 18 114/54 (74) 93 Room Air 97.5 10/07/16 08:00 2.0 Physical Exam General: Alert, Cooperative, No acute distress Heart: Regular rate, Normal S1, Normal S2, No murmurs Lungs: Clear, Other (no wheezes or crackles) Abdomen: Normal bowel sounds, Soft, No tenderness Extremities: No clubbing, No cyanosis, Other (She had pain on attempts at movement of her left knee with crepitus and laxity of collateral ligament and knee joint effusion.She had overgrown left 2 nd toe nail and callus over plantar aspect of lef tfoot.) Skin: No rashes, No breakdown Review of Systems Review of Systems denies N/V/D or ALVAARDO continued knee pain Assessment and Plan Assessmemt and Plan Assessment 1. Ascending cholangitis, and choledocholithiasis s/p ERCP (09/30) 2. Elevated LFTS and alkaline phosphatase 3. MARIO 2/2 to poor PO 4. Sepsis with elevated lactate, WBC and fevers and tachycardia 5. Sinus tachycardia 6. Chronic ventral hernia 7. Incidental left non obstructing renal calculi, diverticulosis, cystitis 8. Critical hypomagnesemia 9. Hypercalcemia in faisal backgroun of dehydration/poor pO 10. 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 Geriatric, recent fall, frailty 12. 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 HLD 14. HTN 15. COPD 16. Gram neg emi bacteremia 17. DNR/DNI Plan 1. Pt d/w family and decided against elective cholecystectomy 2. SNU placement at [facility] when tolerating PO well and N/V resolved 3. Continue PPN with PO diet per nutrition 4. Compazine, phenergan zofran for nausea with pepsid and Tums added per GI 5. Nicotine patch, counseled smoking cessation 6. Continue home meds 7. Appreciate subspecialty input 8. Reviewed imaging: knee XR normal 9. Discussed plan of care with nursing 10. PT/OT if tolerated 11. Recheck CBC and BMP tomorrow 12. Probable DC today if N/V resolved Problems: Comment Review of Relevant I have reviewed the following items navneet (where applicable) has been applied. Labs Laboratory Tests Test 10/07/16 05:00 White Blood Count 9.9 x10^3/uL (4.0-11.0) Red Blood Count 3.16 x10^6/uL (3.50-5.40) Hemoglobin 9.7 g/dL (12.0-15.5) Hematocrit 28.3 % (36.0-47.0) Mean Corpuscular Volume 89 fL (79-100) Mean Corpuscular Hemoglobin 31 pg (25-35) Mean Corpuscular Hemoglobin Concent 34 g/dL (31-37) Red Cell Distribution Width 13.8 % (11.5-14.5) Platelet Count 252 x10^3/uL (140-400) Neutrophils (%) (Auto) 80 % (31-73) Lymphocytes (%) (Auto) 12 % (24-48) Monocytes (%) (Auto) 7 % (0-9) Eosinophils (%) (Auto) 1 % (0-3) Basophils (%) (Auto) 0 % (0-3) Neutrophils # (Auto) 7.9 x10^3uL (1.8-7.7) Lymphocytes # (Auto) 1.2 x10^3/uL (1.0-4.8) Monocytes # (Auto) 0.7 x10^3/uL (0.0-1.1) Eosinophils # (Auto) 0.1 x10^3/uL (0.0-0.7) Basophils # (Auto) 0.0 x10^3/uL (0.0-0.2) Segmented Neutrophils % 82 % (35-66) Band Neutrophils % 3 % (0-9) Lymphocytes % 10 % (24-48) Monocytes % 3 % (0-10) Eosinophils % 2 % (0-5) Platelet Estimate Adequate (ADEQUATE) Microbiology 09/29/16 Blood Culture - Final, Complete 09/29/16 Blood Culture Result 1 (MYKEL) - Final, Complete 09/29/16 Antimicrobic Susceptibility - Final, Complete 09/29/16 Urine Culture - Final, Complete 09/29/16 Urine Culture Result 1 (MYKEL) - Final, Complete Medications Current Medications Ondansetron HCl (Zofran) 4 mg 1X ONCE IV Last administered on 09/29/16 16:31; Start 09/29/16 at 16:15; Stop 09/29/16 at 16:16; Status DC Fentanyl Citrate (Fentanyl 2ml Vial) 25 mcg PRN Q15MIN PRN IV PAIN GREATER THAN 3/10 Last administered on 09/29/16 21:48; Start 09/29/16 at 16:15; Stop 09/30 at 16:14; Status DC Sodium Chloride 1,000 ml @ 75 mls/hr 1X ONCE IV Last administered on 16:31; Start 09/29/16 at 16:15; Stop 09/29/16 at 17:37; Status DC Sodium Chloride 1,000 ml @ 1,770 mls/hr Q34M IV Last administered on 09/29/16 17:20; Start 09/29/16 at 17:20; Stop 09/29/16 at 18:21; Status DC Piperacillin Sod/ Tazobactam Sod (Zosyn Per Pharmacy) 1 each PRN DAILY PRN MC SEE COMMENTS; Start 09/29/16 at 18:30; Stop 10/01/16 at 12:29; Status DC Piperacillin Sod/ Tazobactam Sod 2.25 gm/Sodium Chloride 50 ml @ 100 mls/hr 1X ONCE IV Last administered on 09/29/16 18:55; Start 09/29/16 at 18:45; Stop 09/29/16 at 19:14; Status DC Ondansetron HCl (Zofran) 4 mg PRN Q8HRS PRN IV NAUSEA/VOMITING; Start 09/29/16 at 19:15; Stop 09/29/16 at 19:44; Status DC Fentanyl Citrate (Fentanyl 2ml Vial) 25 mcg PRN Q1HR PRN IV PAIN; Start at 19:15; Stop 09/30/16 at 19:14; Status DC Sodium Chloride 1,000 ml @ 125 mls/hr Q8H IV Last administered on 09/30/16 13: 27; Start 09/29/16 at 19:02; Stop 09/30/16 at 19:01; Status DC Acetaminophen (Tylenol) 650 mg PRN Q4HRS PRN PO FEVER; Start 09/29/16 at 19:15; Stop 09/30/16 at 19:14; Status DC Ondansetron HCl (Zofran) 4 mg PRN Q6HRS PRN IV NAUSEA/VOMITING; Start 09/29/16 at 19:42; Stop 09/30/16 at 19:41; Status DC Nicotine (Nicoderm Cq 21mg) 1 patch PRN DAILY PRN TD SMOKING CESSATION Last administered on 10/04/16 11:25; Start 09/29/16 at 19:45 Lorazepam (Ativan) 0.5 mg PRN Q4HRS PRN IV ANXIETY / AGITATION Last administered on 10/04/16 21:37; Start 09/29/16 at 19:45 Magnesium Sulfate/ Dextrose 100 ml @ 25 mls/hr 1X ONCE IV Last administered on 09/29/16 20:31; Start 09/29/16 at 20:00; Stop 09/29/16 at 23:59; Status DC Piperacillin Sod/ Tazobactam Sod 2.25 gm/Sodium Chloride 50 ml @ 100 mls/hr Q8HRS IV Last administered on 10/01/16 05:32; Start 09/30/16 at 06:00; Stop 10/01 at 12:32; Status DC Heparin Sodium (Porcine) (Heparin Sq) 5,000 unit Q8HRS SQ Last administered on 10/08/16 05:26; Start 09/29/16 at 22:00 Famotidine (Pepcid) 20 mg QHS IVP Last administered on 10/02/16t 20:56; Start at 21:00; Stop 10/03/16 at 10:26; Status DC Iohexol (Omnipaque 300 Mg/ml) 100 ml STK-MED ONCE .ROUTE ; Start 09/30/16 at 08: 21; Stop 09/30/16 at 08:22; Status DC Dexamethasone Sodium Phosphate (Decadron) 20 mg STK-MED ONCE .ROUTE ; Start 09/30 at 08:49; Stop 09/30/16 at 08:50; Status DC Ondansetron HCl (Zofran) 4 mg STK-MED ONCE .ROUTE ; Start 09/30/16 at 08:49; Stop 09/30/16 at 08:50; Status DC Propofol 20 ml @ As Directed STK-MED ONCE IV ; Start 09/30/16 at 08:49; Stop 09/30 at 08:50; Status DC Lidocaine HCl (Lidocaine Pf 2% Vial) 5 ml STK-MED ONCE .ROUTE ; Start 09/30/16 at 08:49; Stop 09/30/16 at 08:50; Status DC Fentanyl Citrate (Fentanyl 2ml Vial) 100 mcg STK-MED ONCE .ROUTE ; Start at 08:49; Stop 09/30/16 at 08:50; Status DC Rocuronium Declo (Zemuron) 100 mg STK-MED ONCE .ROUTE ; Start 09/30/16 at 08:49 ; Stop 09/30/16 at 08:50; Status DC Succinylcholine Chloride (Anectine) 200 mg STK-MED ONCE .ROUTE ; Start 09/30/16 at 08:50; Stop 09/30/16 at 08:51; Status DC Midazolam HCl (Versed) 2 mg PRN 1X PRN IV PRIOR TO PROCEDURE; Start 09/30/16 at 09:00; Stop 09/30/16 at 18:00; Status DC Fentanyl Citrate (Fentanyl 2ml Vial) 25 mcg PRN Q5MIN PRN IV X 2 DOSES FOR PAIN ; Start 09/30/16 at 09:00; Stop 09/30/16 at 09:00; Status DC Fentanyl Citrate (Fentanyl 2ml Vial) 50 mcg PRN Q5MIN PRN IV X 2 DOSES FOR PAIN ; Start 09/30/16 at 09:00; Stop 09/30/16 at 09:00; Status DC Ringer's Solution 1,000 ml @ 125 mls/hr Q8H IV ; Start 09/30/16 at 08:52; Stop 09/30/16 at 08:55; Status DC Lidocaine HCl 2 ml 1X PRN PRN ID IV START; Start 09/30/16 at 09:00; Stop at 09:00; Status DC Ondansetron HCl (Zofran) 4 mg PRN Q6HRS PRN IV NAUSEA/VOMITING; Start 09/30/16 at 09:00; Stop 09/30/16 at 18:00; Status DC Fentanyl Citrate (Fentanyl 2ml Vial) 25 mcg PRN Q5MIN PRN IV MILD PAIN; Start 09/30/16 at 09:00; Stop 09/30/16 at 18:00; Status DC Fentanyl Citrate (Fentanyl 2ml Vial) 50 mcg PRN Q5MIN PRN IV MODERATE PAIN; Start 09/30/16 at 09:00; Stop 09/30/16 at 18:00; Status DC Morphine Sulfate 1 mg PRN Q10MIN PRN IV SEVERE PAIN; Start 09/30/16 at 09:00; Stop 09/30/16 at 18:00; Status DC Ringer's Solution 1,000 ml @ 30 mls/hr Q24H IV ; Start 09/30/16 at 08:52; Stop 09/30/16 at 20:39; Status DC Lidocaine HCl 2 ml PRN 1X PRN ID PRIOR TO IV START; Start 09/30/16 at 09:00; Stop 09/30/16 at 18:00; Status DC Hydromorphone HCl (Dilaudid) 0.5 mg PRN Q10MIN PRN IV SEV PAIN, Second choice; Start 09/30/16 at 09:00; Stop 09/30/16 at 18:00; Status DC Prochlorperazine Edisylate (Compazine) 5 mg PACU PRN PRN IV NAUSEA, MRX1; Start 09/30/16 at 09:00; Stop 09/30/16 at 18:00; Status DC Piperacillin Sod/ Tazobactam Sod 2.25 gm/Sodium Chloride 50 ml @ 100 mls/hr Q6HRS IV Last administered on 10/06/16t 05:05; Start 10/01/16 at 13:00; Stop 02/12 at 09:42; Status DC Ephedrine Sulfate 50 mg STK-MED ONCE IV ; Start 10/01/16 at 09:00; Stop 10/01/16 at 14:16; Status DC Phenylephrine HCl (Garcia-Synephrine Inj) 10 mg STK-MED ONCE .ROUTE ; Start at 09:00; Stop 10/01/16 at 14:16; Status DC Donepezil HCl (Aricept) 20 mg DAILY PO Last administered on 10/07/16 09:10; Start 10/03/16 at 09:00 Simvastatin (Zocor) 40 mg QHS PO Last administered on 10/07/16 20:52; Start at 21:00 Sucralfate (Carafate) 1 gm TIDAC PO Last administered on 10/08/16 07:52; Start 10/02/16 at 16:30 Hydrochlorothiazide (Hydrodiuril) 25 mg DAILY PO Last administered on 09:10; Start 10/02/16 at 14:30 Multivitamins (Thera M Plus) 1 tab DAILY PO Last administered on 10/07/16 09: 09; Start 10/03/16 at 09:00 Pantoprazole Sodium (Protonix) 40 mg DAILYAC PO Last administered on 10/08/16 07:52; Start 10/02/16 at 14:30 Famotidine (Pepcid) 20 mg QHS PO Last administered on 10/07/16 20:52; Start at 21:00 Lidocaine (Lidoderm) 1 patch DAILY TD Last administered on 10/07/16 09:11; Start 10/03/16 at 12:00 Ondansetron HCl (Zofran) 4 mg PRN Q6HRS PRN IV NAUSEA/VOMITING 1ST CHOICE Last administered on 10/06/16 19:39; Start 10/03/16 at 12:00 Amino Acids/ Glycerin/ Electrolytes 1,000 ml @ 75 mls/hr [id number] IV Last administered on 10/07/16 20:54; Start 10/04/16 at 15:00 Promethazine HCl 12.5 mg/Sodium Chloride 50.5 ml @ 151.5 mls/ hr PRN Q6HRS PRN IV NAUSEA/VOMITING; Start 10/05/16 at 12:00 Ciprofloxacin (Cipro) 500 mg BID PO ; Start 10/06/16 at 09:45; Stop 10/06/16 at 10:00; Status DC Ciprofloxacin (Cipro) 500 mg DAILY PO Last administered on 10/07/16 09:09; Start 10/06/16 at 10:00 Methylprednisolone Acetate (DEPO-Medrol 80MG VIAL) 80 mg 1X ONCE IM ; Start 02/12 at 10:45; Stop 10/06/16 at 10:46; Status DC Bupivacaine HCl (Sensorcaine-Mpf 0.25%) 10 ml 1X ONCE IJ ; Start 10/06/16 at 10 :45; Stop 10/06/16 at 10:46; Status DC Acetaminophen (Tylenol) 650 mg 1X ONCE PO Last administered on 10/06/16 19:38 ; Start 10/06/16 at 19:00; Stop 10/06/16 at 19:01; Status DC Calcium Carbonate/ Glycine (Tums) 500 mg PRN AFTMEALHC PRN PO INDIGESTION Last administered on 10/07/16 16:41; Start 10/06/16 at 19:00 Fentanyl Citrate (Fentanyl 2ml Vial) 25 mcg PRN Q4HRS PRN IV SEVERE PAIN Last administered on 10/08/16 00:01; Start 10/06/16 at 22:45 Prochlorperazine Edisylate (Compazine) 10 mg PRN Q8HRS PRN IV NAUSEA/VOMITING ( 2nd Choice) Last administered on 10/07/16 16:12; Start 10/06/16 at 22:45 Active Scripts Active Reported Multi-Day Vitamins (Multivitamin) 1 Each Tablet 1 Tab PO DAILY Donepezil Hcl 10 Mg Tablet 2 Tab PO DAILY Simvastatin 40 Mg Tablet 1 Tab PO QHS Omeprazole 40 Mg Capsule.dr 1 Cap PO DAILY Hydrochlorothiazide Tablet (Hydrochlorothiazide) 12.5 Mg Tablet 2 Tab PO DAILY Sucralfate 1 Gm Tablet 1 Tab PO TID Vitals/I & O Vital Sign - Last 24 Hours 10/07/16 10/07/16 10/07/16 10/07/16 11:00 15:00 19:00 20:00 Temp 97.4 98.0 98.0 97.4 98.0 98.0 Pulse 89 75 81 Resp 18 17 20 B/P (MAP) 130/70 (90) 115/67 (83) 124/55 (78) Pulse Ox 95 93 91 O2 Delivery Room Air Room Air Room Air Room Air 10/07/16 10/08/16 10/08/16 10/08/16 23:00 00:01 00:32 07:00 Temp 98.0 97.5 98.0 97.5 Pulse 85 69 Resp 20 20 16 18 B/P (MAP) 118/60 (79) 114/54 (74) Pulse Ox 93 93 O2 Delivery Room Air Room Air Room Air Room Air Intake and Output 10/07/16 10/07/16 10/08/16 15:00 23:00 07:00 Intake Total 150 ml Balance 150 ml Nutrition Consultation Dietary Evaluation: Recommendations by RD: Dietary education by RD Comments: continue ppn for short term nutrition continue po diet/ encourgae intake, control Nausea to improve po intake offer snacks/ supplements from unit prn Expected Outcomes/Goals: to meet > 75% est nutr needs - met at times, goal ongoing Malnutrition Findings: Body Fat Depletion (Non Severe: Mild Depletion Weight Status: Appropriate MICHELET BABIN III DO Oct 08, 2016 08:28
--- NOTE | 2016-10-08 08:48 | PDOC ---
Subjective: Subjective: Tells me doing okay, going to try breakfast. Objective: Vital Signs: Vital Signs Date Time Temp Pulse Resp B/P (MAP) Pulse Ox O2 Delivery O2 Flow Rate FiO2 10/08/16 07:00 97.5 69 18 114/54 (74) 93 Room Air 97.5 10/07/16 08:00 2.0 PE: GEN: was asleep LUNGS: diminished HEART: RRR ABD: NABS, S/ND/NT NEURO/PSYCH: A & O 3, drowsy A/P: Cholangitis -s/p ERCP w/ sphincterotomy/stone extraction 09/30/16 -decided against cholecystectomy Nausea, decreased appetite -on PPI, Carafate, H2 danie, Compazine (last used 10/07), Phenergan (never given), Zofran (last give 10/06), Tums -- Plans to transfer to [facility] when nausea better controlled. Seems better this morning, but just waking up. BETZY RAGLAND Oct 08, 2016 08:48
[2016-10-08] MEDS: hydroCHLOROthiazide 25 MG TABLET PO SCH ×2 (09:00→09:10)
[2016-10-08] MEDS: DONEPEZIL HCL 10 MG TABLET. PO SCH (09:09)
[2016-10-08] MEDS: MULTIVITAMIN with MINERAL TABLET. PO SCH (09:09)
[2016-10-08] MEDS: CIPROFLOXACIN HCL 250 MG TABLET. PO SCH (09:09)
[2016-10-08] MEDS: LIDOCAINE (700MG/PATCH) PATCH. TD SCH (09:10)
--- NOTE | 2016-10-08 10:49 | PDOC3 ---
Discharge Summary Visit Information Date of Discharge: Oct 08, 2016 Admitting Diagnosis: Choledocholithiasis Final Diagnosis Problems Medical Problems: (1) Cholangitis due to bile duct calculus with obstruction Status: Acute (2) Choledocholithiasis with acute cholecystitis with obstruction Status: Acute (3) Lactic acidosis Status: Acute (4) Leukocytosis Status: Acute (5) Sepsis Status: Acute Brief Hospital Course Allergies Allergies Coded Allergies Type Severity Reaction Last Updated Verified meclizine Allergy Intermediate Swelling 09/30/16 Yes codeine Adverse Reaction Intermediate Nausea and Vomiting 09/30/16 Yes Vital Signs Vital Signs Date Time Temp Pulse Resp B/P (MAP) Pulse Ox O2 Delivery O2 Flow Rate FiO2 10/08/16 08:00 Room Air 10/08/16 07:00 97.5 69 18 114/54 (74) 93 97.5 10/07/16 08:00 2.0 Lab Results Laboratory Tests Test 10/07/16 05:00 White Blood Count 9.9 x10^3/uL (4.0-11.0) Red Blood Count 3.16 x10^6/uL (3.50-5.40) Hemoglobin 9.7 g/dL (12.0-15.5) Hematocrit 28.3 % (36.0-47.0) Mean Corpuscular Volume 89 fL (79-100) Mean Corpuscular Hemoglobin 31 pg (25-35) Mean Corpuscular Hemoglobin Concent 34 g/dL (31-37) Red Cell Distribution Width 13.8 % (11.5-14.5) Platelet Count 252 x10^3/uL (140-400) Neutrophils (%) (Auto) 80 % (31-73) Lymphocytes (%) (Auto) 12 % (24-48) Monocytes (%) (Auto) 7 % (0-9) Eosinophils (%) (Auto) 1 % (0-3) Basophils (%) (Auto) 0 % (0-3) Neutrophils # (Auto) 7.9 x10^3uL (1.8-7.7) Lymphocytes # (Auto) 1.2 x10^3/uL (1.0-4.8) Monocytes # (Auto) 0.7 x10^3/uL (0.0-1.1) Eosinophils # (Auto) 0.1 x10^3/uL (0.0-0.7) Basophils # (Auto) 0.0 x10^3/uL (0.0-0.2) Segmented Neutrophils % 82 % (35-66) Band Neutrophils % 3 % (0-9) Lymphocytes % 10 % (24-48) Monocytes % 3 % (0-10) Eosinophils % 2 % (0-5) Platelet Estimate Adequate (ADEQUATE) Brief Hospital Course Ms. Hernandez is a 86 old [sex] who presented with [ symptomatic Gallstones and a CBD stone. Admited, consulted GI and Surgery. Taken for ERCP but refused lap marychuy See and examined this am At baseline] Will dc Total time 31 minutes Discharge Information Scheduled Donepezil Hcl (Donepezil Hcl), 2 TAB PO DAILY, (Reported) Hydrochlorothiazide (Hydrochlorothiazide Tablet), 2 TAB PO DAILY, (Reported) Multivitamin (Multi-Day Vitamins), 1 TAB PO DAILY, (Reported) Omeprazole (Omeprazole), 1 CAP PO DAILY, (Reported) Simvastatin (Simvastatin), 1 TAB PO QHS, (Reported) Sucralfate (Sucralfate), 1 TAB PO TID, (Reported) MICHELET BABIN III DO Oct 08, 2016 10:49
[2016-10-08 11:00] VITALS: BP 127/58
[2016-10-08] MEDS: AMINO AC 3%/ELECTROLYTE/GLYCER 1,000 ML IV SCH (12:20)
--- NOTE | 2016-10-08 15:05 | PDOC ---
PROGRESS NOTES Subjective Subjective She admits pain and stiffness in her right shoulder ,left ankle and both knees. Objective Objective Vital Signs Date Time Temp Pulse Resp B/P (MAP) Pulse Ox O2 Delivery O2 Flow Rate FiO2 10/08/16 11:00 97.7 78 18 127/58 (81) 94 Room Air 97.7 10/07/16 08:00 2.0 Intake and Output 10/08/16 07:00 Intake Total 150 ml Balance 150 ml Intake Oral 150 ml # Voids 8 # Bowel Movements 3 Physical Exam Physical Exam She is supine in bed but is awake and does not seem to be in acute distress but continues with painfully limited left knee joint ROM and some tenderness to palpation over right shoulder and left ankle. Assessment Assessment Problems Medical Problems: (1) Cholangitis due to bile duct calculus with obstruction Status: Acute (2) Choledocholithiasis with acute cholecystitis with obstruction Status: Acute (3) Lactic acidosis Status: Acute (4) Leukocytosis Status: Acute (5) Sepsis Status: Acute Plan Plan of Care Shoulder and ankle pain is from tendinitis and to get her up as tolerated and agree with plans for transfer to SNF when medically stable. Comment Review of Relevant I have reviewed the following items navneet (where applicable) has been applied. Labs Laboratory Tests Test 10/07/16 05:00 White Blood Count 9.9 x10^3/uL (4.0-11.0) Red Blood Count 3.16 x10^6/uL (3.50-5.40) Hemoglobin 9.7 g/dL (12.0-15.5) Hematocrit 28.3 % (36.0-47.0) Mean Corpuscular Volume 89 fL (79-100) Mean Corpuscular Hemoglobin 31 pg (25-35) Mean Corpuscular Hemoglobin Concent 34 g/dL (31-37) Red Cell Distribution Width 13.8 % (11.5-14.5) Platelet Count 252 x10^3/uL (140-400) Neutrophils (%) (Auto) 80 % (31-73) Lymphocytes (%) (Auto) 12 % (24-48) Monocytes (%) (Auto) 7 % (0-9) Eosinophils (%) (Auto) 1 % (0-3) Basophils (%) (Auto) 0 % (0-3) Neutrophils # (Auto) 7.9 x10^3uL (1.8-7.7) Lymphocytes # (Auto) 1.2 x10^3/uL (1.0-4.8) Monocytes # (Auto) 0.7 x10^3/uL (0.0-1.1) Eosinophils # (Auto) 0.1 x10^3/uL (0.0-0.7) Basophils # (Auto) 0.0 x10^3/uL (0.0-0.2) Segmented Neutrophils % 82 % (35-66) Band Neutrophils % 3 % (0-9) Lymphocytes % 10 % (24-48) Monocytes % 3 % (0-10) Eosinophils % 2 % (0-5) Platelet Estimate Adequate (ADEQUATE) Microbiology 09/29/16 Blood Culture - Final, Complete 09/29/16 Blood Culture Result 1 (MYKEL) - Final, Complete 09/29/16 Antimicrobic Susceptibility - Final, Complete 09/29/16 Urine Culture - Final, Complete 09/29/16 Urine Culture Result 1 (MYKEL) - Final, Complete Medications Current Medications Ondansetron HCl (Zofran) 4 mg 1X ONCE IV Last administered on 09/29/16 16:31; Start 09/29/16 at 16:15; Stop 09/29/16 at 16:16; Status DC Fentanyl Citrate (Fentanyl 2ml Vial) 25 mcg PRN Q15MIN PRN IV PAIN GREATER THAN 3/10 Last administered on 09/29/16 21:48; Start 09/29/16 at 16:15; Stop 09/30 at 16:14; Status DC Sodium Chloride 1,000 ml @ 75 mls/hr 1X ONCE IV Last administered on 16:31; Start 09/29/16 at 16:15; Stop 09/29/16 at 17:37; Status DC Sodium Chloride 1,000 ml @ 1,770 mls/hr Q34M IV Last administered on 09/29/16 17:20; Start 09/29/16 at 17:20; Stop 09/29/16 at 18:21; Status DC Piperacillin Sod/ Tazobactam Sod (Zosyn Per Pharmacy) 1 each PRN DAILY PRN MC SEE COMMENTS; Start 09/29/16 at 18:30; Stop 10/01/16 at 12:29; Status DC Piperacillin Sod/ Tazobactam Sod 2.25 gm/Sodium Chloride 50 ml @ 100 mls/hr 1X ONCE IV Last administered on 09/29/16 18:55; Start 09/29/16 at 18:45; Stop 09/29/16 at 19:14; Status DC Ondansetron HCl (Zofran) 4 mg PRN Q8HRS PRN IV NAUSEA/VOMITING; Start 09/29/16 at 19:15; Stop 09/29/16 at 19:44; Status DC Fentanyl Citrate (Fentanyl 2ml Vial) 25 mcg PRN Q1HR PRN IV PAIN; Start at 19:15; Stop 09/30/16 at 19:14; Status DC Sodium Chloride 1,000 ml @ 125 mls/hr Q8H IV Last administered on 09/30/16 13: 27; Start 09/29/16 at 19:02; Stop 09/30/16 at 19:01; Status DC Acetaminophen (Tylenol) 650 mg PRN Q4HRS PRN PO FEVER; Start 09/29/16 at 19:15; Stop 09/30/16 at 19:14; Status DC Ondansetron HCl (Zofran) 4 mg PRN Q6HRS PRN IV NAUSEA/VOMITING; Start 09/29/16 at 19:42; Stop 09/30/16 at 19:41; Status DC Nicotine (Nicoderm Cq 21mg) 1 patch PRN DAILY PRN TD SMOKING CESSATION Last administered on 10/04/16 11:25; Start 09/29/16 at 19:45 Lorazepam (Ativan) 0.5 mg PRN Q4HRS PRN IV ANXIETY / AGITATION Last administered on 10/04/16 21:37; Start 09/29/16 at 19:45 Magnesium Sulfate/ Dextrose 100 ml @ 25 mls/hr 1X ONCE IV Last administered on 09/29/16 20:31; Start 09/29/16 at 20:00; Stop 09/29/16 at 23:59; Status DC Piperacillin Sod/ Tazobactam Sod 2.25 gm/Sodium Chloride 50 ml @ 100 mls/hr Q8HRS IV Last administered on 10/01/16 05:32; Start 09/30/16 at 06:00; Stop 10/01 at 12:32; Status DC Heparin Sodium (Porcine) (Heparin Sq) 5,000 unit Q8HRS SQ Last administered on 10/08/16 05:26; Start 09/29/16 at 22:00 Famotidine (Pepcid) 20 mg QHS IVP Last administered on 10/02/16t 20:56; Start at 21:00; Stop 10/03/16 at 10:26; Status DC Iohexol (Omnipaque 300 Mg/ml) 100 ml STK-MED ONCE .ROUTE ; Start 09/30/16 at 08: 21; Stop 09/30/16 at 08:22; Status DC Dexamethasone Sodium Phosphate (Decadron) 20 mg STK-MED ONCE .ROUTE ; Start 09/30 at 08:49; Stop 09/30/16 at 08:50; Status DC Ondansetron HCl (Zofran) 4 mg STK-MED ONCE .ROUTE ; Start 09/30/16 at 08:49; Stop 09/30/16 at 08:50; Status DC Propofol 20 ml @ As Directed STK-MED ONCE IV ; Start 09/30/16 at 08:49; Stop 09/30 at 08:50; Status DC Lidocaine HCl (Lidocaine Pf 2% Vial) 5 ml STK-MED ONCE .ROUTE ; Start 09/30/16 at 08:49; Stop 09/30/16 at 08:50; Status DC Fentanyl Citrate (Fentanyl 2ml Vial) 100 mcg STK-MED ONCE .ROUTE ; Start at 08:49; Stop 09/30/16 at 08:50; Status DC Rocuronium [place] (Zemuron) 100 mg STK-MED ONCE .ROUTE ; Start 09/30/16 at 08:49 ; Stop 09/30/16 at 08:50; Status DC Succinylcholine Chloride (Anectine) 200 mg STK-MED ONCE .ROUTE ; Start 09/30/16 at 08:50; Stop 09/30/16 at 08:51; Status DC Midazolam HCl (Versed) 2 mg PRN 1X PRN IV PRIOR TO PROCEDURE; Start 09/30/16 at 09:00; Stop 09/30/16 at 18:00; Status DC Fentanyl Citrate (Fentanyl 2ml Vial) 25 mcg PRN Q5MIN PRN IV X 2 DOSES FOR PAIN ; Start 09/30/16 at 09:00; Stop 09/30/16 at 09:00; Status DC Fentanyl Citrate (Fentanyl 2ml Vial) 50 mcg PRN Q5MIN PRN IV X 2 DOSES FOR PAIN ; Start 09/30/16 at 09:00; Stop 09/30/16 at 09:00; Status DC Ringer's Solution 1,000 ml @ 125 mls/hr Q8H IV ; Start 09/30/16 at 08:52; Stop 09/30/16 at 08:55; Status DC Lidocaine HCl 2 ml 1X PRN PRN ID IV START; Start 09/30/16 at 09:00; Stop at 09:00; Status DC Ondansetron HCl (Zofran) 4 mg PRN Q6HRS PRN IV NAUSEA/VOMITING; Start 09/30/16 at 09:00; Stop 09/30/16 at 18:00; Status DC Fentanyl Citrate (Fentanyl 2ml Vial) 25 mcg PRN Q5MIN PRN IV MILD PAIN; Start 09/30/16 at 09:00; Stop 09/30/16 at 18:00; Status DC Fentanyl Citrate (Fentanyl 2ml Vial) 50 mcg PRN Q5MIN PRN IV MODERATE PAIN; Start 09/30/16 at 09:00; Stop 09/30/16 at 18:00; Status DC Morphine Sulfate 1 mg PRN Q10MIN PRN IV SEVERE PAIN; Start 09/30/16 at 09:00; Stop 09/30/16 at 18:00; Status DC Ringer's Solution 1,000 ml @ 30 mls/hr Q24H IV ; Start 09/30/16 at 08:52; Stop 09/30/16 at 20:39; Status DC Lidocaine HCl 2 ml PRN 1X PRN ID PRIOR TO IV START; Start 09/30/16 at 09:00; Stop 09/30/16 at 18:00; Status DC Hydromorphone HCl (Dilaudid) 0.5 mg PRN Q10MIN PRN IV SEV PAIN, Second choice; Start 09/30/16 at 09:00; Stop 09/30/16 at 18:00; Status DC Prochlorperazine Edisylate (Compazine) 5 mg PACU PRN PRN IV NAUSEA, MRX1; Start 09/30/16 at 09:00; Stop 09/30/16 at 18:00; Status DC Piperacillin Sod/ Tazobactam Sod 2.25 gm/Sodium Chloride 50 ml @ 100 mls/hr Q6HRS IV Last administered on 10/06/16 05:05; Start 10/01/16 at 13:00; Stop 02/12 at 09:42; Status DC Ephedrine Sulfate 50 mg STK-MED ONCE IV ; Start 10/01/16 at 09:00; Stop 10/01/16 at 14:16; Status DC Phenylephrine HCl (Garcia-Synephrine Inj) 10 mg STK-MED ONCE .ROUTE ; Start at 09:00; Stop 10/01/16 at 14:16; Status DC Donepezil HCl (Aricept) 20 mg DAILY PO Last administered on 10/08/16 09:09; Start 10/03/16 at 09:00 Simvastatin (Zocor) 40 mg QHS PO Last administered on 10/07/16 20:52; Start at 21:00 Sucralfate (Carafate) 1 gm TIDAC PO Last administered on 10/08/16 11:44; Start 10/02/16 at 16:30 Hydrochlorothiazide (Hydrodiuril) 25 mg DAILY PO Last administered on 09:10; Start 10/02/16 at 14:30 Multivitamins (Thera M Plus) 1 tab DAILY PO Last administered on 10/08/16 09: 09; Start 10/03/16 at 09:00 Pantoprazole Sodium (Protonix) 40 mg DAILYAC PO Last administered on 10/08/16 07:52; Start 10/02/16 at 14:30 Famotidine (Pepcid) 20 mg QHS PO Last administered on 10/07/16 20:52; Start at 21:00 Lidocaine (Lidoderm) 1 patch DAILY TD Last administered on 10/08/16 09:10; Start 10/03/16 at 12:00 Ondansetron HCl (Zofran) 4 mg PRN Q6HRS PRN IV NAUSEA/VOMITING 1ST CHOICE Last administered on 10/06/16 19:39; Start 10/03/16 at 12:00 Amino Acids/ Glycerin/ Electrolytes 1,000 ml @ 75 mls/hr [id number] IV Last administered on 10/07/16 20:54; Start 10/04/16 at 15:00 Promethazine HCl 12.5 mg/Sodium Chloride 50.5 ml @ 151.5 mls/ hr PRN Q6HRS PRN IV NAUSEA/VOMITING; Start 10/05/16 at 12:00 Ciprofloxacin (Cipro) 500 mg BID PO ; Start 10/06/16 at 09:45; Stop 10/06/16 at 10:00; Status DC Ciprofloxacin (Cipro) 500 mg DAILY PO Last administered on 10/08/16 09:09; Start 10/06/16 at 10:00 Methylprednisolone Acetate (DEPO-Medrol 80MG VIAL) 80 mg 1X ONCE IM ; Start 02/12 at 10:45; Stop 10/06/16 at 10:46; Status DC Bupivacaine HCl (Sensorcaine-Mpf 0.25%) 10 ml 1X ONCE IJ ; Start 10/06/16 at 10 :45; Stop 10/06/16 at 10:46; Status DC Acetaminophen (Tylenol) 650 mg 1X ONCE PO Last administered on 10/06/16 19:38 ; Start 10/06/16 at 19:00; Stop 10/06/16 at 19:01; Status DC Calcium Carbonate/ Glycine (Tums) 500 mg PRN AFTMEALHC PRN PO INDIGESTION Last administered on 10/07/16 16:41; Start 10/06/16 at 19:00 Fentanyl Citrate (Fentanyl 2ml Vial) 25 mcg PRN Q4HRS PRN IV SEVERE PAIN Last administered on 10/08/16 00:01; Start 10/06/16 at 22:45 Prochlorperazine Edisylate (Compazine) 10 mg PRN Q8HRS PRN IV NAUSEA/VOMITING ( 2nd Choice) Last administered on 10/07/16 16:12; Start 10/06/16 at 22:45 Active Scripts Active Reported Multi-Day Vitamins (Multivitamin) 1 Each Tablet 1 Tab PO DAILY Donepezil Hcl 10 Mg Tablet 2 Tab PO DAILY Simvastatin 40 Mg Tablet 1 Tab PO QHS Omeprazole 40 Mg Capsule.dr 1 Cap PO DAILY Hydrochlorothiazide Tablet (Hydrochlorothiazide) 12.5 Mg Tablet 2 Tab PO DAILY Sucralfate 1 Gm Tablet 1 Tab PO TID Vitals/I & O Vital Sign - Last 24 Hours 10/07/16 10/07/16 10/07/16 10/07/16 15:00 19:00 20:00 23:00 Temp 98.0 98.0 98.0 98.0 98.0 98.0 Pulse 75 81 85 Resp 17 20 20 B/P (MAP) 115/67 (83) 124/55 (78) 118/60 (79) Pulse Ox 93 91 93 O2 Delivery Room Air Room Air Room Air Room Air 10/08/16 10/08/16 10/08/16 10/08/16 00:01 00:32 07:00 08:00 Temp 97.5 97.5 Pulse 69 Resp 20 16 18 B/P (MAP) 114/54 (74) Pulse Ox 93 O2 Delivery Room Air Room Air Room Air Room Air 10/08/16 11:00 Temp 97.7 97.7 Pulse 78 Resp 18 B/P (MAP) 127/58 (81) Pulse Ox 94 O2 Delivery Room Air Intake and Output 10/07/16 10/07/16 10/08/16 15:00 23:00 07:00 Intake Total 150 ml Balance 150 ml Nutrition Consultation Dietary Evaluation: Recommendations by RD: Dietary education by RD Comments: continue ppn for short term nutrition continue po diet/ encourgae intake, control Nausea to improve po intake offer snacks/ supplements from unit prn Expected Outcomes/Goals: to meet > 75% est nutr needs - met at times, goal ongoing Malnutrition Findings: Body Fat Depletion (Non Severe: Mild Depletion Weight Status: Appropriate SHAW ALVAREZ MD Oct 08, 2016 15:05
== END 2016-10-08 14:20 | DRG 871 ==
LOC: ER 15:49 → 1 WEST ICU 18:37 → 5 NORTH 09-30 17:46
PROVIDERS: ADMIT Internal Medicine; ATTEND Internal Medicine
PROC: 0FC98ZZ Extirpation of Matter from Common Bile Duct, Via Natural or Artificial Opening Endoscopic (ICD-10-PCS; principal; 2016-09-30 09:30)
DX: A41.9 Sepsis, unspecified organism (principal); E43 Unspecified severe protein-calorie malnutrition; N17.9 Acute kidney failure, unspecified; K80.43 Calculus of bile duct with acute cholecystitis with obstruction; E78.5 Hyperlipidemia, unspecified; E83.42 Hypomagnesemia; E83.52 Hypercalcemia; F17.210 Nicotine dependence, cigarettes, uncomplicated; I12.9 Hypertensive chronic kidney disease with stage 1 through stage 4 chronic kidney disease, or unspecified chronic kidney disease; J44.9 Chronic obstructive pulmonary disease, unspecified; Z66 Do not resuscitate; Z51.5 Encounter for palliative care; M17.12 Unilateral primary osteoarthritis, left knee; K57.30 Diverticulosis of large intestine without perforation or abscess without bleeding; N18.9 Chronic kidney disease, unspecified; K29.80 Duodenitis without bleeding; G62.9 Polyneuropathy, unspecified; E86.0 Dehydration; D64.9 Anemia, unspecified; B96.20 Unspecified Escherichia coli [E. coli] as the cause of diseases classified elsewhere; B96.89 Other specified bacterial agents as the cause of diseases classified elsewhere; K44.9 Diaphragmatic hernia without obstruction or gangrene; K43.9 Ventral hernia without obstruction or gangrene; K29.60 Other gastritis without bleeding; N30.90 Cystitis, unspecified without hematuria; Z96.651 Presence of right artificial knee joint; Z88.8 Allergy status to other drugs, medicaments and biological substances; Z90.49 Acquired absence of other specified parts of digestive tract; Z82.49 Family history of ischemic heart disease and other diseases of the circulatory system; Z86.73 Personal history of transient ischemic attack (TIA), and cerebral infarction without residual deficits; Z82.3 Family history of stroke; Z82.0 Family history of epilepsy and other diseases of the nervous system; Z80.1 Family history of malignant neoplasm of trachea, bronchus and lung; Z85.038 Personal history of other malignant neoplasm of large intestine; Z79.899 Other long term (current) drug therapy; Z79.1 Long term (current) use of non-steroidal anti-inflammatories (NSAID); Z79.2 Long term (current) use of antibiotics; Z68.24 Body mass index [BMI] 24.0-24.9, adult
CPT/HCPCS: 36415; 51702; 71010; 73560; 74176; 74328; 76705; 80053; 81001; 82150; 82310; 83605; 83690; 83735; 85007; 85027; 87040; 87086; 87205; 87641; 93005; 96365; 96366; 96368; 96375; A6539; C1726; C1757; J0330; J0780; J1100; J2001; J2060; J2405; J2543; J2704; J3010; J3475; J7030; Q9967; S0028; 97116; 97530; 97535; 99285-25

== ENCOUNTER 2017-03-13 16:53 | Emergency (ER) | payer BC ==
[~2017-03-13] VITALS: Ht 152.4 cm; Wt 55.8 kg
[~2017-03-13 16:53] MED LIST: DONE10TA7 PO; HYDR12.58 PO; MULT-208 PO; OMEP40CA5 PO; SIMV40TA3 PO; SUCR1TAB PO
[2017-03-13 16:59] VITALS: BP 183/81
[2017-03-13] MEDS ORDERED: GLUCAGON,HUMAN RECOMBINANT 1 MG/ML VIAL. IV ONE (17:15)
[2017-03-13 17:47] LABS: BASO % 1 % (0-3); EOS % 2 % (0-3); HEMATOCRIT 34.9 % (36.0-47.0); HEMOGLOBIN 11.6 g/dL (12.0-15.5); LYMPH # 1.7 x10^3/uL (1.0-4.8); LYMPH % 27 % (24-48); MEAN CORPUSCULAR HEMOGLOBIN 31 pg (25-35); MEAN CORPUSCULAR HGB CONC 33 g/dL (31-37); MEAN CORPUSCULAR VOLUME 94 fL (79-100); MONO % 6 % (0-9); NEUT % 65 % (31-73); PLATELET COUNT 194 x10^3/uL (140-400); RED BLOOD COUNT 3.73 x10^6/uL (3.50-5.40); RED CELL DISTRIBUTION WIDTH 14.3 % (11.5-14.5); WHITE BLOOD COUNT 6.4 x10^3/uL (4.0-11.0)
[2017-03-13 17:56] LABS: CALCIUM 9.1 mg/dL (8.5-10.1); CREATININE 1.5 mg/dL (0.6-1.0); POTASSIUM 4.6 mmol/L (3.5-5.1)
--- NOTE | 2017-03-13 18:17 | PHYS DOC ---
Past Medical History Past Medical History: Cancer, Hypertension, Renal Disease, TIA, Other Additional Past Medical Histor: COLON CA 2012 Past Surgical History: Appendectomy, Cancer Surgery, Colectomy, Hysterectomy Alcohol Use: None Drug Use: None Adult General Chief Complaint Chief Complaint: SWALLOWED FORIEGN BODY HPI HPI 86-year-old female presenting to the emergency department after eating cereal feeling some of the food stuck in her throat. His been there since this morning. She reports it moved down mildly but is still stuck in the GI tract. She is able to drink water. She reports it going around the bolus of food. She denies shortness of breath. She denies vomiting nausea fevers chills. Onset today. Location GI tract. Duration constant. No alleviating or exacerbating factors. Review of systems is negative for nausea vomiting fevers chills diarrhea. All other review of systems is negative unless otherwise noted in history of present illness. ED course: 86-year-old female presenting to the emergency department today with the GI food impaction. On arrival the patient was able to tolerate oral liquids however felt it still stuck. We give the patient IV glucagon and soda. She reports the food bolus moved down in her stomach and she feels much better. She is able to tolerate oral intake in the emergency department without difficulty. She was subsequent discharged home. I did recommend she get an endoscopy within the next month to evaluate her esophagus for pathology. The patient was then discharged home in stable condition to follow up with their primary care physician over the next 2-3 days. They were to return if their symptoms worsened or if they were concerned for any reason. [id number] discharge instructions and return precautions were given. Patient's questions were answered to their satisfaction. Patient is comfortable plan. Review of Systems Review of Systems SEE ABOVE. Current Medications Current Medications Current Medications Medications (Trade) Dose Ordered Sig/Bill Start Time Stop Time Status Last Admin Dose Admin Glucagon (Glucagen) 1 mg 1X ONCE 03/13/17 17:15 03/13/17 17:17 DC 03/13/17 17:36 1 MG Allergies Allergies Allergies Coded Allergies Type Severity Reaction Last Updated Verified meclizine Allergy Intermediate Swelling 09/30/16 Yes codeine Adverse Reaction Intermediate Nausea and Vomiting 09/30/16 Yes Physical Exam Physical Exam SEE ABOVE Constitutional: Well developed, well nourished, no acute distress, non-toxic appearance. HENT: Normocephalic, atraumatic, bilateral external ears normal, oropharynx moist, no oral exudates, nose normal. [] Eyes: PERRLA, EOMI, conjunctiva normal, no discharge. Neck: Normal range of motion, no tenderness, supple, no stridor. [] Cardiovascular:Heart rate regular rhythm, no murmur Lungs & Thorax: Bilateral breath sounds clear to auscultation [] Abdomen: Bowel sounds normal, soft, no tenderness, no masses, no pulsatile masses. Skin: Warm, dry, no erythema, no rash. [] Back: No tenderness, no CVA tenderness. Extremities: No tenderness, no cyanosis, no clubbing, ROM intact, no edema. [] Neurologic: Alert and oriented X 3, normal motor function, normal sensory function, no focal deficits noted. Psychologic: Affect normal, judgement normal, mood normal. [] Current Patient Data Vital Signs Vital Signs Date Time Temp Pulse Resp B/P (MAP) Pulse Ox O2 Delivery O2 Flow Rate FiO2 03/13/17 16:59 97.9 107 22 97 Room Air 97.9 Lab Values Laboratory Tests Test 03/13/17 17:33 White Blood Count 6.4 x10^3/uL (4.0-11.0) Red Blood Count 3.73 x10^6/uL (3.50-5.40) Hemoglobin 11.6 g/dL (12.0-15.5) L Hematocrit 34.9 % (36.0-47.0) L Mean Corpuscular Volume 94 fL (79-100) Mean Corpuscular Hemoglobin 31 pg (25-35) Mean Corpuscular Hemoglobin Concent 33 g/dL (31-37) Red Cell Distribution Width 14.3 % (11.5-14.5) Platelet Count 194 x10^3/uL (140-400) Neutrophils (%) (Auto) 65 % (31-73) Lymphocytes (%) (Auto) 27 % (24-48) Monocytes (%) (Auto) 6 % (0-9) Eosinophils (%) (Auto) 2 % (0-3) Basophils (%) (Auto) 1 % (0-3) Neutrophils # (Auto) 4.2 x10^3uL (1.8-7.7) Lymphocytes # (Auto) 1.7 x10^3/uL (1.0-4.8) Monocytes # (Auto) 0.4 x10^3/uL (0.0-1.1) Eosinophils # (Auto) 0.1 x10^3/uL (0.0-0.7) Basophils # (Auto) 0.0 x10^3/uL (0.0-0.2) Laboratory Tests 03/13/17 17:33 EKG EKG [] Radiology/Procedures Radiology/Procedures [] Course & Med Decision Making Course & Med Decision Making Pertinent Labs and Imaging studies reviewed. (See chart for details) [] Dragon Disclaimer Dragon Disclaimer This electronic medical record was generated, in whole or in part, using a voice recognition dictation system. Departure Departure Impression: Primary Impression: Food impaction of esophagus Disposition: HOME, SELF-CARE Condition: STABLE Referrals: ERIBERTO SANCHEZ DO (PCP) Additional Instructions: Thank you for allowing us to participate in your care today. Followup with your primary care physician in 3 days if your symptoms do not improve. Call your Primary Doctor tomorrow and inform them of your visit today. If you do not have a primary care provider you can ask for a list of our primary care providers. Return to the emergency department you have any new or concerning findings. This should be evaluated by the primary care physician and any necessary consulting services for continued management within a few days after discharge. Return to emergency room if you have any new or concerning symptoms including but not limited to fever, chills, nausea, vomiting, intractable pain, any new rashes, chest pain, shortness of air, uncontrolled bleeding, difficulty breathing, and/or vision loss. Problem Qualifiers Primary Impression: Food impaction of esophagus Encounter type: initial encounter Qualified Codes: T18.128A - Food in esophagus causing other injury, initial encounter CHRISTIANE CHOUDHURY MD Mar 13, 2017 18:17
[2017-03-14] MEDS ORDERED: SIME62.5 PO (01:23)
[2017-03-14] MEDS ORDERED: DONE10TA7 PO (01:23)
[2017-03-14] MEDS ORDERED: stool (01:23)
[2017-03-14] MEDS ORDERED: SUCR1TAB35 PO (01:23)
[2017-03-14] MEDS ORDERED: BENA20TA2 PO (15:15)
== END 2017-03-13 18:45 | disposition home or self-care (01) ==
LOC: ER 16:53
DX: T18.128A Food in esophagus causing other injury, initial encounter (principal); Z86.73 Personal history of transient ischemic attack (TIA), and cerebral infarction without residual deficits; Z90.49 Acquired absence of other specified parts of digestive tract; I12.9 Hypertensive chronic kidney disease with stage 1 through stage 4 chronic kidney disease, or unspecified chronic kidney disease; N18.9 Chronic kidney disease, unspecified; Z88.5 Allergy status to narcotic agent; Z88.8 Allergy status to other drugs, medicaments and biological substances; Y93.89 Activity, other specified; Y99.8 Other external cause status; Y92.89 Other specified places as the place of occurrence of the external cause
CPT/HCPCS: 36415; 80048; 85025; 96374; 99284; J1610

== ENCOUNTER 2017-03-19 14:03 | Emergency (ER) | payer BC ==
[~2017-03-19] VITALS: Ht 152.4 cm; Wt 58.1 kg
[~2017-03-19 14:03] MED LIST changes: +BENA20TA2 PO; +SIME62.5 PO; +SUCR1TAB35 PO; +stool
[2017-03-19 15:17] LABS: BASO % 0 % (0-3); EOS % 2 % (0-3); HEMATOCRIT 35.9 % (36.0-47.0); HEMOGLOBIN 11.9 g/dL (12.0-15.5); LYMPH # 1.3 x10^3/uL (1.0-4.8); LYMPH % 19 % (24-48); MEAN CORPUSCULAR HEMOGLOBIN 31 pg (25-35); MEAN CORPUSCULAR HGB CONC 33 g/dL (31-37); MEAN CORPUSCULAR VOLUME 93 fL (79-100); MONO % 7 % (0-9); NEUT % 73 % (31-73); PLATELET COUNT 191 x10^3/uL (140-400); RED BLOOD COUNT 3.86 x10^6/uL (3.50-5.40); RED CELL DISTRIBUTION WIDTH 14.4 % (11.5-14.5); WHITE BLOOD COUNT 7.1 x10^3/uL (4.0-11.0)
[2017-03-19 15:26] LABS: CREATININE 1.2 mg/dL (0.6-1.0); GFR 42.7; POTASSIUM 3.9 mmol/L (3.5-5.1)
[2017-03-19 15:32] LABS: ALBUMIN 3.7 g/dL (3.4-5.0); ALBUMIN/GLOBULIN RATIO 1.2 (1.0-1.7); TOTAL BILIRUBIN 0.4 mg/dL (0.2-1.0); TOTAL PROTEIN 6.8 g/dL (6.4-8.2)
--- NOTE | 2017-03-19 15:53 | PHYS DOC ---
Past Medical History Past Medical History: Cancer, Dementia, Hypertension, Renal Disease, TIA, Other Additional Past Medical Histor: COLON CA 2012 Past Surgical History: Appendectomy, Cancer Surgery, Colectomy, Hysterectomy Alcohol Use: None Drug Use: None Adult General Chief Complaint Chief Complaint: OTHER COMPLAINTS HPI HPI 86-year-old female who is been here multiple times recently admitted to our hospital who presents with a foreign body in the GI tract. She took a pill which is what is stuck in her throat. She has a sensation in her neck as a foreign body after taking a pill. Onset today. Location GI tract. Duration constant. Associated with difficulty swallowing. Review of systems is negative for chest pain shortness of breath abdominal pain. Negative for fever. All other review of systems is negative unless otherwise noted in history of present illness. ED course: 86-year-old female presenting to the emergency department today with the foreign body (Pill) stuck in her throat. Patient was given IV glucagon. Unfortunately this did not pass the patient's pill. I discussed the case with Geovanna our GI doctors [facility]. They're familiar with this patient. Patient has had multiple imaging studies. It seem reasonable to me to facilitate urgent endoscopy given the patient's foreign body in esophagus/sensation of foreign body in the esophagus. Geovanna medically clear to me that Dr. Boland was not going to perform an endoscopy but would offer the patient a PEG tube. I felt that the patient might benefit from endoscopy and since we did not have a willing endoscopist here in our hospital for the patient transfer to another facility. I did this in my best judgment in the best interest of the patient. I had a long discussion with the patient and her daughter. After our discussion the patient requested to be transferred to [facility] to be evaluated by another biochemistry professor for possible second opinion/urgent endoscopy. The patient was then transferred. Accepting doctor was Dr. Muniz. Review of Systems Review of Systems SEE ABOVE. Current Medications Current Medications Current Medications Medications (Trade) Dose Ordered Sig/Bill Start Time Stop Time Status Last Admin Dose Admin Glucagon (Glucagen) 1 mg 1X ONCE 03/19/17 16:00 03/19/17 16:01 DC 03/19/17 16:28 1 MG Lorazepam (Ativan) 0.5 mg 1X ONCE 03/19/17 17:45 03/19/17 17:46 DC 03/19/17 17:43 0.5 MG Allergies Allergies Allergies Coded Allergies Type Severity Reaction Last Updated Verified meclizine Allergy Intermediate Swelling 09/30/16 Yes codeine Adverse Reaction Intermediate Nausea and Vomiting 09/30/16 Yes Physical Exam Physical Exam SEE ABOVE Constitutional: Well developed, well nourished, no acute distress, non-toxic appearance. [] HENT: Normocephalic, atraumatic, bilateral external ears normal, oropharynx moist, no oral exudates, nose normal. [] Eyes: PERRLA, EOMI, conjunctiva normal, no discharge. [] Neck: Normal range of motion, no tenderness, supple, no stridor. [] Cardiovascular:Heart rate regular rhythm, no murmur [] Lungs & Thorax: Bilateral breath sounds clear to auscultation [] Abdomen: Bowel sounds normal, soft, no tenderness, no masses, no pulsatile masses. Skin: Warm, dry, no erythema, no rash. [] Back: No tenderness, no CVA tenderness. [] Extremities: No tenderness, no cyanosis, no clubbing, ROM intact, no edema. [] Neurologic: Alert and oriented X 3, normal motor function, normal sensory function, no focal deficits noted. [] Psychologic: Affect normal, judgement normal, mood normal. [] Current Patient Data Vital Signs Vital Signs Date Time Temp Pulse Resp B/P (MAP) Pulse Ox O2 Delivery O2 Flow Rate FiO2 03/19/17 16:30 80 39 133/80 (97) 98 Room Air 03/19/17 14:27 97.8 97.8 Lab Values Laboratory Tests Test 03/19/17 15:10 03/19/17 16:15 White Blood Count 7.1 x10^3/uL (4.0-11.0) Red Blood Count 3.86 x10^6/uL (3.50-5.40) Hemoglobin 11.9 g/dL (12.0-15.5) L Hematocrit 35.9 % (36.0-47.0) L Mean Corpuscular Volume 93 fL (79-100) Mean Corpuscular Hemoglobin 31 pg (25-35) Mean Corpuscular Hemoglobin Concent 33 g/dL (31-37) Red Cell Distribution Width 14.4 % (11.5-14.5) Platelet Count 191 x10^3/uL (140-400) Neutrophils (%) (Auto) 73 % (31-73) Lymphocytes (%) (Auto) 19 % (24-48) L Monocytes (%) (Auto) 7 % (0-9) Eosinophils (%) (Auto) 2 % (0-3) Basophils (%) (Auto) 0 % (0-3) Neutrophils # (Auto) 5.1 x10^3uL (1.8-7.7) Lymphocytes # (Auto) 1.3 x10^3/uL (1.0-4.8) Monocytes # (Auto) 0.5 x10^3/uL (0.0-1.1) Eosinophils # (Auto) 0.1 x10^3/uL (0.0-0.7) Basophils # (Auto) 0.0 x10^3/uL (0.0-0.2) Sodium Level 143 mmol/L (136-145) Potassium Level 3.9 mmol/L (3.5-5.1) Chloride Level 105 mmol/L (98-107) Carbon Dioxide Level 26 mmol/L (21-32) Anion Gap 12 (6-14) Blood Urea Nitrogen 15 mg/dL (7-20) Creatinine 1.2 mg/dL (0.6-1.0) H Estimated GFR (Cockcroft-Gault) 42.7 BUN/Creatinine Ratio 13 (6-20) Glucose Level 104 mg/dL (70-99) H Calcium Level 9.0 mg/dL (8.5-10.1) Total Bilirubin 0.4 mg/dL (0.2-1.0) Aspartate Amino Transferase (AST) 19 U/L (15-37) Alanine Aminotransferase (ALT) 20 U/L (14-59) Alkaline Phosphatase 67 U/L (46-116) Troponin I Quantitative < 0.017 ng/mL (0.000-0.055) Total Protein 6.8 g/dL (6.4-8.2) Albumin 3.7 g/dL (3.4-5.0) Albumin/Globulin Ratio 1.2 (1.0-1.7) Lipase 127 U/L (73-393) Urine Collection Type U cath Urine Color Yellow Urine Clarity Clear Urine pH 6.0 Urine Specific [place] <=1.005 Urine Protein Negative mg/dL (NEG-TRACE) Urine Glucose (UA) Negative mg/dL (NEG) Urine Ketones (Stick) Negative mg/dL (NEG) Urine Blood Negative (NEG) Urine Nitrite Negative (NEG) Urine Bilirubin Negative (NEG) Urine Urobilinogen Dipstick 0.2 mg/dL (0.2 mg/dL) Urine Leukocyte Esterase Negative (NEG) Urine RBC 0 /HPF (0-2) Urine WBC 0 /HPF (0-4) Urine Squamous Epithelial Cells Occ /LPF Urine Bacteria 0 /HPF (0-FEW) Laboratory Tests 03/19/17 15:10 Laboratory Tests 03/19/17 15:10 EKG EKG [] Radiology/Procedures Radiology/Procedures [] Course & Med Decision Making Course & Med Decision Making Pertinent Labs and Imaging studies reviewed. (See chart for details) [] Dragon Disclaimer Dragon Disclaimer This electronic medical record was generated, in whole or in part, using a voice recognition dictation system. Departure Departure Impression: Primary Impression: Esophageal obstruction Disposition: ADMITTED INPATIENT Admitting Physician: Kev Martinez Condition: STABLE Referrals: ERIBERTO SANCHEZ DO (PCP) CHRISTIANE CHOUDHURY MD Mar 19, 2017 15:53
[2017-03-19] MEDS ORDERED: GLUCAGON,HUMAN RECOMBINANT 1 MG/ML VIAL. IV ONE (16:00)
[2017-03-19 16:35] LABS: BILIRUBIN,URINE NEGATIVE (NEG); GLUCOSE,URINE NEGATIVE (NEG); NITRITE,URINE NEGATIVE (NEG); PROTEIN,URINE NEGATIVE (NEG-TRACE); UROBILINOGEN,URINE 0.2 mg/dL (0.2 mg/dL)
[2017-03-19 16:56] LABS: BACTERIA,URINE 0 /HPF (0-FEW); RBC,URINE 0 /HPF (0-2); SQUAMOUS EPITHELIAL CELL,UR OCC /LPF; WBC,URINE 0 /HPF (0-4)
[2017-03-19 18:00] VITALS: BP 123/57
== END 2017-03-19 20:00 | disposition short-term general hospital (02) ==
LOC: ER 14:03
DX: K22.2 Esophageal obstruction (principal); F03.90 Unspecified dementia, unspecified severity, without behavioral disturbance, psychotic disturbance, mood disturbance, and anxiety; I12.9 Hypertensive chronic kidney disease with stage 1 through stage 4 chronic kidney disease, or unspecified chronic kidney disease; N18.9 Chronic kidney disease, unspecified; Z86.73 Personal history of transient ischemic attack (TIA), and cerebral infarction without residual deficits; Z90.710 Acquired absence of both cervix and uterus; Z90.49 Acquired absence of other specified parts of digestive tract; Z88.5 Allergy status to narcotic agent; Z88.8 Allergy status to other drugs, medicaments and biological substances
CPT/HCPCS: 36415; 80053; 81001; 83690; 84484; 85025; 96374; 96375; 99285; J1610; J2060